=== PATIENT | female | born 1935 | race Caucasian/White ===

== ENCOUNTER 2017-05-18 20:11 | Emergency (ER) | payer OTHER ==
[~2017-05-18] VITALS: Ht 144.8 cm; Wt 51.6 kg
[~2017-05-18 20:11] MED LIST: ATOR10TA88 PO; ESCI10TA17 PO; METO25TA56 PO; PANT40TA PO; TRAZ50TA35 PO
[2017-05-18 20:19] VITALS: Ht 144.8 cm; Wt 51.6 kg
[2017-05-18] MEDS ORDERED: SODIUM CHLORIDE 0.9% 1000ML 1,000 ML IV STA (20:23)
[2017-05-18] MEDS ORDERED: PANT40TA PO (20:45)
[2017-05-18] MEDS ORDERED: TRAM-10 PO (20:45)
[2017-05-18] MEDS ORDERED: LISI10TA PO (20:45)
--- NOTE | 2017-05-18 20:50 | DIAGNOSTIC IMAGING REPORT ---
CHEST ONE VIEW PORTABLE HISTORY: Atypical chest pain, left upper abd pain, vomiting COMPARISON: Chest 03/13/2016. FINDINGS: Stable 1.5 cm nodule within the right upper lobe. This likely represents a calcified granuloma. The lungs are otherwise clear. Cardiac silhouette is normal in size. No pleural effusions. No pneumothorax. Large hiatus hernia is again noted. IMPRESSION: No acute process. Large hiatus hernia, unchanged. Electronically signed by: Orlin Miramontes M.D. 05/18/2017 8:49 PM Dictated Date/Time: 05/18/2017 8:47 PM
[2017-05-18 21:04] LABS: BASO % 0.2 %; BASO ABS # 0.01 K/uL (0-0.2); COMPLETE YES; EOS % 1.7 %; HEMATOCRIT 36.7 % (37-47); IG% 0.2 %; LYMPH % 21.4 %; LYMPH ABS # 1.37 K/uL (1.2-3.4); MEAN CELL VOLUME 81.6 fL (80-100); MEAN CORPUSCULAR HEMOGLOBIN 26.7 pg (25-34); MEAN CORPUSCULAR HGB CONC 32.7 g/dl (32-36); MEAN PLATELET VOLUME 10.7 fL (7.4-10.4); MONO % 5.3 %; NEUT % 71.2 %; PLATELET COUNT 129 K/uL (130-400); WHITE BLOOD COUNT 6.41 K/uL (4.8-10.8)
--- NOTE | 2017-05-18 21:41 | DIAGNOSTIC IMAGING REPORT ---
ABDOMEN AND PELVIS CT WITHOUT CONTRAST CT DOSE: 260.98 mGy.cm HISTORY: chest pain, LUQ abd pain, vomiting. TECHNIQUE: Multiaxial CT images of the abdomen and pelvis were performed without contrast. A dose lowering technique was utilized adhering to the principles of ALARA. COMPARISON STUDY: Abdomen and pelvis CT 03/13/2016. FINDINGS: Mild interstitial thickening at the lung bases which is likely chronic. Large hiatus hernia, unchanged. No pneumoperitoneum. No pneumatosis. Small fat-containing periumbilical hernia, unchanged. There is also a large gallstone, unchanged. No gallbladder wall thickening. The unenhanced liver, spleen, adrenal glands, and pancreas are unremarkable. No renal stones or hydronephrosis. There is a 13 mm hypodense lesion within the interpolar region of the left kidney. This is slightly increased in size. This favors a cyst. There are 2 fat-containing lesions within the left kidney with the largest in the lower pole measuring 1.4 cm. These are consistent with angiomyolipomas. The bladder appears unremarkable. No ureteral stones identified. Hysterectomy. Suboptimal evaluation for bowel pathology due to the lack of intravenous and oral contrast. However, there is no definite bowel wall thickening or obstruction. Extensive colonic diverticulosis. No retroperitoneal lymphadenopathy. Old severe L1 compression fracture is again noted. IMPRESSION: 1. No definite bowel wall thickening or obstruction. 2. Colonic diverticulosis. 3. Large hiatus hernia, unchanged. 4. Cholelithiasis, unchanged. 5. Additional findings as described above. Electronically signed by: Orlin Miramontes M.D. 05/18/2017 9:40 PM Dictated Date/Time: 05/18/2017 9:31 PM
[2017-05-18 21:45] LABS: ALKALINE PHOSPHATASE 48 U/L (45-117); ALT/SGPT 18 U/L (12-78); AST/SGOT 25 U/L (15-37); BLOOD UREA NITROGEN 17 mg/dl (7-18); BUN/CREATININE RATIO 15.5 (10-20); CARBON DIOXIDE 25 mmol/L (21-32); CHLORIDE 111 mmol/L (98-107); CKMB/CK RATIO 1.9 (0-3.0); GLUCOSE 144 mg/dl (70-99); POTASSIUM 3.8 mmol/L (3.5-5.1); SODIUM 142 mmol/L (136-145)
[2017-05-18 22:20] LABS: URINE APPEARANCE CLEAR (CLEAR); URINE BILIRUBIN NEG (NEG); URINE COLOR YELLOW; URINE NITRITE NEG (NEG); URINE SPECIFIC GRAVITY 1.018 (1.000-1.030); UROBILINOGEN NEG (NEG); ZZUR CULT IF INDIC CLEAN CATCH NO
[2017-05-18 22:22] LABS: MANUAL MICROSCOPIC REQUIRED? NO; REVIEW REQ? NO
[2017-05-18 22:57] LABS: MAGNESIUM 1.7 mg/dl (1.8-2.4)
[2017-05-18] MEDS ORDERED: PANTOprazole SOD 40 MG TAB ONE (22:58)
[2017-05-18] MEDS ORDERED: PANTOprazole SOD 40 MG TAB PO ONE (23:00)
[2017-05-18] MEDS ORDERED: MAGNESIUM SULFATE 1GM / D5W 1 GM in PREMIXED IN D5W 100 ML IV ONE (23:30)
[2017-05-18] MEDS ORDERED: MAGNESIUM SULFATE 1GM / D5W 1 GM BAG ONE (23:31)
--- NOTE | 2017-05-19 00:17 | EMERGENCY ROOM VISIT NOTE ---
History Report prepared by Amirahibjacques: Nati Trinh Under the Supervision of: Dr. Andi Tsai M.D. First contact with patient: 20:23 Chief Complaint: ABDOMINAL PAIN Stated Complaint: illness Nursing Triage Summary: "weak, lightheaded, diarrhea for a week, I think I have the flu. I lost 23 pounds in 2 weeks." c/o vomited, felt sweaty and dizzy tonight after having, pain LUQ, full sensation LLQ, feeling of food stuck in espophagus after eating supper (cucumbers, tomotoes, spaghetti, orange crush soda pop). [facility] 177 hr 44, pt doesn't know what her hr usu runs. History of Present Illness The patient is an 82 year old female who presents to the Emergency Room with complaints of left chest pain and LUQ abdominal pain that started this evening. She also complains of feeling weak, lightheaded and experiencing diarrhea, stating "I think I have the flu". She reports after eating dinner this evening, she began to feel dizzy, diaphoretic, nauseous and vomited. She also experienced LLQ abdominal pain and a feeling of something being stuck in her esophagus. She states she thought she was having a heart attack, so she called an ambulance. The patient denies any previous cardiac history. Pt denies LOC, headache, fevers, chills, visual changes, neck pain, breathing difficulties, back pain, melena, hematochezia, urinary symptoms, numbness, weakness, lymphadenopathy, rash, or other complaints. 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 A total of ten systems were reviewed and were otherwise negative. Past Medical & Surgical Medical Problems: (1) Hypertension (2) Kidney stone (3) Urinary problem Surgical Problems: (1) S/P hysterectomy Family History Hypertension Kidney disease Kidney stones Social History Smoking Status: Never Smoker Alcohol Use: none Drug Use: none Marital Status: Housing Status: lives with family Occupation Status: employed Current/Historical Medications Scheduled Atorvastatin (Lipitor), 10 MG PO DAILY Escitalopram (Lexapro), 10 MG PO DAILY Lisinopril (Prinivil), 10 MG PO DAILYBB Metoprolol Tartrate (Lopressor) (Lopressor), 12.5 MG PO BID Pantoprazole (Protonix), 40 MG PO DAILY Scheduled PRN Tramadol (Ultram), 50 MG PO Q8H PRN for Pain Allergies Coded Allergies: No Known Allergies (Verified , 03/13/16) Physical Exam Vital Signs Date Time Temp Pulse Resp B/P (MAP) Pulse Ox O2 Delivery O2 Flow Rate FiO2 05/18/17 22:33 41 16 133/64 94 Room Air 05/18/17 20:31 43 05/18/17 20:19 37.0 44 16 151/62 94 Room Air Physical Exam GENERAL: Awake, alert, well-appearing, in no distress HENT: Normocephalic, atraumatic. Oropharynx unremarkable. EYES: Normal conjunctiva. Sclera non-icteric. NECK: Supple. No nuchal rigidity. FROM. No JVD. RESPIRATORY: Clear to auscultation. CARDIAC: Bradycardic rate, normal rhythm. Extremities warm and well perfused. Pulses equal. ABDOMEN: Soft, non-distended. LUQ tenderness to palpation. No rebound or guarding. No masses. RECTAL: Deferred. MUSCULOSKELETAL: Chest examination reveals no tenderness. The back is symmetrical on inspection without obvious abnormality. There is no CVA tenderness to palpation. No joint edema. LOWER EXTREMITIES: Calves are equal size bilaterally and non-tender. No edema. No discoloration. NEURO: Normal sensorium. No sensory or motor deficits noted. SKIN: No rash or jaundice noted. Medical Decision & Procedures ER Provider Diagnostic Interpretation: Radiology results as stated below per my review and radiologist interpretation: CHEST ONE VIEW PORTABLE HISTORY: Atypical chest pain, left upper abd pain, vomiting COMPARISON: Chest 03/13/2016. FINDINGS: Stable 1.5 cm nodule within the right upper lobe. This likely represents a calcified granuloma. The lungs are otherwise clear. Cardiac silhouette is normal in size. No pleural effusions. No pneumothorax. Large hiatus hernia is again noted. IMPRESSION: No acute process. Large hiatus hernia, unchanged. Electronically signed by: Orlin Miramontes M.D. 05/18/2017 8:49 PM Dictated Date/Time: 05/18/2017 8:47 PM ABDOMEN AND PELVIS CT WITHOUT CONTRAST CT DOSE: 260.98 mGy.cm HISTORY: chest pain, LUQ abd pain, vomiting. TECHNIQUE: Multiaxial CT images of the abdomen and pelvis were performed without contrast. A dose lowering technique was utilized adhering to the principles of ALARA. COMPARISON STUDY: Abdomen and pelvis CT 03/13/2016. FINDINGS: Mild interstitial thickening at the lung bases which is likely chronic. Large hiatus hernia, unchanged. No pneumoperitoneum. No pneumatosis. Small fat-containing periumbilical hernia, unchanged. There is also a large gallstone, unchanged. No gallbladder wall thickening. The unenhanced liver, spleen, adrenal glands, and pancreas are unremarkable. No renal stones or hydronephrosis. There is a 13 mm hypodense lesion within the interpolar region of the left kidney. This is slightly increased in size. This favors a cyst. There are 2 fat-containing lesions within the left kidney with the largest in the lower pole measuring 1.4 cm. These are consistent with angiomyolipomas. The bladder appears unremarkable. No ureteral stones identified. Hysterectomy. Suboptimal evaluation for bowel pathology due to the lack of intravenous and oral contrast. However, there is no definite bowel wall thickening or obstruction. Extensive colonic diverticulosis. No retroperitoneal lymphadenopathy. Old severe L1 compression fracture is again noted. IMPRESSION: 1. No definite bowel wall thickening or obstruction. 2. Colonic diverticulosis. 3. Large hiatus hernia, unchanged. 4. Cholelithiasis, unchanged. 5. Additional findings as described above. Electronically signed by: Orlin Miramontes M.D. 05/18/2017 9:40 PM Dictated Date/Time: 05/18/2017 9:31 PM Laboratory Results 05/18/17 20:30 Red Blood Count 4.50, Mean Corpuscular Volume 81.6, Mean Corpuscular Hemoglobin 26.7, Mean Corpuscular Hemoglobin Concent 32.7, Mean Platelet Volume 10.7, Neutrophils (%) (Auto) 71.2, Lymphocytes (%) (Auto) 21.4, Monocytes (%) (Auto) 5.3, Eosinophils (%) (Auto) 1.7, Basophils (%) (Auto) 0.2, Neutrophils # (Auto) 4.57, Lymphocytes # (Auto) 1.37, Monocytes # (Auto) 0.34, Eosinophils # (Auto) 0.11, Basophils # (Auto) 0.01 05/18/17 20:30 Test 05/18/17 00:00 05/18/17 20:30 05/18/17 23:15 Urine Color YELLOW Urine Appearance CLEAR (CLEAR) Urine pH 5.0 (4.5-7.5) Urine Specific [place] 1.018 (1.000-1.030) Urine Protein NEG (NEG) Urine Glucose (UA) NEG (NEG) Urine Ketones NEG (NEG) Urine Occult Blood 1+ (NEG) Urine Nitrite NEG (NEG) Urine Bilirubin NEG (NEG) Urine Urobilinogen NEG (NEG) Urine Leukocyte Esterase MODERATE (NEG) Urine WBC (Auto) 1-5 /hpf (0-5) Urine RBC (Auto) 0-4 /hpf (0-4) Urine Hyaline Casts (Auto) 1-5 /lpf (0-5) Urine Epithelial Cells (Auto) 10-20 /lpf (0-5) Urine Bacteria (Auto) NEG (NEG) White Blood Count 6.41 K/uL (4.8-10.8) Red Blood Count 4.50 M/uL (4.2-5.4) Hemoglobin 12.0 g/dL (12.0-16.0) Hematocrit 36.7 % (37-47) Mean Corpuscular Volume 81.6 fL (80-100) Mean Corpuscular Hemoglobin 26.7 pg (25-34) Mean Corpuscular Hemoglobin Concent 32.7 g/dl (32-36) Platelet Count 129 K/uL (130-400) Mean Platelet Volume 10.7 fL (7.4-10.4) Neutrophils (%) (Auto) 71.2 % Lymphocytes (%) (Auto) 21.4 % Monocytes (%) (Auto) 5.3 % Eosinophils (%) (Auto) 1.7 % Basophils (%) (Auto) 0.2 % Neutrophils # (Auto) 4.57 K/uL (1.4-6.5) Lymphocytes # (Auto) 1.37 K/uL (1.2-3.4) Monocytes # (Auto) 0.34 K/uL (0.11-0.59) Eosinophils # (Auto) 0.11 K/uL (0-0.5) Basophils # (Auto) 0.01 K/uL (0-0.2) RDW Standard Deviation 44.7 fL (36.4-46.3) RDW Coefficient of Variation 15.1 % (11.5-14.5) Immature Granulocyte % (Auto) 0.2 % Immature Granulocyte # (Auto) 0.01 K/uL (0.00-0.02) Activated Partial Thromboplast Time 25.9 SECONDS (21.0-31.0) Partial Thromboplastin Ratio 1.0 Anion Gap 6.0 mmol/L (3-11) Est Creatinine Clear Calc Drug Dose 27.7 ml/min Estimated GFR () 54.5 Estimated GFR (Non- 47.0 BUN/Creatinine Ratio 15.5 (10-20) Calcium Level 8.0 mg/dl (8.5-10.1) Magnesium Level 1.7 mg/dl (1.8-2.4) Total Bilirubin 0.6 mg/dl (0.2-1) Direct Bilirubin 0.2 mg/dl (0-0.2) Aspartate Amino Transf (AST/SGOT) 25 U/L (15-37) Alanine Aminotransferase (ALT/SGPT) 18 U/L (12-78) Alkaline Phosphatase 48 U/L (45-117) Total Creatine Kinase 86 U/L (26-192) Creatine Kinase MB 1.6 ng/ml (0.5-3.6) Creatine Kinase MB Ratio 1.9 (0-3.0) Total Protein 6.5 gm/dl (6.4-8.2) Albumin 3.4 gm/dl (3.4-5.0) Lipase 297 U/L (73-393) Thyroid Stimulating Hormone (TSH) 1.540 uIu/ml (0.300-4.500) Chemistry Specimen Hemolysis Troponin I < 0.015 ng/ml (0-0.045) Laboratory results reviewed by me Medications Administered Medications (Trade) Dose Ordered Sig/Terri Route Start Time Stop Time Status Last Admin Dose Admin Sodium Chloride 1,000 ml @ 125 mls/hr Q8H STAT IV 05/18/17 20:23 05/18/17 22:50 DC 05/18/17 20:23 125 MLS/HR Pantoprazole Sodium (Protonix Tab) 40 mg STK-MED ONCE .ROUTE 05/18/17 22:58 05/18/17 22:59 DC 05/18/17 23:00 40 MG Magnesium Sulfate (Magnesium Sulfate) 1 gm STK-MED ONCE .ROUTE 05/18/17 23:31 05/18/17 23:32 DC 05/18/17 23:33 1 GM ECG Indication: abdominal pain Rate (beats per minute): 44 Rhythm: sinus bradycardia Findings: Q waves (Septal), no acute ischemic change, no ectopy Comparison ECG Date: 05/18/2017- prehospital Change: Sinus Robert, rate of 49, no ischemia, no ectopy. ED Course 2022: Ordered NSS 1000 ml @ 125 mls/hr IV. 2028: The patient was evaluated in room B10. A complete history and physical exam was performed. 2224: I reevaluated the patient and she was doing well. I discussed the results and future treatment plan with her. She verbalized understanding and agreement. 2232: Discussed the patient's case with Dr. Goncalves. The patient will be evaluated for further treatment and disposition. Medical Decision Triage Nursing notes reviewed. The patient's presentation and history were concerning for abdominal and chest pain. Etiologies such as cardiac ischemia, obstruction, peptic ulcer disease, esophageal food impaction, gastritis, aortic dissection, pulmonary embolism, pneumonia, pneumothorax, musculoskeletal, infections, gastrointestinal, as well as others were entertained. The patient was evaluated. She noted discomfort in the left chest and left upper quadrant. The patient noted symptoms resolved just prior to my evaluation. She declined any analgesia. Blood work, ECG, and imaging were ordered. She was found to be bradycardic. The patient's CBC, chemistry panel, urinalysis and cardiac markers were unremarkable. The patient's chest x-ray did not reveal any acute findings. CT scan of the abdomen pelvis revealed a hiatal hernia without acute intra-abdominal findings. On reassessment the patient is doing relatively well. Given the profound feelings of illness and chest discomfort the patient experienced I discussed further evaluation and management in the hospital. The patient was in agreement. The case was discussed with internal medicine. She was evaluated in the Emergency Room for further management. Medication Reconcilliation Current Medication List: was personally reviewed by me Blood Pressure Screening Patient's blood pressure: Elevated blood pressure Blood pressure disposition: Referred to PCP Consults Time Called: 2221 Consulting Physician: Dr. Cecilia Merida Returned Call: [phone] Discussed the patient's case with Dr. Goncalves. The patient will be evaluated for further treatment and disposition. Impression Primary Impression: Chest pain Additional Impression: Abdominal pain, left upper quadrant Scribe Attestation The scribe's documentation has been prepared under my direction and personally reviewed by me in its entirety. I confirm that the note above accurately reflects all work, treatment, procedures, and medical decision making performed by me. Departure Information Dispostion Being Evaluated By Hospitalist Referrals No Doctor, Assigned (PCP) Patient Instructions My [facility] Problem Qualifiers
[2017-05-19 01:06] VITALS: BP 131/69; PULSE 44; TEMP 37; O2SAT 97
--- NOTE | 2017-05-19 05:42 | INTERNAL MEDICINE CONSULTATION ---
DATE OF CONSULTATION: 05/19/2017 PRIMARY CARE DOCTOR: Dr. oG. The patient seen seen upon on another course at the request of Dr. Tsai for evaluation of chest pain. HISTORY OF PRESENT ILLNESS: History obtained from patient and records. Medical history significant for hypertension, hyperlipidemia, chronic bradycardia, GERD, hiatal hernia, kidney stones, mood disorder. History of impaired glucose tolerance as per records. Recent confinement December 2009 for left ureteral calculus and hydronephrosis, complicated UTI. The patient discharged on antibiotics. Two weeks ago, patient had a self-limiting vomiting and diarrhea illness. Yesterday after a meal, the patient noted burning left upper quadrant pain going to her chest. No shortness of breath. similar to reflux episodes. spontaneous relief in the Emergency Room. Px has not been taking daily Protonix at home. MEDICAL HISTORY: As above. EGD in December 2009 showed normal stomach, hiatal hernia, mild Schatzki's ring.. A 2D echo from June 2013 showed left atrial enlargement, thickened mitral valve calcification, EF 65%, diastolic dysfunction. Cardiac catheterization at [facility] showed clean coronary arteries. SURGERIES: She has had urologic procedures, hysterectomy. HOME MEDICATIONS: Include Lipitor, Lexapro, Prinivil, Lopressor, Protonix, Ultram. ALLERGIES: No known drug allergies. FAMILY HISTORY: Hypertension, kidney stones. PERSONAL AND SOCIAL HISTORY: Nonsmoker, no chronic intake of alcoholic beverages. Lives alone. REVIEW OF SYSTEMS: As per HPI, all other ROS negative. PHYSICAL EXAMINATION: VITAL SIGNS: Blood pressure was noted to be 151/70 later 120/80, pulse rate 41, RR 16, T 37 O2sats 95 on room air. GENERAL: Noted to be comfortable, no respiratory distress, slightly anxious. SKIN: Normal color. HEENT: [place] palpebral conjunctivae. Dry mucosa. NECK: No JVD. Supple. CHEST: Clear to auscultation. HEART: Bradycardic. ABDOMEN: Soft, nontender. EXTREMITIES: No edema. No tenderness NEUROLOGIC: No gross focality. LABS: Hemoglobin was noted to be 12, hematocrit 36.7, white cell count 6.4, platelets 129. Sodium 140, potassium 3.8, chloride 111, CO2 of 25, BUN 70, creatinine 1.1, glucose was noted to be 144. Troponin 2 sets normal. EKG as per my interpretation sinus bradycardia, PACs. Chest x-ray showed large hiatal hernia. No acute process. CT abdomen and pelvis, colonic diverticulosis, cholelithiasis unchanged. ASSESSMENT: 1. Atypical chest pain, likely secondary to GERD Large hiatal hernia on imaging, home PPI noncompliance Doubt acute coronary syndrome given clinical history and two negative serial troponin determinations. 2. Hypertension, stable. 3. Chronic bradycardia. 4. Thrombocytopenia, possibly secondary to recent viral illness, no evidence of bleeding. RECOMMENDATIONS: No indication for hospitalization. Patient comfortable going home. Recommend daily intake of home PPI prescribed by primary care doctor. Outpatient followup with PCP next week. Repeat CBC to follow platelet levels. Patient was instructed to return to the ER for recurrence of pain, chest pain, shortness of breath. Patient expressed understanding and was amenable to the plan of care. Thank you very much for this consultation. ANIKET
== END 2017-05-19 01:06 | disposition home or self-care (01) ==
LOC: EDBD 20:11 → C.EDB 20:13
DX: R07.89 Other chest pain (principal); K57.92 Diverticulitis of intestine, part unspecified, without perforation or abscess without bleeding; K44.9 Diaphragmatic hernia without obstruction or gangrene; K80.20 Calculus of gallbladder without cholecystitis without obstruction; R10.12 Left upper quadrant pain; I10 Essential (primary) hypertension; R00.1 Bradycardia, unspecified; D69.6 Thrombocytopenia, unspecified; R42 Dizziness and giddiness; R19.7 Diarrhea, unspecified; Z79.899 Other long term (current) drug therapy

== ENCOUNTER 2024-10-24 14:36 | Inpatient (IN) ==
[2024-10-24 15:35] LABS: Basophils # (auto) 0.01 K/uL (0.00-0.20); Basophils % (auto) 0.3 %; Eosinophils # (auto) 0.01 K/uL (0.00-0.50); Eosinophils % (auto) 0.3 %; Hematocrit (blood only) 34.2 % (37.0-47.0); Hemoglobin 10.8 g/dl (12.0-16.0); Immature Granulocytes # (auto) 0.01 K/uL (0.01-0.20); Immature Granulocytes % (auto) 0.3 %; Lymphocytes # (auto) 1.05 K/uL (1.20-3.40); Lymphocytes % (auto) 27.4 %; Mean Corpuscular Hemoglobin 28.3 pg (25.0-34.0); Mean Corpuscular Hgb Conc 31.6 g/dL (32.0-36.0); Mean Corpuscular Volume 89.5 fL (80.0-100.0); Mean Platelet Volume 9.8 fL (9.4-12.4); Monocytes # (auto) 0.33 K/uL (0.11-0.59); Monocytes % (auto) 8.6 %; Neutrophils # (auto) 2.42 K/uL (1.40-6.50); Neutrophils % (auto) 63.1 %; Platelet Count 178 K/uL (130-400); RDW Coefficient of Variation 17.3 % (11.5-14.5); RDW Standard Deviation 55.9 fL (36.4-46.3); Red Blood Count 3.82 M/uL (4.20-5.40); White Blood Count 3.83 K/ul (4.8-10.8)
[2024-10-24 15:50] LABS: Albumin Globulin Ratio 1.4 (0.9-2); Albumin Level 4.2 gm/dl (3.4-5.0); BUN Creatinine Ratio 19.5 (10-20); Bilirubin,Total 0.7 mg/dl (0.2-1.0); Calcium 9.2 mg/dl (8.6-10.3); Creatinine Clr Calc Pharmacy 32.1 ml/min; Globulin 2.9 gm/dl (2.5-4.0); Magnesium 1.7 mg/dl (1.7-2.4); Potassium 3.6 mmol/L (3.5-5.1); Total Protein 7.1 gm/dl (6.0-8.3)
[2024-10-24 15:55] LABS: Troponin I High Sensitivity 15.4 pg/ml (0-14)
[2024-10-24 16:00] LABS: Prothrombin Time 10.8 Seconds (9.0-12.0)
[2024-10-24 16:04] LABS: Thyroid Stimulating Hormone 1.112 uIu/ml (0.300-4.500)
--- NOTE | 2024-10-24 16:18 | XRay Report ---
XR chest 1V portable CLINICAL HISTORY: weakness COMPARISON STUDY: 10/02/2024 FINDINGS: Stable cardiomegaly without pulmonary vascular congestion. There is a large hiatal hernia, grossly stable compared with the CT of 10/02/2024. There is stable mild atelectasis in the lung bases . No new consolidation or pleural effusion. No pneumothorax. IMPRESSION: No acute findings. ACT 112: Negative or not required by law. Electronically signed by: Kenneth Patel M.D. 10/24/2024 3:18 PM
--- NOTE | 2024-10-24 16:18 | CT Scan Report ---
CT lumbar spine wo con CLINICAL HISTORY: low back pain, hx fall, AMS COMPARISON STUDY: 10/02/2024 FINDINGS: There is stable severe height loss at the T11 and L1 vertebral bodies. No interval lumbar s pine fracture seen. Stable grade 1 anterolisthesis of L4 4 on 5 and L5 on S1. Stable moderate bilater al neural foraminal narrowing at L5-S1. Stable few scattered bone islands. Stable at least mild centr al canal narrowing at L4-5. IMPRESSION: 1. No acute lumbar spine fracture seen. 2. Stable old fractures and degenerative changes. ACT 112: Negative or not required by law. Electronically signed by: Kenneth Patel M.D. 10/24/2024 3:48 PM
--- NOTE | 2024-10-24 16:18 | CT Scan Report ---
CT head/brain wo con CLINICAL HISTORY: Ams. TECHNIQUE: Multiple axial CT images of the head were obtained without contrast. A dose lowering tech nique was utilized adhering to the principles of ALARA. CT DOSE: 1295.76 mGy.cm COMPARISON: 10/02/2024 FINDINGS: No intracranial hemorrhage seen. No mass effect, midline shift, or hydrocephalus. Stable mi ld chronic small vessel ischemic changes. No skull fracture. There is interval fluid and mucosal thic kening at the left maxillary sinus consistent with sinusitis. IMPRESSION: 1. No acute intracranial abnormality. 2. Left maxillary sinusitis. ACT 112: Negative or not required by law. The above report was generated using voice recognition software. It may contain grammatical, syntax o r spelling errors. Electronically signed by: Kenneth Patel M.D. 10/24/2024 3:42 PM
--- NOTE | 2024-10-24 16:19 | CT Scan Report ---
ABDOMEN AND PELVIS CT WITHOUT CONTRAST HISTORY: Acute right flank pain right flank pain, AMS TECHNIQUE: Multiaxial CT images of the abdomen and pelvis were performed without contrast. A dose lo wering technique was utilized adhering to the principles of ALARA. COMPARISON STUDY: CT lumbar spine of same day, CT abdomen and pelvis 10/02/2024 FINDINGS: Cardiomegaly with coronary arterial calcifications. Large hiatal hernia with majority of th e stomach within the thoracic cavity. Mild bibasilar atelectasis versus scarring. No pneumatosis or p neumoperitoneum. The unenhanced spleen, pancreas and adrenal glands are unremarkable. Unchanged appearance of the larg e gallstone. No CT evidence of acute cholecystitis. Liver is within normal limits. Cortical thinning of the kidneys. 1.4 cm angiomyolipoma in the lateral interpolar left kidney with additional 1.8 cm AM L of the inferior pole. 2.6 cm cyst of the superior pole left kidney. 1.2 cm AML the lateral interpol ar right kidney. No urolith or hydronephrosis. Urinary bladder wall thickening with partial distention. Atherosclerosis of the aorta without aneurys m. No lymphadenopathy. Colonic diverticulosis without acute diverticulitis. There are a few fat fille d small abdominal hernias with diastases measuring up to 1.4 cm. Degenerative changes of the spine. T 11 and L1 compression deformities/burst fractures with retropulsion redemonstrated which are unchange d from the prior study and favored to be chronic. IMPRESSION: 1. No renal or ureteral calculi or hydronephrosis. 2. No bowel obstruction or bowel wall thickening. 3. Large hiatal hernia. 4. Colonic diverticulosis. 5. Bilateral renal angiomyolipomata. 6. Cholelithiasis. 7. Additional findings as above. ACT 112: Negative or not required by law. The above report was generated using voice recognition software. It may contain grammatical, syntax o r spelling errors. Electronically signed by: Mickey Schneider M.D. 10/24/2024 3:59 PM
[2024-10-24 16:22] LABS: Adenovirus PCR Not Detected (NotDetected); Bordetella parapertussis PCR Not Detected (NotDetected); Bordetella pertussis PCR Not Detected (NotDetected); Chlamydia pneumoniae PCR Not Detected (NotDetected); Coronavirus 229E PCR Not Detected (NotDetected); Coronavirus CoV-2 (COVID19)PCR DETECTED (NotDetected); Coronavirus HKU1 PCR Not Detected (NotDetected); Coronavirus NL63 PCR Not Detected (NotDetected); Coronavirus OC43PCR Not Detected (NotDetected); Human Metapneumovirus PCR Not Detected (NotDetected); Influenza A PCR Not Detected (NotDetected); Influenza B PCR Not Detected (NotDetected); Mycoplasma pneumoniae PCR Not Detected (NotDetected); Parainfluenza Virus 1 PCR Not Detected (NotDetected); Parainfluenza Virus 2 PCR Not Detected (NotDetected); Parainfluenza Virus 3 PCR Not Detected (NotDetected); Parainfluenza Virus 4 PCR Not Detected (NotDetected); Respiratory Syncytial VirusPCR Not Detected (NotDetected); Rhinovirus/Enterovirus PCR Not Detected (NotDetected)
--- NOTE | 2024-10-24 17:50 | History & Physical Report ---
Date of Service October 24, 2024 Assessment & Plan (1) Unable to care for self: (2) Fracture of right tibial plateau: (3) COVID-19: (4) Hypertension: (5) Bradycardia: (6) Elevated troponin: Plan This is an 89-year-old female who has a significant past medical history of HTN, HLD, prediabetes, history of SVT, aortic stenosis, GERD, angiomyolipoma of both kidneys, osteoporosis and depression who presents to ED secondary to referral from office of aging due to performance of wellness check and patient found confused. #Unable to care for self at home #S/P recent R tibial plateau fx w/p ORIF by Dr. Sevilla [facility] admit to med tele pt recently hospitalized 10/03-10/14 at [facility] due to fracture above, discharged to [facility] where pt left AMA to live at home Pt is to be TTWB to RLE with knee immobilizer on at all times, according to daughter she has been full weight bearing and going up/down steps Incision appears to be healing well, sutures still intact, I suspect these are going to need removed shortly She has not followed up with orthopedics, will obtain updated R knee XR - may need to contact Ortho salesperson floor coverings at [place] #Sars COV-2 asymptomatic, daughter reports + test at [facility] earlier this week iso precautions, no treatment recommended #Elevated Troponin #ECG changes #Bradycardia (per daughter chronic for pt) cycle trops, repeat ECG in a.m. pt w/o chest pain obtain echocardiogram, consider cardiology consult in a.m. depending on trops/ echo #Acute L sinusitis per CT treat with amoxicillin 500mg TID x 7 days #HTN continue amlodipine pt has not been taking her medications #HLD continue atorvastatin #DVT ppx: SQ Lovenox FULL CODE PCP: Dr. Go Dispo: admit to med/tele while undergoing cardiac work up, PT/OT, CM involvement needed, pt is not capable of caring for self at home and will need further SNF placement, daughter agrees Pt was seen and examined in collaboration with Dr. Douglas, please see addendum I spent a total of 76 minutes reviewing notes, outpatient records, labs, medication, coordinating, documenting and providing care for this patient excluding time spent in the performance of separately billed services. History of Present Illness Chief Complaint: Referred via EMS / [facility] wellness check and confusion/concern for living at home. Primary Care Provider: Richard Arlington This is an 89-year-old female who has a significant past medical history of HTN, HLD, prediabetes, history of SVT, aortic stenosis, GERD, angiomyolipoma of both kidneys, osteoporosis and depression who presents to ED secondary to referral from office of aging due to performance of wellness check and patient found confused. Of significance patient was recently hospitalized 10/03 to 10/14/2024 at [facility] due to a fall in which she sustained a right tibial plateau fracture. She underwent ORIF of the right tibial plateau fracture on 10/03. Her hospital course was complicated with acute blood loss anemia and discharge and hemoglobin was 9.4. Ortho recommended that patient wear a right knee immobilizer at all times and she may not bear weight on the right leg except for toe touch for up to 8 weeks. She will need close follow-up with orthopedics at discharge. Her blood pressure was noted to be elevated throughout admission and she was started on amlodipine 5 mg daily. She was [facility] [place] [facility].ROS and history difficult to obtain from patient secondary to hearing status. Discussion was had with daughter. She states that she was only at her side for a few days and she opted to be discharged home AGAINST MEDICAL ADVICE. Daughter has concerns of patient being on her own. Her granddaughter had been checking on her. She reports that she has been bearing weight and going up and down the steps on that right leg in her house. Daughter was unaware that she was to be nonweightbearing of that leg. Patient has not followed up with orthopedics since discharge. Daughter reports patient was seen in [facility] approximately 5 days ago due to feeling short of breath. She tested positive for COVID at that time. Patient currently denies any fever, chills, sweats, chest pain, shortness of breath, nausea, vomiting, abdominal pain, change in her bowel or urinary habits, sinus congestion or sinus pressure. In ED patient remained hemodynamically stable. She was bradycardic. According to daughter her heart rate always runs in the 50s. Her CBC, CMP and UA was generally unremarkable. She remains positive for SARS-CoV-2. Her troponin was mildly elevated at 15. Allergies Allergy/AdvReac Type Severity Reaction Status Date / Time No Known Allergies Allergy Unknown Verified 03/13/16 07:10 Home Medications Medication Instructions Recorded Confirmed Type alendronate 70 mg tablet 70 mg PO Q7D 10/24/24 10/24/24 History amlodipine 5 mg tablet 5 mg PO DAILY 10/24/24 10/24/24 History atorvastatin 10 mg tablet 10 mg PO DAILY 10/24/24 10/24/24 History cholecalciferol (vitamin D3) 25 25 mcg PO DAILY 10/24/24 10/24/24 History mcg (1,000 unit) capsule docusate sodium 100 mg capsule 100 mg PO BID 10/24/24 10/24/24 History escitalopram oxalate 10 mg tablet 10 mg PO DAILY 10/24/24 10/24/24 History fluticasone propionate 50 1 spray intranasal BID 10/24/24 10/24/24 History mcg/actuation nasal spray,suspension oxycodone 5 mg tablet 5 mg PO Q4H PRN Pain 10/24/24 10/24/24 History pantoprazole 40 mg tablet,delayed 40 mg PO DAILY 10/24/24 10/24/24 History release Past Med/Surg History Problem List (Updated 10/24/24 @ 19:04 by Daisha Salazar PA-C) Elevated troponin Fracture of right tibial plateau Unable to care for self Altered mental status (Acute) COVID-19 (Acute) Bradycardia (Acute) Hypertension (Chronic) Social History Smoking Status: Former smoker Preferred Language: Serbian Feels Safe at Home: Yes Review of Systems Review of Systems: All systems reviewed & are unremarkable except as noted in HPI & below Physical Exam Physical Exam: Constitutional: Elderly F, appears unkempt, very [place], vitals as above, NAD, sitting up in bed, pleasant, Head: Normocephalic, Atraumatic Eyes: PERRL, conjunctivae normal, anicteric sclerae ENMT: external ear and nose normal, oropharynx dry Neck: trachea midline, no thyromegaly normal visual inspection Respiratory: normal respiratory effort, lungs clear to auscultation, no wheeze, rales, rhonchi. Normal insp/exp effort, no accessory muscle use Cardiovascular: bradycardic rate, regular rhythm, no murmur, no edema Vessels: no JVD or carotid bruit Chest: normal inspection of chest Abdomen: normal bowel sounds, soft, nontender, no hepatosplenomegaly Musculoskeletal: no cyanosis or clubbing, RLE immobilizer in place, this was removed and incision is healing well w/o erythema, sutures remain in tact Skin: no rashes, warm and dry normal turgor Neurologic: PERRL, EOMI, accommodation nl, no face palsy, no dysarthria CN's II-XI intact bilaterally and moves all extremities Psychiatric: A+Ox3 to basics, she wasn't oriented to month, , euthymic affect Lymphatic: no cervical or axillary lymphadenopathy : deferred Results & Data Results & Data Vital Signs (Past 12 Hours) Vital Signs Temp Pulse Pulse Resp BP BP Pulse Ox 10/24/24 15:54 55 L 10/24/24 15:53 55 L 20 122/76 98 10/24/24 15:45 10/24/24 15:18 10/24/24 14:45 36.9 C 52 L 24 167/103 H 94 O2 Del Method 10/24/24 15:54 10/24/24 15:53 Room Air 10/24/24 15:45 Room Air 10/24/24 15:18 Room Air 10/24/24 14:45 Room Air Laboratory Results I have independently reviewed and interpreted patient's admitting labs including CBC, CMP, PT/INR, mag, ck, tsh, resp biofire, and troponin. Appears unchanged from 10/15 ECG; however 10/02/24 revealed no lateral t wave inversion Diagnostic Findings Chest X-Ray 10/24/24 14:51 XR chest 1V portable CLINICAL HISTORY: weakness COMPARISON STUDY: 10/02/2024 FINDINGS: Stable cardiomegaly without pulmonary vascular congestion. There is a large hiatal hernia, grossly stable compared with the CT of 10/02/2024. There is stable mild atelectasis in the lung bases. No new consolidation or pleural effusion. No pneumothorax. IMPRESSION: No acute findings. ACT 112: Negative or not required by law. Electronically signed by: Kenneth Patel M.D. 10/24/2024 3:[address] 10/24/24 14:57 CT head/brain wo con CLINICAL HISTORY: Ams. TECHNIQUE: Multiple axial CT images of the head were obtained without contrast. A dose lowering technique was utilized adhering to the principles of ALARA. CT DOSE: 1295.76 mGy.cm COMPARISON: 10/02/2024 FINDINGS: No intracranial hemorrhage seen. No mass effect, midline shift, or hydrocephalus. Stable mild chronic small vessel ischemic changes. No skull fracture. There is interval fluid and mucosal thickening at the left maxillary sinus consistent with sinusitis. IMPRESSION: 1. No acute intracranial abnormality. 2. Left maxillary sinusitis. ACT 112: Negative or not required by law. The above report was generated using voice recognition software. It may contain grammatical, syntax or spelling errors. Electronically signed by: Kenneth Patel M.D. 10/24/2024 3:42 PM Abdomen/Pelvis CT 10/24/24 15:[address] WITHOUT CONTRAST HISTORY: Acute right flank pain right flank pain, AMS TECHNIQUE: Multiaxial CT images of the abdomen and pelvis were performed without contrast. A dose lowering technique was utilized adhering to the principles of ALARA. COMPARISON STUDY: CT lumbar spine of same day, CT abdomen and pelvis 10/02/2024 FINDINGS: Cardiomegaly with coronary arterial calcifications. Large hiatal hernia with majority of the stomach within the thoracic cavity. Mild bibasilar atelectasis versus scarring. No pneumatosis or pneumoperitoneum. The unenhanced spleen, pancreas and adrenal glands are unremarkable. Unchanged appearance of the large gallstone. No CT evidence of acute cholecystitis. Liver is within normal limits. Cortical thinning of the kidneys. 1.4 cm angiomyolipoma in the lateral interpolar left kidney with additional 1.8 cm AML of the inferior pole. 2.6 cm cyst of the superior pole left kidney. 1.2 cm AML the lateral interpolar right kidney. No urolith or hydronephrosis. Urinary bladder wall thickening with partial distention. Atherosclerosis of the aorta without aneurysm. No lymphadenopathy. Colonic diverticulosis without acute diverticulitis. There are a few fat filled small abdominal hernias with diastases measuring up to 1.4 cm. Degenerative changes of the spine. T11 and L1 compression deformities/burst fractures with retropulsion redemonstrated which are unchanged from the prior study and favored to be chronic. IMPRESSION: 1. No renal or ureteral calculi or hydronephrosis. 2. No bowel obstruction or bowel wall thickening. 3. Large hiatal hernia. 4. Colonic diverticulosis. 5. Bilateral renal angiomyolipomata. 6. Cholelithiasis. 7. Additional findings as above. ACT 112: Negative or not required by law. The above report was generated using voice recognition software. It may contain grammatical, syntax or spelling errors. Electronically signed by: Mickey Schneider M.D. 10/24/2024 3:[address] 10/24/24 15:05 CT lumbar spine wo con CLINICAL HISTORY: low back pain, hx fall, AMS COMPARISON STUDY: 10/02/2024 FINDINGS: There is stable severe height loss at the T11 and L1 vertebral bodies. No interval lumbar spine fracture seen. Stable grade 1 anterolisthesis of L4 4 on 5 and L5 on S1. Stable moderate bilateral neural foraminal narrowing at L5- S1. Stable few scattered bone islands. Stable at least mild central canal narrowing at L4-5. IMPRESSION: 1. No acute lumbar spine fracture seen. 2. Stable old fractures and degenerative changes. ACT 112: Negative or not required by law. Electronically signed by: Kenneth Patel M.D. 10/24/2024 3:48 PM ECG Additional Comments: I have independently reviewed and interpreted patient's admitting EKG which revealed: 53 SB with marked sinus arrhythmia. marked t wave inversions leads V3-V6 and II appears unchanged from previous COVID-19 Results Results COVID-19 Adm Lab Results: RBC 3.82 M/uL (4.20-5.40) L 10/24/24 WBC 3.83 K/ul (4.8-10.8) L 10/24/24 Hgb 10.8 g/dl (12.0-16.0) L 10/24/24 Hct 34.2 % (37.0-47.0) L 10/24/24 Plt Count 178 K/uL (130-400) 10/24/24 Neutrophils (%) (Auto) 63.1 % 10/24/24 Lymphocytes (%) (Auto) 27.4 % 10/24/24 Monocytes # (Auto) 0.33 K/uL (0.11-0.59) 10/24/24 Eosinophils # (Auto) 0.01 K/uL (0.00-0.50) 10/24/24 Neutrophils # (Auto) 2.42 K/uL (1.40-6.50) 10/24/24 Lymphocytes # (Auto) 1.05 K/uL (1.20-3.40) L 10/24/24 Monocytes # (Auto) 0.33 K/uL (0.11-0.59) 10/24/24 Eosinophils # (Auto) 0.01 K/uL (0.00-0.50) 10/24/24 Basophils # (Auto) 0.01 K/uL (0.00-0.20) 10/24/24 Immature Granulocyte # (Auto) 0.01 K/uL (0.01-0.20) 5 Na 139 mmol/L (136-145) 10/24/24 K 3.6 mmol/L (3.5-5.1) 10/24/24 Cl 105 mmol/L (98-107) 10/24/24 CO2 23 mmol/L (21-32) 10/24/24 Anion Gap 11 (3-11) 10/24/24 BUN 17 mg/dl (6-23) 10/24/24 Creatinine 0.87 mg/dl (0.6-1.2) 10/24/24 BUN/Creatinine Ratio 19.5 (10-20) 10/24/24 Glucose Level 96 mg/dl (70-99(Fasting)) 10/24/24 Ca 9.2 mg/dl (8.6-10.3) 10/24/24 Total Bilirubin 0.7 mg/dl (0.2-1.0) 10/24/24 AST/SGOT 22 U/L (13-39) 10/24/24 ALT/SGPT 14 U/L (7-52) 10/24/24 Alkaline Phosphatase 82 U/L (34-104) 10/24/24 Total Protein 7.1 gm/dl (6.0-8.3) 10/24/24 Albumin 4.2 gm/dl (3.4-5.0) 10/24/24 Globulin 2.9 gm/dl (2.5-4.0) 10/24/24 Albumin/Globulin Ratio 1.4 (0.9-2) 10/24/24 Total CK 38 U/L (26-192) 10/24/24 INR 1.0 (0.9-1.1) 10/24/24 Adenovirus (PCR) Not Detected (NotDetected) 10/24/24 B. parapertussis DNA (PCR) Not Detected (NotDetected) 10/15 B. pertussis DNA (PCR) Not Detected (NotDetected) 10/24/24 C. pneumoniae DNA (PCR) Not Detected (NotDetected) 5 Coronavirus Type OC43 (PCR) Not Detected (NotDetected) 08/08 Coronavirus Type HKU1 (PCR) Not Detected (NotDetected) 08/08 Coronavirus Type 229E (PCR) Not Detected (NotDetected) 08/08 COVID-19 PCR DETECTED (NotDetected) A 10/24/24 Coronavirus Type NL63 (PCR) Not Detected (NotDetected) 08/08 Human Metapneumovirus (PCR) Not Detected (NotDetected) 08/08 Influenza Virus Type A (PCR) Not Detected (NotDetected) Influenza Virus Type B (PCR) Not Detected (NotDetected) M. pneumoniae (PCR) Not Detected (NotDetected) 10/24/24 Parainfluenza Type 1 (PCR) Not Detected (NotDetected) 10/15 Parainfluenza Type 2 (PCR) Not Detected (NotDetected) 10/15 Parainfluenza Type 3 (PCR) Not Detected (NotDetected) 10/15 Parainfluenza Type 4 (PCR) Not Detected (NotDetected) 10/15 RSV (PCR) Not Detected (NotDetected) 10/24/24 Enterovirus/Rhinovirus (PCR) Not Detected (NotDetected) Chest X-Ray 10/24/24 Code Status & VTE Plan Code Status FULL CODE - discussed with daughter Enedina Supervising Physician Co-Signing Physician Notes Attending Addendum: Case reviewed with the advanced practitioner. I have personally performed a history and physical examination on the patient. I have reviewed the advanced practitioner's documentation on the date of service referenced in note, and I agree with, and take responsibility for the plan of care. please refer to her notes for full details patient seen and examined, records reviewed by myself as well on exam, patient seen resting in bed, comfortable, in good spirits denies cough, shortness of breath, nasal drainage, chest pain no other symptoms VS noted and reviewed oriented x 3, not in distress, speaks in sentences with no effort nor accessory muscle use normal rate, regular rhythm, no murmurs clear breath sounds bilaterally non distended, soft, nontender no bipedal edema, erythema, warmth no neuro deficits all labs, imaging noted and reviewed ASSESSMENT AND PLAN> INABILITY FOR SELF CARE AT HOME recent knee surgery manager utilization management consulted COVID 19 INFECTION first diagnosed last Sunday (5 days ago) asymptomatic CXR no pneumonia supportive care T WAVE DEPRESSIONS INFERIOR, ANTEROLATERAL LEADS new compared to 09/2024 no cardiac symptoms trend troponin echo other diagnoses and plan of care as per advanced practitioner's notes Jack Douglas MD
--- NOTE | 2024-10-24 18:28 | Emergency Department Note ---
Impression & Plan COVID-19, Altered mental status ED Provider Note NAME: LYNN BUCK AGE: 89 SEX: Female INFORMANT: Patient and EMS ED PROVIDER(S): Andi Tsai MD CHIEF COMPLAINT: Altered mental status PLAN: Disposition: Admitted Outpatient prescription management: none Referral: None MEDICAL DECISION MAKING: Patient presented workup was initiated. CT imaging of the head and abdomen pelvis did not reveal any acute findings. The patient had an unremarkable CBC and chemistry panel except for mild anemia. Cardiac troponin was borderline. BioFire was significant for COVID-19. Urinalysis is pending. The patient has stable vital signs at this time. Given the confusion, the fact she lives alone, acute COVID-19 infection and postop state further management in the hospital was deemed appropriate. [facility] Patient was valuated in the ER admitted for further management. 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 Triage Nursing notes: reviewed and agree them. Vital Signs: reviewed and remarkable for no significant abnormalities Additional History obtained from: EMS Chronic Medical/Social Conditions affecting care: Hypertension Prior/ Outside/ External records reviewed: none Differential Diagnosis: Infection, hypoglycemia, electrolyte abnormalities, overdose, toxicologic, cardiac sources, intracerebral event, neurologic, trauma, as well as other pathologies. Diagnostics, independently interpreted by me: ECG: Twelve-lead ECG reveals sinus bradycardia with sinus arrhythmia at 53 bpm. There is inferior and anterolateral ST-T wave changes present. When compared to last ECG of 10/15/2024 there is no significant change. Cardiac Monitoring: Cardiac monitoring ordered by me: The patient was placed on continuous cardiac monitoring and observed. It revealed sinus bradycardic rhythm at 54 bpm. Medical decision rules: none Imaging studies: Head CT: A noncontrast CT scan of the head was performed and was negative for tumor, fracture, intracranial hemorrhage, or other acute pathology. Chest x-ray. Findings: A chest x-ray was performed and revealed no pneumothorax, effusion, infiltrate, pulmonary edema, free air under the diaphragm, or wide mediastinum. Impression: No acute disease. CT scan of the abdomen pelvis reveals no evidence of acute intra-abdominal pathology. CT scan of the lumbar spine reveals old significant compression fractures without acute injury per radiology. I refer you to the EMR for further details. HPI: 89 year old Female arrives for evaluation of altered mental status. Patient was recently treated at [facility] for a right lower leg fracture and was at [facility]. Patient had a wellness check and was reported to be wearing same clothes for the last week. She was not really eating her meals that were delivered. Patient denied any new falls or trauma. She did complain of some mild right flank pain. She also was feeling generally weak. Patient does have difficulty giving any detailed information to questioning therefore history is somewhat limited. Pt denies LOC, headache, visual changes, neck pain, chest pain, breathing difficulties, nausea, vomiting, new extremity pain, numbness, open wounds, active bleeding, or other complaints. PAST MEDICAL HISTORY: See Below, hypertension PAST SURGICAL HISTORY: See Below, hysterectomy, ORIF of right tibia fracture SOCIAL HISTORY: See Below, lives alone HOME MEDICATIONS: See Below ALLERGIES: See Below VITALS: See Below PHYSICAL EXAMINATION: GENERAL: Awake, alert, [id number], in no distress HENT: Normocephalic, atraumatic. Oropharynx unremarkable. EYES: Normal conjunctiva. Sclera non-icteric. NECK: Inspection normal. Non-tender. Supple. No nuchal rigidity. FROM. No masses. RESPIRATORY: Clear to auscultation. No wheezes. No rales. Normal respiratory effort. CARDIAC: Borderline bradycardic rate. Normal rhythm. No murmurs. No rubs. Extremities warm and well perfused. Pulses equal. No JVD. GI: Soft, non-distended. No tenderness to palpation. No rebound or guarding. No masses. RECTAL: Deferred. MUSCULOSKELETAL: Atraumatic. Chest examination reveals no tenderness. The back is symmetrical on inspection without obvious abnormality. There is no CVA tenderness to palpation. No joint edema. LOWER EXTREMITIES: Calves are equal size bilaterally and non-tender. No edema. There is ecchymotic discoloration on the right lower extremity. Suture lines from ORIF procedure are clean, dry and intact without erythema. No signs of cellulitis. NEURO: Normal sensorium. No sensory or motor deficits noted. SKIN: No rash or jaundice noted. PROCEDURES: none CRITICAL CARE: none OBSERVATION NOTE: none Past Med/Surg History Problem List (Updated 10/24/24 @ 18:28 by Andi Tsai MD) Altered mental status (Acute) COVID-19 (Acute) Bradycardia (Acute) Hypertension (Chronic) Social History Smoking Status: Former smoker Preferred Language: Maltese Feels Safe at Home: Yes Allergies Allergies Allergy/AdvReac Type Severity Reaction Status Date / Time No Known Allergies Allergy Unknown Verified 03/13/16 07:10 Home Meds Home Medications Medication Instructions Recorded Confirmed alendronate 70 mg tablet 70 mg PO Q7D 10/24/24 10/24/24 amlodipine 5 mg tablet 5 mg PO DAILY 10/24/24 10/24/24 atorvastatin 10 mg tablet 10 mg PO DAILY 10/24/24 10/24/24 cholecalciferol (vitamin D3) 25 25 mcg PO DAILY 10/24/24 10/24/24 mcg (1,000 unit) capsule docusate sodium 100 mg capsule 100 mg PO BID 10/24/24 10/24/24 escitalopram oxalate 10 mg tablet 10 mg PO DAILY 10/24/24 10/24/24 fluticasone propionate 50 1 spray intranasal BID 10/24/24 10/24/24 mcg/actuation nasal spray,suspension oxycodone 5 mg tablet 5 mg PO Q4H PRN Pain 10/24/24 10/24/24 pantoprazole 40 mg tablet,delayed 40 mg PO DAILY 10/24/24 10/24/24 release Results & Data (ED) Vital Signs Vital Signs - 24 hr 10/24/24 14:45 10/24/24 15:18 10/24/24 15:40 Temperature 36.9 C Temperature Source Oral Pulse Rate 52 L 52 L Pulse Rate [Apical] Pulse Rhythm Regular Pulse Strength Normal Respiratory Rate 24 21 Blood Pressure 167/103 H 122/76 Blood Pressure [Right Arm] Blood Pressure Mean 124 96 Blood Pressure Mean [Right Arm] Blood Pressure Position Sitting Pulse Oximetry 94 96 Oxygen Delivery Method Room Air Room Air Sepsis Recent Fever Within 48 Hours No Sepsis New/Unexplained Change in Mental Status No Sepsis Action Taken by Nursing No Action Required 10/24/24 15:45 10/24/24 15:53 10/24/24 15:54 Temperature Temperature Source Pulse Rate 55 L Pulse Rate [Apical] 55 L Pulse Rhythm Pulse Strength Respiratory Rate 20 Blood Pressure Blood Pressure [Right Arm] 122/76 Blood Pressure Mean Blood Pressure Mean [Right Arm] 91 Blood Pressure Position Pulse Oximetry 98 Oxygen Delivery Method Room Air Room Air Sepsis Recent Fever Within 48 Hours Sepsis New/Unexplained Change in Mental Status Sepsis Action Taken by Nursing 10/24/24 16:00 10/24/24 17:00 10/24/24 18:01 Temperature Temperature Source Pulse Rate 46 L 47 L 54 L Pulse Rate [Apical] Pulse Rhythm Pulse Strength Respiratory Rate 31 H 22 19 Blood Pressure 140/60 147/54 H 173/103 H Blood Pressure [Right Arm] Blood Pressure Mean 95 89 120 Blood Pressure Mean [Right Arm] Blood Pressure Position Pulse Oximetry 98 96 99 Oxygen Delivery Method Sepsis Recent Fever Within 48 Hours Sepsis New/Unexplained Change in Mental Status Sepsis Action Taken by Nursing Laboratory Data 10/24/24 15:12 10/24/24 15:12 Lab Results 10/24/24 Range/Units 15:12 WBC 3.83 L (4.8-10.8) K/ul RBC 3.82 L (4.20-5.40) M/uL Hgb 10.8 L (12.0-16.0) g/dl Hct 34.2 L (37.0-47.0) % MCV 89.5 (80.0-100.0) fL MCH 28.3 (25.0-34.0) pg MCHC 31.6 L (32.0-36.0) g/dL RDW Std Deviation 55.9 H (36.4-46.3) fL RDW Coeff of Fadi 17.3 H (11.5-14.5) % Plt Count 178 (130-400) K/uL MPV 9.8 (9.4-12.4) fL Immature Gran % (Auto) 0.3 % Neut % (Auto) 63.1 % Lymph % (Auto) 27.4 % [facility] % (Auto) 8.6 % Eos % (Auto) 0.3 % Baso % (Auto) 0.3 % Neut # (Auto) 2.42 (1.40-6.50) K/uL Lymph # (Auto) 1.05 L (1.20-3.40) K/uL [facility] # (Auto) 0.33 (0.11-0.59) K/uL Eos # (Auto) 0.01 (0.00-0.50) K/uL Baso # (Auto) 0.01 (0.00-0.20) K/uL Immature Gran # (Auto) 0.01 (0.01-0.20) K/uL PT 10.8 (9.0-12.0) Seconds INR 1.0 (0.9-1.1) Sodium 139 (136-145) mmol/L Potassium 3.6 (3.5-5.1) mmol/L Chloride 105 (98-107) mmol/L Carbon Dioxide 23 (21-32) mmol/L Anion Gap 11 (3-11) BUN 17 (6-23) mg/dl Creatinine 0.87 (0.6-1.2) mg/dl Est Cr Clr Drug Dosing 32.1 ml/min eGFR 64.04 BUN/Creatinine Ratio 19.5 (10-20) Glucose 96 (70-99(Fasting)) mg/dl Calcium 9.2 (8.6-10.3) mg/dl Magnesium 1.7 (1.7-2.4) mg/dl Total Bilirubin 0.7 (0.2-1.0) mg/dl AST 22 (13-39) U/L ALT 14 (7-52) U/L Alkaline Phosphatase 82 (34-104) U/L Total Creatine Kinase 38 (26-192) U/L Troponin I High Sens 15.4 H (0-14) pg/ml Total Protein 7.1 (6.0-8.3) gm/dl Albumin 4.2 (3.4-5.0) gm/dl Globulin 2.9 (2.5-4.0) gm/dl Albumin/Globulin Ratio 1.4 (0.9-2) TSH 1.112 (0.300-4.500) uIu/ml Adenovirus (PCR) Not Detected (NotDetected) B. pertussis DNA (PCR) Not Detected (NotDetected) B.parapertussis DNA PCR Not Detected (NotDetected) C. pneumoniae DNA (PCR) Not Detected (NotDetected) Coronavirus OC43 (PCR) Not Detected (NotDetected) Coronavirus HKU1 (PCR) Not Detected (NotDetected) Coronavirus 229E (PCR) Not Detected (NotDetected) SARS-CoV-2 (PCR) DETECTED A (NotDetected) Coronavirus NL63 (PCR) Not Detected (NotDetected) Human Metapneumovir PCR Not Detected (NotDetected) Influenza Type A (PCR) Not Detected (NotDetected) Influenza Type B (PCR) Not Detected (NotDetected) M. pneumoniae (PCR) Not Detected (NotDetected) Parainfluenza 1 (PCR) Not Detected (NotDetected) Parainfluenza 2 (PCR) Not Detected (NotDetected) Parainfluenza 3 (PCR) Not Detected (NotDetected) Parainfluenza 4 (PCR) Not Detected (NotDetected) RSV (PCR) Not Detected (NotDetected) Entero/Rhino (PCR) Not Detected (NotDetected) Imaging Data Radiologist's Impression: Chest X-Ray 10/24/24 14:51 XR chest 1V portable CLINICAL HISTORY: weakness COMPARISON STUDY: 10/02/2024 FINDINGS: Stable cardiomegaly without pulmonary vascular congestion. There is a large hiatal hernia, grossly stable compared with the CT of 10/02/2024. There is stable mild atelectasis in the lung bases. No new consolidation or pleural effusion. No pneumothorax. IMPRESSION: No acute findings. ACT 112: Negative or not required by law. Electronically signed by: Kenneth Patel M.D. 10/24/2024 3:[address] 10/24/24 14:57 CT head/brain wo con CLINICAL HISTORY: Ams. TECHNIQUE: Multiple axial CT images of the head were obtained without contrast. A dose lowering technique was utilized adhering to the principles of ALARA. CT DOSE: 1295.76 mGy.cm COMPARISON: 10/02/2024 FINDINGS: No intracranial hemorrhage seen. No mass effect, midline shift, or hydrocephalus. Stable mild chronic small vessel ischemic changes. No skull fracture. There is interval fluid and mucosal thickening at the left maxillary sinus consistent with sinusitis. IMPRESSION: 1. No acute intracranial abnormality. 2. Left maxillary sinusitis. ACT 112: Negative or not required by law. The above report was generated using voice recognition software. It may contain grammatical, syntax or spelling errors. Electronically signed by: Kenneth Patel M.D. 10/24/2024 3:42 PM Abdomen/Pelvis CT 10/24/24 15:[address] WITHOUT CONTRAST HISTORY: Acute right flank pain right flank pain, AMS TECHNIQUE: Multiaxial CT images of the abdomen and pelvis were performed without contrast. A dose lowering technique was utilized adhering to the principles of ALARA. COMPARISON STUDY: CT lumbar spine of same day, CT abdomen and pelvis 10/02/2024 FINDINGS: Cardiomegaly with coronary arterial calcifications. Large hiatal hernia with majority of the stomach within the thoracic cavity. Mild bibasilar atelectasis versus scarring. No pneumatosis or pneumoperitoneum. The unenhanced spleen, pancreas and adrenal glands are unremarkable. Unchanged appearance of the large gallstone. No CT evidence of acute cholecystitis. Liver is within normal limits. Cortical thinning of the kidneys. 1.4 cm angiomyolipoma in the lateral interpolar left kidney with additional 1.8 cm AML of the inferior pole. 2.6 cm cyst of the superior pole left kidney. 1.2 cm AML the lateral interpolar right kidney. No urolith or hydronephrosis. Urinary bladder wall thickening with partial distention. Atherosclerosis of the aorta without aneurysm. No lymphadenopathy. Colonic diverticulosis without acute diverticulitis. There are a few fat filled small abdominal hernias with diastases measuring up to 1.4 cm. Degenerative changes of the spine. T11 and L1 compression deformities/burst fractures with retropulsion redemonstrated which are unchanged from the prior study and favored to be chronic. IMPRESSION: 1. No renal or ureteral calculi or hydronephrosis. 2. No bowel obstruction or bowel wall thickening. 3. Large hiatal hernia. 4. Colonic diverticulosis. 5. Bilateral renal angiomyolipomata. 6. Cholelithiasis. 7. Additional findings as above. ACT 112: Negative or not required by law. The above report was generated using voice recognition software. It may contain grammatical, syntax or spelling errors. Electronically signed by: Mickey Schneider M.D. 10/24/2024 3:[address] 10/24/24 15:05 CT lumbar spine wo con CLINICAL HISTORY: low back pain, hx fall, AMS COMPARISON STUDY: 10/02/2024 FINDINGS: There is stable severe height loss at the T11 and L1 vertebral bodies. No interval lumbar spine fracture seen. Stable grade 1 anterolisthesis of L4 4 on 5 and L5 on S1. Stable moderate bilateral neural foraminal narrowing at L5- S1. Stable few scattered bone islands. Stable at least mild central canal narrowing at L4-5. IMPRESSION: 1. No acute lumbar spine fracture seen. 2. Stable old fractures and degenerative changes. ACT 112: Negative or not required by law. Electronically signed by: Kenneth Patel M.D. 10/24/2024 3:48 PM Discharge Plan Visit Data Chief Complaint: Altered Mental Status Stated Complaint: DIZZY, CONFUSION, LOWER BACK PAIN ED Provider: Andi Tsai Discharge Problem: COVID-19, Altered mental status Forms Stand Alone Forms: My [facility] Prescriptions Prescriptions: No Action atorvastatin 10 mg tablet 10 mg PO DAILY alendronate 70 mg Tablet 70 mg PO Q7D amlodipine 5 mg Tablet 5 mg PO DAILY pantoprazole 40 mg Tablet,Delayed Release (Dr/Ec) 40 mg PO DAILY docusate sodium 100 mg Capsule 100 mg PO BID fluticasone propionate 50 mcg/actuation [place],Suspension 1 spray INTRANASAL BID Rx Instructions: administer into each nostril oxycodone 5 mg Tablet 5 mg PO Q4H PRN (Reason: Pain) cholecalciferol (vitamin D3) 25 mcg (1,000 unit) Capsule 25 mcg PO DAILY escitalopram oxalate 10 mg Tablet 10 mg PO DAILY Referrals Referrals: Richard Larios [Primary Care Provider] -
[2024-10-24 18:41] LABS: Appearance Urine Clear (Clear); Bacteria Urine Automated None Seen (None Seen); Bilirubin Urine Negative (Negative); Blood Urine Negative (Negative); Color Urine Yellow; Epithelial Cell Urine Auto 0-2 /hpf (0-2); Glucose Urine UA Negative (Negative); Ketones Urine Trace (Negative); Leukocyte Esterase Urine Negative (Negative); Nitrite Urine Negative (Negative); Protein Urine 1+ (Negative); RBC Urine Automated 0-2 /hpf (0-2); Specific Gravity Urine 1.028 (1.000-1.030); Urobilinogen Urine Negative (Negative); WBC Urine Automated 0-5 /hpf (0-5)
--- NOTE | 2024-10-24 19:58 | XRay Report ---
EXAM: XR knee RT 1 or 2V routine CLINICAL HISTORY: recent RT tibial plateau fx s/p orif -AMS TECHNIQUE: X-ray images of the right knee were obtained in anteroposterior (AP), lateral, and oblique projections. COMPARISON: No prior studies available for comparison. FINDINGS: Bone Structure: ORIF of the proximal tibia using plate and screws. Healing comminuted fractures of the medial and lateral tibial plateau. Decreased bone density. Joint Spaces: Not at medial and lateral tibiofemoral Articular Surfaces: joint compartments. Irregular articular surfaces of the tibial plateau. Patella: Patella is normal in position and alignment. No evidence of patellar dislocation or subluxation. Soft Tissues: Periarticular soft tissues appear normal and unremarkable. No soft tissue swelling, calcifications, or foreign bodies noted. Additional Findings: No evidence of joint effusion. IMPRESSION: Internal metallic hardware fixation in the proximal third aspect of right tibia for tibial plateau fracture without hardware complications Correlate with clinical findings. Disclaimer: A subtle bone abnormality or fracture may not be readily apparent on X-rays, thus clinical correlation and further imaging including follow-up CT, MRI, or follow-up X-rays are advised as needed. Electronically signed by Ap Hamm 10-24-2024 7:58 PM
[2024-10-24] MEDS: amLODIPine BESYLATE 5 MG TAB PO ONE (20:02)
[2024-10-24] MEDS: SODIUM CHLORIDE 0.9% 1,000 ML IV SCH (20:02)
[2024-10-24] MEDS ORDERED: ACETAMINOPHEN 325 MG TAB PO PRN (22:12)
[2024-10-24] MEDS ORDERED: ONDANSETRON INJ 2 MG/ML 2 ML VIAL IV PRN (22:12)
[2024-10-24] MEDS ORDERED: MELATONIN 3 MG TAB PO PRN (22:12)
[2024-10-24] MEDS ORDERED: FAMOTIDINE 20 MG TAB PO PRN (22:12)
[2024-10-24] MEDS ORDERED: POLYETHYLENE (MIRALAX) 17 GM PACK PO PRN (22:12)
--- OUTSIDE RECORDS SUMMARY | 2024-10-24 23:25 | External Medical Summary | Summary of Care ---
Author Name Unknown Organization [facility] Address [address] [place] [address] Phone [phone] Care Team Providers Care Elephant Keeper Name Role Phone Kendra Go MD Primary Care Provide r Encounter Details Date Type Department Care Team (Latest Contact Info) Description 10/02/2024 8:50 PM EST - 10/02/2024 8:54 PM EST Hospital Encounter Radiology Film File [address] [place] [address] Discharge Disposition: Home - Self Care Allergies No known active allergiesdocumented as of this encounter (statuses as of 10/17/2024) Medications Pantoprazole Sodium 40 MG Oral Tablet Delayed Release (Protonix)Indicat ions:Gastroesopha geal reflux disease without esophagitis Take 1 Tablet by mouth in the morning. 90 Tablet 3 3 Active Fluticasone Propionate 50 MCG/ACT Nasal Suspension (Flonase)Indicati ons:Dysfunction of both eustachian tubes Administer 2 Sprays into each nostril in the morning. 54 g 3 3 Active Alendronate Sodium 70 MG Oral Tablet (Fosamax)Indicati ons:Age-related osteoporosis without current pathological fracture Take 1 Tablet by mouth once a week. with 8 oz. water 30 minutes before first meal of the day. Remain upright for 30 min after taking tablet. 15 Tablet 3 3 Active Azelastine HCl 0.15 % Nasal SolutionIndicatio ns:Ear fullness, bilateral Administer 1 spray into each nostril once daily in the morning. 30 mL 1 4 Active Clindamycin Phosphate 1 % External GelIndications:Mu ltiple excoriations,Foll iculitis Apply 2x daily to open wounds on scalp until resolved. Can use more often instead of scratching the lesions. 60 g 2 4 Active Escitalopram Oxalate 10 MG Oral Tablet (Lexapro) Take 1 Tablet by mouth in the morning. 90 Tablet 2 4 Active Vitamin D3 25 MCG (1000 UT) Oral Tablet (Vitamin D3)Indications:Ag e-related osteoporosis without current pathological fracture,Vitamin D insufficiency Take 1 Tablet by mouth in the morning. 90 Tablet 2 4 Active Atorvastatin Calcium 10 MG Oral Tablet (Lipitor)Indicati ons:Dyslipidemia, goal LDL below 130 Take 1 Tablet by mouth in the morning. 90 Tablet 2 4 Active Diclofenac Sodium 1 % External Gel (Voltaren)Indicat ions:DDD (degenerative disc disease), lumbar APPLY FOUR GRAMS TOPICALLY TO BACK FOUR TIMES DAILY NEEDED 200 g 3 4 Active documented as of this encounter (statuses as of 10/17/2024) Active Problems Problem Noted Date Diagnosed Date Fall 10/13/2024 Acute blood loss anemia 10/13/2024 Tibial plateau fracture, right 10/03/2024 Hydronephrosis with renal calculous obstruction 10/03/2024 S/P hysterectomy 10/03/2024 Dizziness 04/01/2024 IPMN (intraductal papillary mucinous neoplasm) 0 05/21/2023 Angiomyolipoma of both kidneys 05/21/2023 Nonrheumatic aortic valve stenosis 01/04/2023 Nonrheumatic mitral valve regurgitation 01/05/20 23 Bilateral hearing loss 11/22/2022 SVT (supraventricular tachycardia) 10/03/2022 History of subdural hematoma (post traumatic) Recurrent major depressive disorder, in full rem ission 05/16/2022 DDD (degenerative disc disease), lumbar 09/05/20 21 Chronic kidney disease, stage 3a 03/29/2021 Overview: Per CKD protocol Hx of nonmelanoma skin cancer 03/15/2021 Overview (03/15/2021): 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) Hypertensive kidney disease with stage 3a chronic kidney disease 02/22/2021 Overview: Per CKD protocol Prediabetes 04/26/2020 Overview: Per Prediabetes protocol Bradycardia 12/06/2017 Age-related osteoporosis wit hout current pathological fracture 12/26/2010 HTN, goal below 150/90 12/23/2010 Dyslipidemia, goal LDL below 100 12/23/2010 GENERAL OSTEOARTHROSIS Gastroesophageal reflux disease without esophagi tis documented as of this encounter (statuses as of 10/17/2024) Resolved Problems Problem Noted Date Diagnosed Date Resolved Date Migraine 05/21/2023 05/21/2023 Subdural hygroma 10/03/2022 05/21/2023 Major depressive disorder with single episode 09/05/20 21 11/22/2022 SDH (subdural hematoma) 11/02/202008/16 Hypertensive kidney disease, stage III 10/01/2018 02/24/2021 Overview: Per CKD protocol Impaired glucose tolerance 03/02/2016 1 11/05/2020 Persistent insomnia 08/30/2015 12/06/19 18 Kidney disease, chronic, sta ge III (GFR 30-59 ml/min) 12/28/2014 11/01/2018 Overview: Per CKD protocol #1 Encounter for examination fo r normal comparison and control in clinical research program 09/26/2012 11/26/2012 Overview (01/31/2021): Diagnosis changed due to Research Module. Go to Snapshot for study details. Vitamin D deficiency 03/04/2012 015 Dyslipidemia, goal to be determined 09/21/2009 12/23/2010 Overview (09/21/2009): Per Lipid Taxonomy. Fracture of humerus, closed 11/18/2008 12/06/2017 elevated HgbA1c 03/19/2006 06/09/2016 ADVANCE DIRECTIVE INFORMATION 01/29/2006 08/18/2024 Overview (01/29/2006): No, Advance Directive brochure given to patient at prior appointment. Hematuria 11/29/2005 08/30/2015 Overview (01/06/2016): ICD-10 update of inactive term Calculus of kidney 11/29/2005 8 Rosacea 12/08/2002 12/06/2017 HYPERTENSION NOS 12/23/2010 Overview (09/01/2009): Modified per HTN protocol #16. Mixed dyslipidemia 9 Overview (09/21/2009): Per Lipid Taxonomy. Need for prophylactic hormon e replacement therapy (postmenopausal) 08/30/2015 CALCIF TENDINITIS SHLDER Other atopic dermatitis 08/15 Overview (08/07/2017): ICD-10 update of inactive term Other cataract 04/30/2018 Other specified anemias 08/15 documented as of this encounter (statuses as of 10/17/2024) Immunizations Name Administration Dates Next Due Pneumococcal Conjugate Vacc, 13 Valent (Prevnar) 03/19/2015 Season Influenza, Quad, PF, Adjuvanted, 65+ Yrs, IM (FLUAD) 10/04/2020 Seasonal Influenza Vac., MDV , IM, 0.5 mL (Fluzone) 07/29/2014,07/22/2013,07/16/2012,2010,07/19/2010,07/13/2009,08/06/2008,1 ,07/31/2006 Seasonal Influenza, PF, 6 M & above, IM , (FluLaval or Fluzone) 07/19/2018,07/16/2017 Seasonal Influenza, Quadriva lent Hd (Fluzone Hd) 07/10/2023,06/20/2022,09/05/2021 Seasonal Influenza, Quadriva lent, No Preserve, IM 07/13/2016,08/30/2015 Seasonal Influenza, Trivalen t, Adjuvanted, 65+ YRS, PF, (Fluad) 06/25/2019 TD, Preservative Free 09/03/2008,09/03/2008 Varicella Zoster Vaccine (Adult) 05/15/2015 Zoster Vaccine Recombinant (Shingrix) 10/04/2020 documented as of this encounter Social History Tobacco Use Types Packs/Day Years Used Date Smoking Tobacco: Never Smokeless Tobacco: Never Alcohol Use Standard Drinks/Week Comments No 0 (1 standard drink = 0.6 oz pur e alcohol) very rare PHQ-2 Answer Date Recorded PHQ-2 Score 0 04/01/2020 Personal Safety Answer Date Recorded Do you feel unsafe or have concerns for your saf ety? No 10/03/2024 Do you have concerns for you r family's safety? (Household - for ages 0-17 years) Not on file 10/03/2024 Utilities Answer Date Recorded Do you have trouble paying y our heating, water, or electric bill? No 10/03/2024 Is your family able to pay t he heat, water, or electric bill? (Household - for ages 0-17 years) Not on file 10/03/2024 Does your family have access to good internet? (Household - for ages 0-17 years) Not on file 10/03/2024 Transportation Needs Answer Date Record ed Do you have trouble getting a ride to medical visits or work? (Adult - for ages 18 years and over) Not on file 10/03/2024 Does your family have a hard time getting a ride to doctors visits? (Household - for ages 0-17 years) Not on file 10/03/2024 Has lack of transportation k ept you from medical appointments, meetings, work, or from getting things needed for daily living? Check all that apply. No 10/03/2024 Do you (or your family) have trouble finding or paying for a ride (transportation)? (Household - for ages 0-17 years) Not on file 10/03/2024 Housing Stability Answer Date Recorded Do you currently live in a s helter or have no steady place to sleep at night? (Adult - for ages 18 years and over) Not on file 10/03/2024 Do you think you are at risk of becoming homeless? (Adult - for ages 18 years and over) Not on file 10/03/2024 Does your family worry about paying for your home or becoming homeless? (Household - for ages 0-17 years) Not on file 1 12/04/2023 Are you homeless or worried that you might be in the future? No 10/03/2024 Are you (or your family) aicha eless or worried that you might be in the future? (Household - for ages 0-17 years) Not on file Food Insecurity Answer Date Recorded Do you need food for this week? No 10/03/2024 Are you able to get enough f ood for your family? (Household - for ages 0-17 years) Not on file 10/03/2024 Does your family need food t his week? (Household - for ages 0-17 years) Not on file 10/03/2024 Do you always have enough fo od for your family? 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 Not on file Not on file documented as of this encounter Plan of Treatment Upcoming Encounters Date Type Department Care Team (Late st Contact Info) Description 10/21/2024 12:00 PM EST Office Visit Orthopaedics, [place] [address] [place] [address] Tuan Andrade, PA-C [address] [place] [address] 10/22/2024 9:30 AM EST Scheduled Telephone [facility], [facility] [address] [facility] [place] [address] Anel Moreira [address] [facility] [place] [address] 10/24/2024 1:40 PM EST Office Visit Family Medicine [address] [place] [phone] Kendra Go MD [address] [place] [address] [place] [address] 11/27/2024 11:00 AM EST Office Visit Rheumatology [address] [place] [address] Nathan Siu PA-C [address] [place] [address] Health Maintenance Due Date Last Done Comments Adult Wellness Visit 01/18/2002 Zoster Vaccines (3 of 3) 11/29/2020 10/04/2020, 08/0 10/2014 Depression Monitoring 04/01/2021 04/01/2020 DXA Scan 06/07/2024 06/07/2022, 05/16, 02/25/2019, Additional history exists COVID-19 Vaccine ( season) 2024 Albumin/Creatinine Ratio 05/22/2025 024, 05/21/2023, 05/16/2022, Additional history exists HbA1c 05/22/2025 05/22/2024, 080 04/2023, 05/16/2022, Additional history exists CKD PHOS USE SMARTSET 29175 10/06/202509/15, 05/21/2023, 05/16/2022, Additional history exists CKD HGB USE SMARTSET 53195 10/14/202510/14, 10/13/2024, 10/12/2024, Additional history exists DTap/Tdap Vaccines (2 - Td or Tdap) 10/03/2034 10/03/2024, 09/03/2008, 09/03/2008 Pneumococcal Vaccine: 50+ Years Completed 03/19/2015, 02/26/2003 VITAMIN D LEVEL ONCE IN A LIFETIME-USE SMARTSET# 27504 Completed 10/06/2024, 06/13/2018, 09/02/2014, Additional history exists Influenza Vaccine (FLU shot) Completed , 07/10/2023, 06/20/2022, Additional history exists HPV (Gardasil) Vaccine Aged Out No lo nger eligible based on patient's age to complete this topic Hepatitis B Vaccine Aged Out No longe r eligible based on patient's age to complete this topic MENINGOCOCCAL (MENACTRA/MENVEO) Aged Out No longer eligible based on patient's age to complete this topic documented as of this encounter Medical Devices Implanted Type Area Leather Sprayer Device Identifier Shelf Expiration Date Model / Serial / Lot Proximail Medial Tibial Plate Implanted:Qty: 1 on 10/03/2024 by Roger Sy MD at [place] [facility] [place]: Leg Lower URIEL : TRAUMA [id number] / / Screw Nlk A3 Ti 3.5x24mm - [id number] Implanted:Qty: 1 on 10/03/2024 by Roger Sy MD at [place] [facility] [place] Right: Leg Lower URIEL : TRAUMA [id number] / / Screw Nlk A3 Ti 3.5x26mm - [id number] Implanted:Qty: 1 on 10/03/2024 by Roger Sy MD at [place] [facility] [place] Right: Leg Lower URIEL : TRAUMA [id number] / / Screw Nlk A3 Ti 3.5x28mm - [id number] Implanted:Qty: 1 on 10/03/2024 by Roger Sy MD at [place] [facility] [place] Right: Leg Lower URIEL : TRAUMA [id number] / / Screw Nlk A3 Ti 3.5x30mm - [id number] Implanted:Qty: 1 on 10/03/2024 by Roger Sy MD at [place] [facility] [place] Right: Leg Lower URIEL : TRAUMA [id number] / / Screw Nlk A3 Ti 3.5x36mm - [id number] Implanted:Qty: 1 on 10/03/2024 by Roger Sy MD at [place] [facility] [place] Right: Leg Lower URIEL : TRAUMA [id number] / / Screw Canc A3 Ti 4x48mm Ft - [id number] Implanted:Qty: 1 on 10/03/2024 by Roger Sy MD at [place] [facility] [place] Right: Leg Lower URIEL : TRAUMA [id number] / / 3.5 Locking Screw Implanted:Qty: 2 on 10/03/2024 by Roger Sy MD at [place] [facility] [place] Right: Leg Lower URIEL : TRAUMA [id number] / / 3.5 Mm Locking Screw Implanted:Qty: 1 on 10/03/2024 by Roger Sy MD at [place] [facility] [place] Right: Leg Lower URIEL : TRAUMA [id number] / / documented as of this encounter Procedures Procedure Name Priority Date/Time Associated Diagnosis Comments RADIOLOGY EXAM - CT (IMAGES ONLY, NO REPORT) Routine 10/02/2024 8:50 PM EST documented in this encounter Results * RADIOLOGY EXAM - CT (IMAGES ONLY, NO REPORT) (10/02/2024 8:50 PM EST) 10/02/2024 8:39 PM EST Narrative Scheduling, Silent - 10/16/2024 10:59 AM EST This is an imaging study not interpreted or resulted by a [employer] or [employer] contracted radiologist. us Uday Renner MD RAD CT Final Result documented in this encounter Advance Directives * Full Code (Latest Code Status on File) Date Activated Date Inactivated Comments 10/03/2024 11:16 AM 10/14/2024 3:07 PM This orde r reflects the patients wishes and were consensually agreed upon. Question Answer Comments Discussion of Advance Direct flynn occurred with: Not Discussed due to patient's condition * Full Code Date Activated Date Inactivated Comments 03/24/2016 7:21 AM 03/24/2016 2:23 PM This order r eflects the patients wishes and were consensually agreed upon. Care Teams Elephant Keeper Relationship Specialty Start Date End Date Kendra Go MD [address] [place] [address] [place] [address] PCP - General Family Medicine 05/19/24 documented as of this encounter
--- OUTSIDE RECORDS SUMMARY | 2024-10-24 23:25 | External Medical Summary | Summary of Care ---
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 [address] [facility] [place] [address] Anel Moreira [address] [facility] [place] [address] 10/24/2024 1:40 PM EST Office Visit Family Medicine [address] [place] [phone] Kendra Go MD [address] [place] [address] [place] [address] 11/27/2024 11:00 AM EST Office Visit Rheumatology [address] [place] [address] Nathan Siu PA-C [address] [place] [address] Health Maintenance Due Date Last Done Comments Adult Wellness Visit 01/18/2002 Zoster Vaccines (3 of 3) 11/29/2020 10/04/2020, 08/0 10/2014 Depression Monitoring 04/01/2021 04/01/2020 DXA Scan 06/07/2024 06/07/2022, 05/16, 02/25/2019, Additional history exists COVID-19 Vaccine ( season) 2024 Albumin/Creatinine Ratio 05/22/2025 024, 05/21/2023, 05/16/2022, Additional history exists HbA1c 05/22/2025 05/22/2024, 080 04/2023, 05/16/2022, Additional history exists CKD PHOS USE SMARTSET 44739 10/06/202509/15, 05/21/2023, 05/16/2022, Additional history exists CKD HGB USE SMARTSET 94854 10/14/202510/14, 10/13/2024, 10/12/2024, Additional history exists DTap/Tdap Vaccines (2 - Td or Tdap) 10/03/2034 10/03/2024, 09/03/2008, 09/03/2008 Pneumococcal Vaccine: 50+ Years Completed 03/19/2015, 02/26/2003 VITAMIN D LEVEL ONCE IN A LIFETIME-USE SMARTSET# 87694 Completed 10/06/2024, 06/13/2018, 09/02/2014, Additional history exists [...] this encounter Medical Devices Implanted Type Area Template Reproduction Technician Device Identifier Shelf Expiration Date Model / Serial / Lot Proximail Medial Tibial Plate Implanted:Qty: 1 on 10/03/2024 by Roger Sy MD at OR [facility] [place] Right: Leg Lower URIEL : TRAUMA [id number] / / Screw Nlk A3 Ti 3.5x24mm - [id number] Implanted:Qty: 1 on 10/03/2024 by Roger Sy MD at OR [facility] [place] Right: Leg Lower URIEL : TRAUMA [id number] / / Screw Nlk A3 Ti 3.5x26mm - [id number] Implanted:Qty: 1 on 10/03/2024 by Roger Sy MD at OR [facility] [place] Right: Leg Lower URIEL : TRAUMA [id number] / / Screw Nlk A3 Ti 3.5x28mm - [id number] Implanted:Qty: 1 on 10/03/2024 by Roger Sy MD at OR [facility] [place] Right: Leg Lower URIEL : TRAUMA [id number] / / Screw Nlk A3 Ti 3.5x30mm - [id number] Implanted:Qty: 1 on 10/03/2024 by Roger Sy MD at OR [facility] [place] Right: Leg Lower URIEL : TRAUMA [id number] / / Screw Nlk A3 Ti 3.5x36mm - [id number] Implanted:Qty: 1 on 10/03/2024 by Roger Sy MD at OR [facility] [place] Right: Leg Lower URIEL : TRAUMA [id number] / / Screw Canc A3 Ti 4x48mm Ft - [id number] Implanted:Qty: 1 on 10/03/2024 by Roger Sy MD at OR [facility] [place] Right: Leg Lower URIEL : TRAUMA [id number] / / 3.5 Locking Screw Implanted:Qty: 2 on 10/03/2024 by Roger Sy MD at OR [facility] [place] Right: Leg Lower URIEL : TRAUMA [id number] / / 3.5 Mm Locking Screw Implanted:Qty: 1 on 10/03/2024 by Roger Sy MD at OR [facility] [place] Right: Leg Lower URIEL : TRAUMA [id number] / / documented as of this encounter Procedures Procedure Name Priority Date/Time Associated Diagnosis Comments RADIOLOGY EXAM - CT (IMAGES ONLY, NO REPORT) Routine 10/02/2024 9:50 PM EST documented in this encounter Results * RADIOLOGY EXAM - CT (IMAGES ONLY, NO REPORT) (10/02/2024 9:50 PM EST) 10/02/2024 9:45 PM EST Narrative Scheduling, Silent - 10/16/2024 11:01 AM EST This is an imaging study not interpreted or resulted by a [email or web address] or [email or web address] contracted radiologist. us Uday Renner MD RAD [...] and were consensually agreed upon. Care Teams Insurance Verification Clerk Relationship Specialty Start Date End Date Kendra Go MD [address] [place] [address] [place] [address] PCP - General Family Medicine 05/19/24 documented as of this encounter
--- OUTSIDE RECORDS SUMMARY | 2024-10-24 23:25 | External Medical Summary | Summary of Care ---
Author Name Unknown Organization [facility] Address [address] [facility] [place] [address] Phone [phone] Care Team Providers Care Supervisor Residential Name Role Phone Kendra Go MD Primary Care Provide r Reason for Visit * Reason Onset Date Comments [facility]: Maintenance 10/22/2024 Encounter Details Date Type Department Care Team (Late st Contact Info) Description 10/22/2024 9:30 AM EST Scheduled Telephone [facility], [facility] [address] [facility] [place] [address] [facility] [address] [facility] [place] [address] Allergies No known active allergiesdocumented as of this encounter (statuses as of 10/22/2024) Medications Pantoprazole Sodium 40 MG Oral Tablet Delayed Release (Protonix)Indicat ions:Gastroesopha geal reflux disease without esophagitis Take 1 Tablet by mouth in the morning. 90 Tablet 3 10/03/20 23 Active Fluticasone Propionate 50 MCG/ACT Nasal Suspension (Flonase)Indicati ons:Dysfunction of both eustachian tubes Administer 2 Sprays into each nostril in the morning. 54 g 3 10/03/20 23 Active Alendronate Sodium 70 MG Oral Tablet (Fosamax)Indicati ons:Age-related osteoporosis without current pathological fracture Take 1 Tablet by mouth once a week. with 8 oz. water 30 minutes before first meal of the day. Remain upright for 30 min after taking tablet. 15 Tablet 3 10/03/20 23 Active Azelastine HCl 0.15 % Nasal SolutionIndicatio ns:Ear fullness, bilateral Administer 1 spray into each nostril once daily in the morning. 30 mL 1 03/24/20 24 Active Clindamycin Phosphate 1 % External GelIndications:Mu ltiple excoriations,Foll iculitis Apply 2x daily to open wounds on scalp until resolved. Can use more often instead of scratching the lesions. 60 g 2 07/07/20 24 Active Escitalopram Oxalate 10 MG Oral Tablet (Lexapro) Take 1 Tablet by mouth in the morning. 90 Tablet 2 09/12/20 24 Active Vitamin D3 25 MCG (1000 UT) Oral Tablet (Vitamin D3)Indications:Ag e-related osteoporosis without current pathological fracture,Vitamin D insufficiency Take 1 Tablet by mouth in the morning. 90 Tablet 2 09/12/20 24 Active Atorvastatin Calcium 10 MG Oral Tablet (Lipitor)Indicati ons:Dyslipidemia, goal LDL below 130 Take 1 Tablet by mouth in the morning. 90 Tablet 2 09/12/20 24 Active Diclofenac Sodium 1 % External Gel (Voltaren)Indicat ions:DDD (degenerative disc disease), lumbar APPLY FOUR GRAMS TOPICALLY TO BACK FOUR TIMES DAILY NEEDED 200 g 3 09/12/20 24 Active oxyCODONE HCl 5 MG Oral Tablet (Oxy IR) Take 1 Tablet by mouth every 4 hours as needed for Pain, Severe (can take 2.5 mg, 1/2 tab, for severe pain, continuation of pain therapy). 10 Tablet 10/13/20 24 Active Enoxaparin Sodium 30 MG/0.3ML Injection Solution Prefilled Syringe (Lovenox) Inject 30 mg under the skin in the morning and 30 mg before bedtime. Do all this for 14 days. 8.4 mL 10/13/20 24 025 Active amLODIPine Besylate 5 MG Oral Tablet (Norvasc) Take 1 Tablet by mouth in the morning. 25 Tablet 10/14/20 24 Active Lidocaine 4 % External Patch (Aspercreme) Place 1 Patch over 12 hours topically on the skin in the morning. 30 Patch 10/14/20 24 Active Docusate Sodium 100 MG Oral Capsule (Colace) Take 1 Capsule by mouth in the morning and 1 Capsule before bedtime. 10 Capsule 10/13/20 24 Active Polyethylene Glycol 3350 17 GM Oral Packet (Miralax) Take 1 Packet by mouth in the morning and 1 Packet before bedtime. 14 Each 10/13/20 24 Active Sennosides 8.6 MG Oral Tablet (Senokot) Take 2 Tablets by mouth in the morning and 2 Tablets before bedtime. 30 Tablet 10/13/20 24 Active Carisoprodol 350 MG Oral Tablet (Soma) Take 0.5 Tablets by mouth every 6 hours as needed for Muscle spasms (continuation of pain therapy). 20 Tablet 10/13/20 24 Active 6.75-0.2 MG Oral Tablet Take 1 Tablet by mouth daily at noon. 60 Tablet 10/13/20 24 Active documented as of this encounter (statuses as of 10/22/2024) Active Problems Problem Noted Date Diagnosed Date [...] as of this encounter (statuses as of 10/22/2024) Resolved Problems Problem Noted Date Diagnosed Date [...] as of this encounter (statuses as of 10/22/2024) Immunizations Name Administration Dates Next Due Pneumococcal Conjugate Vacc, 13 Valent (Prevnar) 03/19/2015 Season Influenza, Quad, PF, Adjuvanted, 65+ Yrs, IM (FLUAD) 10/04/2020 Seasonal Influenza Vac., MDV , IM, 0.5 mL (Fluzone) 07/29/2014,07/22/2013,07/16/2012,2010,07/19/2010,07/13/2009,08/06/2008,1 ,07/31/2006 Seasonal Influenza, High Dos e, Trivalent, PF, IM (Fluzone HD) 10/13/2024 Seasonal Influenza, PF, 6 M & above, IM , (FluLaval or Fluzone) 07/19/2018,07/16/2017 Seasonal Influenza, Quadriva lent Hd (Fluzone Hd) 07/10/2023,06/20/2022,09/05/2021 Seasonal Influenza, Quadriva lent, No Preserve, IM 07/13/2016,08/30/2015 Seasonal Influenza, Trivalen t, Adjuvanted, 65+ YRS, PF, (Fluad) 06/25/2019 TD, Preservative Free 09/03/2008,09/03/2008 TDAP, Age 7 and older, IM (Adacel) 10/03/2024 Varicella Zoster Vaccine (Adult) 05/15/2015 Zoster Vaccine [...] 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 Answer Date of Assessment Author No 10/03/2024 12:48 PM Sa shay Russell RN * Are you blind or do you have serious difficulty seeing, even when wearing glasses? Answer Date of Assessment Author No 10/03/2024 12:48 PM Sa shay Russell RN * Do you have serious difficulty walking or climbing stairs? (5 years old or older) Answer Date of Assessment Author Yes 10/03/2024 12:48 PM Sa shay Russell RN * Do you have difficulty dressing or bathing? (5 years old or older) Answer Date of Assessment Author No 10/03/2024 12:48 PM Sa shay Russell RN * Because of a physical, mental, or emotional condition, do you have difficulty doing errands alone such as visiting a doctors office or shopping? (15 years old or older) Answer Date of Assessment Author No 10/03/2024 12:48 PM Sa shay Russell RN documented as of this encounter Mental Status * Because of a physical, mental, or emotional condition, do you have serious difficulty concentrating, remembering, or making decisions? (5 years old or older) Answer Entry Date Author No 10/03/2024 12:48 PM Sa shay Russell RN documented in this encounter Miscellaneous Notes * Telephone Encounter - Anel Moreira CM - 10/22/2024 9:11 AM EST Call placed to Z[facility] at [facility]. Patient is not at facility. LVM for Cristy in social servicesrequesting a call back Anel Moreira Medical Education Coordinator [facility] [email or web address] documented in this encounter Plan of Treatment Upcoming Encounters Date Type Department Care Team (Late st Contact Info) Description 10/24/2024 1:40 PM EST Office Visit Family Medicine [address] [place] [phone] Kendra Go MD [address] [place] [address] [place] [address] 11/27/2024 11:00 AM EST Office Visit Rheumatology [facility] [address] [place] [address] Nathan Siu PA-C [address] [place] [address] Health Maintenance Due Date Last Done Comments Adult Wellness Visit 01/18/2002 Zoster Vaccines (3 of 3) 11/29/2020 10/04/2020, 0810/2014 Depression Monitoring 04/01/2021 04/01/2020 DXA Scan 06/07/2024 06/07/2022, 05/16, 02/25/2019, Additional history exists COVID-19 Vaccine ( season) 2024 Albumin/Creatinine Ratio 05/22/2025 024, 05/21/2023, 05/16/2022, Additional history exists HbA1c 05/22/2025 05/22/2024, 080 04/2023, 05/16/2022, Additional history exists CKD PHOS USE SMARTSET 29292 10/06/202509/15, 05/21/2023, 05/16/2022, Additional history exists CKD HGB USE SMARTSET 03243 10/14/202510/14, 10/13/2024, 10/12/2024, Additional history exists DTap/Tdap Vaccines (2 - Td or Tdap) 10/03/2034 10/03/2024, 09/03/2008, 09/03/2008 Pneumococcal Vaccine: 50+ Years Completed 03/19/2015, 02/26/2003 VITAMIN D LEVEL ONCE IN A LIFETIME-USE SMARTSET# [id number] Completed 10/06/2024, 06/13/2018, 09/02/2014, Additional history exists [...] this encounter Medical Devices Implanted Type Area Professional Athlete Device Identifier Shelf Expiration Date Model / Serial / Lot Proximail Medial Tibial Plate Implanted:Qty: 1 on 10/03/2024 by Roger Sy MD at OR [facility] Right: Leg Lower URIEL : TRAUMA [id number] / / Screw Nlk A3 Ti 3.5x24mm - [id number] Implanted:Qty: 1 on 10/03/2024 by Roger Sy MD at OR [facility] Right: Leg Lower URIEL : TRAUMA [id number] / / Screw Nlk A3 Ti 3.5x26mm - [id number] Implanted:Qty: 1 on 10/03/2024 by Roger Sy MD at OR [facility] Right: Leg Lower URIEL : TRAUMA [id number] / / Screw Nlk A3 Ti 3.5x28mm - [id number] Implanted:Qty: 1 on 10/03/2024 by Roger Sy MD at OR [facility] Right: Leg Lower URIEL : TRAUMA [id number] / / Screw Nlk A3 Ti 3.5x30mm - [id number] Implanted:Qty: 1 on 10/03/2024 by Roger Sy MD at OR [facility] Right: Leg Lower URIEL : TRAUMA [id number] / / Screw Nlk A3 Ti 3.5x36mm - [id number] Implanted:Qty: 1 on 10/03/2024 by Roger yS MD at OR [facility] Right: Leg Lower URIEL : TRAUMA [id number] / / Screw Canc A3 Ti 4x48mm Ft - [id number] Implanted:Qty: 1 on 10/03/2024 by Roger Sy MD at OR [facility] Right: Leg Lower URIEL : TRAUMA [id number] / / 3.5 Locking Screw Implanted:Qty: 2 on 10/03/2024 by Roger Sy MD at OR [facility] Right: Leg Lower URIEL : TRAUMA [id number] / / 3.5 Mm Locking Screw Implanted:Qty: 1 on 10/03/2024 by Roger Sy MD at OR [facility] Right: Leg Lower URIEL : TRAUMA [id number] / / documented as of this encounter Advance Directives * Full Code [...] and were consensually agreed upon. Care Teams Supervisor Residential Relationship Specialty Start Date End Date Kendra Go MD [address] [place] [address] [place] [phone] PCP - General Family Medicine 05/19/24 documented as of this encounter
--- OUTSIDE RECORDS SUMMARY | 2024-10-24 23:25 | External Medical Summary | Summary of Care ---
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 [address] [facility] [place] [address] Anel Moreira [address] [facility] [place] [address] 10/24/2024 1:40 PM EST Office Visit Family Medicine [address] [place] [phone] Kendra Go MD [address] [place] [address] [place] [address] 11/27/2024 11:00 AM EST Office Visit Rheumatology [address] [place] [address] Nathan Siu PA-C [address] [place] [address] Health Maintenance Due Date Last Done Comments Adult Wellness Visit 01/18/2002 Zoster Vaccines (3 of 3) 11/29/2020 10/04/2020, 08/0 10/2014 Depression Monitoring 04/01/2021 04/01/2020 DXA Scan 06/07/2024 06/07/2022, 05/16, 02/25/2019, Additional history exists COVID-19 Vaccine ( season) 2024 Albumin/Creatinine Ratio 05/22/2025 024, 05/21/2023, 05/16/2022, Additional history exists HbA1c 05/22/2025 05/22/2024, 080 04/2023, 05/16/2022, Additional history exists CKD PHOS USE SMARTSET 33525 10/06/202509/15, 05/21/2023, 05/16/2022, Additional history exists CKD HGB USE SMARTSET 96759 10/14/202510/14, 10/13/2024, 10/12/2024, Additional history exists DTap/Tdap Vaccines (2 - Td or Tdap) 10/03/2034 10/03/2024, 09/03/2008, 09/03/2008 Pneumococcal Vaccine: 50+ Years Completed 03/19/2015, 02/26/2003 VITAMIN D LEVEL ONCE IN A LIFETIME-USE SMARTSET# [id number] Completed 10/06/2024, 06/13/2018, 09/02/2014, Additional history exists [...] this encounter Medical Devices Implanted Type Area Block Captain Device Identifier Shelf Expiration Date Model / Serial / Lot Proximail Medial Tibial Plate Implanted:Qty: 1 on 10/03/2024 by Roger Sy MD at [place] [facility] Right: Leg Lower URIEL : TRAUMA [id number] / / Screw Nlk A3 Ti 3.5x24mm - [id number] Implanted:Qty: 1 on 10/03/2024 by Roger Sy MD at OR [facility] Right: Leg Lower URIEL : TRAUMA [id number] / / Screw Nlk A3 Ti 3.5x26mm - [id number] Implanted:Qty: 1 on 10/03/2024 by Roger Sy MD at OR [facility] Right: Leg Lower URIEL : TRAUMA [id number] / / Screw Nlk A3 Ti 3.5x28mm - [id number] Implanted:Qty: 1 on 10/03/2024 by Roger Sy MD at [place] [facility] Right: Leg Lower URIEL : TRAUMA [id number] / / Screw Nlk A3 Ti 3.5x30mm - [id number] Implanted:Qty: 1 on 10/03/2024 by Roger Sy MD at OR [facility] Right: Leg Lower URIEL : TRAUMA [id number] / / Screw Nlk A3 Ti 3.5x36mm - [id number] Implanted:Qty: 1 on 10/03/2024 by Roger Sy MD at [place] [facility] Right: Leg Lower URIEL : TRAUMA [id number] / / Screw Canc A3 Ti 4x48mm Ft - [id number] Implanted:Qty: 1 on 10/03/2024 by Roger Sy MD at OR [facility] Right: Leg Lower URIEL : TRAUMA [id number] / / 3.5 Locking Screw Implanted:Qty: 2 on 10/03/2024 by Roger Sy MD at OR [facility] Right: Leg Lower URIEL : TRAUMA [id number] / / 3.5 Mm Locking Screw Implanted:Qty: 1 on 10/03/2024 by Roger Sy MD at OR [facility] Right: Leg Lower URIEL : TRAUMA [id number] / / documented as of this encounter Procedures Procedure Name Priority Date/Time Associated Diagnosis Comments RADIOLOGY EXAM - GENERAL RAD (IMAGES ONLY,NO REPORT) Routine 10/02/2024 8:30 PM EST documented in this encounter Results * RADIOLOGY EXAM - GENERAL RAD (IMAGES ONLY,NO REPORT) (10/02/2024 8:30 PM EST) 10/02/2024 8:22 PM EST Narrative Scheduling, Silent - 10/16/2024 10:51 AM EST This is an imaging study not interpreted or resulted by a [employer] or [employer] contracted radiologist. us Uday Renner MD RADIOLOGY (RAD GENERAL ) Final Result documented in this encounter Advance [...] and were consensually agreed upon. Care Teams Milling Machine Operator Relationship Specialty Start Date End Date Kendra Go MD [address] [place] [address] [place] [address] PCP - General Family Medicine 05/19/24 documented as of this encounter
--- OUTSIDE RECORDS SUMMARY | 2024-10-24 23:25 | External Medical Summary | Summary of Care ---
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 Not on file documented as of this encounter Plan of Treatment Upcoming Encounters Date Type Department Care Team (Late st Contact Info) Description 10/21/2024 12:00 PM EST Office Visit Orthopaedics, [place] [address] [place] [address] Tuan Andrade, PA-C [address] [place] [address] 10/22/2024 9:30 AM EST Scheduled Telephone [facility], [facility] [address] [facility] [place] [address] Anel Moreira [address] [facility] [place] [address] 10/24/2024 1:40 PM EST Office Visit Family Medicine [address] [place] [phone] Kendra Go MD [address] [place] [address] [place] [address] 11/27/2024 11:00 AM EST Office Visit Rheumatology [address] [place] [address] Nathan Siu PA-C [address] [place] [address] Health Maintenance Due Date Last Done Comments Adult Wellness Visit 01/18/2002 Zoster Vaccines (3 of 3) 11/29/2020 10/04/2020, 08/0 10/2014 Depression Monitoring 04/01/2021 04/01/2020 DXA Scan 06/07/2024 06/07/2022, 05/16, 02/25/2019, Additional history exists COVID-19 Vaccine ( season) 2024 Albumin/Creatinine Ratio 05/22/2025 024, 05/21/2023, 05/16/2022, Additional history exists HbA1c 05/22/2025 05/22/2024, 080 04/2023, 05/16/2022, Additional history exists CKD PHOS USE SMARTSET 56218 10/06/202509/15, 05/21/2023, 05/16/2022, Additional history exists CKD HGB USE SMARTSET 18500 10/14/202510/14, 10/13/2024, 10/12/2024, Additional history exists DTap/Tdap Vaccines (2 - Td or Tdap) 10/03/2034 10/03/2024, 09/03/2008, 09/03/2008 Pneumococcal Vaccine: 50+ Years Completed 03/19/2015, 02/26/2003 VITAMIN D LEVEL ONCE IN A LIFETIME-USE SMARTSET# [id number] Completed 10/06/2024, 06/13/2018, 09/02/2014, Additional history exists [...] this encounter Medical Devices Implanted Type Area Salvage Diver Device Identifier Shelf Expiration Date Model / Serial / Lot Proximail Medial Tibial Plate Implanted:Qty: 1 on 10/03/2024 by Roger Sy MD at OR [facility] Right: Leg Lower URIEL : TRAUMA [id number] / / Screw Nlk A3 Ti 3.5x24mm - [id number] Implanted:Qty: 1 on 10/03/2024 by Roger Sy MD at OR [facility] Right: Leg Lower URIEL : TRAUMA [id number] / / Screw Nlk A3 Ti 3.5x26mm - [id number] Implanted:Qty: 1 on 10/03/2024 by Roger Sy MD at OR [facility] Right: Leg Lower URIEL : TRAUMA [id number] / / Screw Nlk A3 Ti 3.5x28mm - [id number] Implanted:Qty: 1 on 10/03/2024 by Roger Sy MD at OR [facility] Right: Leg Lower URIEL : TRAUMA [id number] / / Screw Nlk A3 Ti 3.5x30mm - [id number] Implanted:Qty: 1 on 10/03/2024 by Roger Sy MD at OR [facility] Right: Leg Lower URIEL : TRAUMA [id number] / / Screw Nlk A3 Ti 3.5x36mm - [id number] Implanted:Qty: 1 on 10/03/2024 by Roger Sy MD at OR [facility] Right: Leg Lower URIEL : TRAUMA [id number] / / Screw Canc A3 Ti 4x48mm Ft - [id number] Implanted:Qty: 1 on 10/03/2024 by Roger Sy MD at OR [facility] Right: Leg Lower URIEL : TRAUMA [id number] / / 3.5 Locking Screw Implanted:Qty: 2 on 10/03/2024 by Roger Sy MD at OR [facility] Right: Leg Lower URIEL : TRAUMA [id number] / / 3.5 Mm Locking Screw Implanted:Qty: 1 on 10/03/2024 by Roger Sy MD at OR [facility] Right: Leg Lower URIEL : TRAUMA [id number] / / documented as of this encounter Procedures Procedure Name Priority Date/Time Associated Diagnosis Comments RADIOLOGY EXAM - CT (IMAGES ONLY, NO REPORT) Routine 10/02/2024 8:55 PM EST documented in this encounter Results * RADIOLOGY EXAM - CT (IMAGES ONLY, NO REPORT) (10/02/2024 8:55 PM EST) 10/02/2024 8:39 PM EST Narrative Scheduling, Silent - 10/16/2024 11:03 AM EST This is an imaging study not interpreted or resulted by a [employer] or [employer] contracted radiologist. us Uday Renner MD RAD [...] and were consensually agreed upon. Care Teams Tire Buffer Relationship Specialty Start Date End Date Kendra Go MD [address] [place] [address] [place] [address] PCP - General Family Medicine 05/19/24 documented as of this encounter
--- OUTSIDE RECORDS SUMMARY | 2024-10-24 23:25 | External Medical Summary | Summary of Care ---
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 [place] [address] Anel Moreira [address] [facility] [place] [address] 10/24/2024 1:40 PM EST Office Visit Family Medicine [address] [place] [phone] Kendra Go MD [address] [place] [address] [place] [address] 11/27/2024 11:00 AM EST Office Visit Rheumatology [address] [place] [address] Nathan Siu PA-C [address] [place] [address] Health Maintenance Due Date Last Done Comments Adult Wellness Visit 01/18/2002 Zoster Vaccines (3 of 3) 11/29/2020 10/04/2020, 08/0 10/2014 Depression Monitoring 04/01/2021 04/01/2020 DXA Scan 06/07/2024 06/07/2022, 05/16, 02/25/2019, Additional history exists COVID-19 Vaccine ( season) 2024 Albumin/Creatinine Ratio 05/22/2025 024, 05/21/2023, 05/16/2022, Additional history exists HbA1c 05/22/2025 05/22/2024, 080 04/2023, 05/16/2022, Additional history exists CKD PHOS USE SMARTSET 28830 10/06/202509/15, 05/21/2023, 05/16/2022, Additional history exists CKD HGB USE SMARTSET 92016 10/14/202510/14, 10/13/2024, 10/12/2024, Additional history exists DTap/Tdap Vaccines (2 - Td or Tdap) 10/03/2034 10/03/2024, 09/03/2008, 09/03/2008 Pneumococcal Vaccine: 50+ Years Completed 03/19/2015, 02/26/2003 VITAMIN D LEVEL ONCE IN A LIFETIME-USE SMARTSET# 54370 Completed 10/06/2024, 06/13/2018, 09/02/2014, Additional history exists [...] this encounter Medical Devices Implanted Type Area Braille Translator Device Identifier Shelf Expiration Date Model / Serial / Lot Proximail Medial Tibial Plate Implanted:Qty: 1 on 10/03/2024 by Roger Sy MD at [place] [facility] [place] Right: Leg Lower URIEL : TRAUMA [id number] / / Screw Nlk A3 Ti 3.5x24mm - [id number] Implanted:Qty: 1 on 10/03/2024 by Roger Sy MD at OR [facility] Right: Leg Lower URIEL : TRAUMA [id number] / / Screw Nlk A3 Ti 3.5x26mm - [id number] Implanted:Qty: 1 on 10/03/2024 by Roger Sy MD at OR [facility] [place] Right: Leg Lower URIEL : TRAUMA [id number] / / Screw Nlk A3 Ti 3.5x28mm - [id number] Implanted:Qty: 1 on 10/03/2024 by Roger Sy MD at OR [facility] [place] Right: Leg Lower URIEL : TRAUMA [id number] / / Screw Nlk A3 Ti 3.5x30mm - [id number] Implanted:Qty: 1 on 10/03/2024 by Roger Sy MD at OR [facility] [place] Right: Leg Lower URIEL : TRAUMA [id number] / / Screw Nlk A3 Ti 3.5x36mm - [id number] Implanted:Qty: 1 on 10/03/2024 by Roger Sy MD at OR [facility] Right: Leg Lower URIEL : TRAUMA [id number] / / Screw Canc A3 Ti 4x48mm Ft - [id number] Implanted:Qty: 1 on 10/03/2024 by Roger Sy MD at OR [facility] Right: Leg Lower URIEL : TRAUMA [id number] / / 3.5 Locking Screw Implanted:Qty: 2 on 10/03/2024 by Roger Sy MD at OR [facility] Right: Leg Lower URIEL : TRAUMA [id number] / / 3.5 Mm Locking Screw Implanted:Qty: 1 on 10/03/2024 by Roger yS MD at OR [facility] Right: Leg Lower URIEL : TRAUMA [id number] / / documented as of this encounter Procedures Procedure Name Priority Date/Time Associated Diagnosis Comments RADIOLOGY EXAM - GENERAL RAD (IMAGES ONLY,NO REPORT) Routine 10/02/2024 8:25 PM EST documented in this encounter Results * RADIOLOGY EXAM - GENERAL RAD (IMAGES ONLY,NO REPORT) (10/02/2024 8:25 PM EST) 10/02/2024 8:22 PM EST Narrative Scheduling, Silent - 10/16/2024 10:48 AM EST This is an imaging study not interpreted or resulted by a [employer]cher or [employer] contracted radiologist. us Uday Renner MD [...] and were consensually agreed upon. Care Teams Autistic Teacher Relationship Specialty Start Date End Date Kendra Go MD [address] [place] [address] [place] [address] PCP - General Family Medicine 05/19/24 documented as of this encounter
--- OUTSIDE RECORDS SUMMARY | 2024-10-24 23:25 | External Medical Summary | Summary of Care ---
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 [address] [facility] [place] [address] Anel Moreira [address] [facility] [place] [address] 10/24/2024 1:40 PM EST Office Visit Family Medicine [address] [place] [phone] Kendra Go MD [address] [place] [address] [place] [address] 11/27/2024 11:00 AM EST Office Visit Rheumatology [address] [place] [address] Nathan Siu PA-C [address] [place] [address] Health Maintenance Due Date Last Done Comments Adult Wellness Visit 01/18/2002 Zoster Vaccines (3 of 3) 11/29/2020 10/04/2020, 08/0 10/2014 Depression Monitoring 04/01/2021 04/01/2020 DXA Scan 06/07/2024 06/07/2022, 05/16, 02/25/2019, Additional history exists COVID-19 Vaccine ( season) 2024 Albumin/Creatinine Ratio 05/22/2025 024, 05/21/2023, 05/16/2022, Additional history exists HbA1c 05/22/2025 05/22/2024, 080 04/2023, 05/16/2022, Additional history exists CKD PHOS USE SMARTSET 14231 10/06/202509/15, 05/21/2023, 05/16/2022, Additional history exists CKD HGB USE SMARTSET 17018 10/14/202510/14, 10/13/2024, 10/12/2024, Additional history exists DTap/Tdap Vaccines (2 - Td or Tdap) 10/03/2034 10/03/2024, 09/03/2008, 09/03/2008 Pneumococcal Vaccine: 50+ Years Completed 03/19/2015, 02/26/2003 VITAMIN D LEVEL ONCE IN A LIFETIME-USE SMARTSET# 79097 Completed 10/06/2024, 06/13/2018, 09/02/2014, Additional history exists [...] this encounter Medical Devices Implanted Type Area Communication Specialist Device Identifier Shelf Expiration Date Model / Serial / Lot Proximail Medial Tibial Plate Implanted:Qty: 1 on 10/03/2024 by Roger Sy MD at OR [facility] [place] Right: Leg Lower URIEL : TRAUMA [id number] / / Screw Nlk A3 Ti 3.5x24mm - [id number] Implanted:Qty: 1 on 10/03/2024 by Roger Sy MD at OR [facility] Right: Leg Lower URIEL : TRAUMA [id number] / / Screw Nlk A3 Ti 3.5x26mm - [id number] Implanted:Qty: 1 on 10/03/2024 by Roger Sy MD at OR [facility] Right: Leg Lower URIEL : TRAUMA [id number] / / Screw Nlk A3 Ti 3.5x28mm - [id number] Implanted:Qty: 1 on 10/03/2024 by Roger yS MD at OR [facility] [place] Right: Leg Lower URIEL : TRAUMA [id number] / / Screw Nlk A3 Ti 3.5x30mm - [id number] Implanted:Qty: 1 on 10/03/2024 by Roger Sy MD at OR [facility] Right: Leg Lower URIEL : TRAUMA 154704 / / Screw Nlk A3 Ti 3.5x36mm - [id number] Implanted:Qty: 1 on 10/03/2024 by Roger Sy MD at OR [facility] Right: Leg Lower URIEL : TRAUMA [id number] / / Screw Canc A3 Ti 4x48mm Ft - [id number] Implanted:Qty: 1 on 10/03/2024 by Roger Sy MD at OR [facility] Right: Leg Lower URIEL : TRAUMA [id number] / / 3.5 Locking Screw Implanted:Qty: 2 on 10/03/2024 by Roger Sy MD at OR [facility] Right: Leg Lower URIEL : TRAUMA 615781 / / 3.5 Mm Locking Screw Implanted:Qty: 1 on 10/03/2024 by Roger Sy MD at OR [facility] Right: Leg Lower URIEL : TRAUMA [id number] / / documented as of this encounter Procedures Procedure Name Priority Date/Time Associated Diagnosis Comments RADIOLOGY EXAM - CT (IMAGES ONLY, NO REPORT) Routine 10/02/2024 8:45 PM EST documented in this encounter Results * RADIOLOGY EXAM - CT (IMAGES ONLY, NO REPORT) (10/02/2024 8:45 PM EST) 10/02/2024 8:39 PM EST Narrative Scheduling, Silent - 10/16/2024 10:57 AM EST This is an imaging study not interpreted or resulted by a [employer] or [employer] contracted radiologist. us Uday Renner MD RAD [...] and were consensually agreed upon. Care Teams Retail Mortgage Banker Relationship Specialty Start Date End Date Kendra Go MD [address] [place] [address] [place] [address] PCP - General Family Medicine 05/19/24 documented as of this encounter
[2024-10-24] MEDS: FLUTICASONE PROPIONATE NA SPR 16 GM BTL SCH (23:26)
[2024-10-24] MEDS: DOCUSATE SODIUM 100 MG CAP PO SCH (23:26)
[2024-10-24] MEDS: AMOXICILLIN 500 MG CAP PO STA (23:26)
--- OUTSIDE RECORDS SUMMARY | 2024-10-24 23:26 | External Medical Summary | Summary of Care ---
Author Name Unknown Organization [facility] Address [address] [place] [address] Phone [phone] Care Team Providers Care Technical Supervisor Name Role Phone Kendra Go MD Primary Care Provide r Encounter Details Date Type Department Care Team (Late st Contact Info) Description 10/02/2024 Orders Only Unspecified Department Uday Renner MD [address] [place] [address] Allergies No known active allergiesdocumented as of this encounter (statuses as of 10/16/2024) Medications Pantoprazole Sodium 40 MG Oral Tablet [...] as of this encounter (statuses as of 10/16/2024) Active Problems Problem Noted Date Diagnosed Date [...] as of this encounter (statuses as of 10/16/2024) Resolved Problems Problem Noted Date Diagnosed Date [...] as of this encounter (statuses as of 10/16/2024) Immunizations Name Administration Dates Next Due Pneumococcal [...] 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 Not on file documented as of this encounter Plan of Treatment Upcoming Encounters Date Type Department Care Team (Late st Contact Info) Description 10/21/2024 12:00 PM EST Office Visit Orthopaedics, [place] [address] [place] [address] Tuan Andrade, [place] [address] [place] [address] 10/22/2024 9:30 AM EST Scheduled Telephone [facility], [facility] [address] [facility] [place] [address] Anel Moreira [address] [place] [address] 10/24/2024 1:40 PM EST Office Visit Family Medicine [address] [place] [phone] Kendra Go MD [address] [place] [address] [place] [address] 11/27/2024 11:00 AM EST Office Visit Rheumatology [address] [place] [address] Nathan Siu PA-C [address] [place] [address] Health Maintenance Due Date Last Done Comments Adult Wellness Visit 01/18/2002 Zoster Vaccines (3 of 3) 11/29/2020 10/04/2020, 08/0 10/2014 Depression Monitoring 04/01/2021 04/01/2020 DXA Scan 06/07/2024 06/07/2022, 05/16, 02/25/2019, Additional history exists COVID-19 Vaccine ( season) 2024 Albumin/Creatinine Ratio 05/22/2025 024, 05/21/2023, 05/16/2022, Additional history exists HbA1c 05/22/2025 05/22/2024, 04/2023, 05/16/2022, Additional history exists CKD PHOS USE SMARTSET 51587 10/06/202509/15, 05/21/2023, 05/16/2022, Additional history exists CKD HGB USE SMARTSET 01873 10/14/202510/14, 10/13/2024, 10/12/2024, Additional history exists DTap/Tdap Vaccines (2 - Td or Tdap) 10/03/2034 10/03/2024, 09/03/2008, 09/03/2008 Pneumococcal Vaccine: 50+ Years Completed 03/19/2015, 02/26/2003 VITAMIN D LEVEL ONCE IN A LIFETIME-USE SMARTSET# [id number] Completed 10/06/2024, 06/13/2018, 09/02/2014, Additional history exists [...] this encounter Medical Devices Implanted Type Area Radar Scientist Device Identifier Shelf Expiration Date Model / Serial / Lot Proximail Medial Tibial Plate Implanted:Qty: 1 on 10/03/2024 by Roger Sy MD at [place] [facility] Right: Leg Lower URIEL : TRAUMA [id number] / / Screw Nlk A3 Ti 3.5x24mm - [id number] Implanted:Qty: 1 on 10/03/2024 by Roger Sy MD at [place] [facility] Right: Leg Lower URIEL : TRAUMA 643233 / / Screw Nlk A3 Ti 3.5x26mm - [id number] Implanted:Qty: 1 on 10/03/2024 by Roger Sy MD at [place] [facility] Right: Leg Lower URIEL : TRAUMA [id number] / / Screw Nlk A3 Ti 3.5x28mm - [id number] Implanted:Qty: 1 on 10/03/2024 by Roger Sy MD at [place] [facility] Right: Leg Lower URIEL : TRAUMA 101350 / / Screw Nlk A3 Ti 3.5x30mm - [id number] Implanted:Qty: 1 on 10/03/2024 by Roger Sy MD at [place] [facility] Right: Leg Lower URIEL : TRAUMA 038364 / / Screw Nlk A3 Ti 3.5x36mm - [id number] Implanted:Qty: 1 on 10/03/2024 by Roger Sy MD at [place] [facility] Right: Leg Lower URIEL : TRAUMA 159319 / / Screw Canc A3 Ti 4x48mm Ft - [id number] Implanted:Qty: 1 on 10/03/2024 by Roger Sy MD at [place] [facility] Right: Leg Lower URIEL : TRAUMA 367446 / / 3.5 Locking Screw Implanted:Qty: 2 on 10/03/2024 by Roger Sy MD at [place] [facility] Right: Leg Lower URIEL : TRAUMA 614004 / / 3.5 Mm Locking Screw Implanted:Qty: 1 on 10/03/2024 by Roger Sy MD at [place] [facility] Right: Leg Lower URIEL : TRAUMA 708304 / / documented as of this encounter [...] study not interpreted or resulted by a [employer]er or [employer] contracted radiologist. us Uday Renner MD RAD [...] and were consensually agreed upon. Care Teams Technical Supervisor Relationship Specialty Start Date End Date Kendra Go MD [address] [place] [address] [place] [address] PCP - General Family Medicine 05/19/24 documented as of this encounter
--- OUTSIDE RECORDS SUMMARY | 2024-10-24 23:26 | External Medical Summary | Summary of Care ---
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 file documented as of this encounter Plan of Treatment Upcoming Encounters Date Type Department Care Team (Late st Contact Info) Description 10/21/2024 12:00 PM EST Office Visit Orthopaedics, [place] [address] [place] [address] Tuan Andrade, [place] [address] [place] [address] 10/22/2024 9:30 AM EST Scheduled Telephone [facility], [facility] [address] [facility] [place] [address] Anel Moreira [address] [place] [address] 10/24/2024 1:40 PM EST Office Visit Family Medicine [address] [place] [phone] Kendra Go MD [address] [place] [address] [place] [address] 11/27/2024 11:00 AM EST Office Visit Rheumatology [address] [place] [address] Nathan Siu PA-C [address] [place] [address] Health Maintenance Due Date Last Done Comments Adult Wellness Visit 01/18/2002 Zoster Vaccines (3 of 3) 11/29/2020 10/04/2020, 08/0 10/2014 Depression Monitoring 04/01/2021 04/01/2020 DXA Scan 06/07/2024 06/07/2022, 05/16, 02/25/2019, Additional history exists COVID-19 Vaccine ( season) 2024 Albumin/Creatinine Ratio 05/22/2025 024, 05/21/2023, 05/16/2022, Additional history exists HbA1c 05/22/2025 05/22/2024, 04/2023, 05/16/2022, Additional history exists CKD PHOS USE SMARTSET 74510 10/06/202509/15, 05/21/2023, 05/16/2022, Additional history exists CKD HGB USE SMARTSET 02034 10/14/202510/14, 10/13/2024, 10/12/2024, Additional history exists DTap/Tdap Vaccines (2 - Td or Tdap) 10/03/2034 10/03/2024, 09/03/2008, 09/03/2008 Pneumococcal Vaccine: 50+ Years Completed 03/19/2015, 02/26/2003 VITAMIN D LEVEL ONCE IN A LIFETIME-USE SMARTSET# 99301 Completed 10/06/2024, 06/13/2018, 09/02/2014, Additional history exists [...] this encounter Medical Devices Implanted Type Area Sterilisation Technician Device Identifier Shelf Expiration Date Model / Serial / Lot Proximail Medial Tibial Plate Implanted:Qty: 1 on 10/03/2024 by Roger Sy MD [place] [facility] [place]: Leg Lower URIEL : TRAUMA [id number] / / Screw Nlk A3 Ti 3.5x24mm - [id number] Implanted:Qty: 1 on 10/03/2024 by Roger Sy MD [place] [facility] Right: Leg Lower URILE : TRAUMA 757051 / / Screw Nlk A3 Ti 3.5x26mm - [id number] Implanted:Qty: 1 on 10/03/2024 by Roger Sy MD [place] [facility] Right: Leg Lower URIEL : TRAUMA 358869 / / Screw Nlk A3 Ti 3.5x28mm - [id number] Implanted:Qty: 1 on 10/03/2024 by Roger Sy MD at [place] [facility] Right: Leg Lower URIEL : TRAUMA 683947 / / Screw Nlk A3 Ti 3.5x30mm - [id number] Implanted:Qty: 1 on 10/03/2024 by Roger Sy MD at [place] [facility] Right: Leg Lower URIEL : TRAUMA 379395 / / Screw Nlk A3 Ti 3.5x36mm - [id number] Implanted:Qty: 1 on 10/03/2024 by Roger Sy MD at [place] [facility] Right: Leg Lower URIEL : TRAUMA 837158 / / Screw Canc A3 Ti 4x48mm Ft - [id number] Implanted:Qty: 1 on 10/03/2024 by Roger Sy MD at [place] [facility] Right: Leg Lower URIEL : TRAUMA 337772 / / 3.5 Locking Screw Implanted:Qty: 2 on 10/03/2024 by Roger Sy MD at [place] [facility] Right: Leg Lower URIEL : TRAUMA 103686 / / 3.5 Mm Locking Screw Implanted:Qty: 1 on 10/03/2024 by Roger Sy MD at [place] [facility] Right: Leg Lower URIEL : TRAUMA 615362 / / documented as of this encounter [...] study not interpreted or resulted by a backstitcher or [employer] contracted radiologist. us Uday Renner MD RADIOLOGY [...] and were consensually agreed upon. Care Teams Raw Finish Mill Operator Relationship Specialty Start Date End Date Kendra Go MD [address] [place] [address] [place] [address] PCP - General Family Medicine 05/19/24 documented as of this encounter
--- OUTSIDE RECORDS SUMMARY | 2024-10-24 23:26 | External Medical Summary | Summary of Care ---
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 Not on file documented as of this encounter Plan of Treatment Upcoming Encounters Date Type Department Care Team (Late st Contact Info) Description 10/21/2024 12:00 PM EST Office Visit Orthopaedics, [place] [address] [place] [address] Tuan Andrade, [place] [address] [place] [address] 10/22/2024 9:30 AM EST Scheduled Telephone [facility], [facility] [address] [facility] [place] [address] Anel Moreira [address] [place] [address] 10/24/2024 1:40 PM EST Office Visit Family Medicine [address] [place] [phone] Kendra Go MD [address] [place] [address] [place] [address] 11/27/2024 11:00 AM EST Office Visit Rheumatology [address] [place] [address] Nathan Siu PA-C [address] [place] [address] Health Maintenance Due Date Last Done Comments Adult Wellness Visit 01/18/2002 Zoster Vaccines (3 of 3) 11/29/2020 10/04/2020, 08/0 10/2014 Depression Monitoring 04/01/2021 04/01/2020 DXA Scan 06/07/2024 06/07/2022, 05/16, 02/25/2019, Additional history exists COVID-19 Vaccine ( season) 2024 Albumin/Creatinine Ratio 05/22/2025 024, 05/21/2023, 05/16/2022, Additional history exists HbA1c 05/22/2025 05/22/2024, 04/2023, 05/16/2022, Additional history exists CKD PHOS USE SMARTSET 31715 10/06/202509/15, 05/21/2023, 05/16/2022, Additional history exists CKD HGB USE SMARTSET 10593 10/14/202510/14, 10/13/2024, 10/12/2024, Additional history exists DTap/Tdap Vaccines (2 - Td or Tdap) 10/03/2034 10/03/2024, 09/03/2008, 09/03/2008 Pneumococcal Vaccine: 50+ Years Completed 03/19/2015, 02/26/2003 VITAMIN D LEVEL ONCE IN A LIFETIME-USE SMARTSET# 92517 Completed 10/06/2024, 06/13/2018, 09/02/2014, Additional history exists [...] this encounter Medical Devices Implanted Type Area Motor Assembler Device Identifier Shelf Expiration Date Model / Serial / Lot Proximail Medial Tibial Plate Implanted:Qty: 1 on 10/03/2024 by Roger Sy MD [place] [facility] [place]: Leg Lower URIEL : TRAUMA [id number] / / Screw Nlk A3 Ti 3.5x24mm - [id number] Implanted:Qty: 1 on 10/03/2024 by Roger Sy MD [place] [facility] [place]: Leg Lower URIEL : TRAUMA 010715 / / Screw Nlk A3 Ti 3.5x26mm - [id number] Implanted:Qty: 1 on 10/03/2024 by Roger Sy MD [place] [facility] Right: Leg Lower URIEL : TRAUMA 123807 / / Screw Nlk A3 Ti 3.5x28mm - [id number] Implanted:Qty: 1 on 10/03/2024 by Roger Sy MD [place] [facility] Right: Leg Lower URIEL : TRAUMA 241738 / / Screw Nlk A3 Ti 3.5x30mm - [id number] Implanted:Qty: 1 on 10/03/2024 by Roger Sy MD [place] [facility] Right: Leg Lower URIEL : TRAUMA 868891 / / Screw Nlk A3 Ti 3.5x36mm - [id number] Implanted:Qty: 1 on 10/03/2024 by Roger Sy MD [place] [facility] Right: Leg Lower URIEL : TRAUMA 382623 / / Screw Canc A3 Ti 4x48mm Ft - [id number] Implanted:Qty: 1 on 10/03/2024 by Roger Sy MD [place] [facility] Right: Leg Lower URIEL : TRAUMA 684699 / / 3.5 Locking Screw Implanted:Qty: 2 on 10/03/2024 by Roger Sy MD [place] [facility] Right: Leg Lower URIEL : TRAUMA 042570 / / 3.5 Mm Locking Screw Implanted:Qty: 1 on 10/03/2024 by Roger Sy MD at [place] [facility] Right: Leg Lower URIEL : TRAUMA [id number] / / documented as of this encounter Procedures Procedure Name Priority Date/Time Associated Diagnosis Comments RADIOLOGY EXAM - GENERAL RAD (IMAGES ONLY,NO REPORT) Routine 10/02/2024 8:35 PM EST documented in this encounter Results * RADIOLOGY EXAM - GENERAL RAD (IMAGES ONLY,NO REPORT) (10/02/2024 8:35 PM EST) 10/02/2024 8:22 PM EST Narrative Scheduling, Silent - 10/16/2024 10:53 AM EST This is an imaging study not interpreted or resulted by a [employer]er or [employer] contracted radiologist. us Uday Renner MD RADIOLOGY [...] and were consensually agreed upon. Care Teams Forestry Foreman Relationship Specialty Start Date End Date Kendra Go MD [address] [place] [address] [place] [address] PCP - General Family Medicine 05/19/24 documented as of this encounter
--- OUTSIDE RECORDS SUMMARY | 2024-10-24 23:26 | External Medical Summary | Summary of Care ---
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 Not on file documented as of this encounter Plan of Treatment Upcoming Encounters Date Type Department Care Team (Late st Contact Info) Description 10/21/2024 12:00 PM EST Office Visit Orthopaedics, [place] [address] [place] [address] Tuan Andrade, [place] [address] [place] [address] 10/22/2024 9:30 AM EST Scheduled Telephone [facility], [facility] [address] [facility] [place] [address] Anel Moreira [address] [place] [address] 10/24/2024 1:40 PM EST Office Visit Family Medicine [address] [place] [phone] Kendra Go MD [address] [place] [address] [place] [address] 11/27/2024 11:00 AM EST Office Visit Rheumatology [address] [place] [address] Nathan Siu PA-C [address] [place] [address] Health Maintenance Due Date Last Done Comments Adult Wellness Visit 01/18/2002 Zoster Vaccines (3 of 3) 11/29/2020 10/04/2020, 08/0 10/2014 Depression Monitoring 04/01/2021 04/01/2020 DXA Scan 06/07/2024 06/07/2022, 05/16, 02/25/2019, Additional history exists COVID-19 Vaccine ( season) 2024 Albumin/Creatinine Ratio 05/22/2025 024, 05/21/2023, 05/16/2022, Additional history exists HbA1c 05/22/2025 05/22/2024, 04/2023, 05/16/2022, Additional history exists CKD PHOS USE SMARTSET 57808 10/06/202509/15, 05/21/2023, 05/16/2022, Additional history exists CKD HGB USE SMARTSET 45673 10/14/202510/14, 10/13/2024, 10/12/2024, Additional history exists DTap/Tdap Vaccines (2 - Td or Tdap) 10/03/2034 10/03/2024, 09/03/2008, 09/03/2008 Pneumococcal Vaccine: 50+ Years Completed 03/19/2015, 02/26/2003 VITAMIN D LEVEL ONCE IN A LIFETIME-USE SMARTSET# 55795 Completed 10/06/2024, 06/13/2018, 09/02/2014, Additional history exists [...] this encounter Medical Devices Implanted Type Area Leasing Specialist Device Identifier Shelf Expiration Date Model / Serial / Lot Proximail Medial Tibial Plate Implanted:Qty: 1 on 10/03/2024 by Roger Sy MD at [place] [facility] Right: Leg Lower URIEL : TRAUMA [id number] / / Screw Nlk A3 Ti 3.5x24mm - [id number] Implanted:Qty: 1 on 10/03/2024 by Roger Sy MD at OR [facility] Right: Leg Lower URIEL : TRAUMA [id number] / / Screw Nlk A3 Ti 3.5x26mm - [id number] Implanted:Qty: 1 on 10/03/2024 by Roger Sy MD at OR [facility] Right: Leg Lower URIEL : TRAUMA [id number] / / Screw Nlk A3 Ti 3.5x28mm - [id number] Implanted:Qty: 1 on 10/03/2024 by Roger Sy MD at OR [facility] Right: Leg Lower URIEL : TRAUMA [id number] / / Screw Nlk A3 Ti 3.5x30mm - [id number] Implanted:Qty: 1 on 10/03/2024 by Roger Sy MD at OR [facility] Right: Leg Lower URIEL : TRAUMA [id number] / / Screw Nlk A3 Ti 3.5x36mm - [id number] Implanted:Qty: 1 on 10/03/2024 by Roger Sy MD at OR [facility] Right: Leg Lower URIEL : TRAUMA [id number] / / Screw Canc A3 Ti 4x48mm Ft - [id number] Implanted:Qty: 1 on 10/03/2024 by Roger Sy MD at OR [facility] Right: Leg Lower URIEL : TRAUMA [id number] / / 3.5 Locking Screw Implanted:Qty: 2 on 10/03/2024 by Roger Sy MD at OR [facility] Right: Leg Lower URIEL : TRAUMA [id number] / / 3.5 Mm Locking Screw Implanted:Qty: 1 on 10/03/2024 by Roger Sy MD at OR [facility] Right: Leg Lower URIEL : TRAUMA [id number] / / documented as of this encounter [...] study not interpreted or resulted by a Next[employer] or [employer] contracted radiologist. us Uday Renner MD RAD [...] and were consensually agreed upon. Care Teams Sider Mechanic Relationship Specialty Start Date End Date Kendra Go MD [address] [place] [address] [place] [address] PCP - General Family Medicine 05/19/24 documented as of this encounter
--- OUTSIDE RECORDS SUMMARY | 2024-10-24 23:26 | External Medical Summary | Summary of Care ---
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 Not on file documented as of this encounter Plan of Treatment Upcoming Encounters Date Type Department Care Team (Late st Contact Info) Description 10/21/2024 12:00 PM EST Office Visit Orthopaedics, [place] [address] [place] [address] Tuan Andrade, [place] [address] [place] [address] 10/22/2024 9:30 AM EST Scheduled Telephone [facility], [facility] [address] [facility] [place] [address] Anel Moreira [address] [place] [address] 10/24/2024 1:40 PM EST Office Visit Family Medicine [address] [place] [phone] Kendra Go MD [address] [place] [address] [place] [address] 11/27/2024 11:00 AM EST Office Visit Rheumatology [address] [place] [address] Nathan Siu PA-C [address] [place] [address] Health Maintenance Due Date Last Done Comments Adult Wellness Visit 01/18/2002 Zoster Vaccines (3 of 3) 11/29/2020 10/04/2020, 08/0 10/2014 Depression Monitoring 04/01/2021 04/01/2020 DXA Scan 06/07/2024 06/07/2022, 05/16, 02/25/2019, Additional history exists COVID-19 Vaccine ( season) 2024 Albumin/Creatinine Ratio 05/22/2025 024, 05/21/2023, 05/16/2022, Additional history exists HbA1c 05/22/2025 05/22/2024, 04/2023, 05/16/2022, Additional history exists CKD PHOS USE SMARTSET 31729 10/06/202509/15, 05/21/2023, 05/16/2022, Additional history exists CKD HGB USE SMARTSET 86515 10/14/202510/14, 10/13/2024, 10/12/2024, Additional history exists DTap/Tdap Vaccines (2 - Td or Tdap) 10/03/2034 10/03/2024, 09/03/2008, 09/03/2008 Pneumococcal Vaccine: 50+ Years Completed 03/19/2015, 02/26/2003 VITAMIN D LEVEL ONCE IN A LIFETIME-USE SMARTSET# [id number] Completed 10/06/2024, 06/13/2018, 09/02/2014, Additional history exists [...] this encounter Medical Devices Implanted Type Area Soil Conservationist Device Identifier Shelf Expiration Date Model / Serial / Lot Proximail Medial Tibial Plate Implanted:Qty: 1 on 10/03/2024 by Roger Sy MD [place] [facility] [place]: Leg Lower URIEL : TRAUMA [id number] / / Screw Nlk A3 Ti 3.5x24mm - [id number] Implanted:Qty: 1 on 10/03/2024 by Roger Sy MD [place] [facility] Right: Leg Lower URIEL : TRAUMA [id number] / / Screw Nlk A3 Ti 3.5x26mm - [id number] Implanted:Qty: 1 on 10/03/2024 by Roger Sy MD [place] [facility] Right: Leg Lower URIEL : TRAUMA [id number] / / Screw Nlk A3 Ti 3.5x28mm - [id number] Implanted:Qty: 1 on 10/03/2024 by Roger Sy MD [place] [facility] Right: Leg Lower URIEL : TRAUMA [id number] / / Screw Nlk A3 Ti 3.5x30mm - [id number] Implanted:Qty: 1 on 10/03/2024 by Roger Sy MD at [place] [facility] Right: Leg Lower URIEL : TRAUMA [id number] / / Screw Nlk A3 Ti 3.5x36mm - [id number] Implanted:Qty: 1 on 10/03/2024 by Roger Sy MD at [place] [facility] Right: Leg Lower URIEL : TRAUMA [id number] / / Screw Canc A3 Ti 4x48mm Ft - [id number] Implanted:Qty: 1 on 10/03/2024 by Roger Sy MD at [place] [facility] Right: Leg Lower URIEL : TRAUMA [id number] / / 3.5 Locking Screw Implanted:Qty: 2 on 10/03/2024 by Roger Sy MD at [place] [facility] Right: Leg Lower URIEL : TRAUMA [id number] / / 3.5 Mm Locking Screw Implanted:Qty: 1 on 10/03/2024 by Roger yS MD at [place] [facility] Right: Leg Lower URIEL : TRAUMA [id number] / / documented as of this encounter [...] study not interpreted or resulted by a [employer]er or [employer] contracted radiologist. us Uday Renner MD RADIOLOGY [...] and were consensually agreed upon. Care Teams Engineer Conductor Relationship Specialty Start Date End Date Kendra Go MD [address] [place] [address] [place] [address] PCP - General Family Medicine 05/19/24 documented as of this encounter
--- OUTSIDE RECORDS SUMMARY | 2024-10-24 23:26 | External Medical Summary | Summary of Care ---
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 [address] [facility] [place] [address] Anel Moreira [address] [facility] [place] [address] 10/24/2024 1:40 PM EST Office Visit Family Medicine [address] [place] [phone] Kendra Go MD [address] [place] [address] [place] [address] 11/27/2024 11:00 AM EST Office Visit Rheumatology [address] [place] [address] Nathan Siu PA-C [address] [place] [address] Health Maintenance Due Date Last Done Comments Adult Wellness Visit 01/18/2002 Zoster Vaccines (3 of 3) 11/29/2020 10/04/2020, 08/0 10/2014 Depression Monitoring 04/01/2021 04/01/2020 DXA Scan 06/07/2024 06/07/2022, 05/16, 02/25/2019, Additional history exists COVID-19 Vaccine ( season) 2024 Albumin/Creatinine Ratio 05/22/2025 024, 05/21/2023, 05/16/2022, Additional history exists HbA1c 05/22/2025 05/22/2024, 080 04/2023, 05/16/2022, Additional history exists CKD PHOS USE SMARTSET 57689 10/06/202509/15, 05/21/2023, 05/16/2022, Additional history exists CKD HGB USE SMARTSET 67492 10/14/202510/14, 10/13/2024, 10/12/2024, Additional history exists DTap/Tdap Vaccines (2 - Td or Tdap) 10/03/2034 10/03/2024, 09/03/2008, 09/03/2008 Pneumococcal Vaccine: 50+ Years Completed 03/19/2015, 02/26/2003 VITAMIN D LEVEL ONCE IN A LIFETIME-USE SMARTSET# [id number] Completed 10/06/2024, 06/13/2018, 09/02/2014, Additional history exists [...] this encounter Medical Devices Implanted Type Area Senior Master Scheduler Device Identifier Shelf Expiration Date Model / Serial / Lot Proximail Medial Tibial Plate Implanted:Qty: 1 on 10/03/2024 by Roger Sy MD at OR [facility] [facility] Right: Leg Lower URIEL : TRAUMA [id number] / / Screw Nlk A3 Ti 3.5x24mm - [id number] Implanted:Qty: 1 on 10/03/2024 by Roger Sy MD at OR [facility] Right: Leg Lower URIEL : TRAUMA [id number] / / Screw Nlk A3 Ti 3.5x26mm - [id number] Implanted:Qty: 1 on 10/03/2024 by Roger Sy MD at OR [facility] Right: Leg Lower URIEL : TRAUMA [id number] / / Screw Nlk A3 Ti 3.5x28mm - [id number] Implanted:Qty: 1 on 10/03/2024 by Roger Sy MD at OR [facility] Right: Leg Lower URIEL : TRAUMA 625596 / / Screw Nlk A3 Ti 3.5x30mm - [id number] Implanted:Qty: 1 on 10/03/2024 by Roger Sy MD at OR [facility] Right: Leg Lower URIEL : TRAUMA [id number] / / Screw Nlk A3 Ti 3.5x36mm - [id number] Implanted:Qty: 1 on 10/03/2024 by Roger Sy MD at OR [facility] Right: Leg Lower URIEL : TRAUMA 931290 / / Screw Canc A3 Ti 4x48mm Ft - [id number] Implanted:Qty: 1 on 10/03/2024 by Roger Sy MD at OR [facility] Right: Leg Lower URIEL : TRAUMA 578886 / / 3.5 Locking Screw Implanted:Qty: 2 on 10/03/2024 by Roger Sy MD at OR [facility] Right: Leg Lower URIEL : TRAUMA [id number] / / 3.5 Mm Locking Screw Implanted:Qty: 1 on 10/03/2024 by Roger Sy MD at OR [facility] Right: Leg Lower URIEL : TRAUMA [id number] / / documented as of this encounter Procedures Procedure Name Priority Date/Time Associated Diagnosis Comments RADIOLOGY EXAM - CT (IMAGES ONLY, NO REPORT) Routine 10/02/2024 8:40 PM EST documented in this encounter Results * RADIOLOGY EXAM - CT (IMAGES ONLY, NO REPORT) (10/02/2024 8:40 PM EST) 10/02/2024 8:39 PM EST Narrative Scheduling, Silent - 10/16/2024 10:55 AM EST This is an imaging study not interpreted or resulted by a iyzicoer or [employer] contracted radiologist. us Uday Renner MD RAD [...] and were consensually agreed upon. Care Teams Custodian Manager Relationship Specialty Start Date End Date Kendra Go MD [address] [place] [address] [place] [address] PCP - General Family Medicine 05/19/24 documented as of this encounter
--- OUTSIDE RECORDS SUMMARY | 2024-10-24 23:26 | External Medical Summary | Summary of Care ---
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 file documented as of this encounter Plan of Treatment Upcoming Encounters Date Type Department Care Team (Late st Contact Info) Description 10/21/2024 12:00 PM EST Office Visit Orthopaedics, [place] [address] [place] [address] Tuan Andrade, [place] [address] [place] [address] 10/22/2024 9:30 AM EST Scheduled Telephone [facility], [facility] [address] [facility] [place] [address] Anel Moreira [address] [place] [address] 10/24/2024 1:40 PM EST Office Visit Family Medicine [address] [place] [phone] Kendra Go MD [address] [place] [address] [place] [address] 11/27/2024 11:00 AM EST Office Visit Rheumatology [address] [place] [address] Nathan Siu PA-C [address] [place] [address] Health Maintenance Due Date Last Done Comments Adult Wellness Visit 01/18/2002 Zoster Vaccines (3 of 3) 11/29/2020 10/04/2020, 08/0 10/2014 Depression Monitoring 04/01/2021 04/01/2020 DXA Scan 06/07/2024 06/07/2022, 05/16, 02/25/2019, Additional history exists COVID-19 Vaccine ( season) 2024 Albumin/Creatinine Ratio 05/22/2025 024, 05/21/2023, 05/16/2022, Additional history exists HbA1c 05/22/2025 05/22/2024, 04/2023, 05/16/2022, Additional history exists CKD PHOS USE SMARTSET 26404 10/06/202509/15, 05/21/2023, 05/16/2022, Additional history exists CKD HGB USE SMARTSET 33417 10/14/202510/14, 10/13/2024, 10/12/2024, Additional history exists DTap/Tdap Vaccines (2 - Td or Tdap) 10/03/2034 10/03/2024, 09/03/2008, 09/03/2008 Pneumococcal Vaccine: 50+ Years Completed 03/19/2015, 02/26/2003 VITAMIN D LEVEL ONCE IN A LIFETIME-USE SMARTSET# [id number] Completed 10/06/2024, 06/13/2018, 09/02/2014, Additional history exists [...] this encounter Medical Devices Implanted Type Area Architectural Drafter Device Identifier Shelf Expiration Date Model / Serial / Lot Proximail Medial Tibial Plate Implanted:Qty: 1 on 10/03/2024 by Roger Sy MD [place] [facility] [place]: Leg Lower URIEL : TRAUMA [id number] / / Screw Nlk A3 Ti 3.5x24mm - [id number] Implanted:Qty: 1 on 10/03/2024 by Roger Sy MD [place] [facility] [place]: Leg Lower URIEL : TRAUMA 115760 / / Screw Nlk A3 Ti 3.5x26mm - [id number] Implanted:Qty: 1 on 10/03/2024 by Roger Sy MD [place] [facility] [place]: Leg Lower URIEL : TRAUMA [id number] / / Screw Nlk A3 Ti 3.5x28mm - [id number] Implanted:Qty: 1 on 10/03/2024 by Roger Sy MD [place] [facility] [place]: Leg Lower URIEL : TRAUMA 139940 / / Screw Nlk A3 Ti 3.5x30mm - [id number] Implanted:Qty: 1 on 10/03/2024 by Roger Sy MD [place] [facility] [place]: Leg Lower URIEL : TRAUMA 689227 / / Screw Nlk A3 Ti 3.5x36mm - [id number] Implanted:Qty: 1 on 10/03/2024 by Roger Sy MD [place] [facility] Right: Leg Lower URIEL : TRAUMA 857698 / / Screw Canc A3 Ti 4x48mm Ft - [id number] Implanted:Qty: 1 on 10/03/2024 by Roger Sy MD [place] [facility] Right: Leg Lower URIEL : TRAUMA 264824 / / 3.5 Locking Screw Implanted:Qty: 2 on 10/03/2024 by Roger Sy MD [place] [facility] [place]: Leg Lower URIEL : TRAUMA [id number] / / 3.5 Mm Locking Screw Implanted:Qty: 1 on 10/03/2024 by Roger Sy MD [place] [facility] [place]: Leg Lower URIEL : TRAUMA 749925 / / documented as of this encounter [...] study not interpreted or resulted by a [employer] or [employer] contracted radiologist. us Uday Renner MD RAD [...] and were consensually agreed upon. Care Teams Manager Of Learning Relationship Specialty Start Date End Date Kendra Go MD [address] [place] [address] [place] [address] PCP - General Family Medicine 05/19/24 documented as of this encounter
--- OUTSIDE RECORDS SUMMARY | 2024-10-24 23:26 | External Medical Summary | Summary of Care ---
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 file documented as of this encounter Plan of Treatment Upcoming Encounters Date Type Department Care Team (Late st Contact Info) Description 10/21/2024 12:00 PM EST Office Visit Orthopaedics, [place] [address] [place] [address] Tuan Andrade, PA-C [address] [place] [address] 10/22/2024 9:30 AM EST Scheduled Telephone [facility], [facility] [address] [facility] [place] [address] Anel Moreira [address] [facility] [place] [address] 10/24/2024 1:40 PM EST Office Visit Family Medicine [address] [place] [phone] Kendra Go MD [address] [place] [address] [place] [address] 11/27/2024 11:00 AM EST Office Visit Rheumatology [address] [place] [address] Nathan Siu PA-C [address] [place] [address] Health Maintenance Due Date Last Done Comments Adult Wellness Visit 01/18/2002 Zoster Vaccines (3 of 3) 11/29/2020 10/04/2020, 08/0 10/2014 Depression Monitoring 04/01/2021 04/01/2020 DXA Scan 06/07/2024 06/07/2022, 05/16, 02/25/2019, Additional history exists COVID-19 Vaccine ( season) 2024 Albumin/Creatinine Ratio 05/22/2025 024, 05/21/2023, 05/16/2022, Additional history exists HbA1c 05/22/2025 05/22/2024, 080 04/2023, 05/16/2022, Additional history exists CKD PHOS USE SMARTSET 12679 10/06/202509/15, 05/21/2023, 05/16/2022, Additional history exists CKD HGB USE SMARTSET 46828 10/14/202510/14, 10/13/2024, 10/12/2024, Additional history exists DTap/Tdap Vaccines (2 - Td or Tdap) 10/03/2034 10/03/2024, 09/03/2008, 09/03/2008 Pneumococcal Vaccine: 50+ Years Completed 03/19/2015, 02/26/2003 VITAMIN D LEVEL ONCE IN A LIFETIME-USE SMARTSET# [id number] Completed 10/06/2024, 06/13/2018, 09/02/2014, Additional history exists [...] this encounter Medical Devices Implanted Type Area Test Car Driver Device Identifier Shelf Expiration Date Model / Serial / Lot Proximail Medial Tibial Plate Implanted:Qty: 1 on 10/03/2024 by Roger Sy MD at [place] [facility] [place] Right: Leg Lower URIEL : TRAUMA [id number] / / Screw Nlk A3 Ti 3.5x24mm - [id number] Implanted:Qty: 1 on 10/03/2024 by Roger Sy MD at [place] [facility] Right: Leg Lower URIEL : TRAUMA [id number] / / Screw Nlk A3 Ti 3.5x26mm - [id number] Implanted:Qty: 1 on 10/03/2024 by Roger Sy MD at [place] [facility] Right: Leg Lower URIEL : TRAUMA 795238 / / Screw Nlk A3 Ti 3.5x28mm - [id number] Implanted:Qty: 1 on 10/03/2024 by Roger Sy MD at [place] [facility] Right: Leg Lower URIEL : TRAUMA [id number] / / Screw Nlk A3 Ti 3.5x30mm - [id number] Implanted:Qty: 1 on 10/03/2024 by Roger Sy MD at [place] [facility] Right: Leg Lower URIEL : TRAUMA 787623 / / Screw Nlk A3 Ti 3.5x36mm - [id number] Implanted:Qty: 1 on 10/03/2024 by Roger Sy MD at [place] [facility] Right: Leg Lower URIEL : TRAUMA 673262 / / Screw Canc A3 Ti 4x48mm Ft - [id number] Implanted:Qty: 1 on 10/03/2024 by Roger Sy MD at [place] [facility] Right: Leg Lower URIEL : TRAUMA [id number] / / 3.5 Locking Screw Implanted:Qty: 2 on 10/03/2024 by Roger Sy MD at [place] [facility] Right: Leg Lower URIEL : TRAUMA [id number] / / 3.5 Mm Locking Screw Implanted:Qty: 1 on 10/03/2024 by Roger Sy MD at [place] [facility] Right: Leg Lower URIEL : TRAUMA 176943 / / documented as of this encounter [...] study not interpreted or resulted by a [employer] or [employer] contracted radiologist. us Uday Renner MD RADIOLOGY [...] and were consensually agreed upon. Care Teams Qualification Engineer Relationship Specialty Start Date End Date Kendra Go MD [address] [place] [address] [place] [address] PCP - General Family Medicine 05/19/24 documented as of this encounter
--- OUTSIDE RECORDS SUMMARY | 2024-10-24 23:26 | External Medical Summary | Summary of Care ---
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 Not on file documented as of this encounter Plan of Treatment Upcoming Encounters Date Type Department Care Team (Late st Contact Info) Description 10/21/2024 12:00 PM EST Office Visit Orthopaedics, [place] [address] [place] [address] Tuan Andrade, PALuis [address] [place] [address] 10/22/2024 9:30 AM EST Scheduled Telephone [facility] [address] [facility] [place] [address] Anel Moreira [address] [place] [address] 10/24/2024 1:40 PM EST Office Visit Family Medicine [address] [place] [phone] Kendra Go MD [address] [place] [address] [place] [address] 11/27/2024 11:00 AM EST Office Visit Rheumatology [address] [place] [address] Nathan Siu PA-C [address] [employer] [place] [address] Health Maintenance Due Date Last Done Comments Adult Wellness Visit 01/18/2002 Zoster Vaccines (3 of 3) 11/29/2020 10/04/2020, 08/0 10/2014 Depression Monitoring 04/01/2021 04/01/2020 DXA Scan 06/07/2024 06/07/2022, 05/16, 02/25/2019, Additional history exists COVID-19 Vaccine ( season) 2024 Albumin/Creatinine Ratio 05/22/2025 024, 05/21/2023, 05/16/2022, Additional history exists HbA1c 05/22/2025 05/22/2024, 04/2023, 05/16/2022, Additional history exists CKD PHOS USE SMARTSET 89552 10/06/202509/15, 05/21/2023, 05/16/2022, Additional history exists CKD HGB USE SMARTSET 18954 10/14/202510/14, 10/13/2024, 10/12/2024, Additional history exists DTap/Tdap Vaccines (2 - Td or Tdap) 10/03/2034 10/03/2024, 09/03/2008, 09/03/2008 Pneumococcal Vaccine: 50+ Years Completed 03/19/2015, 02/26/2003 VITAMIN D LEVEL ONCE IN A LIFETIME-USE SMARTSET# [id number] Completed 10/06/2024, 06/13/2018, 09/02/2014, Additional history exists [...] this encounter Medical Devices Implanted Type Area Nutritionist Public Health Device Identifier Shelf Expiration Date Model / Serial / Lot Proximail Medial Tibial Plate Implanted:Qty: 1 on 10/03/2024 [place] Sy [place] [facility] [place] Leg Lower URIEL : TRAUMA [id number] / / Screw Nlk A3 Ti 3.5x24mm - [id number] Implanted:Qty: 1 on 10/03/2024 by Roger Sy MD [place] [facility] [place] Leg Lower URIEL : TRAUMA [id number] / / Screw Nlk A3 Ti 3.5x26mm - [id number] Implanted:Qty: 1 on 10/03/2024 by Roger Sy MD [place] [facility] [place] Leg Lower URIEL : TRAUMA [id number] / / Screw Nlk A3 Ti 3.5x28mm - [id number] Implanted:Qty: 1 on 10/03/2024 by Roger Sy MD [place] [facility] [place] Leg Lower URIEL : TRAUMA [id number] / / Screw Nlk A3 Ti 3.5x30mm - [id number] Implanted:Qty: 1 on 10/03/2024 by Roger Sy MD [place] [facility] [place]: Leg Lower URIEL : TRAUMA [id number] / / Screw Nlk A3 Ti 3.5x36mm - [id number] Implanted:Qty: 1 on 10/03/2024 by Roger Sy MD [place] [facility] [place]: Leg Lower URIEL : TRAUMA [id number] / / Screw Canc A3 Ti 4x48mm Ft - [id number] Implanted:Qty: 1 on 10/03/2024 by Roger Sy MD [place] [facility] [place]: Leg Lower URIEL : TRAUMA [id number] / / 3.5 Locking Screw Implanted:Qty: 2 on 10/03/2024 by Roger Sy MD [place] [facility] [place]: Leg Lower URIEL : TRAUMA [id number] / / 3.5 Mm Locking Screw Implanted:Qty: 1 on 10/03/2024 by Roger Sy MD [place] [facility] [place] Leg Lower URIEL : TRAUMA [id number] / / documented as of this encounter [...] study not interpreted or resulted by a [employer] or [employer] contracted radiologist. us Uday Renner MD RAD [...] and were consensually agreed upon. Care Teams Information Consultant Relationship Specialty Start Date End Date Kendra Go MD [address] [place] [address] [place] [address] PCP - General Family Medicine 05/19/24 documented as of this encounter
--- OUTSIDE RECORDS SUMMARY | 2024-10-24 23:26 | External Medical Summary | Summary of Care ---
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 Not on file Not on file Not on file documented as of this encounter Plan of Treatment Upcoming Encounters Date Type Department Care Team (Late st Contact Info) Description 10/21/2024 12:00 PM EST Office Visit Orthopaedics, [place] [address] [place] [address] Tuan Andrade, [place] [address] [place] [address] 10/22/2024 9:30 AM EST Scheduled Telephone [facility], [facility] [address] [facility] [place] [address] Anel Moreira [address] [place] [address] 10/24/2024 1:40 PM EST Office Visit Family Medicine [address] [place] [phone] Kendra Go MD [address] [place] [address] [place] [address] 11/27/2024 11:00 AM EST Office Visit Rheumatology [address] [place] [address] Nathan Siu PA-C [address] [facility] [place] [address] Health Maintenance Due Date Last Done Comments Adult Wellness Visit 01/18/2002 Zoster Vaccines (3 of 3) 11/29/2020 10/04/2020, 08/0 10/2014 Depression Monitoring 04/01/2021 04/01/2020 DXA Scan 06/07/2024 06/07/2022, 05/16, 02/25/2019, Additional history exists COVID-19 Vaccine ( season) 2024 Albumin/Creatinine Ratio 05/22/2025 024, 05/21/2023, 05/16/2022, Additional history exists HbA1c 05/22/2025 05/22/2024, 04/2023, 05/16/2022, Additional history exists CKD PHOS USE SMARTSET 83124 10/06/202509/15, 05/21/2023, 05/16/2022, Additional history exists CKD HGB USE SMARTSET 46972 10/14/202510/14, 10/13/2024, 10/12/2024, Additional history exists DTap/Tdap Vaccines (2 - Td or Tdap) 10/03/2034 10/03/2024, 09/03/2008, 09/03/2008 Pneumococcal Vaccine: 50+ Years Completed 03/19/2015, 02/26/2003 VITAMIN D LEVEL ONCE IN A LIFETIME-USE SMARTSET# [id number] Completed 10/06/2024, 06/13/2018, 09/02/2014, Additional history exists [...] this encounter Medical Devices Implanted Type Area Military Communications Specialist Device Identifier Shelf Expiration Date Model / Serial / Lot Proximail Medial Tibial Plate Implanted:Qty: 1 on 10/03/2024 by Roger Sy MD at [place] [facility] [place] Right: Leg Lower URIEL : TRAUMA [id number] / / Screw Nlk A3 Ti 3.5x24mm - [id number] Implanted:Qty: 1 on 10/03/2024 by Roger Sy MD at [place] [facility] [place] Right: Leg Lower URIEL : TRAUMA [id number] / / Screw Nlk A3 Ti 3.5x26mm - [id number] Implanted:Qty: 1 on 10/03/2024 by Roger Sy MD at [place] [facility] [place] Right: Leg Lower URIEL : TRAUMA [id number] / / Screw Nlk A3 Ti 3.5x28mm - [id number] Implanted:Qty: 1 on 10/03/2024 by Roger Sy MD at [place] [facility] [place] Right: Leg Lower URIEL : TRAUMA [id number] / / Screw Nlk A3 Ti 3.5x30mm - [id number] Implanted:Qty: 1 on 10/03/2024 by Roger Sy MD at [place] [facility] [place] Right: Leg Lower URIEL : TRAUMA [id number] / / Screw Nlk A3 Ti 3.5x36mm - [id number] Implanted:Qty: 1 on 10/03/2024 by Roger Sy MD at [place] [facility] [place] Right: Leg Lower URIEL : TRAUMA [id number] / / Screw Canc A3 Ti 4x48mm Ft - [id number] Implanted:Qty: 1 on 10/03/2024 by Roger Sy MD at [place] [facility] [place] Right: Leg Lower URIEL : TRAUMA [id number] / / 3.5 Locking Screw Implanted:Qty: 2 on 10/03/2024 by Roger Sy MD at [place] [facility] [place] Right: Leg Lower URIEL : TRAUMA [id number] / / 3.5 Mm Locking Screw Implanted:Qty: 1 on 10/03/2024 by Roger Sy MD at [place] [facility] [place] Right: Leg Lower URIEL : TRAUMA [id number] / / documented as of this encounter [...] study not interpreted or resulted by a [employer] or [employer] contracted radiologist. us Uday Renner MD RAD [...] and were consensually agreed upon. Care Teams Tree Girdler Relationship Specialty Start Date End Date Kendra Go MD [address] [place] [address] [place] [address] PCP - General Family Medicine 05/19/24 documented as of this encounter
[2024-10-24] MEDS: ENOXAPARIN INJ 40 MG/0.4 ML SYR SQ STA (23:27)
[2024-10-25 06:50] LABS: Basophils # (auto) 0.01 K/uL (0.00-0.20); Basophils % (auto) 0.3 %; Eosinophils # (auto) 0.04 K/uL (0.00-0.50); Eosinophils % (auto) 1.3 %; Hematocrit (blood only) 30.5 % (37.0-47.0); Hemoglobin 9.7 g/dl (12.0-16.0); Immature Granulocytes # (auto) 0.01 K/uL (0.01-0.20); Immature Granulocytes % (auto) 0.3 %; Lymphocytes # (auto) 0.89 K/uL (1.20-3.40); Mean Corpuscular Hemoglobin 28.6 pg (25.0-34.0); Mean Corpuscular Hgb Conc 31.8 g/dL (32.0-36.0); Mean Platelet Volume 9.8 fL (9.4-12.4); Monocytes # (auto) 0.24 K/uL (0.11-0.59); Monocytes % (auto) 7.8 %; Neutrophils # (auto) 1.88 K/uL (1.40-6.50); Neutrophils % (auto) 61.3 %; Platelet Count 147 K/uL (130-400); RDW Coefficient of Variation 17.3 % (11.5-14.5); Red Blood Count 3.39 M/uL (4.20-5.40); White Blood Count 3.07 K/ul (4.8-10.8)
[2024-10-25 07:19] LABS: BUN Creatinine Ratio 18.2 (10-20); Calcium 8.4 mg/dl (8.6-10.3); Chol HDL Ratio 4.7 (0-5); Creatinine Clr Calc Pharmacy 36.3 ml/min; Magnesium 1.6 mg/dl (1.7-2.4); Potassium 3.7 mmol/L (3.5-5.1)
[2024-10-25] MEDS ORDERED: DEXAMETHASONE SOD INJ 4 MG/ML VIAL IV STA (07:25)
[2024-10-25 07:37] LABS: Estimated Average Glucose 108 mg/dl; Hemoglobin A1C 5.4 % (4.5-5.6)
[2024-10-25] MEDS: DEXAMETHASONE SOD INJ 4 MG/ML VIAL IV STA (08:53)
[2024-10-25] MEDS: MAGNESIUM SULFATE / D5W 1 GM/100 ML BAG IV ONE (08:53)
--- NOTE | 2024-10-25 08:53 | Hospitalist Progress Note ---
Date of Service October 25, 2024 Assessment & Plan (1) Unable to care for self: (2) Fracture of right tibial plateau: (3) COVID-19: (4) Hypertension: (5) Bradycardia: (6) Elevated troponin: Plan This is an 89-year-old female who has a significant past medical history of HTN, HLD, prediabetes, history of SVT, aortic stenosis, GERD, angiomyolipoma of both kidneys, osteoporosis and depression who presents to ED secondary to referral from office of aging due to performance of wellness check and patient found confused. #Unable to care for self at home #S/P recent R tibial plateau fx w/p ORIF by Dr. Sevilla [facility] Jennifer admit to med tele pt recently hospitalized 10/03-10/14 at [facility] due to fracture above, discharged to [facility] where pt left AMA to live at home Pt is to be TTWB to RLE with knee immobilizer on at all times, according to daughter she has been full weight bearing and going up/down steps Incision appears to be healing well, sutures still intact, I suspect these are going to need removed shortly Missed orthopedic follow up at [facility] scheduled for 10/21 - updated R knee XR as expected - will need to ensure Ortho follow-up #Sars COV-2 #Acute hypoxic respiratory failure Asymptomatic, daughter reports + test at [facility] earlier this week Iso precautions Notified that patient dropping to high 80s overnight on room air, improved to 95% on 2L NC Will give daily IV decadron given hypoxia in setting of covid, although also considering undiagnosed sleep apnea Remdesivir contraindicated given patient's bradycardia Consider 2 step prior to dc #Elevated Troponin #ECG changes #Bradycardia (per daughter chronic for pt) Repeat trop this AM WNL, repeat to be uploaded into system, no CP Echo with EF 60-65%, moderate concentric LVH, grade 1 diastolic dysfunction, L atrial severely dilated, mild aortic stenosis, mild ID, mild MR, mild TR #Acute L sinusitis per CT treat with amoxicillin 500mg TID x 7 days #HTN continue amlodipine pt has not been taking her medications #HLD continue atorvastatin #DVT ppx: SQ Lovenox FULL CODE PCP: Dr. Go Dispo: admit to med/tele while undergoing cardiac work up, PT/OT, CM involvement needed, pt is not capable of caring for self at home and will need further SNF placement, daughter agrees I spent a total of 50 minutes reviewing notes, outpatient records, labs, medication, coordinating, documenting and providing care for this patient excluding time spent in the performance of separately billed services. Admission and Anticipated Discharge Date Admission Date: October 24, 2024 Subjective Patient seen and examined in C3. Pleasantly confused but alert and oriented to self. Denies any pain in right lower extremity. Requiring some oxygen overnight with intermittent drops into the high 80s. Currently saturating at 93% on room air. Denies any chest pain, nausea or vomiting. Review of Systems Review of Systems: At least ten systems reviewed and negative except as noted in the HPI. Physical Exam Physical Exam: Gen: WD/WN, NAD, resting comfortably in bed, A&O x person, not place or time HEENT: Normocephalic, atraumatic, conjunctivae moist, sclerae anicteric, mucous membranes moist Lung: Scattered rhonchi, good air movement Heart: Bradycardic rate, regular rhythm Abdomen: Soft, NT, ND +BS x 4 Extremities: RLE in immobilizer brace, distally NVI, no pain or edema Skin: Warm, no rash Results & Data Results & Data Vital Signs (Past 12 Hours) Vital Signs Temp Pulse Pulse Resp BP BP Pulse Ox 10/25/24 08:00 49 L 16 129/58 L 99 10/25/24 07:37 48 L 10/25/24 06:50 42 L 18 132/59 L 98 10/25/24 06:40 50 L 18 95 10/25/24 06:35 50 L 18 88 L 10/25/24 06:15 51 L 19 93 10/25/24 06:01 53 L 18 120/41 L 92 10/25/24 05:03 54 L 18 125/60 95 10/25/24 04:02 66 18 154/63 H 95 10/25/24 03:09 129/108 H 10/25/24 03:09 56 L 21 128/108 H 96 10/25/24 01:06 48 L 17 147/56 H 94 10/25/24 00:22 94 10/25/24 00:01 49 L 22 148/63 H 96 10/24/24 23:00 10/24/24 23:00 36.9 C 46 L 20 134/51 L 96 10/24/24 23:00 46 L 20 134/51 L 96 10/24/24 22:15 46 L 20 132/60 93 O2 Del Method O2 Flow Rate 10/25/24 08:00 Nasal Cannula 2 10/25/24 07:37 10/25/24 06:50 Nasal Cannula 2 10/25/24 06:40 Nasal Cannula 2 10/25/24 06:35 Room Air 10/25/24 06:15 Room Air 10/25/24 06:01 Room Air 10/25/24 05:03 Room Air 10/25/24 04:02 Room Air 10/25/24 03:09 10/25/24 03:09 Room Air 10/25/24 01:06 Room Air 10/25/24 00:22 Room Air 10/25/24 00:01 Room Air 10/24/24 23:00 Room Air 10/24/24 23:00 Room Air 10/24/24 23:00 Room Air 10/24/24 22:15 Room Air Laboratory Results Short CBC 10/24/24 10/25/24 Range/Units 15:12 06:13 WBC 3.83 L 3.07 L (4.8-10.8) K/ul Hgb 10.8 L 9.7 L (12.0-16.0) g/dl Hct 34.2 L 30.5 L (37.0-47.0) % Plt Count 178 147 (130-400) K/uL BMP 10/24/24 10/25/24 15:12 06:13 Sodium 139 139 Potassium 3.6 3.7 Chloride 105 108 H Carbon Dioxide 23 25 BUN 17 14 Creatinine 0.87 0.77 Glucose 96 113 H Calcium 9.2 8.4 L Cardiac Enzymes 10/24/24 Range/Units 15:12 Total Creatine Kinase 38 (26-192) U/L Liver Function 10/24/24 Range/Units 15:12 Total Bilirubin 0.7 (0.2-1.0) mg/dl AST 22 (13-39) U/L ALT 14 (7-52) U/L Alkaline Phosphatase 82 (34-104) U/L Albumin 4.2 (3.4-5.0) gm/dl Urine 10/24/24 Range/Units 17:57 Urine Color Yellow Urine Appearance Clear (Clear) Urine pH 5.0 (4.5-7.5) Ur Specific [place] 1.028 (1.000-1.030) Urine Protein 1+ H (Negative) Urine Glucose (UA) Negative (Negative) Diagnostic Findings Chest X-Ray 10/24/24 14:51 XR chest 1V portable CLINICAL HISTORY: weakness COMPARISON STUDY: 10/02/2024 FINDINGS: Stable cardiomegaly without pulmonary vascular congestion. There is a large hiatal hernia, grossly stable compared with the CT of 10/02/2024. There is stable mild atelectasis in the lung bases. No new consolidation or pleural effusion. No pneumothorax. IMPRESSION: No acute findings. ACT 112: Negative or not required by law. Electronically signed by: Kenneth Patel M.D. 10/24/2024 3:[address] 10/24/24 14:57 CT head/brain wo con CLINICAL HISTORY: Ams. TECHNIQUE: Multiple axial CT images of the head were obtained without contrast. A dose lowering technique was utilized adhering to the principles of ALARA. CT DOSE: 1295.76 mGy.cm COMPARISON: 10/02/2024 FINDINGS: No intracranial hemorrhage seen. No mass effect, midline shift, or hydrocephalus. Stable mild chronic small vessel ischemic changes. No skull fracture. There is interval fluid and mucosal thickening at the left maxillary sinus consistent with sinusitis. IMPRESSION: 1. No acute intracranial abnormality. 2. Left maxillary sinusitis. ACT 112: Negative or not required by law. The above report was generated using voice recognition software. It may contain grammatical, syntax or spelling errors. Electronically signed by: Kenneth Patel M.D. 10/24/2024 3:42 PM Abdomen/Pelvis CT 10/24/24 15:[address] WITHOUT CONTRAST HISTORY: Acute right flank pain right flank pain, AMS TECHNIQUE: Multiaxial CT images of the abdomen and pelvis were performed without contrast. A dose lowering technique was utilized adhering to the principles of ALARA. COMPARISON STUDY: CT lumbar spine of same day, CT abdomen and pelvis 10/02/2024 FINDINGS: Cardiomegaly with coronary arterial calcifications. Large hiatal hernia with majority of the stomach within the thoracic cavity. Mild bibasilar atelectasis versus scarring. No pneumatosis or pneumoperitoneum. The unenhanced spleen, pancreas and adrenal glands are unremarkable. Unchanged a ppearance of the large gallstone. No CT evidence of acute cholecystitis. Liver is within normal limits. Cortical thinning of the kidneys. 1.4 cm angiomyolipoma in the lateral interpolar left kidney with additional 1.8 cm AML of the inferior pole. 2.6 cm cyst of the superior pole left kidney. 1.2 cm AML the lateral interpolar right kidney. No urolith or hydronephrosis. Urinary bladder wall thickening with partial distention. Atherosclerosis of the aorta without aneurysm. No lymphadenopathy. Colonic diverticulosis without acute diverticulitis. There are a few fat filled small abdominal hernias with diastases measuring up to 1.4 cm. Degenerative changes of the spine. T11 and L1 compression deformities/burst fractures with retropulsion redemonstrated which are unchanged from the prior study and favored to be chronic. IMPRESSION: 1. No renal or ureteral calculi or hydronephrosis. 2. No bowel obstruction or bowel wall thickening. 3. Large hiatal hernia. 4. Colonic diverticulosis. 5. Bilateral renal angiomyolipomata. 6. Cholelithiasis. 7. Additional findings as above. ACT 112: Negative or not required by law. The above report was generated using voice recognition software. It may contain grammatical, syntax or spelling errors. Electronically signed by: Mickey Schneider M.D. 10/24/2024 3:[address] 10/24/24 15:05 CT lumbar spine wo con CLINICAL HISTORY: low back pain, hx fall, AMS COMPARISON STUDY: 10/02/2024 FINDINGS: There is stable severe height loss at the T11 and L1 vertebral bodies. No interval lumbar spine fracture seen. Stable grade 1 anterolisthesis of L4 4 on 5 and L5 on S1. Stable moderate bilateral neural foraminal narrowing at L5- S1. Stable few scattered bone islands. Stable at least mild central canal narrowing at L4-5. IMPRESSION: 1. No acute lumbar spine fracture seen. 2. Stable old fractures and degenerative changes. ACT 112: Negative or not required by law. Electronically signed by: Kenneth Patel M.D. 10/24/2024 3:48 PM Knee X-Ray 10/24/24 18:45 EXAM: XR knee RT 1 or 2V routine CLINICAL HISTORY: recent RT tibial plateau fx s/p orif -AMS TECHNIQUE: X-ray images of the right knee were obtained in anteroposterior (AP), lateral, and oblique projections. COMPARISON: No prior studies available for comparison. FINDINGS: Bone Structure: ORIF of the proximal tibia using plate and screws. Healing comminuted fractures of the medial and lateral tibial plateau. Decreased bone density. Joint Spaces: Not at medial and lateral tibiofemoral Articular Surfaces: joint compartments. Irregular articular surfaces of the tibial plateau. Patella: Patella is normal in position and alignment. No evidence of patellar dislocation or subluxation. Soft Tissues: Periarticular soft tissues appear normal and unremarkable. No soft tissue swelling, calcifications, or foreign bodies noted. Additional Findings: No evidence of joint effusion. IMPRESSION: Internal metallic hardware fixation in the proximal third aspect of right tibia for tibial plateau fracture without hardware complications Correlate with clinical findings. Disclaimer: A subtle bone abnormality or fracture may not be readily apparent on X-rays, thus clinical correlation and further imaging including follow-up CT, MRI, or follow-up X-rays are advised as needed. Electronically signed by Ap Hamm 10-24-2024 7:58 PM
[2024-10-25] MEDS ORDERED: ADVANCED PROBIOTIC 625 MG CAPSULE PO SCH (09:00)
[2024-10-25] MEDS: ADVANCED PROBIOTIC 625 MG CAPSULE PO SCH (09:43)
[2024-10-25] MEDS: AMOXICILLIN 500 MG CAP PO SCH (09:43)
[2024-10-25] MEDS: CHOLECALCIFEROL 25 MCG (1000 UNITS) TAB PO SCH (09:46)
[2024-10-25] MEDS: amLODIPine BESYLATE 5 MG TAB PO SCH (09:46)
[2024-10-25] MEDS: ATORVASTATIN 10 MG TAB PO SCH (09:46)
[2024-10-25] MEDS: PANTOprazole 40 MG TAB PO SCH (09:47)
[2024-10-25] MEDS: ESCITALOPRAM OXALATE 10 MG TAB PO SCH (09:47)
[2024-10-25] MEDS: ENOXAPARIN INJ 40 MG/0.4 ML SYR SQ SCH (20:16)
[2024-10-26] MEDS: dexAMETHasone 6 MG in SYRINGE 0 ML IV SCH (08:24)
[2024-10-26 08:31] LABS: Hematocrit (blood only) 31.9 % (37.0-47.0); Hemoglobin 10.1 g/dl (12.0-16.0); Mean Corpuscular Hemoglobin 28.1 pg (25.0-34.0); Mean Corpuscular Hgb Conc 31.7 g/dL (32.0-36.0); Mean Corpuscular Volume 88.9 fL (80.0-100.0); Mean Platelet Volume 9.8 fL (9.4-12.4); Platelet Count 153 K/uL (130-400); RDW Coefficient of Variation 17.2 % (11.5-14.5); RDW Standard Deviation 55.7 fL (36.4-46.3); Red Blood Count 3.59 M/uL (4.20-5.40); White Blood Count 4.12 K/ul (4.8-10.8)
[2024-10-26 08:47] LABS: BUN Creatinine Ratio 20.5 (10-20); Calcium 8.8 mg/dl (8.6-10.3); Creatinine Clr Calc Pharmacy 33.7 ml/min; Potassium 4.1 mmol/L (3.5-5.1)
--- NOTE | 2024-10-26 10:31 | Electrocardiogram Report ---
Test Reason : Blood Pressure : */* mmHG Vent. Rate : 53 BPM Atrial Rate : 53 BPM P-R Int : 208 ms QRS Dur : 82 ms QT Int : 454 ms P-R-T Axes : * 24 242 degrees QTcB Int : 426 ms Sinus bradycardia Premature atrial complexes Abnormal ECG When compared with ECG of 15-Oct-2024 08:53, No significant change Confirmed by Uday Goins ([id number]) on 10/26/2024 10:31:14 AM Referred By: [facility] Confirmed By: Uday Goins
--- NOTE | 2024-10-26 11:16 | Hospitalist Progress Note ---
<Statement entered by Chico Mary DO - 10/26/24 16:31> I have seen and examined the patient and have discussed the case with the provider above. I have reviewed the advanced practitioner's documentation, and I agree with, and take responsibility for that plan of care. Patient seen earlier in the day and was displaying some evidence of confusion/delirium. Suspect this is due to being in the hospital and in a room that did not have any windows to help with orientation. Patient was evaluated again later in the day and did seem somewhat improved. Discussed recommendations from orthopedics with BERNABE, agree with removal of sutures Examined incision after suture removal, incision intact healing well, no evidence of infection. Further plan of care as outlined below Date of Service October 26, 2024 Assessment & Plan (1) Unable to care for self: (2) Fracture of right tibial plateau: (3) COVID-19: (4) Hypertension: (5) Bradycardia: (6) Elevated troponin: Plan This is an 89-year-old female who has a significant past medical history of HTN, HLD, prediabetes, history of SVT, aortic stenosis, GERD, angiomyolipoma of both kidneys, osteoporosis and depression who presents to ED secondary to referral from office of aging due to performance of wellness check and patient found confused. #Unable to care for self at home #S/P recent R tibial plateau fx w/p ORIF on 10/[address] Sevilla [facility] [place] Transitioned to [facility]/surg given stable from cardiac perspective Pt recently hospitalized 10/03-10/14 at [facility] due to fracture above, discharged to [facility] where pt left AMA to live at home Missed orthopedic follow up at [facility] scheduled for 10/21 - updated R knee XR without hardware complications Incision appears to be healing well, sutures removed and steri strips placed per discussion from RUMA Andrade of [facility] ortho trauma Activity instructions - RLE "touch down" weight bearing only, active flexion and extension, passive flexion with gravity, okay to shower but no soaking in tub Will be scheduled for ortho trauma 6 week follow up at [facility] #Sars COV-2 #Acute hypoxic respiratory failure Asymptomatic, daughter reports + test at [facility] earlier this week Iso precautions Notified that patient dropping to high 80s overnight on room air, improved to 95% on 2L NC -> received 2 doses of IV Decadron given hypoxia Hypoxia has resolved and patient saturating 98% on room air Given delirium on exam today as well as improved lung exam, will stop steroids at this time Remdesivir contraindicated given patient's bradycardia #Elevated Troponin #ECG changes #Bradycardia (per daughter chronic for pt) Repeat trop this AM WNL, repeat to be uploaded into system, no CP Echo with EF 60-65%, moderate concentric LVH, grade 1 diastolic dysfunction, L atrial severely dilated, mild aortic stenosis, mild OR, mild MR, mild TR #Acute L sinusitis per CT treat with amoxicillin 500mg TID x 7 days (EOT 10/31) #HTN continue amlodipine #HLD continue atorvastatin #DVT ppx: SQ Lovenox FULL CODE PCP: Dr. Go Dispo: admitted to med/surg, in ED until bed available. Awaiting PT/OT evaluation (WB instructions above), will need SNF placement per initial conversation with daughter as well as CM note. Referrals to [facility] and [facility] Amanda placed. Attempted to reach daughter Enedina for update today and clarification of baseline mentation but unable to reach or leave message. I spent a total of 60 minutes reviewing notes, outpatient records, labs, medication, coordinating, documenting and providing care for this patient excluding time spent in the performance of separately billed services. Care coordinated with Dr. Mary. Admission and Anticipated Discharge Date Admission Date: October 24, 2024 Subjective Patient seen and examined in C3. Pleasantly confused, more so today. Knows her name but not where she is. Concerned about noises out in her "living room". Able to answer simple questions and participate but showing signs of delirium. Denies any pain or new symptoms. No longer requiring oxygen. No shortness of breath. Denies any pain in right lower extremity. Review of Systems Review of Systems: At least ten systems reviewed and negative except as noted in the HPI. Physical Exam Physical Exam: Gen: WD/WN, NAD, sitting up in bed, moves easily to sit up. Pleasantly confused, disoriented HEENT: Normocephalic, atraumatic Lung: Clear to Auscultation bilaterally Heart: Regular rate, regular rhythm Abdomen: Soft, NT, ND +BS x 4 Extremities: no edema, RLE with immobilizer, sutures on medial aspect of leg, no erythema or drainage Skin: Warm, no rash Results & Data Results & Data Vital Signs (Past 12 Hours) Vital Signs Temp Pulse Pulse Resp BP Pulse Ox Pulse Ox 10/26/24 08:00 36.8 C 10/26/24 06:06 49 L 20 155/62 H 95 10/26/24 06:00 95 10/26/24 05:00 52 L 20 94 10/26/24 04:03 73 20 10/26/24 03:14 144/68 H 10/26/24 03:14 52 L 18 144/68 H 93 10/26/24 02:01 54 L 20 101/83 94 10/26/24 01:25 55 L 10/26/24 01:00 60 19 171/82 H 93 10/26/24 00:15 62 22 145/93 H 94 10/26/24 00:00 62 22 136/60 94 O2 Del Method O2 Del Method 10/26/24 08:00 10/26/24 06:06 Room Air 10/26/24 06:00 Room Air 10/26/24 05:00 Room Air 10/26/24 04:03 10/26/24 03:14 10/26/24 03:14 10/26/24 02:01 10/26/24 01:25 10/26/24 01:00 10/26/24 00:15 10/26/24 00:00 Laboratory Results Short CBC 10/26/24 Range/Units 08:06 WBC 4.12 L (4.8-10.8) K/ul Hgb 10.1 L (12.0-16.0) g/dl Hct 31.9 L (37.0-47.0) % Plt Count 153 (130-400) K/uL BMP 10/26/24 08:06 Sodium 138 Potassium 4.1 Chloride 106 Carbon Dioxide 26 BUN 17 Creatinine 0.83 Glucose 96 Calcium 8.8 Diagnostic Findings Chest X-Ray 10/24/24 14:51 XR chest 1V portable CLINICAL HISTORY: weakness COMPARISON STUDY: 10/02/2024 FINDINGS: Stable cardiomegaly without pulmonary vascular congestion. There is a large hiatal hernia, grossly stable compared with the CT of 10/02/2024. There is stable mild atelectasis in the lung bases. No new consolidation or pleural effusion. No pneumothorax. IMPRESSION: No acute findings. ACT 112: Negative or not required by law. Electronically signed by: Kenneth Patel M.D. 10/24/2024 3:[address] 10/24/24 14:57 CT head/brain wo con CLINICAL HISTORY: Ams. TECHNIQUE: Multiple axial CT images of the head were obtained without contrast. A dose lowering technique was utilized adhering to the principles of ALARA. CT DOSE: 1295.76 mGy.cm COMPARISON: 10/02/2024 FINDINGS: No intracranial hemorrhage seen. No mass effect, midline shift, or hydrocephalus. Stable mild chronic small vessel ischemic changes. No skull fracture. There is interval fluid and mucosal thickening at the left maxillary sinus consistent with sinusitis. IMPRESSION: 1. No acute intracranial abnormality. 2. Left maxillary sinusitis. ACT 112: Negative or not required by law. The above report was generated using voice recognition software. It may contain grammatical, syntax or spelling errors. Electronically signed by: Kenneth Patel M.D. 10/24/2024 3:42 PM Abdomen/Pelvis CT 10/24/24 15:[address] WITHOUT CONTRAST HISTORY: Acute right flank pain right flank pain, AMS TECHNIQUE: Multiaxial CT images of the abdomen and pelvis were performed without contrast. A dose lowering technique was utilized adhering to the principles of ALARA. COMPARISON STUDY: CT lumbar spine of same day, CT abdomen and pelvis 10/02/2024 FINDINGS: Cardiomegaly with coronary arterial calcifications. Large hiatal hernia with majority of the stomach within the thoracic cavity. Mild bibasilar atelectasis versus scarring. No pneumatosis or pneumoperitoneum. The unenhanced spleen, pancreas and adrenal glands are unremarkable. Unchanged appearance of the large gallstone. No CT evidence of acute cholecystitis. Liver is within normal limits. Cortical thinning of the kidneys. 1.4 cm angiomyolipoma in the lateral interpolar left kidney with additional 1.8 cm AML of the inferior pole. 2.6 cm cyst of the superior pole left kidney. 1.2 cm AML the lateral interpolar right kidney. No urolith or hydronephrosis. Urinary bladder wall thickening with partial distention. Atherosclerosis of the aorta without aneurysm. No lymphadenopathy. Colonic diverticulosis without acute diverticulitis. There are a few fat filled small abdominal hernias with diastases measuring up to 1.4 cm. Degenerative changes of the spine. T11 and L1 compression deformities/burst fractures with retropulsion redemonstrated which are unchanged from the prior study and favored to be chronic. IMPRESSION: 1. No renal or ureteral calculi or hydronephrosis. 2. No bowel obstruction or bowel wall thickening. 3. Large hiatal hernia. 4. Colonic diverticulosis. 5. Bilateral renal angiomyolipomata. 6. Cholelithiasis. 7. Additional findings as above. ACT 112: Negative or not required by law. The above report was generated using voice recognition software. It may contain grammatical, syntax or spelling errors. Electronically signed by: Mcikey Schneider M.D. 10/24/2024 3:[address] 10/24/24 15:05 CT lumbar spine wo con CLINICAL HISTORY: low back pain, hx fall, AMS COMPARISON STUDY: 10/02/2024 FINDINGS: There is stable severe height loss at the T11 and L1 vertebral bodies. No interval lumbar spine fracture seen. Stable grade 1 anterolisthesis of L4 4 on 5 and L5 on S1. Stable moderate bilateral neural foraminal narrowing at L5- S1. Stable few scattered bone islands. Stable at least mild central canal narr owing at L4-5. IMPRESSION: 1. No acute lumbar spine fracture seen. 2. Stable old fractures and degenerative changes. ACT 112: Negative or not required by law. Electronically signed by: Kenneth Patel M.D. 10/24/2024 3:48 PM Knee X-Ray 10/24/24 18:45 EXAM: XR knee RT 1 or 2V routine CLINICAL HISTORY: recent RT tibial plateau fx s/p orif -AMS TECHNIQUE: X-ray images of the right knee were obtained in anteroposterior (AP), lateral, and oblique projections. COMPARISON: No prior studies available for comparison. FINDINGS: Bone Structure: ORIF of the proximal tibia using plate and screws. Healing comminuted fractures of the medial and lateral tibial plateau. Decreased bone density. Joint Spaces: Not at medial and lateral tibiofemoral Articular Surfaces: joint compartments. Irregular articular surfaces of the tibial plateau. Patella: Patella is normal in position and alignment. No evidence of patellar dislocation or subluxation. Soft Tissues: Periarticular soft tissues appear normal and unremarkable. No soft tissue swelling, calcifications, or foreign bodies noted. Additional Findings: No evidence of joint effusion. IMPRESSION: Internal metallic hardware fixation in the proximal third aspect of right tibia for tibial plateau fracture without hardware complications Correlate with clinical findings. Disclaimer: A subtle bone abnormality or fracture may not be readily apparent on X-rays, thus clinical correlation and further imaging including follow-up CT, MRI, or follow-up X-rays are advised as needed. Electronically signed by Ap Hamm 10-24-2024 7:58 PM
[2024-10-26] MEDS: ACETAMINOPHEN 325 MG TAB PO SCH (17:17)
[2024-10-26] MEDS: HALOPERIDOL LACTATE 5 MG/ML 1 ML VIAL IM PRN (19:56)
[2024-10-26 20:19] LABS: Appearance Urine Clear (Clear); Bacteria Urine Automated None Seen (None Seen); Bilirubin Urine Negative (Negative); Blood Urine Trace (Negative); Cast Urine Automated 0-2 /lpf (0-2); Color Urine Yellow; Epithelial Cell Urine Auto 0-2 /hpf (0-2); Glucose Urine UA Negative (Negative); Ketones Urine Trace (Negative); Leukocyte Esterase Urine Negative (Negative); Nitrite Urine Negative (Negative); Protein Urine Trace (Negative); RBC Urine Automated 0-2 /hpf (0-2); Specific Gravity Urine 1.022 (1.000-1.030); Urobilinogen Urine Negative (Negative); WBC Urine Automated 0-5 /hpf (0-5)
[2024-10-26] MEDS: HALOPERIDOL LACTATE 5 MG/ML 1 ML VIAL IM STA (20:24)
[2024-10-26] MEDS ORDERED: PROMETHAZINE 6.25 MG/50.25 ML BAG IV PRN (20:27)
[2024-10-26] MEDS: hydrALAZINE HCL 20 MG/ML VIAL IV ONE (22:30)
[2024-10-27 07:31] LABS: Hematocrit (blood only) 30.1 % (37.0-47.0); Hemoglobin 9.7 g/dl (12.0-16.0); Mean Corpuscular Hemoglobin 28.4 pg (25.0-34.0); Mean Corpuscular Hgb Conc 32.2 g/dL (32.0-36.0); Mean Platelet Volume 9.6 fL (9.4-12.4); Platelet Count 144 K/uL (130-400); RDW Coefficient of Variation 17.1 % (11.5-14.5); RDW Standard Deviation 54.5 fL (36.4-46.3); Red Blood Count 3.42 M/uL (4.20-5.40); White Blood Count 5.14 K/ul (4.8-10.8)
[2024-10-27 07:50] LABS: BUN Creatinine Ratio 29.5 (10-20); Calcium 8.9 mg/dl (8.6-10.3); Creatinine Clr Calc Pharmacy 31.7 ml/min; Potassium 3.9 mmol/L (3.5-5.1)
--- NOTE | 2024-10-27 12:12 | Hospitalist Progress Note ---
Date of Service October 27, 2024 Assessment & Plan (1) Unable to care for self: (2) Fracture of right tibial plateau: (3) COVID-19: (4) Hypertension: (5) Bradycardia: (6) Elevated troponin: Plan This is an 89-year-old female who has a significant past medical history of HTN, HLD, prediabetes, history of SVT, aortic stenosis, GERD, angiomyolipoma of both kidneys, osteoporosis and depression who presents to ED secondary to referral from office of aging due to performance of wellness check and patient found confused. #Unable to care for self at home #S/P recent R tibial plateau fx w/p ORIF on 10/[address] Sevilla [facility] [place] Transitioned to [facility]/surg given stable from cardiac perspective Pt recently hospitalized 10/03-10/14 at [facility] due to fracture above, discharged to [facility] where pt left AMA to live at home Missed orthopedic follow up at [facility] scheduled for 10/21 - updated R knee XR without hardware complications Incision appears to be healing well, sutures removed and steri strips placed per discussion from RUMA Andrade of [facility] ortho trauma Activity instructions - RLE "touch down" weight bearing only, active flexion and extension, passive flexion with gravity, okay to shower but no soaking in tub Will be scheduled for ortho trauma 6 week follow up at [facility] #Hospital Delirium on suspected underlying cognitive decline vs dementia pt required IM haldol last night suspect a lot of this is situational given housed in ED for 2 overnights, cu rrently pts blinds in room were pulled encourage delirium precautions, keep Blinds elevated at all times, frequent re orientation #Sars COV-2 #Acute hypoxic respiratory failure Asymptomatic, daughter reports + test at [facility] earlier this week Iso precautions, asymptomatic currently, at one point did become hypoxic and received IV steroid but this has since resolved Remdesivir contraindicated given patient's bradycardia #Elevated Troponin #ECG changes #Bradycardia (per daughter chronic for pt) Repeat trop this AM WNL, repeat to be uploaded into system, no CP Echo with EF 60-65%, moderate concentric LVH, grade 1 diastolic dysfunction, L atrial severely dilated, mild aortic stenosis, mild LA, mild MR, mild TR ACS ruled out #Acute L sinusitis per CT treat with amoxicillin 500mg TID x 7 days (EOT 10/31) #HTN continue amlodipine #HLD continue atorvastatin #DVT ppx: SQ Lovenox FULL CODE PCP: Dr. Go Dispo: admitted to med/surg,Awaiting PT/OT evaluation (WB instructions above), will need SNF placement per initial conversation with daughter as well as CM note. Referrals to [facility] and [facility] placed. I spent a total of 44 minutes reviewing notes, outpatient records, labs, medication, coordinating, documenting and providing care for this patient excluding time spent in the performance of separately billed services. Care coordinated with Dr. Mary. Admission and Anticipated Discharge Date Admission Date: October 24, 2024 Subjective Pt was seen and examined in room 380. When entering the room all shades were down and it was pitch dark. I raised the shades for the patient to assist her in orientation. SHe reported she had no pain. She denies f/c/s, chest pain, sob, n/v/d. She denies any resp sx or cough. Review of Systems Review of Systems: All systems reviewed & are unremarkable except as noted in HPI & below Physical Exam Physical Exam: Gen: Petite elderly F, NAD, A&O x to self only HEENT: Normocephalic, atraumatic, conjunctivae moist, sclerae anicteric, mucous membranes dry. Lung: Clear to Auscultation bilaterally, no wheezes/rales/rhonchi Heart: bradycardic rate, regular rhythm, no murmurs, rubs, or gallops Abdomen: Soft, NT, ND +BS x 4 Extremities: No edema, RLE brace in place Skin: Warm, no rash, negative turgor. Results & Data Results & Data Vital Signs (Past 12 Hours) Vital Signs Temp Pulse Resp BP Pulse Ox O2 Del Method 10/27/24 07:23 36.7 C 54 L 16 147/69 H 97 Room Air Laboratory Results Short CBC 10/27/24 Range/Units 06:54 WBC 5.14 (4.8-10.8) K/ul Hgb 9.7 L (12.0-16.0) g/dl Hct 30.1 L (37.0-47.0) % Plt Count 144 (130-400) K/uL BMP 10/27/24 06:54 Sodium 140 Potassium 3.9 Chloride 108 H Carbon Dioxide 25 BUN 26 H Creatinine 0.88 Glucose 95 Calcium 8.9 Urine 10/26/24 Range/Units Unknown Urine Color Yellow Urine Appearance Clear (Clear) Urine pH 5.0 (4.5-7.5) Ur Specific [place] 1.022 (1.000-1.030) Urine Protein Trace H (Negative) Urine Glucose (UA) Negative (Negative) I have independently reviewed and interpreted patient's labs including CBC, BMP Medications Administered Current Inpatient Medications Acetaminophen (Acetaminophen 325 Mg Tab) 650 mg PO Q8H [facility] Stop: 11/25/24 16:29 Last Admin: 10/27/24 07:31 Dose: 650 mg Amlodipine Besylate (Amlodipine Besylate 5 Mg Tab) 5 mg PO DAILY [facility] Stop: 11/24/24 08:59 Last Admin: 10/27/24 07:32 Dose: 5 mg Amoxicillin (Amoxicillin 500 Mg Cap) 500 mg PO TID [facility]; Protocol Stop: 11/04/24 08:59 Last Admin: 10/27/24 07:32 Dose: 500 mg Atorvastatin Calcium (Atorvastatin 10 Mg Tab) 10 mg PO DAILY [facility] Stop: 11/24/24 08:59 Last Admin: 10/27/24 07:32 Dose: 10 mg Docusate Sodium (Docusate Sodium 100 Mg Cap) 100 mg PO BID [facility] Stop: 11/23/24 22:11 Last Admin: 10/27/24 07:31 Dose: 100 mg Enoxaparin Sodium (Enoxaparin Inj 40 Mg/0.4 Ml Syr) 40 mg SQ HS [facility] Stop: 11/24/24 20:59 Last Admin: 10/26/24 21:37 Dose: Not Given Escitalopram Oxalate (Escitalopram Oxalate 10 Mg Tab) 10 mg PO DAILY [facility] Stop: 11/24/24 08:59 Last Admin: 10/27/24 07:32 Dose: 10 mg Famotidine (Famotidine 20 Mg Tab) 20 mg PO DAILY PRN PRN Reason: Heartburn Stop: 11/23/24 22:11 Fluticasone Propionate (Fluticasone Propionate Na Spr 16 Gm Btl) 1 sprays NA BID [facility] Stop: 11/23/24 22:11 Last Admin: 10/27/24 07:33 Dose: 1 sprays Haloperidol Lactate (Haloperidol Lactate 5 Mg/Ml 1 Ml Vial) 2 mg IM Q2H PRN PRN Reason: Agitation Stop: 11/25/24 19:22 Last Admin: 10/26/24 19:56 Dose: 2 mg Promethazine HCl (Phenergan) 6.25 mg in 50.25 mls @ 201 mls/hr IV Q6H PRN PRN Reason: Nausea And Vomiting Stop: 11/25/24 20:26 Lactobacillus Acidophilus (Advanced Probiotic 625 Mg Capsule) 1,250 mg PO DAILY [facility] Stop: 11/24/24 08:59 Last Admin: 10/27/24 07:33 Dose: 1,250 mg Melatonin (Melatonin 3 Mg Tab) 6 mg PO HS PRN PRN Reason: Sleep Stop: 11/23/24 22:11 Ondansetron HCl (Ondansetron Inj 2 Mg/Ml 2 Ml Vial) 4 mg IV Q6H PRN PRN Reason: Nausea Stop: 11/23/24 22:11 Pantoprazole Sodium (Pantoprazole 40 Mg Tab) 40 mg PO DAILY [facility] Stop: 11/24/24 08:59 Last Admin: 10/27/24 07:33 Dose: 40 mg Polyethylene Glycol (Polyethylene (Miralax) 17 Gm Pack) 17 gm PO DAILY PRN PRN Reason: Constipation Stop: 11/23/24 22:11 Vitamin D (Cholecalciferol 25 Mcg (1000 Units) Tab) 25 mcg PO DAILY [facility] Stop: 11/24/24 08:59 Last Admin: 10/27/24 07:32 Dose: 25 mcg
[2024-10-27] MEDS: MELATONIN 3 MG TAB PO SCH (20:11)
--- NOTE | 2024-10-28 12:26 | Hospitalist Progress Note ---
Date of Service October 28, 2024 Assessment & Plan (1) Unable to care for self: (2) Fracture of right tibial plateau: (3) COVID-19: (4) Hypertension: (5) Bradycardia: (6) Elevated troponin: Plan This is an 89-year-old female who has a significant past medical history of HTN, HLD, prediabetes, history of SVT, aortic stenosis, GERD, angiomyolipoma of both kidneys, osteoporosis and depression who presents to ED secondary to referral from office of aging due to performance of wellness check and patient found confused. #Unable to care for self at home #S/P recent R tibial plateau fx w/p ORIF on 10/[address] Sevilla [facility] [place] Transitioned to [facility]/surg given stable from cardiac perspective Pt recently hospitalized 10/03-10/14 at [facility] due to fracture above, discharged to [facility] where pt left AMA to live at home Missed orthopedic follow up at [facility] scheduled for 10/21 - updated R knee XR without hardware complications Incision appears to be healing well, sutures removed and steri strips placed per discussion from RUMA Andrade of [facility] ortho trauma Activity instructions - RLE "touch down" weight bearing only, active flexion and extension, passive flexion with gravity, okay to shower but no soaking in tub Will be scheduled for ortho trauma 6 week follow up at [facility] #Hospital Delirium on suspected underlying cognitive decline vs dementia pt required IM haldol x 1 this admission suspect a lot of this is situational given housed in ED for 2 overnights, currently pts blinds in room were pulled encourage delirium precautions, keep Blinds elevated at all times, frequent re orientation she is doing much better today #Sars COV-2 #Acute hypoxic respiratory failure Asymptomatic, daughter reports + test at [facility] [place] earlier this week Iso precautions, asymptomatic currently, at one point did become hypoxic and received IV steroid but this has since resolved Remdesivir contraindicated given patient's bradycardia will have HIM track down covid test result to help promote accurate isolation #Elevated Troponin #ECG changes #Bradycardia (per daughter chronic for pt) Repeat trop this AM WNL, repeat to be uploaded into system, no CP Echo with EF 60-65%, moderate concentric LVH, grade 1 diastolic dysfunction, L atrial severely dilated, mild aortic stenosis, mild NC, mild MR, mild TR ACS ruled out #Acute L sinusitis per CT treat with amoxicillin 500mg TID x 7 days (EOT 10/31) #HTN BP as been elevated throughout hospital stay, may be situational increase amlodipine to 10mg daily and monitor #HLD #Hypertriglyceridemia continue atorvastatin trig 288, ldl 64, chol 155, hdl 33 will add omega 3 and encourage low fat/HH diet #DVT ppx: SQ Lovenox FULL CODE PCP: Dr. Go Dispo: admitted to med/surg,Awaiting PT/OT evaluation (WB instructions above), will need SNF placement per initial conversation with daughter as well as CM n ote. Referrals to [facility] placed. I spent a total of 45 minutes reviewing notes, outpatient records, labs, medication, coordinating, documenting and providing care for this patient e xcluding time spent in the performance of separately billed services. Care coordinated with Dr. Mary. Admission and Anticipated Discharge Date Admission Date: October 24, 2024 Subjective She reports feeling well today. Aide reports pt has been up to the bathroom today to use toilet and did well. Denies f/c/s, chest pain, sob, n/v/d. She reports good appetite. Review of Systems Review of Systems: All systems reviewed & are unremarkable except as noted in HPI & below Physical Exam Physical Exam: Gen: Petite elderly F, NAD, A&O x 3 basics only HEENT: Normocephalic, atraumatic, conjunctivae moist, sclerae anicteric, mucous membranes dry. Lung: Clear to Auscultation bilaterally, no wheezes/rales/rhonchi Heart: bradycardic rate, regular rhythm, no murmurs, rubs, or gallops Abdomen: Soft, NT, ND +BS x 4 Extremities: No edema, RLE brace in place Skin: Warm, no rash, negative turgor. Results & Data Results & Data Vital Signs (Past 12 Hours) Vital Signs Temp Pulse Resp BP Pulse Ox O2 Del Method 10/28/24 07:29 36.8 C 64 18 167/78 H 97 Room Air Medications Administered Current Inpatient Medications Acetaminophen (Acetaminophen 325 Mg Tab) 650 mg PO Q8H [facility] Stop: 11/25/24 16:29 Last Admin: 10/28/24 08:15 Dose: 650 mg Amlodipine Besylate (Amlodipine Besylate 5 Mg Tab) 5 mg PO DAILY [facility] Stop: 11/24/24 08:59 Last Admin: 10/28/24 08:16 Dose: 5 mg Amoxicillin (Amoxicillin 500 Mg Cap) 500 mg PO TID COUNTS INCLUDE 234 BEDS AT THE [facility]; Protocol Stop: 11/04/24 08:59 Last Admin: 10/28/24 08:15 Dose: 500 mg Atorvastatin Calcium (Atorvastatin 10 Mg Tab) 10 mg PO DAILY COUNTS INCLUDE 234 BEDS AT THE [facility] Stop: 11/24/24 08:59 Last Admin: 10/28/24 08:16 Dose: 10 mg Docusate Sodium (Docusate Sodium 100 Mg Cap) 100 mg PO BID COUNTS INCLUDE 234 BEDS AT THE [facility] Stop: 11/23/24 22:11 Last Admin: 10/28/24 08:15 Dose: 100 mg Enoxaparin Sodium (Enoxaparin Inj 40 Mg/0.4 Ml Syr) 40 mg SQ HS COUNTS INCLUDE 234 BEDS AT THE [facility] Stop: 11/24/24 20:59 Last Admin: 10/27/24 20:10 Dose: 40 mg Escitalopram Oxalate (Escitalopram Oxalate 10 Mg Tab) 10 mg PO DAILY COUNTS INCLUDE 234 BEDS AT THE [facility] Stop: 11/24/24 08:59 Last Admin: 10/28/24 08:16 Dose: 10 mg Famotidine (Famotidine 20 Mg Tab) 20 mg PO DAILY PRN PRN Reason: Heartburn Stop: 11/23/24 22:11 Fluticasone Propionate (Fluticasone Propionate Na Spr 16 Gm Btl) 1 sprays NA BID COUNTS INCLUDE 234 BEDS AT THE [facility] Stop: 11/23/24 22:11 Last Admin: 10/28/24 08:16 Dose: 1 sprays Promethazine HCl (Phenergan) 6.25 mg in 50.25 mls @ 201 mls/hr IV Q6H PRN PRN Reason: Nausea And Vomiting Stop: 11/25/24 20:26 Lactobacillus Acidophilus (Advanced Probiotic 625 Mg Capsule) 1,250 mg PO DAILY COUNTS INCLUDE 234 BEDS AT THE [facility] Stop: 11/24/24 08:59 Last Admin: 10/28/24 08:15 Dose: 1,250 mg Melatonin (Melatonin 3 Mg Tab) 6 mg PO HS COUNTS INCLUDE 234 BEDS AT THE [facility] Stop: 11/26/24 20:59 Last Admin: 10/27/24 20:11 Dose: 6 mg Ondansetron HCl (Ondansetron Inj 2 Mg/Ml 2 Ml Vial) 4 mg IV Q6H PRN PRN Reason: Nausea Stop: 11/23/24 22:11 Pantoprazole Sodium (Pantoprazole 40 Mg Tab) 40 mg PO DAILY [facility] Stop: 11/24/24 08:59 Last Admin: 10/28/24 08:16 Dose: 40 mg Polyethylene Glycol (Polyethylene (Miralax) 17 Gm Pack) 17 gm PO DAILY PRN PRN Reason: Constipation Stop: 11/23/24 22:11 Vitamin D (Cholecalciferol 25 Mcg (1000 Units) Tab) 25 mcg PO DAILY [facility] Stop: 11/24/24 08:59 Last Admin: 10/28/24 08:16 Dose: 25 mcg
[2024-10-28] MEDS: amLODIPine BESYLATE 5 MG TAB PO ONE (14:41)
[2024-10-29] MEDS: OMEGA-3 (PURIFIED FISH OIL) 1 GM CAP PO SCH (07:49)
[2024-10-29] MEDS: amLODIPine BESYLATE 5 MG TAB PO SCH (07:50)
[2024-10-29] MEDS: oxyCODONE HCL IR 5 MG TAB (IMMEDIATE RELEASE) PO PRN (10:15)
--- NOTE | 2024-10-29 11:25 | Hospitalist Progress Note ---
Date of Service October 29, 2024 Assessment & Plan (1) Unable to care for self: (2) Fracture of right tibial plateau: (3) COVID-19: (4) Hypertension: (5) Bradycardia: (6) Elevated troponin: Plan This is an 89-year-old female who has a significant past medical history of HTN, HLD, prediabetes, history of SVT, aortic stenosis, GERD, angiomyolipoma of both kidneys, osteoporosis and depression who presents to ED secondary to referral from office of aging due to performance of wellness check and patient found confused. #Unable to care for self at home #S/P recent R tibial plateau fx w/p ORIF on 10/[address] Sevilla [facility] [place] Transitioned to [facility]/surg given stable from cardiac perspective Pt recently hospitalized 10/03-10/14 at [facility] due to fracture above, discharged to [facility] where pt left AMA to live at home Missed orthopedic follow up at [facility] scheduled for 10/21 - updated R knee XR without hardware complications Incision appears to be healing well, sutures removed and steri strips placed per discussion from RUMA Andrade of [facility] ortho trauma Activity instructions - RLE "touch down" weight bearing only, active flexion and extension, passive flexion with gravity, okay to shower but no soaking in tub Will be scheduled for ortho trauma 6 week follow up at [facility] #Hospital Delirium on suspected underlying cognitive decline vs dementia pt required IM haldol x 1 this admission suspect a lot of this is situational given housed in ED for 2 overnights, blinds in room being pulled encourage delirium precautions, keep Blinds elevated at all times, frequent re orientation she is doing much better today and mental status at baseline #Sars COV-2 #Acute hypoxic respiratory failure Asymptomatic, daughter reports + test at [facility] [place] earlier this week Iso precautions, asymptomatic currently, at one point did become hypoxic and received IV steroid but this has since resolved Remdesivir contraindicated given patient's bradycardia Pt tested + at [facility] [place] on 10/19; therefore her last day of isolation should be today to complete 10 days, she never was truly symptomatic here other than weakness #Elevated Troponin #ECG changes #Bradycardia (per daughter chronic for pt) Repeat trop this AM WNL, repeat to be uploaded into system, no CP Echo with EF 60-65%, moderate concentric LVH, grade 1 diastolic dysfunction, L atrial severely dilated, mild aortic stenosis, mild CT, mild MR, mild TR ACS ruled out #Acute L sinusitis per CT treat with amoxicillin 500mg TID x 7 days (EOT 10/31) #HTN BP as been elevated throughout hospital stay, may be situational amlodipine increased to 10mg daily on 10/28, continue to monitor today if remains elevated may benefit from 2nd agent starting tomorrow, possible ACEi #HLD #Hypertriglyceridemia continue atorvastatin trig 288, ldl 64, chol 155, hdl 33 added omega 3 and encourage low fat/HH diet #DVT ppx: SQ Lovenox FULL CODE PCP: Dr. Go Dispo: Pt medically stable for discharge I spent a total of 40 minutes reviewing notes, outpatient records, labs, medication, coordinating, documenting and providing care for this patient excluding time spent in the performance of separately billed services. Care coordinated with Dr. Husain. Attempted to call daughter, Enedina, but there was no answer. Will try again later. Admission and Anticipated Discharge Date Admission Date: October 24, 2024 Supervising Physician Co-Signing Physician Notes Patient seen and examined I spent a total of 25 minutes coordinating, documenting and providing care for this patient excluding time spent in performance of separately billed services Subjective She offers no acute concerns today. She reports feeling better each day. She had a good BM yesterday. Denies f/c/s, chest pain, sob, n/v/d. Review of Systems Review of Systems: All systems reviewed & are unremarkable except as noted in HPI & below Physical Exam Physical Exam: Gen: Petite elderly F, NAD, A&O x 3 basics only HEENT: Normocephalic, atraumatic, conjunctivae moist, sclerae anicteric, mucous membranes dry. Lung: Clear to Auscultation bilaterally, no wheezes/rales/rhonchi Heart: bradycardic rate, regular rhythm, no murmurs, rubs, or gallops Abdomen: Soft, NT, ND +BS x 4 Extremities: No edema, RLE brace in place, incision with steri strips in place healing well Skin: Warm, no rash, negative turgor. Results & Data Results & Data Vital Signs (Past 12 Hours) Vital Signs Temp Pulse Resp BP Pulse Ox O2 Del Method 10/29/24 07:43 36.6 C 48 L 16 188/85 H 96 Room Air Medications Administered Current Inpatient Medications Acetaminophen (Acetaminophen 325 Mg Tab) 650 mg PO Q8H [facility] Stop: 11/25/24 16:29 Last Admin: 10/29/24 07:48 Dose: 650 mg Amlodipine Besylate (Amlodipine Besylate 5 Mg Tab) 10 mg PO DAILY [facility] Stop: 11/28/24 08:59 Last Admin: 10/29/24 07:50 Dose: 10 mg Amoxicillin (Amoxicillin 500 Mg Cap) 500 mg PO TID [facility]; Protocol Stop: 10/31/24 08:59 Last Admin: 10/29/24 07:48 Dose: 500 mg Atorvastatin Calcium (Atorvastatin 10 Mg Tab) 10 mg PO DAILY [facility] Stop: 11/24/24 08:59 Last Admin: 10/29/24 07:51 Dose: 10 mg Docusate Sodium (Docusate Sodium 100 Mg Cap) 100 mg PO BID [facility] Stop: 11/23/24 22:11 Last Admin: 10/29/24 07:49 Dose: 100 mg Enoxaparin Sodium (Enoxaparin Inj 40 Mg/0.4 Ml Syr) 40 mg SQ HS [facility] Stop: 11/24/24 20:59 Last Admin: 10/28/24 20:31 Dose: 40 mg Escitalopram Oxalate (Escitalopram Oxalate 10 Mg Tab) 10 mg PO DAILY [facility] Stop: 11/24/24 08:59 Last Admin: 10/29/24 07:53 Dose: 10 mg Famotidine (Famotidine 20 Mg Tab) 20 mg PO DAILY PRN PRN Reason: Heartburn Stop: 11/23/24 22:11 Fish Oil ([place]-3 (Purified Fish Oil) 1 Gm Cap) 1 cap PO QAM [facility] Stop: 11/28/24 08:59 Last Admin: 10/29/24 07:49 Dose: 1 cap Fluticasone Propionate (Fluticasone Propionate Na Spr 16 Gm Btl) 1 sprays NA BID [facility] Stop: 11/23/24 22:11 Last Admin: 10/29/24 10:16 Dose: 1 sprays Promethazine HCl (Phenergan) 6.25 mg in 50.25 mls @ 201 mls/hr IV Q6H PRN PRN Reason: Nausea And Vomiting Stop: 11/25/24 20:26 Lactobacillus Acidophilus (Advanced Probiotic 625 Mg Capsule) 1,250 mg PO DAILY [facility] Stop: 11/24/24 08:59 Last Admin: 10/29/24 07:51 Dose: 1,250 mg Melatonin (Melatonin 3 Mg Tab) 6 mg PO HS [facility] Stop: 11/26/24 20:59 Last Admin: 10/28/24 20:32 Dose: 6 mg Ondansetron HCl (Ondansetron Inj 2 Mg/Ml 2 Ml Vial) 4 mg IV Q6H PRN PRN Reason: Nausea Stop: 11/23/24 22:11 Oxycodone HCl (Oxycodone Hcl Ir 5 Mg Tab (Immediate Release)) 5 mg PO Q4H PRN PRN Reason: Pain Stop: 11/12/24 09:41 Last Admin: 10/29/24 10:15 Dose: 5 mg Pantoprazole Sodium (Pantoprazole 40 Mg Tab) 40 mg PO DAILY [facility] Stop: 11/24/24 08:59 Last Admin: 10/29/24 07:51 Dose: 40 mg Polyethylene Glycol (Polyethylene (Miralax) 17 Gm Pack) 17 gm PO DAILY PRN PRN Reason: Constipation Stop: 11/23/24 22:11 Vitamin D (Cholecalciferol 25 Mcg (1000 Units) Tab) 25 mcg PO DAILY [facility] Stop: 11/24/24 08:59 Last Admin: 10/29/24 07:51 Dose: 25 mcg
--- NOTE | 2024-10-30 11:25 | Hospitalist Progress Note ---
Date of Service October 30, 2024 Assessment & Plan (1) Unable to care for self: (2) Fracture of right tibial plateau: (3) COVID-19: (4) Hypertension: (5) Bradycardia: (6) Elevated troponin: Plan This is an 89-year-old female who has a significant past medical history of HTN, HLD, prediabetes, history of SVT, aortic stenosis, GERD, angiomyolipoma of both kidneys, osteoporosis and depression who presents to ED secondary to referral from office of aging due to performance of wellness check and patient found confused. #Unable to care for self at home #S/P recent R tibial plateau fx w/p ORIF on 10/[address] Sevilla [facility] [place] Transitioned to [facility]/surg given stable from cardiac perspective Pt recently hospitalized 10/03-10/14 at [facility] due to fracture above, discharged to [facility] where pt left AMA to live at home Missed orthopedic follow up at [facility] scheduled for 10/21 - updated R knee XR without hardware complications Incision appears to be healing well, sutures removed and steri strips placed per discussion from RUMA Andrade of [facility] ortho trauma Activity instructions - RLE "touch down" weight bearing only, active flexion and extension, passive flexion with gravity, okay to shower but no soaking in tub Will be scheduled for ortho trauma 6 week follow up at [facility] #Hospital Delirium on suspected underlying cognitive decline vs dementia pt required IM haldol x 1 this admission suspect a lot of this is situational given housed in ED for 2 overnights, blinds in room being pulled encourage delirium precautions, keep Blinds elevated at all times, frequent re orientation she is doing much better today and mental status at baseline #Sars COV-2 #Acute hypoxic respiratory failure Asymptomatic, daughter reports + test at [facility] [place] earlier this week Iso precautions, asymptomatic currently, at one point did become hypoxic and received IV steroid but this has since resolved Remdesivir contraindicated given patient's bradycardia Pt tested + at [facility] [place] on 10/19; therefore her last day of isolation should be today to complete 10 days, she never was truly symptomatic here other than weakness #Elevated Troponin #ECG changes #Bradycardia (per daughter chronic for pt) Repeat trop this AM WNL, repeat to be uploaded into system, no CP Echo with EF 60-65%, moderate concentric LVH, grade 1 diastolic dysfunction, L atrial severely dilated, mild aortic stenosis, mild HI, mild MR, mild TR ACS ruled out #Acute L sinusitis per CT, treat with amoxicillin 500mg TID x 7 days (EOT 10/31) #HTN BP as been elevated throughout hospital stay, may be situational amlodipine increased to 10mg daily on 10/28, continue to monitor today if remains elevated may benefit from 2nd agent starting tomorrow, possible ACEi currently normotensive #HLD #Hypertriglyceridemia continue atorvastatin trig 288, ldl 64, chol 155, hdl 33 added omega 3 and encourage low fat/HH diet #DVT ppx: SQ Lovenox FULL CODE PCP: Dr. Go Dispo: Pt medically stable for discharge. Referrals pending at [facility] and [facility] I spent a total of 40 minutes reviewing notes, outpatient records, labs, medication, coordinating, documenting and providing care for this patient excluding time spent in the performance of separately billed services. Care coordinated with Dr. Husain. Attempted to call daughter, Enedina, but there was no answer. Will try again tomorrow. Admission and Anticipated Discharge Date Admission Date: October 24, 2024 Subjective Seen and evaluated in 380-1. Feeling well today. No acute events overnight. No pain in right lower leg. Saturating at 99% on room air, no difficulty breathing. Awaiting placement. Review of Systems Review of Systems: At least ten systems reviewed and negative except as noted in the HPI. Physical Exam Physical Exam: Gen: WD/WN, NAD, sitting up in bed, moves easily to sit up. Pleasantly confused, disoriented HEENT: Normocephalic, atraumatic Lung: Clear to Auscultation bilaterally Heart: Regular rate, regular rhythm Abdomen: Soft, NT, ND +BS x 4 Extremities: no edema, RLE with immobilizer, steri strips on medial aspect of leg, no erythema or drainage Skin: Warm, no rash Results & Data Results & Data Vital Signs (Past 12 Hours) Vital Signs Temp Pulse Resp BP Pulse Ox O2 Del Method 10/30/24 07:23 36.6 C 50 L 16 138/61 99 Room Air
--- NOTE | 2024-10-31 13:40 | Hospitalist Progress Note ---
Date of Service October 31, 2024 Assessment & Plan (1) Unable to care for self: (2) Fracture of right tibial plateau: (3) COVID-19: (4) Hypertension: (5) Bradycardia: (6) Elevated troponin: Plan This is an 89-year-old female who has a significant past medical history of HTN, HLD, prediabetes, history of SVT, aortic stenosis, GERD, angiomyolipoma of both kidneys, osteoporosis and depression who presents to ED secondary to referral from office of aging due to performance of wellness check and patient found confused. #Unable to care for self at home #S/P recent R tibial plateau fx w/p ORIF on 10/[address] Sevilla [facility] [place] Transitioned to [facility]/surg given stable from cardiac perspective Pt recently hospitalized 10/03-10/14 at [facility] due to fracture above, discharged to [facility] where pt left AMA to live at home Missed orthopedic follow up at [facility] scheduled for 10/21 - updated R knee XR without hardware complications Incision appears to be healing well, sutures removed and steri strips placed per discussion from RUMA Andrade of [facility] ortho trauma Activity instructions - RLE "touch down" weight bearing only, active flexion and extension, passive flexion with gravity, okay to shower but no soaking in tub Will be scheduled for ortho trauma 6 week follow up at [facility] (should be scheduled for beginning of Nov) #Hospital Delirium on suspected underlying cognitive decline vs dementia -> improved pt required IM haldol x 1 this admission suspect a lot of this is situational given housed in ED for 2 overnights, blinds in room being pulled encourage delirium precautions, keep Blinds elevated at all times, frequent re orientation she is doing much better today and mental status at baseline #Sars COV-2 #Acute hypoxic respiratory failure Asymptomatic, daughter reports + test at [facility] [place] earlier this week Iso precautions, asymptomatic currently, at one point did become hypoxic and received IV steroid but this has since resolved Remdesivir contraindicated given patient's bradycardia Pt tested + at [facility] [place] on 10/19; therefore her last day of isolation should be today to complete 10 days, she never was truly symptomatic here other than weakness #Elevated Troponin #ECG changes #Bradycardia (per daughter chronic for pt) Repeat trop this AM WNL, repeat to be uploaded into system, no CP Echo with EF 60-65%, moderate concentric LVH, grade 1 diastolic dysfunction, L atrial severely dilated, mild aortic stenosis, mild NV, mild MR, mild TR ACS ruled out #Acute L sinusitis per CT, treat with amoxicillin 500mg TID x 7 days (completing tx today, 10/31) #HTN BP as been elevated throughout hospital stay, may be situational Amlodipine increased to 10mg daily on 10/28, continue to monitor today Adding BMP tomorrow and if renal function allows and BP elevated, consider adding ACIi #HLD #Hypertriglyceridemia continue atorvastatin trig 288, ldl 64, chol 155, hdl 33 added omega 3 and encourage low fat/HH diet #DVT ppx: SQ Lovenox FULL CODE PCP: Dr. Go Dispo: Pt medically stable for discharge. Referrals pending at [facility] I spent a total of 30 minutes reviewing notes, outpatient records, labs, medication, coordinating, documenting and providing care for this patient excluding time spent in the performance of separately billed services. Care coordinated with Dr. Husain. Attempted to call daughter, Enedina, but there was no answer, unable to leave . Admission and Anticipated Discharge Date Admission Date: October 24, 2024 Supervising Physician Co-Signing Physician Notes I spent a total of 15 minutes coordinating, documenting and providing care for this patient excluding time spent in performance of separately billed services Subjective Seen and evaluated in 380-1. Feeling well today. No acute events overnight. Still without pain in right lower leg. Saturating at 99% on room air, no difficulty breathing. Medically optimized and awaiting placement. Review of Systems Review of Systems: At least ten systems reviewed and negative except as noted in the HPI. Physical Exam Physical Exam: Gen: WD/WN, NAD, sitting up in bed, moves easily to sit up. Pleasantly confused, disoriented HEENT: Normocephalic, atraumatic Lung: Clear to Auscultation bilaterally Heart: Regular rate, regular rhythm Abdomen: Soft, NT, ND +BS x 4 Extremities: no edema, RLE with immobilizer, steri strips on medial aspect of leg, no erythema or drainage Skin: Warm, no rash Results & Data Results & Data Vital Signs (Past 12 Hours) Vital Signs Temp Pulse Resp BP Pulse Ox O2 Del Method 10/31/24 08:30 Room Air 10/31/24 08:04 36.4 C L 84 17 153/87 H 94 Room Air
--- NOTE | 2024-11-01 06:40 | Hospitalist Progress Note ---
Date of Service November 01, 2024 Assessment & Plan (1) Unable to care for self: (2) Fracture of right tibial plateau: (3) COVID-19: (4) Acute hypoxic respiratory failure: (5) Elevated troponin: (6) Left maxillary sinusitis: Plan Carolyn Bond is an 89y/o F with PMHx significant for HTN, HLD, prediabetes, history of SVT, aortic stenosis, mitral valve regurgitation, GERD, angiomyolipoma of both kidneys, CKD stage IIIa, osteoporosis, bilateral hearing loss and depression who presented to the ED on 10/24/2024 secondary to referral from [facility] as the patient was found to be acutely confused on routine wellness check. Pertinent background information regarding admission: Patient recently hospitalized 10/03/2024-10/14/2024 at [facility] due to a fall in which she sustained a right tibial plateau fracture. She underwent ORIF of the right tibial plateau fracture on 10/03/2024. Her hospital course was complicated by acute blood loss anemia and discharge Hgb was 9.4; ortho recommended that she wear a right knee immobilizer at all times and that she may not bear weight on the right leg except for toe touch for up to 8 weeks. Her blood pressure was noted to be elevated throughout that admission and she was started on amlodipine 5mg daily. She was discharged to [facility]. Patient was only at [facility] for a few days before she opted to be discharged home AMA. Unable to Care for Self at Home Recent R Tibial Plateau Fx S/P ORIF on 10/03/[address] Sy at [facility]: Notable history as mentioned above; transitioned to Med/Surg given stable from cardiac perspective. Missed orthopedic f/u at [facility] scheduled for 10/21/2024 - updated R knee XR without hardware complications. Incision appears to be healing well. Sutures removed and steri strips placed per previous discussion with Tuan Andrade PA-C of [facility] ortho; No strenuous activity for 8 weeks and wear knee immobilizer at all times, and do NOT bear full weight on right leg - just touch right toes down for balance. Need to be scheduled for 6-week ortho f/u at [facility] (should be scheduled for the beginning of November). Further activity instructions --> active flexion and extension, passive flexion with gravity, okay to shower but no soaking in tub. Hospital Delirium on Suspected Underlying Cognitive Decline vs. Dementia - IMPROVED: Required 1 dose of IM Haldol this admission; suspect a lot of this is situational given she was housed in ED for 2 night, blinds in room being pulled. Continue with delirium prevention measures: raising blinds during the day, closing at night, frequent re-orientation, contact with family/friends, explaining procedures/nursing care measures prior to physical contact, correct any hearing and visual impairments. Mental status appears be at baseline. COVID Infection Acute Hypoxic Respiratory Failure - RESOLVED: Asymptomatic, patient's daughter previously reported (+) test at [facility] earlier in the week prior to admission. Continues to be asymptomatic today, however at one point did become hypoxic and received IV steroids but this has since resolved. Remdesivir contraindicated given patient's bradycardia. Patient tested (+) at [facility] on 10/19/2024; therefore, her last day of isolation was on 10/29/2024 in order to complete a full 10 days. She never was truly symptomatic here other than some generalized weakness. Elevated Troponin, EKG Changes Known Bradycardia (Per Patient's Daughter): Trop initially bumped ~15 on admission, since has flattened out to ~13. EKG on admission revealed sinus bradycardia, PACs; patient was w/o chest pain. TTE w/ EF = 60-65%, moderate concentric LVH, grade I DD, severely dilated LA, mild aortic stenosis, mild WA, mild MR and mild TR. ACS ultimately ruled-out; telemetry was unremarkable. L Maxillary Sinusitis: Incidentally noted on head CT. She completed po amoxicillin 500mg TID x 7 days this admission. HTN: BP as been elevated throughout hospital stay, may be situational. Home amlodipine increased to 10mg daily on 10/28; continue to monitor. BMP stable today; can consider adding on an ACEi. HLD: Continue atorvastatin. Lipid panel this admission --> triglycerides 288, cholesterol 155, LDL 64, VLDL 58, HDL 33. Added fish oil supplement; encourage low fat/HH diet. DVT Prophylaxis: SQ Lovenox Code Status: FULL CODE PCP: Kendra Go MD Disposition: Patient medically optimized and stable for discharge when SNF placement becomes available. Will attempt to call patient's daughter, Enedina, this afternoon. Patient seen in collaboration with Dr. Husain. Please see addendum. I spent a total of 40 minutes coordinating, documenting, and providing care for this patient excluding time spent in the performance of separately billed services. This included personally reviewing all current laboratories and imaging studies, medical reconciliation, outpatient chart review and discussion with specialists. This chart was completed in part utilizing Speech Voice Recognition Software. Grammatical errors, random word insertions, pronoun errors, and incomplete sentences are an occasional consequence of this system due to software limitations, ambient noise, and hardware issues. Any formal questions or concerns about the content, text, or information contained within the body of this dictation should be directly addressed to the provider for clarification. Admission and Anticipated Discharge Date Admission Date: October 24, 2024 Subjective Patient seen and examined this morning in room N380-1. She is pleasantly confused at baseline but easily reoriented with direct questioning. She denies any SOB or chest pain. She is endorsing good pain control in her RLE. She is saturating well on RA. NAEO. She was eating breakfast without issue while I was in the room. She is medically optimized and awaiting placement. Review of Systems Review of Systems: At least ten systems reviewed and negative, except as noted in the subjective section. Physical Exam Physical Exam: General: Thin/elderly F, NAD, sitting up in bed, pleasantly confused at baseline but oriented to direct questioning. HEENT: Normocephalic, atraumatic. Conjunctivae normal. External ear and nose normal, oropharynx normal. Respiratory: Normal respiratory effort, lungs clear to auscultation, no wheeze/rales/rhonchi. No accessory muscle use. Cardiovascular: Regular rate, rhythm, normal peripheral pulses, no BLE edema. V essels: No JVD. Abdomen/GI: Normal bowel sounds, soft, nondistended, nontender to palpation in all quadrants. Extremities/Musculoskeletal: No cyanosis or clubbing, LLE strength intact, RLE in knee immobilizer. Results & Data Results & Data Vital Signs (Past 12 Hours) Vital Signs Temp Pulse Resp BP Pulse Ox O2 Del Method 10/31/24 19:51 36.6 C 55 L 18 163/70 H 94 Room Air Laboratory Results [facility] 11/01/24 07:12 Sodium 139 Potassium 4.1 Chloride 106 Carbon Dioxide 27 BUN 16 Creatinine 0.76 Glucose 106 H Calcium 8.9 (2) Fracture of right tibial plateau Encounter type: subsequent encounter Fracture type: closed Fracture healing: with routine healing Qualified Code(s): S82.141D - Displaced bicondylar fracture of right tibia, subsequent encounter for closed fracture with routine healing
[2024-11-01 08:25] LABS: BUN Creatinine Ratio 21.1 (10-20); Calcium 8.9 mg/dl (8.6-10.3); Creatinine Clr Calc Pharmacy 36.8 ml/min; Potassium 4.1 mmol/L (3.5-5.1)
--- NOTE | 2024-11-02 14:09 | Hospitalist Progress Note ---
Date of Service November 02, 2024 Assessment & Plan (1) Unable to care for self: (2) Fracture of right tibial plateau: (3) COVID-19: (4) Acute hypoxic respiratory failure: (5) Elevated troponin: (6) Left maxillary sinusitis: Plan Carolyn Bond is an 89y/o F with PMHx significant for HTN, HLD, prediabetes, history of SVT, aortic stenosis, mitral valve regurgitation, GERD, angiomyolipoma of both kidneys, CKD stage IIIa, osteoporosis, bilateral hearing loss and depression who presented to the ED on 10/24/2024 secondary to referral from [facility] as the patient was found to be acutely confused on routine wellness check. Pertinent background information regarding admission: Patient recently hospitalized 10/03/2024-10/14/2024 at [facility] due to a fall in which she sustained a right tibial plateau fracture. She underwent ORIF of the right tibial plateau fracture on 10/03/2024. Her hospital course was complicated by acute blood loss anemia and discharge Hgb was 9.4; ortho recommended that she wear a right knee immobilizer at all times and that she may not bear weight on the right leg except for toe touch for up to 8 weeks. Her blood pressure was noted to be elevated throughout that admission and she was started on amlodipine 5mg daily. She was discharged to [facility]. Patient was only at [facility] for a few days before she opted to be discharged home AMA. As per above, patient was referred to [facility] ED on 10/24/2024 after she was found to be acutely confused during routine wellness check conducted by the [facility]. Of note, she was found to be wearing the same clothes x 1 week and was not eating meals which were delivered to her home. Unable to Care for Self at Home Recent R Tibial Plateau Fx S/P ORIF on 10/03/[address] Sy at [facility]: Notable history as mentioned above; transitioned to Med/Surg given stable from cardiac perspective. Missed orthopedic f/u at [facility] scheduled for 10/21/2024 - updated R knee XR without hardware complications. Incision appears to be healing well. Sutures removed and steri strips placed per previous discussion with Tuan Andrade PA-C of [facility] ortho; No strenuous activity for 8 weeks and wear knee immobilizer at all times, and do NOT bear full weight on right leg - just touch right toes down for balance. Need to be scheduled for 6-week ortho f/u at [facility] (should be scheduled for the beginning of November). Further activity instructions --> active flexion and extension, passive flexion with gravity, okay to shower but no soaking in tub. Hospital Delirium on Suspected Underlying Cognitive Decline vs. Dementia - IMPROVED: Required 1 dose of IM Haldol this admission; suspect a lot of this is situational given she was housed in ED for 2 night, blinds in room being pulled. Continue with delirium prevention measures: raising blinds during the day, closing at night, frequent re-orientation, contact with family/friends, explaining procedures/nursing care measures prior to physical contact, correct any hearing and visual impairments. Mental status appears to be at baseline. COVID Infection Acute Hypoxic Respiratory Failure - RESOLVED: Asymptomatic, patient's daughter previously reported (+) test at [facility] earlier in the week prior to admission. Continues to be asymptomatic today; however, at one point, she did become hypoxic and received IV steroids but this has since resolved. Remdesivir contraindicated given patient's bradycardia. Patient tested (+) at [facility] on 10/19/2024; therefore, her last day of isolation was on 10/29/2024 in order to complete a full 10 days. She never was truly symptomatic here other than some generalized weakness. Elevated Troponin, EKG Changes Known Bradycardia (Per Patient's Daughter): Trop initially bumped ~15 on admission, since has flattened out to ~13. EKG on admission revealed sinus bradycardia, PACs; patient w/o any chest pain. TTE w/ EF = 60-65%, moderate concentric LVH, grade I DD, severely dilated LA, mild aortic stenosis, mild LA, mild MR and mild TR. ACS ultimately ruled-out; telemetry unremarkable. L Maxillary Sinusitis: Incidentally noted on head CT. She completed po amoxicillin 500mg TID x 7 days this admission. HTN: BP has been intermittently elevated throughout hospital stay, may be situational. Home amlodipine increased to 10mg daily on 10/28; continue to monitor. BMP stable today; can consider adding on an ACEi, avoid AV karla blockers ISO bradycardia. HLD: Continue atorvastatin. Lipid panel this admission --> triglycerides 288, cholesterol 155, LDL 64, VLDL 58, HDL 33. Added fish oil supplement; encourage low fat/HH diet. DVT Prophylaxis: SQ Lovenox Code Status: FULL CODE PCP: Kendra Go MD Disposition: Patient medically optimized and stable for discharge when SNF placement becomes available. Will attempt to call the patient's daughter, Enedina, again this afternoon. Patient seen in collaboration with Dr. Husain. Please see addendum. I spent a total of 30 minutes coordinating, documenting, and providing care for this patient excluding time spent in the performance of separately billed services. This included personally reviewing all current laboratories and imaging studies, medical reconciliation, outpatient chart review and discussion with specialists. This chart was completed in part utilizing Speech Voice Recognition Software. Grammatical errors, random word insertions, pronoun errors, and incomplete sentences are an occasional consequence of this system due to software limitations, ambient noise, and hardware issues. Any formal questions or concerns about the content, text, or information contained within the body of this dictation should be directly addressed to the provider for clarification. Admission and Anticipated Discharge Date Admission Date: October 24, 2024 Subjective Patient seen and examined this morning in room N380-1. She is pleasantly confused at baseline but easily reoriented with direct questioning. She was completing a crossword puzzle when I entered her room this morning. She has no acute concerns at this time. She continues to endorse good pain control in the RLE. She also continues to saturate well on RA. She is medically optimized and awaiting placement. Review of Systems Review of Systems: At least ten systems reviewed and negative, except as noted in the subjective section. Physical Exam Physical Exam: General: Thin/elderly F, NAD, sitting up in bed, pleasantly confused at baseline but oriented to direct questioning. Respiratory: Normal respiratory effort, lungs clear to auscultation, no wheeze/rales/rhonchi. No accessory muscle use. Cardiovascular: Regular rate, rhythm, normal peripheral pulses, no BLE edema. Vessels: No JVD. Extremities/Musculoskeletal: No cyanosis or clubbing, LLE strength intact, RLE in knee immobilizer. Results & Data Results & Data Vital Signs (Past 12 Hours) Vital Signs Temp Pulse Resp BP Pulse Ox O2 Del Method 11/02/24 07:26 36.9 C 69 16 161/63 H 95 Room Air (2) Fracture of right tibial plateau Encounter type: subsequent encounter Fracture type: closed Fracture healing: with routine healing Qualified Code(s): S82.141D - Displaced bicondylar fracture of right tibia, subsequent encounter for closed fracture with routine healing
[2024-11-02] MEDS ORDERED: NEOSTIGMINE METHYLSULFATE 1 MG/ML 10ML VIAL ONE (17:02)
[2024-11-02] MEDS ORDERED: GLYCOPYRROLATE 0.2 MG/ML VIAL ONE (17:02)
[2024-11-02] MEDS ORDERED: fentaNYL citrate PF 100 MCG/2 ML VIAL ONE (17:06)
[2024-11-02] MEDS ORDERED: HYDROmorphone INJ 1 MG/ML SYRINGE ONE (18:06)
[2024-11-03] MEDS: OLANZapine 10 MG/2.1 ML SDV IM STA (06:28)
[2024-11-03 15:56] LABS: Hematocrit (blood only) 35.7 % (37.0-47.0); Hemoglobin 11.2 g/dl (12.0-16.0); Mean Corpuscular Hgb Conc 31.4 g/dL (32.0-36.0); Mean Corpuscular Volume 89.3 fL (80.0-100.0); Mean Platelet Volume 10.3 fL (9.4-12.4); Platelet Count 138 K/uL (130-400); RDW Coefficient of Variation 16.7 % (11.5-14.5); RDW Standard Deviation 54.1 fL (36.4-46.3); White Blood Count 5.71 K/ul (4.8-10.8)
[2024-11-03 16:32] LABS: Calcium 9.5 mg/dl (8.6-10.3); Potassium 4.2 mmol/L (3.5-5.1)
[2024-11-03 16:38] LABS: BUN Creatinine Ratio 14.7 (10-20); Creatinine Clr Calc Pharmacy 20.5 ml/min
--- NOTE | 2024-11-03 16:56 | Hospitalist Progress Note ---
Date of Service November 03, 2024 Assessment & Plan (1) Unable to care for self: (2) Fracture of right tibial plateau: (3) COVID-19: (4) Acute hypoxic respiratory failure: (5) Elevated troponin: (6) Left maxillary sinusitis: (7) Acute kidney injury superimposed on stage 3a chronic kidney disease: Plan Carolyn Bond is an 89y/o F with PMHx significant for HTN, HLD, prediabetes, history of SVT, aortic stenosis, mitral valve regurgitation, GERD, angiomyolipoma of both kidneys, CKD stage IIIa, osteoporosis, bilateral hearing loss and depression who presented to the ED on 10/24/2024 secondary to referral from [facility] as the patient was found to be acutely confused on routine wellness check. Pertinent background information regarding admission: Patient recently hospitalized 10/03/2024-10/14/2024 at [facility] due to a fall in which she sustained a right tibial plateau fracture. She underwent ORIF of the right tibial plateau fracture on 10/03/2024. Her hospital course was complicated by acute blood loss anemia and discharge Hgb was 9.4; ortho recommended that she wear a right knee immobilizer at all times and that she may not bear weight on the right leg except for toe touch for up to 8 weeks. Her blood pressure was noted to be elevated throughout that admission and she was started on amlodipine 5mg daily. She was discharged to [facility]. Patient was only at [facility] for a few days before she opted to be di scharged home AMA. As per above, patient was referred to [facility] ED on 10/24/2024 after she was found to be acutely confused during routine wellness check conducted by the [facility]. Of note, she was found to be wearing the same clothes x 1 week and was not eating meals which were delivered to her home. Unable to Care for Self at Home Recent R Tibial Plateau Fx S/P ORIF on 10/03/[address] Sy at [facility]: Notable history as mentioned above; transitioned to Med/Surg given stable from cardiac perspective. Missed orthopedic f/u at [facility] scheduled for 10/21/2024 - updated R knee XR without hardware complications. Incision appears to be healing well. Sutures removed and steri strips placed per previous discussion with Tuan Andrade PA-C of [facility] ortho; No strenuous activity for 8 weeks and wear knee immobilizer at all times, and do NOT bear full weight on right leg - just touch right toes down for balance. Needs to be scheduled for 6-week ortho f/u at [facility] (should be scheduled for the beginning of November). Further activity instructions --> active flexion and extension, passive flexion with gravity, okay to shower but no soaking in tub. Hospital Delirium on Suspected Underlying Cognitive Decline vs. Dementia: Required 1 dose of IM Haldol earlier this admission - suspect a lot of this is situational given she was housed in ED for 2 night, blinds in room being pulled. Her mental status was at baseline (pleasantly confused) up until this morning when she became acutely agitated and required a dose of IM Zyprexa. CBC/BMP done this morning was unremarkable. Her mentation did improve however throughout the day and she seemed to back to baseline later this afternoon. Suspect delirium episode this morning was 2/2 to her moving rooms; she was moved from N380 to N385 yesterday afternoon in order to be closer to the nurses' station as she would frequently try to get out of bed with assistance. Continue with delirium prevention measures: raising blinds during the day, closing at night, frequent re-orientation, contact with family/friends, explaining procedures/nursing care measures prior to physical contact, correct any hearing and visual impairments. If any further episodes of delirium, would be inclined to recheck UA. COVID Infection Acute Hypoxic Respiratory Failure - RESOLVED: Asymptomatic, patient's daughter previously reported (+) test at [place] earlier in the week prior to admission. Continues to be asymptomatic today; however, at one point, she did become hypoxic and received IV steroids but this has since resolved. Remdesivir contraindicated given patient's bradycardia. Patient tested (+) at [place] on 10/19/2024; therefore, her last day of isolation was on 10/29/2024 in order to complete a full 10 days. She never was truly symptomatic here other than some generalized weakness. Elevated Troponin, EKG Changes Known Bradycardia (Per Patient's Daughter): Trop initially bumped ~15 on admission, since has flattened out to ~13. EKG on admission revealed sinus bradycardia, PACs; patient w/o any chest pain. TTE w/ EF = 60-65%, moderate concentric LVH, grade I DD, severely dilated LA, mild aortic stenosis, mild [place], mild MR and mild TR. ACS ultimately ruled-out; telemetry unremarkable. L Maxillary Sinusitis: Incidentally noted on head CT. She completed po amoxicillin 500mg TID x 7 days this admission. GAIL on CKD Stage IIIa: Cr bumped at 1.36 on repeat labs this morning ordered ISO acute delirium, baseline Cr ~0.8-1.2; Likely related to poor oral hydration ISO pleasant forgetfulness/suspected dementia at baseline. Gentle IVF ordered. Patient may not tolerate this ISO repeat episodes of delirium. Will repeat BMP tomorrow. Avoid nephrotoxins as able. HTN: BP has been intermittently elevated throughout hospital stay, may be situational. Home amlodipine increased to 10mg daily on 10/28; continue to monitor. BMP stable today; can consider adding on an ACEi, avoid AV karla blockers ISO bradycardia. HLD: Continue atorvastatin. Lipid panel this admission --> triglycerides 288, cholesterol 155, LDL 64, VLDL 58, HDL 33. Added fish oil supplement; encourage low fat/HH diet. DVT Prophylaxis: SQ Lovenox Code Status: FULL CODE PCP: Kendra Go MD Disposition: CM working on obtaining SNF placement. Need to monitor GAIL. Updated daughter, Enedina, over the phone today. May need an additional 1-2 days. Patient seen in collaboration with Dr. Husain. Please see addendum. I spent a total of 40 minutes coordinating, documenting, and providing care for this patient excluding time spent in the performance of separately billed services. This included personally reviewing all current laboratories and imaging studies, medical reconciliation, outpatient chart review and discussion with specialists. This chart was completed in part utilizing Speech Voice Recognition Software. Grammatical errors, random word insertions, pronoun errors, and incomplete sentences are an occasional consequence of this system due to software limitations, ambient noise, and hardware issues. Any formal questions or concerns about the content, text, or information contained within the body of this dictation should be directly addressed to the provider for clarification. Admission and Anticipated Discharge Date Admission Date: October 24, 2024 Supervising Physician Co-Signing Physician Notes Patient seen and examined Agree with plans as detailed by Angella Osborn PA-C I spent a total of 15 minutes coordinating, documenting and providing care for this patient excluding time spent in performance of separately billed services Subjective Patient seen and examined this morning. Nursing staff reports patient required a dose of IM Zyprexa shortly before 7AM today as she became acutely agitated and was attempting to bite staff. She was transferred from room N380 to N385 yesterday in the late afternoon for safety measures in order to be closer to the nurses' station as she was frequently getting out of bed without assistance. This certainly could have triggered her acute episode of delirium this morning. Patient was quite sleepy at the time of my examination but she did respond with a simple "yes" when asked if she was comfortable. Review of Systems Review of Systems: Unable to obtain full ROS 2/2 patient's drowsiness after receiving IM Zyprexa. Physical Exam Physical Exam: General: Thin/elderly F, NAD, laying down in bed, quite drowsy on exam s/p IM Zyprexa injection this morning. Respiratory: Normal respiratory effort, lungs clear to auscultation, no wheeze/rales/rhonchi. No accessory muscle use. Cardiovascular: Regular rate, rhythm, normal peripheral pulses, no BLE edema. Vessels: No JVD. Extremities/Musculoskeletal: No cyanosis or clubbing, RLE in knee immobilizer. Results & Data Results & Data Vital Signs (Past 12 Hours) Vital Signs Temp Pulse Resp BP Pulse Ox O2 Del Method 11/02/24 19:27 36.7 C 60 17 155/61 H 96 Room Air Intake and Output 11/03/24 11/03/24 11/03/24 06:59 14:59 22:59 Intake Total 240 / 460 Balance 240 / 460 Intake: Oral 240 / 460 Other: # Unmeasured Voids 1 1 Laboratory Results Short CBC 11/03/24 Range/Units 15:27 WBC 5.71 (4.8-10.8) K/ul Hgb 11.2 L (12.0-16.0) g/dl Hct 35.7 L (37.0-47.0) % Plt Count 138 (130-400) K/uL BMP 11/03/24 15:27 Sodium 140 Potassium 4.2 Chloride 107 Carbon Dioxide 26 BUN 20 Creatinine 1.36 H Glucose 116 H Calcium 9.5 (2) Fracture of right tibial plateau Encounter type: subsequent encounter Fracture healing: with routine healing Fracture type: closed Qualified Code(s): S82.141D - Displaced bicondylar fracture of right tibia, subsequent encounter for closed fracture with routine healing
[2024-11-03] MEDS: SODIUM CHLORIDE 0.9% 1,000 ML IV SCH (17:39)
[2024-11-04 09:00] LABS: BUN Creatinine Ratio 26.1 (10-20); Calcium 9.5 mg/dl (8.6-10.3); Creatinine Clr Calc Pharmacy 31.7 ml/min; Potassium 4.1 mmol/L (3.5-5.1)
--- NOTE | 2024-11-04 10:46 | Hospitalist Progress Note ---
Date of Service November 04, 2024 Assessment & Plan (1) Unable to care for self: (2) Fracture of right tibial plateau: (3) COVID-19: (4) Acute hypoxic respiratory failure: (5) Elevated troponin: (6) Left maxillary sinusitis: (7) Acute kidney injury superimposed on stage 3a chronic kidney disease: Plan Carolyn Bond is an 89y/o F with PMHx significant for HTN, HLD, prediabetes, history of SVT, aortic stenosis, mitral valve regurgitation, GERD, angiomyolipoma of both kidneys, CKD stage IIIa, osteoporosis, bilateral hearing loss and depression who presented to the ED on 10/24/2024 secondary to referral from [facility] as the patient was found to be acutely confused on routine wellness check. Pertinent background information regarding admission: Patient recently hospitalized 10/03/2024-10/14/2024 at [facility] due to a fall in which she sustained a right tibial plateau fracture. She underwent ORIF of the right tibial plateau fracture on 10/03/2024. Her hospital course was complicated by acute blood loss anemia and discharge Hgb was 9.4; ortho recommended that she wear a right knee immobilizer at all times and that she may not bear weight on the right leg except for toe touch for up to 8 weeks. Her blood pressure was noted to be elevated throughout that admission and she was started on amlodipine 5mg daily. She was discharged to [facility]. Patient was only at [facility] for a few days before she opted to be di scharged home AMA. As per above, patient was referred to [facility] ED on 10/24/2024 after she was found to be acutely confused during routine wellness check conducted by the [facility]. Of note, she was found to be wearing the same clothes x 1 week and was not eating meals which were delivered to her home. Unable to Care for Self at Home Recent R Tibial Plateau Fx S/P ORIF on 10/03/[address] Sy at [facility]: Notable history as mentioned above; transitioned to Med/Surg given stable from cardiac perspective. Missed orthopedic f/u at [facility] scheduled for 10/21/2024 - updated R knee XR without hardware complications. Incision appears to be healing well. Sutures removed and steri strips placed per previous discussion with Tuan Andrade PA-C of [facility] ortho; No strenuous activity for 8 weeks and wear knee immobilizer at all times, and do NOT bear full weight on right leg - just touch right toes down for balance. Needs to be scheduled for 6-week ortho f/u at [facility] (should be scheduled for the beginning of November). Further activity instructions --> active flexion and extension, passive flexion with gravity, okay to shower but no soaking in tub. Hospital Delirium on Suspected Underlying Cognitive Decline vs. Dementia: Required 1 dose of IM Haldol earlier this admission - suspect a lot of this is situational given she was housed in ED for 2 night, blinds in room being pulled. Her mentation remained at baseline (pleasantly confused) up until yesterday morning shortly before 7AM when she became acutely agitated/trying to bite staff. Suspect recurrent delirium episode was 2/2 to her moving rooms; she was moved from N380 to N385 on 11/02 in order to be closer to the nurses' station as she would frequently try to get out of bed w/o assistance. She has been back at her baseline mentation status since yesterday afternoon. Continue with delirium prevention measures: raising blinds during the day, closing at night, frequent re-orientation, contact with family/friends, explaining procedures/nursing care measures prior to physical contact, correct a ny hearing and visual impairments. If any further episodes of delirium, would be inclined to recheck UA. COVID Infection Acute Hypoxic Respiratory Failure - RESOLVED: Asymptomatic, patient's daughter previously reported (+) test at [facility] earlier in the week prior to admission. Continues to be asymptomatic today; however, at one point, she did become hypoxic and received IV steroids but this has since resolved. Remdesivir contraindicated given patient's bradycardia. Patient tested (+) at [facility] on 10/19/2024; therefore, her last day of isolation was on 10/29/2024 in order to complete a full 10 days. She never was truly symptomatic here other than some generalized weakness. Elevated Troponin, EKG Changes Known Bradycardia (Per Patient's Daughter): Trop initially bumped ~15 on admission, since has flattened out to ~13. EKG on admission revealed sinus bradycardia, PACs; patient w/o any chest pain. TTE w/ EF = 60-65%, moderate concentric LVH, grade I DD, severely dilated LA, mild aortic stenosis, mild [place], mild MR and mild TR. ACS ultimately ruled-out; telemetry unremarkable. L Maxillary Sinusitis: Incidentally noted on head CT. She completed po amoxicillin 500mg TID x 7 days this admission. GAIL on CKD Stage IIIa - RESOLVED: Noted to have an GAIL with Cr of 1.36 on 11/03, baseline Cr ~ 0.8-1.2 per chart review. Likely 2/2 poor oral hydration status ISO suspected dementia/forgetfulness at baseline. S/p 1L NSS on 11/03. GAIL resolved today; Cr back at baseline, 0.88 today. Continue to avoid nephrotoxins as able. HTN: BP has been intermittently elevated throughout hospital stay, may be situational. Home amlodipine increased to 10mg daily on 10/28; continue to monitor. BMP stable today; can consider adding on an ACEi, avoid AV karla blockers ISO bradycardia. HLD: Continue atorvastatin. Lipid panel this admission --> triglycerides 288, cholesterol 155, LDL 64, VLDL 58, HDL 33. Added fish oil supplement; encourage low fat/HH diet. DVT Prophylaxis: SQ Lovenox Code Status: FULL CODE PCP: Kendra Go MD Disposition: CM working on SNF placement; referral pending to [facility]. Updated the patient's daughter, Enedina, over the phone yesterday. Patient is medically stable for discharge. Patient seen in collaboration with Dr. Husain. Please see addendum. I spent a total of 35 minutes coordinating, documenting, and providing care for this patient excluding time spent in the performance of separately billed services. This included personally reviewing all current laboratories and imaging studies, medical reconciliation, outpatient chart review and discussion with specialists. This chart was completed in part utilizing Speech Voice Recognition Software. Grammatical errors, random word insertions, pronoun errors, and incomplete sentences are an occasional consequence of this system due to software limitations, ambient noise, and hardware issues. Any formal questions or concerns about the content, text, or information contained within the body of this dictation should be directly addressed to the provider for clarification. Admission and Anticipated Discharge Date Admission Date: October 24, 2024 Supervising Physician Co-Signing Physician Notes Patient seen and examined Agree with plans as detailed by Angella Osborn PA-C I spent a total of 15 minutes coordinating, documenting and providing care for this patient excluding time spent in performance of separately billed services Subjective Patient seen and examined this morning in room N385-2. She has returned back to her baseline functioning status. She was sitting up in the chair at bedside. She is pleasantly confused. No further incidents of agitation per nursing staff. Of note, she required a dose of IM Zyprexa yesterday shortly before 7AM 2/2 increased agitation/biting. Suspect delirium episode yesterday 2 her being transferred from room N380 to N385 the day prior for safety measures in order to be closer to the nurses' station as she was frequently getting out of bed without assistance. She endorses no complaints this morning. Her blinds were wide open and she was enjoying looking out at the snow. She ate her entire breakfast. She was certainly more alert this morning compared to over the weekend. Easily reoriented to direct questioning. Review of Systems Review of Systems: At least ten systems reviewed and negative, except as noted in the subjective section. Physical Exam Physical Exam: General: Thin/elderly F, NAD, sitting up in chair at bedside, pleasantly confused. A&O to direct conversation/questioning. Respiratory: Normal respiratory effort, lungs clear to auscultation, no wheeze/rales/rhonchi. No accessory muscle use. Cardiovascular: Regular rate, rhythm, normal peripheral pulses, trace BLE edema. Vessels: No JVD. Extremities/Musculoskeletal: No cyanosis or clubbing, RLE in knee immobilizer. Results & Data Results & Data Vital Signs (Past 12 Hours) Vital Signs Temp Pulse Resp BP BP Pulse Ox O2 Del Method 11/04/24 09:33 66 18 148/69 H 11/04/24 07:35 36.6 C 70 18 115/72 99 Room Air Laboratory Results Short CBC 11/03/24 Range/Units 15:27 WBC 5.71 (4.8-10.8) K/ul Hgb 11.2 L (12.0-16.0) g/dl Hct 35.7 L (37.0-47.0) % Plt Count 138 (130-400) K/uL BMP 11/03/24 11/04/24 15:27 07:56 Sodium 140 140 Potassium 4.2 4.1 Chloride 107 107 Carbon Dioxide 26 27 BUN 20 23 Creatinine 1.36 H 0.88 D Glucose 116 H 108 H Calcium 9.5 9.5 (2) Fracture of right tibial plateau Encounter type: subsequent encounter Fracture healing: with routine healing Fracture type: closed Qualified Code(s): S82.141D - Displaced bicondylar fracture of right tibia, subsequent encounter for closed fracture with routine healing
[2024-11-04] MEDS: HEPARIN SOD 5,000 UNIT/0.5 ML VIAL SC SCH (20:45)
--- NOTE | 2024-11-05 13:26 | Hospitalist Progress Note ---
Date of Service November 05, 2024 Assessment & Plan (1) Unable to care for self: (2) Fracture of right tibial plateau: (3) COVID-19: (4) Acute hypoxic respiratory failure: (5) Elevated troponin: (6) Left maxillary sinusitis: (7) Acute kidney injury superimposed on stage 3a chronic kidney disease: Plan Carolyn Bond is an 89y/o F with PMHx significant for HTN, HLD, prediabetes, history of SVT, aortic stenosis, mitral valve regurgitation, GERD, angiomyolipoma of both kidneys, CKD stage IIIa, osteoporosis, bilateral hearing loss and depression who presented to the ED on 10/24/2024 secondary to referral from [facility] as the patient was found to be acutely confused on routine wellness check. Pertinent background information regarding admission: Patient recently hospitalized 10/03/2024-10/14/2024 at [facility] due to a fall in which she sustained a right tibial plateau fracture. She underwent ORIF of the right tibial plateau fracture on 10/03/2024. Her hospital course was complicated by acute blood loss anemia and discharge Hgb was 9.4; ortho recommended that she wear a right knee immobilizer at all times and that she may not bear weight on the right leg except for toe touch for up to 8 weeks. Her blood pressure was noted to be elevated throughout that admission and she was started on amlodipine 5mg daily. She was discharged to [facility]. Patient was only at [facility] for a few days before she opted to be di scharged home AMA. As per above, patient was referred to [facility] ED on 10/24/2024 after she was found to be acutely confused during routine wellness check conducted by the [facility]. Of note, she was found to be wearing the same clothes x 1 week and was not eating meals which were delivered to her home. Unable to Care for Self at Home Recent R Tibial Plateau Fx S/P ORIF on 10/03/[address] Sy at [facility]: Missed orthopedic f/u at [facility] scheduled for 10/21/2024 - updated R knee XR without hardware complications. Incision appears to be healing well. Sutures removed and steri strips placed per previous discussion with Tuan Andrade PA-C of [facility] ortho; No strenuous activity for 8 weeks and wear knee immobilizer at all times, and do NOT bear full weight on right leg - just touch right toes down for balance. Needs to be scheduled for 6-week ortho f/u at [facility] (should be scheduled for the beginning of November). Further activity instructions --> active flexion and extension, passive flexion with gravity, okay to shower but no soaking in tub. Hospital Delirium on Suspected Underlying Cognitive Decline vs. Dementia: Required 1 dose of IM Haldol earlier this admission - She has been back at her baseline mentation status since 11/03 Delirium precautions: raising blinds during the day, closing at night, frequent re-orientation, contact with family/friends, explaining procedures/nursing care measures prior to physical contact, correct any hearing and visual impairments. If any further episodes of delirium, would be inclined to recheck UA. COVID Infection Acute Hypoxic Respiratory Failure - RESOLVED: Asymptomatic, patient's daughter previously reported (+) test at [facility] earlier in the week prior to admission. Remdesivir contraindicated given patient's bradycardia. Patient tested (+) at [facility] on 10/19/2024; therefore, her last day of isolation was on 10/29/2024 in order to complete a full 10 days. Elevated Troponin, EKG Changes Known Bradycardia (Per Patient's Daughter): Trop initially bumped ~15 on admission, since has flattened out to ~13. EKG on admission revealed sinus bradycardia, PACs; patient w/o any chest pain. TTE w/ EF = 60-65%, moderate concentric LVH, grade I DD, severely dilated LA, mild aortic stenosis, mild VA, mild MR and mild TR. ACS ultimately ruled-out; telemetry unremarkable. L Maxillary Sinusitis: Incidentally noted on head CT. She completed po amoxicillin. GAIL on CKD Stage IIIa - RESOLVED: Noted to have an GAIL with Cr of 1.36 on 11/03, baseline Cr ~ 0.8-1.2 per chart review. Likely 2/2 poor oral hydration status ISO suspected dementia/forgetfulness at baseline. S/p 1L NSS on 11/03. GAIL resolved today; Cr back at baseline, 0.88 today. Continue to avoid nephrotoxins as able. HTN: BP has been intermittently elevated throughout hospital stay, may be situational. Home amlodipine increased to 10mg daily on 10/28; continue to monitor. BMP stable today; can consider adding on an ACEi, avoid AV karla blockers ISO bradycardia. HLD: Continue atorvastatin. Lipid panel this admission --> triglycerides 288, cholesterol 155, LDL 64, VLDL 58, HDL 33. Added fish oil supplement; encourage low fat/HH diet. DVT Prophylaxis: SQ Lovenox Code Status: FULL CODE PCP: Kendra Go MD Disposition: CM working on SNF placement; referral pending to [facility]. Updated the patient's daughter, Enedina, over the phone yesterday. Patient is medically stable for discharge. I spent a total of 42 minutes coordinating, documenting, and providing care for this patient excluding time spent in the performance of separately billed services. This included personally reviewing all current laboratories and imaging studies, medical reconciliation, outpatient chart review and discussion with specialists. This chart was completed in part utilizing Speech Voice Recognition Software. Grammatical errors, random word insertions, pronoun errors, and incomplete sentences are an occasional consequence of this system due to software limitations, ambient noise, and hardware issues. Any formal questions or concerns about the content, text, or information contained within the body of this dictation should be directly addressed to the provider for clarification. Admission and Anticipated Discharge Date Admission Date: October 24, 2024 Supervising Physician Co-Signing Physician Notes Attending Addendum: Case reviewed with the advanced practitioner. I have personally performed a history and physical examination on the patient. I have reviewed the advanced practitioner's documentation on the date of service referenced in note, and I agree with, and take responsibility for the plan of care. please refer to her notes for full details patient seen and examined, records reviewed by myself as well diagnoses and plan of care as per advanced practitioner's notes Jack Douglas MD Subjective Patient seen and examined this morning in room N385-2. She has returned back to her baseline functioning status and is quite pleasantly confused. She was able to tell me that she is in the hospital 'because of her leg' No further incidents of agitation per nursing staff. She ate her entire breakfast. She was certainly more alert this morning compared to over the weekend. Easily reoriented to direct questioning. She denies VAIL, dizziness, chest pain, SOB. She was able to tell me her daughters name is Enedina. I spoke with CM who said that placement continues to be pending approval. I called pt daughter Enedina at [phone] and provided her with an update. Review of Systems Review of Systems: At least ten systems reviewed and negative, except as noted in the subjective section. Physical Exam Physical Exam: Neuro: AAOx2, PERRLA, no aphagia, memory changes, CNII-XII grossly intact HEENT: head normocephalic, moist mucus membranes CV: S1/S2, (-) M/G/R, (-) edema, cap refill < 3 seconds Resp: Lungs CTA in all tellez. On RA GI: Abdomen S/NT/ND, Ax4 bowel sounds, (-) CVA tenderness Musculoskeletal: 5/5 B/L UE strength, 5/5 B/L LE strength. R leg immoblizer on. Skin: (-) rashes , (-) erythema. Psych: euthymic mood Results & Data Results & Data Vital Signs (Past 12 Hours) Vital Signs Temp Pulse Resp BP Pulse Ox O2 Del Method 11/05/24 08:00 36.5 C 57 L 18 145/72 H 99 Room Air (2) Fracture of right tibial plateau Encounter type: subsequent encounter Fracture healing: with routine healing Fracture type: closed Qualified Code(s): S82.141D - Displaced bicondylar fracture of right tibia, subsequent encounter for closed fracture with routine healing
[2024-11-06 08:56] LABS: Hematocrit (blood only) 33.7 % (37.0-47.0); Hemoglobin 10.8 g/dl (12.0-16.0); Mean Corpuscular Volume 87.3 fL (80.0-100.0); Mean Platelet Volume 10.7 fL (9.4-12.4); Platelet Count 157 K/uL (130-400); RDW Coefficient of Variation 16.6 % (11.5-14.5); RDW Standard Deviation 52.1 fL (36.4-46.3); Red Blood Count 3.86 M/uL (4.20-5.40); White Blood Count 6.34 K/ul (4.8-10.8)
[2024-11-06 09:13] LABS: BUN Creatinine Ratio 29.6 (10-20); Calcium 9.3 mg/dl (8.6-10.3); Creatinine Clr Calc Pharmacy 34.5 ml/min
--- NOTE | 2024-11-06 16:12 | Hospitalist Progress Note ---
Date of Service November 06, 2024 Assessment & Plan (1) Unable to care for self: (2) Fracture of right tibial plateau: (3) COVID-19: (4) Acute hypoxic respiratory failure: (5) Elevated troponin: (6) Left maxillary sinusitis: (7) Acute kidney injury superimposed on stage 3a chronic kidney disease: Plan Carolyn Bond is an 89y/o F with PMHx significant for HTN, HLD, prediabetes, history of SVT, aortic stenosis, mitral valve regurgitation, GERD, angiomyolipoma of both kidneys, CKD stage IIIa, osteoporosis, bilateral hearing loss and depression who presented to the ED on 10/24/2024 secondary to referral from [facility] as the patient was found to be acutely confused on routine wellness check. Pertinent background information regarding admission: Patient recently hospitalized 10/03/2024-10/14/2024 at [facility] due to a fall in which she sustained a right tibial plateau fracture. She underwent ORIF of the right tibial plateau fracture on 10/03/2024. Her hospital course was complicated by acute blood loss anemia and discharge Hgb was 9.4; ortho recommended that she wear a right knee immobilizer at all times and that she may not bear weight on the right leg except for toe touch for up to 8 weeks. Her blood pressure was noted to be elevated throughout that admission and she was started on amlodipine 5mg daily. She was discharged to [facility]. Patient was only at [facility] for a few days before she opted to be di scharged home AMA. As per above, patient was referred to [facility] ED on 10/24/2024 after she was found to be acutely confused during routine wellness check conducted by the [facility]. Of note, she was found to be wearing the same clothes x 1 week and was not eating meals which were delivered to her home. Unable to Care for Self at Home Recent R Tibial Plateau Fx S/P ORIF on 10/03/[address] Sy at [facility]: Missed orthopedic f/u at [facility] scheduled for 10/21/2024 - updated R knee XR without hardware complications. Incision appears to be healing well. Sutures removed and steri strips placed per previous discussion with Tuan Andrade PA-C of [facility] ortho; No strenuous activity for 8 weeks and wear knee immobilizer at all times, and do NOT bear full weight on right leg - just touch right toes down for balance. Needs to be scheduled for 6-week ortho f/u at [facility] (should be scheduled for the beginning of November). Further activity instructions --> active flexion and extension, passive flexion with gravity, okay to shower but no soaking in tub. Hospital Delirium on Suspected Underlying Cognitive Decline vs. Dementia: Required 1 dose of IM Haldol earlier this admission - She has been back at her baseline mentation status since 11/03 Delirium precautions: raising blinds during the day, closing at night, frequent re-orientation, contact with family/friends, explaining procedures/nursing care measures prior to physical contact, correct any hearing and visual impairments. If any further episodes of delirium, would be inclined to recheck UA. COVID Infection Acute Hypoxic Respiratory Failure - RESOLVED: Asymptomatic, patient's daughter previously reported (+) test at [facility] earlier in the week prior to admission. Remdesivir contraindicated given patient's bradycardia. Patient tested (+) at [facility] on 10/19/2024; therefore, her last day of isolation was on 10/29/2024 in order to complete a full 10 days. Elevated Troponin, EKG Changes Known Bradycardia (Per Patient's Daughter): Trop initially bumped ~15 on admission, since has flattened out to ~13. EKG on admission revealed sinus bradycardia, PACs; patient w/o any chest pain. TTE w/ EF = 60-65%, moderate concentric LVH, grade I DD, severely dilated LA, mild aortic stenosis, mild CO, mild MR and mild TR. ACS ultimately ruled-out; telemetry unremarkable. L Maxillary Sinusitis: Incidentally noted on head CT. She completed po amoxicillin. GAIL on CKD Stage IIIa - RESOLVED: Noted to have an GAIL with Cr of 1.36 on 11/03, baseline Cr ~ 0.8-1.2 per chart review. Likely 2/2 poor oral hydration status ISO suspected dementia/forgetfulness at baseline. S/p 1L NSS on 11/03. GAIL resolved today; Cr back at baseline, 0.88 today. Continue to avoid nephrotoxins as able. HTN: BP has been intermittently elevated throughout hospital stay, may be situational. Home amlodipine increased to 10mg daily on 10/28; continue to monitor. BMP stable today; can consider adding on an ACEi, avoid AV karla blockers ISO bradycardia. HLD: Continue atorvastatin. Lipid panel this admission --> triglycerides 288, cholesterol 155, LDL 64, VLDL 58, HDL 33. Added fish oil supplement; encourage low fat/HH diet. DVT Prophylaxis: SQ Lovenox Code Status: FULL CODE PCP: Kendra Go MD Disposition: CM working on SNF placement; referral pending to [facility]. Updated the patient's daughter, Enedina, over the phone yesterday. Patient is medically stable for discharge. Awaiting auth as of 11/06 I spent a total of 38 minutes coordinating, documenting, and providing care for this patient excluding time spent inthe performance of separately billed services or time spent by another provider/QHP. This chart was completed in part utilizing Speech Voice Recognition Software. Grammatical errors, random word insertions, pronoun errors, and incomplete sentences are an occasional consequence of this system due to software limitations, ambient noise, and hardware issues. Any formal questions or concerns about the content, text, or information contained within the body of this dictation should be directly addressed to the provider for clarification. Admission and Anticipated Discharge Date Admission Date: October 24, 2024 Supervising Physician Co-Signing Physician Notes Attending Addendum: Case reviewed with the advanced practitioner. I have personally performed a history and physical examination on the patient. I have reviewed the advanced practitioner's documentation on the date of service referenced in note, and I agree with, and take responsibility for the plan of care. please refer to her notes for full details patient seen and examined, records reviewed by myself as well diagnoses and plan of care as per advanced practitioner's notes Jack Douglas MD Subjective Patient seen and examined this morning in room N385-2. She continues to be pleasant and is at her baseline functioning mental status. No further incidents of agitation per nursing staff. She is AAOx 2 and easily reoriented to direct questioning. She denies VAIL, dizziness, chest pain, SOB. She was able to tell me her daughters name is Enedina. I spoke with CM who said that it is likely possible she may be discharged tomorrow to SNF pending authorization I called pt daughter Enedina at [phone] and provided her with an update. Review of Systems Review of Systems: At least ten systems reviewed and negative, except as noted in the subjective section. Physical Exam Physical Exam: Neuro: AAOx2, PERRLA, no aphagia, memory changes, CNII-XII grossly intact HEENT: head normocephalic, moist mucus membranes CV: S1/S2, (-) M/G/R, (-) edema, cap refill < 3 seconds Resp: Lungs CTA in all tellez. On RA GI: Abdomen S/NT/ND, Ax4 bowel sounds, (-) CVA tenderness Musculoskeletal: 5/5 B/L UE strength, 5/5 B/L LE strength. R leg immoblizer on. Skin: (-) rashes , (-) erythema. Psych: euthymic mood Results & Data Results & Data Vital Signs (Past 12 Hours) Vital Signs Temp Pulse Resp BP Pulse Ox O2 Del Method 11/06/24 15:36 36.6 C 62 18 137/68 93 Room Air 11/06/24 09:15 Room Air 11/06/24 07:01 36.6 C 66 18 136/61 96 Room Air Laboratory Results Short CBC 11/06/24 Range/Units 08:29 WBC 6.34 (4.8-10.8) K/ul Hgb 10.8 L (12.0-16.0) g/dl Hct 33.7 L (37.0-47.0) % Plt Count 157 (130-400) K/uL BMP 11/06/24 08:29 Sodium 137 Potassium 4.0 Chloride 105 Carbon Dioxide 22 BUN 24 H Creatinine 0.81 Glucose 153 H Calcium 9.3 (2) Fracture of right tibial plateau Encounter type: subsequent encounter Fracture healing: with routine healing Fracture type: closed Qualified Code(s): S82.141D - Displaced bicondylar fracture of right tibia, subsequent encounter for closed fracture with routine healing
[2024-11-07 11:03] LABS: Ferritin 598.9 ng/ml (8-388)
[2024-11-07 11:41] LABS: Folate (Folic Acid),Ser orPlas > 22.30 ng/ml (>5.38)
[2024-11-07 11:42] LABS: Vitamin B12 437 pg/ml (180-914)
--- NOTE | 2024-11-07 12:35 | Discharge Summary ---
Date of Service November 07, 2024 Admission HPI Per Admitting Provider This is an 89-year-old female who has a significant past medical history of HTN, HLD, prediabetes, history of SVT, aortic stenosis, GERD, angiomyolipoma of both kidneys, osteoporosis and depression who presents to ED secondary to referral from office of aging due to performance of wellness check and patient found confused. Of significance patient was recently hospitalized 10/03 to 10/14/2024 at [facility] due to a fall in which she sustained a right tibial plateau fracture. She underwent ORIF of the right tibial plateau fracture on 10/03. Her hospital course was complicated with acute blood loss anemia and discharge and hemoglobin was 9.4. Ortho recommended that patient wear a right knee immobilizer at all times and she may not bear weight on the right leg except for toe touch for up to 8 weeks. She will need close follow-up with orthopedics at discharge. Her blood pressure was noted to be elevated throughout admission and she was started on amlodipine 5 mg daily. She was discharged to [facility] long-term facility.ROS and history difficult to obtain from patient secondary to hearing status. Discussion was had with daughter. She states that she was only at her side for a few days and she opted to be discharged home AGAINST MEDICAL ADVICE. Daughter has concerns of patient being on her own. Her granddaughter had been checking on her. She reports that she has been bearing weight and going up and down the steps on that right leg in her house. Daughter was unaware that she was to be nonweightbearing of that leg. Patient has not followed up with orthopedics since discharge. Daughter reports patient was seen in [facility] approximately 5 days ago due to feeling short of breath. She tested positive for COVID at that time. Patient currently denies any fever, chills, sweats, chest pain, shortness of breath, nausea, vomiting, abdominal pain, change in her bowel or urinary habits, sinus congestion or sinus pressure. In ED patient remained hemodynamically stable. She was bradycardic. According to daughter her heart rate always runs in the 50s. Her CBC, CMP and UA was generally unremarkable. She remains positive for SARS-CoV-2. Her troponin was mildly elevated at 15. Principal Diagnosis generalized weakness Discharge Exam Neuro: AAOx4, PERRLA, no aphagia, memory changes, CNII-XII grossly intact HEENT: head normocephalic, moist mucus membranes CV: S1/S2, (-) M/G/R, (-) edema, cap refill < 3 seconds Resp: Lungs CTA in all tellez. On RA GI: Abdomen S/NT/ND, Ax4 bowel sounds, (-) CVA tenderness Musculoskeletal: 5/5 B/L UE strength, 5/5 B/L LE strength R leg immoblizer. Skin: (-) rashes , (-) erythema. Psych: euthymic mood Discharge Data Allergies Allergy/AdvReac Type Severity Reaction Status Date / Time No Known Allergies Allergy Unknown Verified 03/13/16 07:10 Consultations 10/24/24 17:39 ED Decision to Admit Stat 10/28/24 07:23 HIM [Consult Health Information Management] Routine Ordered Studies 1. CXR 10/24/24 : FINDINGS: No intracranial hemorrhage seen. No mass effect, mi dline shift, or hydrocephalus. Stable mild chronic small vessel ischemic changes. No skull fracture. There is interval fluid and mucosal thickening at the left maxillary sinus consistent with sinusitis. IMPRESSION: 1. No acute intracranial abnormality. 2. Left maxillary sinusitis. 2. Head CT: 10/24/24: FINDINGS: No intracranial hemorrhage seen. No mass effect, midline shift, or hydrocephalus. Stable mild chronic small vessel ischemic changes. No skull fracture. There is interval fluid and mucosal thickening at the left maxillary sinus consistent with sinusitis. IMPRESSION: 1. No acute intracranial abnormality. 2. Left maxillary sinusitis. 3. Abdomen/pelvis CT 10/24/24: FINDINGS: Cardiomegaly with coronary arterial calcifications. Large hiatal hernia with majority of the stomach within the thoracic cavity. Mild bibasilar atelectasis versus scarring. No pneumatosis or pneumoperitoneum. The unenhanced spleen, pancreas and adrenal glands are unremarkable. Unchanged appearance of the large gallstone. No CT evidence of acute cholecystitis. Liver is within normal limits. Cortical thinning of the kidneys. 1.4 cm angiomyolipoma in the lateral interpolar left kidney with additional 1.8 cm AML of the inferior pole. 2.6 cm cyst of the superior pole left kidney. 1.2 cm AML the lateral interpolar right kidney. No urolith or hydronephrosis. Urinary bladder wall thickening with partial distention. Atherosclerosis of the aorta without aneurysm. No lymphadenopathy. Colonic diverticulosis without acute diverticulitis. There are a few fat filled small abdominal hernias with diastases measuring up to 1.4 cm. Degenerative changes of the spine. T11 and L1 compression deformities/burst fractures with retropulsion redemonstrated which are unchanged from the prior study and favored to be chronic. MPRESSION: 1. No renal or ureteral calculi or hydronephrosis. 2. No bowel obstruction or bowel wall thickening. 3. Large hiatal hernia. 4. Colonic diverticulosis. 5. Bilateral renal angiomyolipomata. 6. Cholelithiasis. 7. Additional findings as above. 4. Lumbar spine CT: 10/24/24: FINDINGS: There is stable severe height loss at the T11 and L1 vertebral bodies. No interval lumbar spine fracture seen. Stable gra de 1 anterolisthesis of L4 4 on 5 and L5 on S1. Stable moderate bilateral neural foraminal narrowing at L5-S1. Stable few scattered bone islands. Stable at least mild central canal narrowing at L4-5. IMPRESSION: 1. No acute lumbar spine fracture seen. 2. Stable old fractures and degenerative changes. 5. Knee X-ray 10/24/24: No evidence of joint effusion. IMPRESSION: Internal metallic hardware fixation in the proximal third aspect of right tibia for tibial plateau fracture without hardware complications Hospital Course (1) Unable to care for self: (2) Fracture of right tibial plateau: (3) COVID-19: (4) Acute hypoxic respiratory failure: (5) Elevated troponin: (6) Left maxillary sinusitis: (7) Acute kidney injury superimposed on stage 3a chronic kidney disease: Plan Ms. Bond is an 89 year old female that presented to the ED at [facility] on . She was recently hospitalized 10/03/2024-10/14/2024 at [facility] due to a fall in which she sustained a right tibial plateau fracture. She underwent ORIF of the right tibial plateau fracture on 10/03/2024. Her hospital course was complicated by acute blood loss anemia and discharge Hgb was 9.4; ortho recommended that she wear a right knee immobilizer at all times and that she may not bear weight on the right leg except for toe touch for up to 8 weeks. Her blood pressure was noted to be elevated throughout that admission and she was started on amlodipine 5mg daily. She was discharged to [facility]. Patient was only at [facility] for a few days before she opted to be discharged home AMA. As per above, patient was referred to [facility] ED on 10/15 after she was found to be acutely confused during routine wellness check conducted by the Office of Aging. Of note, she was found to be wearing the same clothes x 1 week and was not eating meals which were delivered to her home. From an orthopedic standpoint, she missed an orthopedic f/u at [facility] scheduled for 10/21/2024 - updated R knee XR without hardware complications. Her Incision appears to be healing well. Sutures were removed and steri strips placed per previous discussion with Tuan Andrade PA-C of [facility] ortho; No strenuous activity for 8 weeks and wear knee immobilizer at all times, and do NOT bear full weight on right leg - just touch right toes down for balance. See above for ambulation restrictions. Needs to be scheduled for 6-week ortho f/u at [facility] (this will be done via teleconference) Further activity instructions --> active flexion and extension, passive flexion with gravity, okay to shower but no soaking in tub. During the hospitalization she did have some episodes of delirium which has resolved and she has returned to her baseline functional status. Delirium precautions have been helpful for her. She was diagnosed while here with sinusitis and completed an oral course of antibiotics. She was found to have a covid infection which also resolved. She was positive at [facility] prior to this infection. She did not receive Remdesivir given her bradycardia. Her last day of isolation was 10/29/24, completing a total of 10 days. Give the incidental findings of cardiomegaly with coronary arterial calcifications, discuss with PCP regarding possibly starting baby ASA for cardio protection. MEDICATION CHANGES: Her blood pressure has been elevated towards the beginning of her admission. Her home amlodipine was increased to 10mg daily on 10/28 and she has been tolerating this well. Continue atorvastatin. Ms. Bond was examined prior to her discharge and she was in no apparent distress. Her family is aware of her being accepted and transferred today to [facility]. She has been deemed stable for transfer. Total Time Total Time Spent Total Time Spent (In Minutes): I spent a total of 48 minutes coordinating, documenting, and providing care for this patient excluding time spent in the performance of separately billed servic es or time spent by another provider/QHP. Discharge Plan Discharge Items Patient Disposition: Transfer [facility] Fac Reason For Visit: SARS COV-2, ALTERED MENTAL STATUS Discharge Diagnosis: generalized weakness Condition on Discharge: Good Activity: Per Instructions section Activity Comment: Patient ok for active flexion/extension. Passive flexion with gravity. Bathing Comment: OK for showing, no tub soaking Non-emergency contact: Primary Care Provider Call non-emergency contact if: you have any medication questions, your pain is unusual for you, your temperature is above 101 and your wound pain has increased Follow-up/Referrals: Kendra Go MD [Primary Care Provider] - 11/11/24 2:20 pm Diet: Heart Healthy Addtl Attending Provider Instructions: Ms. Bond is an 89 year old female that presented to the ED at [facility] on . She was recently hospitalized 10/03/2024-10/14/2024 at [facility] due to a fall in which she sustained a right tibial plateau fracture. She underwent ORIF of the right tibial plateau fracture on 10/03/2024. Her hospital course was complicated by acute blood loss anemia and discharge Hgb was 9.4; ortho recommended that she wear a right knee immobilizer at all times and that she may not bear weight on the right leg except for toe touch for up to 8 weeks. Her blood pressure was noted to be elevated throughout that admission and she was started on amlodipine 5mg daily. She was discharged to [facility]. Patient was only at [facility] for a few days before she opted to be discharged home AMA. As per above, patient was referred to [facility] ED on 10/24/2024 after she was found to be acutely confused during routine wellness check conducted by the [facility]. Of note, she was found to be wearing the same clothes x 1 week and was not eating meals which were delivered to her home. From an orthopedic standpoint, she missed an orthopedic f/u at [facility] scheduled for 10/21/2024 - updated R knee XR without hardware complications. Her Incision appears to be healing well. Sutures were removed and steri strips placed per previous discussion with Tuan Andrade PA-C of [facility] ortho; No strenuous activity for 8 weeks and wear knee immobilizer at all times, and do NOT bear full weight on right leg - just touch right toes down for balance. See above for ambulation restrictions. Needs to be scheduled for 6-week ortho f/u at [facility] (this will be done via teleconference) Further activity instructions --> active flexion and extension, passive flexion with gravity, okay to shower but no soaking in tub. During the hospitalization she did have some episodes of delirium which has resolved and she has returned to her baseline functional status. Delirium precautions have been helpful for her. She was diagnosed while here with sinusitis and completed an oral course of antibiotics. She was found to have a covid infection which also resolved. She was positive at [facility] prior to this infection. She did not receive Remdesivir given her bradycardia. Her last day of isolation was 10/29/24, completing a total of 10 days. MEDICATION CHANGES: Her blood pressure has been elevated towards the beginning of her admission. Her home amlodipine was increased to 10mg daily on 10/28 and she has been tolerating this well. Continue atorvastatin. Given the incidental findings of cardiomegaly with coronary arterial calcifications, discuss with PCP regarding possibly starting baby ASA for cardio protection. SUMMARY OF TEST RESULTS: 1. CXR 10/24/24 : FINDINGS: No intracranial hemorrhage seen. No mass effect, midline shift, or hydrocephalus. Stable mild chronic small vessel ischemic changes. No skull fracture. There is interval fluid and mucosal thickening at the left maxillary sinus consistent with sinusitis. IMPRESSION: 1. No acute intracranial abnormality. 2. Left maxillary sinusitis. 2. Head CT: 10/24/24: FINDINGS: No intracranial hemorrhage seen. No mass effect, midline shift, or hydrocephalus. Stable mild chronic small vessel ischemic changes. No skull fracture. There is interval fluid and mucosal thickening at the left maxillary sinus consistent with sinusitis. IMPRESSION: 1. No acute intracranial abnormality. 2. Left maxillary sinusitis. 3. Abdomen/pelvis CT 10/24/24: FINDINGS: Cardiomegaly with coronary arterial calcifications. Large hiatal hernia with majority of the stomach within the thoracic cavity. Mild bibasilar atelectasis versus scarring. No pneumatosis or pneumoperitoneum. The unenhanced spleen, pancreas and adrenal glands are unremarkable. Unchanged appearance of the large gallstone. No CT evidence of acute cholecystitis. Liver is within normal limits. Cortical thinning of the kidneys. 1.4 cm angiomyolipoma in the lateral interpolar left kidney with additional 1.8 cm AML of the inferior pole. 2.6 cm cyst of the superior pole left kidney. 1.2 cm AML the lateral interpolar right kidney. No urolith or hydronephrosis. Urinary bladder wall thickening with partial distention. Atherosclerosis of the aorta without aneurysm. No lymphadenopathy. Colonic diverticulosis without acute diverticulitis. There are a few fat filled small abdominal hernias with diastases measuring up to 1.4 cm. Degenerative changes of the spine. T11 and L1 compression deformities/burst fractures with retropulsion redemonstrated which are unchanged from the prior study and favored to be chronic. MPRESSION: 1. No renal or ureteral calculi or hydronephrosis. 2. No bowel obstruction or bowel wall thickening. 3. Large hiatal hernia. 4. Colonic diverticulosis. 5. Bilateral renal angiomyolipomata. 6. Cholelithiasis. 7. Additional findings as above. 4. Lumbar spine CT: 10/24/24: FINDINGS: There is stable severe height loss at the T11 and L1 vertebral bodies. No interval lumbar spine fracture seen. Stable grade 1 anterolisthesis of L4 4 on 5 and L5 on S1. Stable moderate bilateral neural foraminal narrowing at L5-S1. Stable few scattered bone islands. Stable at least mild central canal narrowing at L4-5. IMPRESSION: 1. No acute lumbar spine fracture seen. 2. Stable old fractures and degenerative changes. 5. Knee X-ray 10/24/24: No evidence of joint effusion. IMPRESSION: Internal metallic hardware fixation in the proximal third aspect of right tibia for tibial plateau fracture without hardware complications RECOMMENDATIONS FOR FOLLOW UP: 1. Ms. Bond will undergo a six-week follow up appointment with orthopedics which will be completed via teleconference. This will take place during the first week of November. They will contact [facility] to arrange a date/time. Ms. Bond was examined prior to her discharge and she was in no apparent distress. Her family is aware of her being accepted and transferred today to [facility]. She has been deemed stable for transfer. OTHER INSTRUCTIONS: Seek medical attention if you have: * temperature above 101 * chest pain or trouble breathing * abdominal pain, nausea, vomiting * diarrhea, dark stools or bloody stools * any unanswered questions or concerns Call 911 if symptoms are severe. Please take good care of yourself. It has been a pleasure taking care of you. Please take care of yourself. If you have any questions regarding your recent hospitalization please contact [facility] and request [employer] @ [phone]. Pending Studies at Discharge: No Stand-Alone Forms: My [facility] Skilled Items Patient informed of condition?: Yes DNR: No Discharge Level of Care: Skilled Communicable Disease: No Discharge Prognosis: Stable Lines: None Urinary Catheter: No Medications and DC Order Prescriptions: New amlodipine [Norvasc] 5 mg Tablet 10 mg PO DAILY Qty: 30 0RF melatonin 3 mg Tablet 6 mg PO HS Qty: 10 0RF Continued atorvastatin 10 mg tablet 10 mg PO DAILY Qty: 30 0RF alendronate 70 mg Tablet 70 mg PO Q7D Qty: 14 0RF pantoprazole 40 mg Tablet,Delayed Release (Dr/Ec) 40 mg PO DAILY Qty: 30 0RF docusate sodium 100 mg Capsule 100 mg PO BID Qty: 20 0RF fluticasone propionate 50 mcg/actuation [place],Suspension 1 spray INTRANASAL BID Qty: 16 0RF Rx Instructions: administer into each nostril cholecalciferol (vitamin D3) 25 mcg (1,000 unit) Capsule 25 mcg PO DAILY Qty: 30 0RF escitalopram oxalate 10 mg Tablet 10 mg PO DAILY Qty: 30 0RF Discontinued amlodipine 5 mg Tablet 5 mg PO DAILY oxycodone 5 mg Tablet 5 mg PO Q4H PRN (Reason: Pain) Discharge Orders: Discharge Order (Routine); Ordered 11/07/24 Ordered By: Dalila Valenzuela Admission Data Admit Date/Time: 10/24/24 17:55 Attending Provider: Jack Douglas Admit Provider: Jack Douglas Primary Care Provider: Kendra Go Other Providers: Jack Douglas; [facility]; [facility]; [facility]; [facility] Other Interventions: Discharge Summary Assessment (RN) Last Done: 11/07/24 13:38
== END 2024-11-07 13:59 | DRG 177 ==
LOC: ED 14:36 → EDINP 17:55 → SUATTDRO 17:55 → 3N 22:13
DX: X58.XXXD Exposure to other specified factors, subsequent encounter; U07.1 COVID-19; N17.9 Acute kidney failure, unspecified; F03.90 Unspecified dementia, unspecified severity, without behavioral disturbance, psychotic disturbance, mood disturbance, and anxiety; J96.01 Acute respiratory failure with hypoxia; J01.00 Acute maxillary sinusitis, unspecified; Z60.2 Problems related to living alone; F05 Delirium due to known physiological condition; E78.5 Hyperlipidemia, unspecified; R00.1 Bradycardia, unspecified; N18.31 Chronic kidney disease, stage 3a; K21.9 Gastro-esophageal reflux disease without esophagitis; Z87.891 Personal history of nicotine dependence; I12.9 Hypertensive chronic kidney disease with stage 1 through stage 4 chronic kidney disease, or unspecified chronic kidney disease; Y92.89 Other specified places as the place of occurrence of the external cause; I35.0 Nonrheumatic aortic (valve) stenosis; D17.5 Benign lipomatous neoplasm of intra-abdominal organs; S82.141D Displaced bicondylar fracture of right tibia, subsequent encounter for closed fracture with routine healing; M81.0 Age-related osteoporosis without current pathological fracture

== ENCOUNTER 2024-12-19 12:49 | Inpatient (IN) ==
--- NOTE | 2024-12-19 14:14 | Emergency Department Note ---
Impression & Plan Unable to care for self, Diverticulitis, New onset a-fib ED Provider Note Provider: Nabor Simon MD CHIEF COMPLAINT: Worsening low back pain, scooting on floor HISTORY OF PRESENT ILLNESS: Patient is a 89-year-old female past medical history of hypertension, CKD, and recent COVID presenting here today via ambulance from her home. Patient states over the last 1 to 2 weeks she has had worsening low back pain at those been present for more than a month. Was admitted here with similar back pain in October. States she is recovered from COVID [place] cough cold fever or URI symptoms otherwise. States that she tried to get through the night and this morning her back pain was so bad she could not walk with her cane or walker and lowered her self to the ground out of her bed. Has been scooting around on the floor. Called her daughter who called the ambulance and brought her here for further evaluation. Daughter lives in town here. Patient lives in [place]. Patient states she has not eaten or drinking anything today. She denies actually falling or striking her head. Does have a slight skin tear to the left upper arm and states she has been scooting around "on my hiney ". Denies pain into the legs or new numbness or tingling here. Again states she lowered herself the ground denies actually falling. States she occasionally have home health aide visit maybe once a week ago by her report. PAST MEDICAL HISTORY: As noted above MEDICATIONS: Reviewed home medications SOCIAL HISTORY: Lives at home by herself and often uses a walker or cane, has a 2 floor house PHYSICAL EXAM: GENERAL: alert and oriented in no acute distress on stretcher initially resting but easily awakened upon my interview Head: normocephalic and atraumatic EYES: No injection, discharge or icterus. PERRL, EOMI. NECK: Trachea midline. Supple without midline cervical tenderness ENT: Mucous membranes pink and slightly tacky LUNGS: Airway patent. No retractions. Breath sounds clear HEART: Regular irregular rate and rhythm. No chest wall tenderness ABDOMEN: Soft and non-tender, without guarding or rebound. BACK: No midline tenderness, no SI joint tenderness, no step-offs. No bilateral flank tenderness. SKIN: Acyanotic, warm, dry, without rashes other than an approximately 6 x 3 cm area of skin tear on the lateral distal left upper arm. Soft compartments of the left upper arm without bony tenderness. EXTREMITIES: Without swelling, tenderness or deformity NEUROLOGICAL: No focal deficits. No aphasia. No facial droop or slurred speech. Normal strength and tone in the extremities. Sensation to gross touch normal in the lower extremities EK bpm atrial fibrillation. No acute ST segment elevation or depression with nonspecific T wave inversions. QTc 452. CONTINUOUS CARDIAC MONITORING: was ordered and showed a heart rate of 80s to 90s bpm in atrial fibrillation GCS 15. Patient's laboratory studies and imaging reviewed. Differential includes Musculoskeletal, disc herniation, fracture, metastatic disease, cord compression, discitis, sciatica, cauda equina, infection, aortic disease, renal colic, gastrointestinal, infection as well as other pathologies. IMPRESSION/MEDICAL DECISION MAKING: Patient in no distress. Vitals here without significant abnormality. Denies URI symptoms recently had COVID and states he is recovered from this. Has been having ongoing back issues. Denies any significant trauma and lower to self the ground today states the pain is worse. Has not had anything for pain today or to eat or drink. Given some IV fluids here initially as well as some Tylenol and a lidocaine patch. Would be careful given her age for sensitivity to anything strong particular narcotics if were able to avoid. Patient not in any severe distress. No new numbness or weakness reported in the lower legs. No significant abdominal pain reported. Not really reproducible pain on palpation of the low back. Will check basic blood work and obtain CT imaging abdomen pelvis to look through the posterior if there is any other new abnormality she states it has worsened some. Not having other fevers by report lower suspicion for occult infection such as epidural abscess. Chest x-ray obtained here without significant findings per radiology report. No significant leukocytosis or anemia on blood work. No severe electrolyte abnormality only mildly low magnesium of 1.5. CK just above normal at 233 but doubt milena rhabdomyolysis this point. Troponin normal. Lipase normal. Doubt her pain is related to biliary or pancreas issues. CT of the abdomen pelvis per report questions mild diverticulitis. No other significant abnormality noted. Unclear if this totally explains her symptoms but given a dose of Unasyn here. Did discuss with patient this finding as well as what appears to be new onset A-fib. Will defer anticoagulation to the inpatient team and she appears rate controlled. Do questions the patient's ability to care for herself at home currently given her worsening back pain. And given the findings of possible diverticulitis new onset A-fib discussed further care in the hospital. She is agreeable with this and the hospitalist team was consulted. DIAGNOSIS: Low back pain, diverticulitis, new onset A-fib DISPOSITION: Hospitalist will evaluate Patient was agreeable with this plan. Past Med/Surg History Problem List (Updated 12/19/24 @ 19:36 by Nabor Simon M.D.) New onset a-fib (Acute) Fall Diverticulitis (Acute) Fracture of right tibial plateau s/p ORIF Unable to care for self (Acute) Medical History (Updated 12/19/24 @ 19:36 by Nabor Simon M.D.) Mild tricuspid regurgitation Mild mitral regurgitation Mild aortic stenosis Diastolic dysfunction PAF (paroxysmal atrial fibrillation) Depression Osteoarthritis CKD (chronic kidney disease), stage III GERD (gastroesophageal reflux disease) Dyslipidemia Hypertension COVID-19 Surgical History (Updated 12/19/24 @ 18:44 by MEI Mendiola) S/P hysterectomy Social History Smoking Status: Never smoker Hx Alcohol Use: No Hx Substance Use: No Preferred Language: Lao Communication Ability: Effective Plastics Plater Required: No Beliefs That Will Affect Care: None Current Living Situation: Alone Current Living Situation Comment: at home by self Feels Safe at Home: Yes Assistive Devices: Walker Allergies Allergies Allergy/AdvReac Type Severity Reaction Status Date / Time No Known Allergies Allergy Unknown Verified 03/13/16 07:10 Home Meds Home Medications Medication Instructions Recorded Confirmed amlodipine 5 mg tablet (Norvasc) 5 mg PO DAILY 12/19/24 12/19/24 ferrous sulfate 325 mg (65 mg 325 mg PO BID 12/19/24 12/19/24 iron) tablet (FeroSul) Previous Rx's Medication Instructions Recorded alendronate 70 mg tablet 70 mg PO Q7D #14 tabs 11/07/24 atorvastatin 10 mg tablet 10 mg PO DAILY #30 tabs 11/07/24 cholecalciferol (vitamin D3) 25 25 mcg PO DAILY #30 caps 11/07/24 mcg (1,000 unit) capsule docusate sodium 100 mg capsule 100 mg PO BID #20 caps 11/07/24 escitalopram oxalate 10 mg tablet 10 mg PO DAILY #30 tabs 11/07/24 fluticasone propionate 50 1 spray intranasal BID #16 grams 11/07/24 mcg/actuation nasal spray,suspension pantoprazole 40 mg tablet,delayed 40 mg PO DAILY #30 tabs 11/07/24 release Results & Data (ED) Vital Signs Vital Signs - 24 hr 12/19/24 12:58 12/19/24 14:49 12/19/24 15:00 Temperature 36.5 C Temperature Source Oral Pulse Rate 89 Pulse Rate [Apical] 78 Pulse Rhythm [Apical] Pulse Strength [Apical] Respiratory Rate 20 20 Respiratory Effort / Characteristics Respiratory Depth Respiratory Pattern Blood Pressure 132/94 Blood Pressure [Right Arm] 123/76 Blood Pressure Mean 106 Blood Pressure Mean [Right Arm] 91 Blood Pressure Position [Right Arm] Pulse Oximetry 96 94 94 Oxygen Delivery Method Room Air Room Air Room Air Sepsis Recent Fever Within 48 Hours No Sepsis New/Unexplained Change in Mental Status No Sepsis Action Taken by Nursing No Action Required 12/19/24 16:06 12/19/24 17:00 12/19/24 18:00 Temperature Temperature Source Pulse Rate 89 Pulse Rate [Apical] 81 78 Pulse Rhythm [Apical] Irregular Irregular Pulse Strength [Apical] Normal Normal Respiratory Rate 20 18 Respiratory Effort / Characteristics Non-Labored Spontaneous Non-Labored Spontaneous Respiratory Depth Normal Normal Respiratory Pattern Regular Regular Blood Pressure Blood Pressure [Right Arm] 122/84 118/58 L Blood Pressure Mean Blood Pressure Mean [Right Arm] 96 78 Blood Pressure Position [Right Arm] Lying Pulse Oximetry 93 93 Oxygen Delivery Method Room Air Room Air Sepsis Recent Fever Within 48 Hours Sepsis New/Unexplained Change in Mental Status Sepsis Action Taken by Nursing 12/19/24 19:22 Temperature Temperature Source Pulse Rate Pulse Rate [Apical] 87 Pulse Rhythm [Apical] Pulse Strength [Apical] Respiratory Rate 18 Respiratory Effort / Characteristics Non-Labored Respiratory Depth Normal Respiratory Pattern Blood Pressure Blood Pressure [Right Arm] 138/70 Blood Pressure Mean Blood Pressure Mean [Right Arm] 92 Blood Pressure Position [Right Arm] Pulse Oximetry 96 Oxygen Delivery Method Room Air Sepsis Recent Fever Within 48 Hours Sepsis New/Unexplained Change in Mental Status Sepsis Action Taken by Nursing Laboratory Data 12/19/24 14:40 12/19/24 14:40 Lab Results 12/19/24 Range/Units 14:40 WBC 10.48 (4.8-10.8) K/ul RBC 4.62 (4.20-5.40) M/uL Hgb 12.9 (12.0-16.0) g/dl Hct 39.8 (37.0-47.0) % MCV 86.1 (80.0-100.0) fL MCH 27.9 (25.0-34.0) pg MCHC 32.4 (32.0-36.0) g/dL RDW Std Deviation 50.9 H (36.4-46.3) fL RDW Coeff of Fadi 16.2 H (11.5-14.5) % Plt Count 214 (130-400) K/uL MPV 9.9 (9.4-12.4) fL Immature Gran % (Auto) 0.4 % Neut % (Auto) 76.4 % Lymph % (Auto) 16.4 % [place] % (Auto) 5.8 % Eos % (Auto) 0.7 % Baso % (Auto) 0.3 % Neut # (Auto) 8.01 H (1.40-6.50) K/uL Lymph # (Auto) 1.72 (1.20-3.40) K/uL [place] # (Auto) 0.61 H (0.11-0.59) K/uL Eos # (Auto) 0.07 (0.00-0.50) K/uL Baso # (Auto) 0.03 (0.00-0.20) K/uL Immature Gran # (Auto) 0.04 (0.01-0.20) K/uL PT 11.9 (9.0-12.0) Seconds INR 1.1 (0.9-1.1) Sodium 142 (136-145) mmol/L Potassium 3.9 (3.5-5.1) mmol/L Chloride 104 (98-107) mmol/L Carbon Dioxide 29 (21-32) mmol/L Anion Gap 9 (3-11) BUN 18 (6-23) mg/dl Creatinine 0.75 (0.6-1.2) mg/dl Est Cr Clr Drug Dosing 37.2 ml/min eGFR 76.53 BUN/Creatinine Ratio 24.0 H (10-20) Glucose 107 H (70-99(Fasting)) mg/dl Calcium 9.3 (8.6-10.3) mg/dl Magnesium 1.5 L (1.7-2.4) mg/dl Total Bilirubin 1.1 H (0.2-1.0) mg/dl AST 32 (13-39) U/L ALT 17 (7-52) U/L Alkaline Phosphatase 49 (34-104) U/L Total Creatine Kinase 233 H (26-192) U/L Troponin I High Sens 11.4 (0-14) pg/ml Total Protein 6.9 (6.0-8.3) gm/dl Albumin 3.9 (3.4-5.0) gm/dl Globulin 3.0 (2.5-4.0) gm/dl Albumin/Globulin Ratio 1.3 (0.9-2) Lipase 20 (11-82) U/L TSH 1.686 (0.300-4.500) uIu/ml Administered Medications Discontinued Medications Acetaminophen (Ofirmev) 1,000 mg in 100 mls @ 400 mls/hr IV NOW STA Stop: 12/19/24 14:24 Last Infusion: 12/19/24 16:30 Dose: Infused Documented By: [facility] Admin: 12/19/24 14:50 Dose: 400 mls/hr Documented By: QGV Sodium Chloride (Nss) 500 mls @ 999 mls/hr IV .Q31M ONE Stop: 12/19/24 14:44 Last Infusion: 12/19/24 16:30 Dose: Infused Documented By: [facility] Admin: 12/19/24 14:51 Dose: 999 mls/hr Documented By: QGV Ampicillin Sodium/Sulbactam Sodium (Unasyn) 3,000 mg in 100 mls @ 200 mls/hr IV NOW STA Stop: 12/19/24 18:07 Last Infusion: 12/19/24 18:49 Dose: Infused Documented By: [facility] Admin: 12/19/24 18:14 Dose: 200 mls/hr Documented By: [facility] Ioversol (Optiray 320 100ml) 90 ml IV ONCE ONE Stop: 12/19/24 16:52 Last Admin: 12/19/24 16:51 Dose: 90 ml Documented By: Mohsen Lidocaine (Lidocaine 5% 1 Patch) 1 patch TD NOW STA Stop: 12/19/24 14:11 Last Admin: 12/19/24 14:51 Dose: 1 patch Documented By: QGV Imaging Data Radiologist's Impression: Abdomen/Pelvis CT 12/19/24 14:10 Clinical History: Lower back pain Technique: Axial computed tomography images were obtained of the abdomen and pelvis after the administration of intravenous contrast. Comparison is made to the prior CT dated 10/24/2024. Findings: The liver is overall of normal size, attenuation, and contour with no sign of cirrhosis or significant fatty infiltration. No liver mass lesion is seen. The portal vein is patent. There is an apparent gallstone. There is no sign of acute cholecystitis. No bile duct dilatation is noted. The spleen is of normal size. No focal splenic lesion is evident. The pancreas appears normal with no sign of acute or chronic pancreatitis and no mass lesion noted. The pancreatic duct is of normal caliber. The adrenal glands appear unremarkable. No definite renal or proximal ureteral calculi are seen on this contrast-enhanced study. There is no hydronephrosis or perinephric stranding. Again seen is a 1.4 cm fatty mass at the lateral mid left kidney, likely an angiomyolipoma. There is also an apparent 1.7 cm angiomyolipoma of the inferior left kidney. There are 2 suspected small angiomyolipomas of the mid right kidney, measuring 12 mm and 6 mm. There are bilateral renal cysts, measuring up to 2.9 cm. The aorta is of normal caliber. No abdominal adenopathy is seen. There is a small left paracentral ventral hernia adjacent to the umbilicus, containing only fat A large hiatal hernia is again seen. There is no sign of small bowel obstruction. There is extensive colonic diverticulosis with suspected mild acute diverticulitis of the sigmoid colon, with suspected mild inflammatory changes seen on image 67 of the coronal reconstructions. No free intraperitoneal fluid or air is identified. No distal ureteral or bladder calculi are seen. No bladder mass lesion is evident. The iliac arteries are of normal caliber. No pelvic adenopathy is noted. The uterus has been removed There is subsegmental atelectasis in both lower lobes There are unchanged compression fractures of the T11 and L1 vertebral bodies. There is lumbar scoliosis and degenerative disc disease. There is grade 1 anterolisthesis at L4-5 and L5-S1. No focal osseous lesion is seen Impression: 1. Mild acute diverticulitis. There is no sign of perforation or abscess formation 2. 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 Large hiatal hernia 4. Cholelithiasis without evidence of acute cholecystitis Electronically signed by Efraín Yoon 12-19-2024 5:30 PM Chest X-Ray 12/19/24 14:10 XR chest 1V portable CLINICAL HISTORY: weakness, back pain COMPARISON STUDY: 10/24/2024 and 10/02/2024 FINDINGS: Stable large hiatal hernia. Stable cardiomegaly without pulmonary vascular congestion. No effusion, consolidation, or pneumothorax. Stable old fracture proximal right humerus. Stable small sclerotic lesion anterior right mid rib. IMPRESSION: No acute findings. ACT 112: Negative or not required by law. Electronically signed by: Kenneth Patel M.D. 12/19/2024 2:31 PM Knee X-Ray 12/19/24 18:37 Clinical History: Tibial plateau fracture 3 views of the right knee are submitted for review. Comparison is made to the prior examination dated 10/24/2024 Findings: There is no definite change in a comminuted fracture of the medial and lateral tibial plateaus, with internal fixation with a fixation plate and screws. There is no definite sign of instrumentation failure No subluxation or dislocation is seen. There is joint space narrowing and small osteophyte formation in the medial compartment. No other osseous abnormality is identified. There are no radiopaque foreign bodies. Impression: 1. Unchanged internal fixation of a fracture of the proximal right tibia 2. Unchanged medial compartment osteoarthritis Electronically signed by Efraín Yoon 12-19-2024 7:[address] 12/19/24 18:45 EXAM: CT Head Without Intravenous Contrast INDICATION: Found down. TECHNIQUE: Axial computed tomography images of the head/brain without intravenous contrast. Sagittal and/or coronal reformats are provided. Sagittal and coronal reformatted images were created and reviewed. This CT exam was performed using one or more of the following dose reduction techniques: automated exposure control, adjustment of the mA and/or kV according to patient size, and/or use of iterative reconstruction technique. COMPARISON: 10/24/2024 FINDINGS: Limitations: None. Brain and extra-axial spaces: There is age appropriate cortical atrophy and chronic ischemic periventricular white matter hypodensity. No acute infarct, hemorrhage or mass noted. Bones/joints: No acute changes. Soft tissues: No significant abnormality noted. Vasculature: Intracranial atherosclerosis noted. Sinuses: No layering fluid in the visualized portions of the paranasal sinuses. Mastoid air cells: No mastoid effusion. Orbits: No significant abnormality noted. IMPRESSION: Cerebral atrophy. No acute changes. ACT 112: N/A Electronically signed by Lolly Templeton 12-19-2024 7:17 PM Discharge Plan Visit Data Chief Complaint: Fall Stated Complaint: Fall ED Provider: Nabor Simon Discharge Problem: Unable to care for self, Diverticulitis, New onset a-fib Patient Disposition: Being Evaluated by Hospitalist Forms Stand Alone Forms: [facility] Prescriptions Prescriptions: No Action atorvastatin 10 mg tablet 10 mg PO DAILY Qty: 30 0RF alendronate 70 mg Tablet 70 mg PO Q7D Qty: 14 0RF pantoprazole 40 mg Tablet,Delayed Release (Dr/Ec) 40 mg PO DAILY Qty: 30 0RF docusate sodium 100 mg Capsule 100 mg PO BID Qty: 20 0RF fluticasone propionate 50 mcg/actuation [place],Suspension 1 spray INTRANASAL BID Qty: 16 0RF Rx Instructions: administer into each nostril cholecalciferol (vitamin D3) 25 mcg (1,000 unit) Capsule 25 mcg PO DAILY Qty: 30 0RF escitalopram oxalate 10 mg Tablet 10 mg PO DAILY Qty: 30 0RF ferrous sulfate [FeroSul] 325 mg (65 mg iron) tablet 325 mg PO BID amlodipine [Norvasc] 5 mg tablet 5 mg PO DAILY Referrals Referrals: Kendra Go MD [Primary Care Provider] -
--- NOTE | 2024-12-19 14:33 | XRay Report ---
XR chest 1V portable CLINICAL HISTORY: weakness, back pain COMPARISON STUDY: 10/24/2024 and 10/02/2024 FINDINGS: Stable large hiatal hernia. Stable cardiomegaly without pulmonary vascular congestion. No e ffusion, consolidation, or pneumothorax. Stable old fracture proximal right humerus. Stable small scl erotic lesion anterior right mid rib. IMPRESSION: No acute findings. ACT 112: Negative or not required by law. Electronically signed by: Kenneth Patel M.D. 12/19/2024 2:31 PM
[2024-12-19] MEDS: ACETAMINOPHEN 1,000 MG/100 ML VIAL IV STA (14:50)
[2024-12-19] MEDS: SODIUM CHLORIDE 0.9% 500 ML IV ONE (14:51)
[2024-12-19] MEDS: LIDOCAINE 5% 1 PATCH TD STA (14:51)
[2024-12-19 14:59] LABS: Basophils # (auto) 0.03 K/uL (0.00-0.20); Basophils % (auto) 0.3 %; Eosinophils # (auto) 0.07 K/uL (0.00-0.50); Eosinophils % (auto) 0.7 %; Hematocrit (blood only) 39.8 % (37.0-47.0); Hemoglobin 12.9 g/dl (12.0-16.0); Immature Granulocytes # (auto) 0.04 K/uL (0.01-0.20); Immature Granulocytes % (auto) 0.4 %; Lymphocytes # (auto) 1.72 K/uL (1.20-3.40); Lymphocytes % (auto) 16.4 %; Mean Corpuscular Hemoglobin 27.9 pg (25.0-34.0); Mean Corpuscular Hgb Conc 32.4 g/dL (32.0-36.0); Mean Corpuscular Volume 86.1 fL (80.0-100.0); Mean Platelet Volume 9.9 fL (9.4-12.4); Monocytes # (auto) 0.61 K/uL (0.11-0.59); Monocytes % (auto) 5.8 %; Neutrophils # (auto) 8.01 K/uL (1.40-6.50); Neutrophils % (auto) 76.4 %; Platelet Count 214 K/uL (130-400); RDW Coefficient of Variation 16.2 % (11.5-14.5); RDW Standard Deviation 50.9 fL (36.4-46.3); Red Blood Count 4.62 M/uL (4.20-5.40); White Blood Count 10.48 K/ul (4.8-10.8)
[2024-12-19 15:15] LABS: Albumin Globulin Ratio 1.3 (0.9-2); Albumin Level 3.9 gm/dl (3.4-5.0); Bilirubin,Total 1.1 mg/dl (0.2-1.0); Calcium 9.3 mg/dl (8.6-10.3); Creatinine Clr Calc Pharmacy 37.2 ml/min; Magnesium 1.5 mg/dl (1.7-2.4); Potassium 3.9 mmol/L (3.5-5.1); Total Protein 6.9 gm/dl (6.0-8.3)
[2024-12-19 15:21] LABS: Troponin I High Sensitivity 11.4 pg/ml (0-14)
[2024-12-19 15:27] LABS: INR 1.1 (0.9-1.1); Prothrombin Time 11.9 Seconds (9.0-12.0)
[2024-12-19 15:30] LABS: Thyroid Stimulating Hormone 1.686 uIu/ml (0.300-4.500)
[2024-12-19] MEDS: OPTIRAY 320 100ml IV ONE (16:51)
--- NOTE | 2024-12-19 17:05 | Electrocardiogram Report ---
Test Reason : Blood Pressure : */* mmHG Vent. Rate : 87 BPM Atrial Rate : * BPM P-R Int : * ms QRS Dur : 78 ms QT Int : 376 ms P-R-T Axes : * 50 -62 degrees QTcB Int : 452 ms Atrial fibrillation Diffuse Nonspecific T wave abnormality Abnormal ECG When compared with ECG of 24-Oct-2024 15:05, Atrial fibrillation has replaced Sinus rhythm Vent. rate has increased by 34 bpm Nonspecific T wave abnormality has replaced inverted T waves in Anterolateral leads Confirmed by Isacc Gomez ([id number]) on 12/19/2024 5:05:21 PM Referred By: REFERRED SELF Confirmed By: Isacc Gomez
--- NOTE | 2024-12-19 17:30 | CT Scan Report ---
Clinical History: Lower back pain Technique: Axial computed tomography images were obtained of the abdomen and pelvis after the administration of intravenous contrast. Comparison is made to the prior CT dated 10/24/2024. Findings: The liver is overall of normal size, attenuation, and contour with no sign of cirrhosis or significant fatty infiltration. No liver mass lesion is seen. The portal vein is patent. There is an apparent gallstone. There is no sign of acute cholecystitis. No bile duct dilatation is noted. The spleen is of normal size. No focal splenic lesion is evident. The pancreas appears normal with no sign of acute or chronic pancreatitis and no mass lesion noted. The pancreatic duct is of normal caliber. The adrenal glands appear unremarkable. No definite renal or proximal ureteral calculi are seen on this contrast-enhanced study. There is no hydronephrosis or perinephric stranding. Again seen is a 1.4 cm fatty mass at the lateral mid left kidney, likely an angiomyolipoma. There is also an apparent 1.7 cm angiomyolipoma of the inferior left kidney. There are 2 suspected small angiomyolipomas of the mid right kidney, measuring 12 mm and 6 mm. There are bilateral renal cysts, measuring up to 2.9 cm. The aorta is of normal caliber. No abdominal adenopathy is seen. There is a small left paracentral ventral hernia adjacent to the umbilicus, containing only fat A large hiatal hernia is again seen. There is no sign of small bowel obstruction. There is extensive colonic diverticulosis with suspected mild acute diverticulitis of the sigmoid colon, with suspected mild inflammatory changes seen on image 67 of the coronal reconstructions. No free intraperitoneal fluid or air is identified. No distal ureteral or bladder calculi are seen. No bladder mass lesion is evident. The iliac arteries are of normal caliber. No pelvic adenopathy is noted. The uterus has been removed There is subsegmental atelectasis in both lower lobes There are unchanged compression fractures of the T11 and L1 vertebral bodies. There is lumbar scoliosis and degenerative disc disease. There is grade 1 anterolisthesis at L4-5 and L5-S1. No focal osseous lesion is seen Impression: 1. Mild acute diverticulitis. There is no sign of perforation or abscess formation 2. 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 Large hiatal hernia 4. Cholelithiasis without evidence of acute cholecystitis Electronically signed by Efraín Yoon 12-19-2024 5:30 PM
[2024-12-19] MEDS: AMPICILLIN/SULBACTAM SOD 3,000 MG/100 ML BAG IV STA (18:14)
--- NOTE | 2024-12-19 18:51 | History & Physical Report ---
Date of Service December 19, 2024 Assessment & Plan (1) Unable to care for self: (2) Fall: Plan: Admit to [facility] with telemetry Patient presenting from home after a home health nurse found her on the floor. See HPI for recent history of events. Patient with history of right tibial plateau fracture s/p ORIF September 2024 and is due for follow up XR ([place] [facility] also with bruising noted over left knee so will obtain XR of both knees CT head given patient is a poor historian UA pending PT/OT, CM to follow, likely will need placement, Office of Aging involved with the patient (3) Diverticulitis: Plan: Incidental finding of mild acute diverticulitis on CT ABD/pelvis Patient appears to be asymptomatic without abdominal pain, diarrhea, currently afebrile and without leukocytosis S/p Unasyn in the ED, will continue with p.o. Augmentin (4) Fracture of right tibial plateau: Plan: As above, checking right knee XR (5) PAF (paroxysmal atrial fibrillation): Plan: Patient evaluated by cardiology in 2022, Zio patch at that time showed episodes of SVT, possible short runs of paroxysmal atrial fibrillation, mild sinus bradycardia consistent with borderline tachybradycardia syndrome Beta-shea not advised unless post pacemaker and risk of anticoagulation appear to be greater than the benefit EKG today demonstrates rate controlled atrial fibrillation, patient remains a poor candidate for anticoagulation given her frequent falls (6) Hypertension: Plan: BP controlled/ borderline low, would not aim for strict BP control given patient's advanced age 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 Douglas. I spent a total of 75 minutes coordinating, documenting, and providing care for this patient excluding time spent in the performance of separately billed services. This included personally reviewing all current laboratories and imaging studies, medication reconciliation, outpatient chart review, and discussion with specialists. History of Present Illness Chief Complaint: generalized weakness Primary Care Provider: Kendra Go MD 89-year-old female with PMH dyslipidemia, HTN, GERD, depression, history of right tibial plateau fracture s/p ORIF, and other problems listed below who presents to the ED for evaluation of generalized weakness. In September 2024, patient suffered a fall and a right tibial plateau fracture. Patient was treated at [facility] and underwent ORIF. Patient was discharged to [facility] however patient ultimately signed out AMA after a few days. Patient was admitted to [facility] 10/24 through 11/07 after office of aging found patient to be confused on a wellness check. Patient was discharged to [facility] [place] [place] and then discharged home on 11/27. Patient was seen by PCP on 12/01. She also has been set up with [facility] and office of aging. According to outpatient chart review, patient was seen in [place] [facility] on 12/17 due to increased confusion and a fall. Patient was discharged home. Today, patient was found on the floor by a home health nurse. Patient is somewhat of a poor historian. She reported to ED staff that she slid herself out of bed onto the floor however did not fall but was unable to get up. She is currently denying any pain to me but had reported back pain to the ED staff and states "my knees are giving me trouble". Patient denies chest pain, palpitation, shortness of breath. No lightheadedness, dizziness, diaphoresis, syncopal events. She denies abdominal pain, nausea, vomiting, diarrhea. No urinary symptoms. In the ED, patient is found to be in new onset rate controlled atrial fibrillation. She is hemodynamically stable. CT ABD/pelvis shows mild diverticulitis. Patient is afebrile and without leukocytosis. She was given IV Tylenol, lidocaine patch, IV Unasyn, IVF. Allergies Allergy/AdvReac Type Severity Reaction Status Date / Time No Known Allergies Allergy Unknown Verified 03/13/16 07:10 Home Medications Medication Instructions Recorded Confirmed Type alendronate 70 mg tablet 70 mg PO Q7D #14 tabs 11/07/24 12/19/24 Rx atorvastatin 10 mg tablet 10 mg PO DAILY #30 tabs 11/07/24 12/19/24 Rx cholecalciferol (vitamin D3) 25 25 mcg PO DAILY #30 caps 11/07/24 12/19/24 Rx mcg (1,000 unit) capsule docusate sodium 100 mg capsule 100 mg PO BID #20 caps 11/07/24 12/19/24 Rx escitalopram oxalate 10 mg tablet 10 mg PO DAILY #30 tabs 11/07/24 12/19/24 Rx fluticasone propionate 50 1 spray intranasal BID #16 grams 11/07/24 12/19/24 Rx mcg/actuation nasal spray,suspension pantoprazole 40 mg tablet,delayed 40 mg PO DAILY #30 tabs 11/07/24 12/19/24 Rx release amlodipine 5 mg tablet (Norvasc) 5 mg PO DAILY 12/19/24 12/19/24 History ferrous sulfate 325 mg (65 mg 325 mg PO BID 12/19/24 12/19/24 History iron) tablet (FeroSul) Past Med/Surg History Problem List (Updated 12/19/24 @ 19:36 by Nabor Simon M.D.) New onset a-fib (Acute) Fall Diverticulitis (Acute) Fracture of right tibial plateau s/p ORIF Unable to care for self (Acute) Medical History (Updated 12/19/24 @ 19:36 by Nabor Simon M.D.) Mild tricuspid regurgitation Mild mitral regurgitation Mild aortic stenosis Diastolic dysfunction PAF (paroxysmal atrial fibrillation) Depression Osteoarthritis CKD (chronic kidney disease), stage III GERD (gastroesophageal reflux disease) Dyslipidemia Hypertension COVID-19 Surgical History (Updated 12/19/24 @ 18:44 by MEI Mendiola) S/P hysterectomy Social History Smoking Status: Never smoker Hx Alcohol Use: No Hx Substance Use: No Preferred Language: Maldivian Communication Ability: Effective Daub Color Mixer Required: No Beliefs That Will Affect Care: None Current Living Situation: Alone Current Living Situation Comment: at home by self Feels Safe at Home: Yes Assistive Devices: Walker Physical Exam Constitutional: + ill appearing ( chronically); no acute distress and + not well groomed Eyes: PERRL, conjunctivae normal, anicteric sclerae ENMT: external ear and nose normal, oropharynx normal Respiratory: normal respiratory effort, lungs clear to auscultation Cardiovascular: Rate/Rhythm: regular rate and + irregularly irregular Vessels: normal peripheral pulses Extremities: no edema Gastrointestinal (Abdomen): normal bowel sounds, soft, nontender, no hepatosplenomegaly Musculoskeletal: bruising noted over left knee Skin: no rashes, warm and dry Neurologic: no focal motor deficits Psychiatric: Orientation: alert, oriented to person, oriented to place and cooperative; + not oriented to time Insight: + limited insight Results & Data Results & Data Vital Signs (Past 12 Hours) Vital Signs Temp Pulse Pulse Resp BP BP Pulse Ox 12/19/24 18:00 78 18 118/58 L 93 12/19/24 17:00 81 20 122/84 93 12/19/24 16:06 89 12/19/24 15:00 78 20 123/76 94 12/19/24 14:49 94 12/19/24 12:58 36.5 C 89 20 132/94 96 O2 Del Method 12/19/24 18:00 Room Air 12/19/24 17:00 Room Air 12/19/24 16:06 12/19/24 15:00 Room Air 12/19/24 14:49 Room Air 12/19/24 12:58 Room Air Laboratory Results Short CBC 12/19/24 Range/Units 14:40 WBC 10.48 (4.8-10.8) K/ul Hgb 12.9 (12.0-16.0) g/dl Hct 39.8 (37.0-47.0) % Plt Count 214 (130-400) K/uL BMP 12/19/24 14:40 Sodium 142 Potassium 3.9 Chloride 104 Carbon Dioxide 29 BUN 18 Creatinine 0.75 Glucose 107 H Calcium 9.3 Cardiac Enzymes 12/19/24 Range/Units 14:40 Total Creatine Kinase 233 H (26-192) U/L Liver Function 12/19/24 Range/Units 14:40 Total Bilirubin 1.1 H (0.2-1.0) mg/dl AST 32 (13-39) U/L ALT 17 (7-52) U/L Alkaline Phosphatase 49 (34-104) U/L Albumin 3.9 (3.4-5.0) gm/dl Diagnostic Findings Abdomen/Pelvis CT 12/19/24 14:10 Clinical History: Lower back pain Technique: Axial computed tomography images were obtained of the abdomen and pelvis after the administration of intravenous contrast. Comparison is made to the prior CT dated 10/24/2024. Findings: The liver is overall of normal size, attenuation, and contour with no sign of cirrhosis or significant fatty infiltration. No liver mass lesion is seen. The portal vein is patent. There is an apparent gallstone. There is no sign of acute cholecystitis. No bile duct dilatation is noted. The spleen is of normal size. No focal splenic lesion is evident. The pancreas appears normal with no sign of acute or chronic pancreatitis and no mass lesion noted. The pancreatic duct is of normal caliber. The adrenal glands appear unremarkable. No definite renal or proximal ureteral calculi are seen on this contrast-enhanced study. There is no hydronephrosis or perinephric stranding. Again seen is a 1.4 cm fatty mass at the lateral mid left kidney, likely an angiomyolipoma. There is also an apparent 1.7 cm angiomyolipoma of the inferior left kidney. There are 2 suspected small angiomyolipomas of the mid right kidney, measuring 12 mm and 6 mm. There are bilateral renal cysts, measuring up to 2.9 cm. The aorta is of normal caliber. No abdominal adenopathy is seen. There is a small left paracentral ventral hernia adjacent to the umbilicus, containing only fat A large hiatal hernia is again seen. There is no sign of small bowel obstruction. There is extensive colonic diverticulosis with suspected mild acute diverticulitis of the sigmoid colon, with suspected mild inflammatory changes seen on image 67 of the coronal reconstructions. No free intraperitoneal fluid or air is identified. No distal ureteral or bladder calculi are seen. No bladder mass lesion is evident. The iliac arteries are of normal caliber. No pelvic adenopathy is noted. The uterus has been removed There is subsegmental atelectasis in both lower lobes There are unchanged compression fractures of the T11 and L1 vertebral bodies. There is lumbar scoliosis and degenerative disc disease. There is grade 1 anterolisthesis at L4-5 and L5-S1. No focal osseous lesion is seen Impression: 1. Mild acute diverticulitis. There is no sign of perforation or abscess formation 2. 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 Large hiatal hernia 4. Cholelithiasis without evidence of acute cholecystitis Electronically signed by Efraín Yoon 12-19-2024 5:30 PM Chest X-Ray 12/19/24 14:10 XR chest 1V portable CLINICAL HISTORY: weakness, back pain COMPARISON STUDY: 10/24/2024 and 10/02/2024 FINDINGS: Stable large hiatal hernia. Stable cardiomegaly without pulmonary vascular congestion. No effusion, consolidation, or pneumothorax. Stable old fracture proximal right humerus. Stable small sclerotic lesion anterior right mid rib. IMPRESSION: No acute findings. ACT 112: Negative or not required by law. Electronically signed by: Kenneth Patel M.D. 12/19/2024 2:31 PM Code Status & VTE Plan VTE Prophylaxis Plan VTE Prophylaxis will be ordered: No Supervising Physician Co-Signing Physician Notes Attending Addendum: Case reviewed with the advanced practitioner. I have personally performed a history and physical examination on the patient. I have reviewed the advanced practitioner's documentation on the date of service referenced in note, and I agree with, and take responsibility for the plan of care. please refer to her notes for full details patient seen and examined, records reviewed by myself as well on exam, patient seen resting in bed, not in distress states she feels fine overall reports occasional dizziness reports pain on BL knees, difficulty ambulating because of knee pain no other pain no other symptoms VS noted and reviewed oriented x2, not in distress, speaks in sentences with no effort nor accessory muscle use normal rate, regular rhythm, no murmurs clear breath sounds bilaterally non distended, soft, nontender BL Knee: no edema, warmth, tenderness, (+) mild hematoma L knee no bipedal edema, erythema, warmth no neuro deficits all labs, imaging noted and reviewed ASSESSMENT AND PLAN RECURRENT FALLS DECONDITIONING L Knee xray: There is a hairline fracture of the left tibial metaphysis lateral to the midline seen only on the frontal view. 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 Jack Dogulas MD (4) Fracture of right tibial plateau Encounter type: subsequent encounter Fracture healing: with routine healing Fracture type: closed Qualified Code(s): S82.141D - Displaced bicondylar fracture of right tibia, subsequent encounter for closed fracture with routine healing
--- NOTE | 2024-12-19 19:11 | XRay Report ---
Clinical History: Tibial plateau fracture 3 views of the right knee are submitted for review. Comparison is made to the prior examination dated 10/24/2024 Findings: There is no definite change in a comminuted fracture of the medial and lateral tibial plateaus, with internal fixation with a fixation plate and screws. There is no definite sign of instrumentation failure No subluxation or dislocation is seen. There is joint space narrowing and small osteophyte formation in the medial compartment. No other osseous abnormality is identified. There are no radiopaque foreign bodies. Impression: 1. Unchanged internal fixation of a fracture of the proximal right tibia 2. Unchanged medial compartment osteoarthritis Electronically signed by Efraín Yoon 12-19-2024 7:10 PM
--- NOTE | 2024-12-19 19:17 | CT Scan Report ---
EXAM: CT Head Without Intravenous Contrast INDICATION: Found down. TECHNIQUE: Axial computed tomography images of the head/brain without intravenous contrast. Sagittal and/or coronal reformats are provided. Sagittal and coronal reformatted images were created and reviewed. This CT exam was performed using one or more of the following dose reduction techniques: automated exposure control, adjustment of the mA and/or kV according to patient size, and/or use of iterative reconstruction technique. COMPARISON: 10/24/2024 FINDINGS: Limitations: None. Brain and extra-axial spaces: There is age appropriate cortical atrophy and chronic ischemic periventricular white matter hypodensity. No acute infarct, hemorrhage or mass noted. Bones/joints: No acute changes. Soft tissues: No significant abnormality noted. Vasculature: Intracranial atherosclerosis noted. Sinuses: No layering fluid in the visualized portions of the paranasal sinuses. Mastoid air cells: No mastoid effusion. Orbits: No significant abnormality noted. IMPRESSION: Cerebral atrophy. No acute changes. ACT 112: N/A Electronically signed by Lolly Templeton 12-19-2024 7:17 PM
--- NOTE | 2024-12-19 20:10 | XRay Report ---
EXAM: Radiographs of the Left Knee 3 Views INDICATION: Trauma TECHNIQUE: Three views of the left knee. COMPARISON: No relevant prior studies available. FINDINGS: Bones/joints: There is a hairline fracture of the tibial metaphysis lateral to the midline seen only on the frontal view. There is a joint effusion. There is mild narrowing and spurring of the medial joint line. No cortical defect or loose body. Soft tissues: No abnormality noted. No radiopaque foreign body noted. Vasculature: Atherosclerosis noted. IMPRESSION: There is a hairline fracture of the left tibial metaphysis lateral to the midline seen only on the frontal view. ACT 112: N/A Electronically signed by Lolly Templeton 12-19-2024 8:09 PM
[2024-12-19 21:41] LABS: Appearance Urine Clear (Clear); Bacteria Urine Automated None Seen (None Seen); Bilirubin Urine Negative (Negative); Blood Urine Negative (Negative); Cast Urine Automated 0-2 /lpf (0-2); Color Urine Yellow; Epithelial Cell Urine Auto 0-2 /hpf (0-2); Glucose Urine UA Negative (Negative); Ketones Urine 1+ (Negative); Leukocyte Esterase Urine Negative (Negative); Nitrite Urine Negative (Negative); Protein Urine 1+ (Negative); RBC Urine Automated 0-2 /hpf (0-2); Specific Gravity Urine > 1.045 (1.000-1.030); Urobilinogen Urine Negative (Negative); WBC Urine Automated 0-5 /hpf (0-5); pH Urine 5.5 (4.5-7.5)
[2024-12-19] MEDS: DOCUSATE SODIUM 100 MG CAP PO SCH (22:19)
[2024-12-19] MEDS: ACETAMINOPHEN 500 MG TAB PO SCH (22:19)
--- OUTSIDE RECORDS SUMMARY | 2024-12-20 03:40 | External Medical Summary | Summary of Care ---
Author Name Unknown Organization [facility] Address [address] [place] [address] Phone [phone] Care Team Providers Care Taxation Inspector Name Role Phone Kendra Go MD Primary Care Provide r Reason for Visit * Reason Onset Date Comments Appointment 12/05/2024 Encounter Details Date Type Department Care Team (Late st Contact Info) Description 12/05/2024 Telephone [facility], [place] [address] [place], [place] [phone] David Hunter, DUNCAN [address], [place] [phone] Appointment (//) Allergies No known active allergiesdocumented as of this encounter (statuses as of 12/05/2024) Medications Pantoprazole Sodium 40 MG Oral Tablet [...] lesions. 60 g 2 07/07/20 24 Active Vitamin D3 25 MCG (1000 [...] pain therapy). 10 Tablet 10/13/20 24 Active amLODIPine Besylate 5 MG Oral Tablet [...] at noon. 60 Tablet 10/13/20 24 Active Atorvastatin Calcium 10 MG Oral Tablet (Lipitor)Indicati ons:Dyslipidemia, goal LDL below 130 Take 1 Tablet by mouth in the morning. 90 Tablet 2 12/04/19 25 Active Escitalopram Oxalate 10 MG Oral Tablet (Lexapro) Take 1 Tablet by mouth in the morning. 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 Nonrheumatic aortic valve stenosis 01/04/2023 Nonrheumatic mitral valve regurgitation 01/05/20 Bilateral hearing loss 11/22/2022 SVT (supraventricular tachycardia) 10/03/2022 History of subdural hematoma (post traumatic) Recurrent major depressive disorder, in full rem ission 05/16/2022 DDD (degenerative disc disease), lumbar 09/05/20 Chronic kidney disease, stage 3a 03/29/2021 Overview: [...] as of this encounter (statuses as of 12/05/2024) Resolved Problems Problem Noted Date Diagnosed Date [...] as of this encounter (statuses as of 12/05/2024) Immunizations Name Administration Dates Next Due Pneumococcal [...] alcohol) very rare PHQ-2 Answer Date Recorded PHQ Adult Total Score 0 12/01/2024 Hunger Vital Sign Answer Date Recorded Within the past 12 months, y ou worried that your food would run out before you got the money to buy more. Never true 12/01/19 25 Within the past 12 months, t he food you bought just didn't last and you didn't have money to get more. Never true 12/01/2024 Childcare Answer Date Recorded Do you feel overwhelmed with taking care of a child, family member or friend? No 12/01/2024 Does your family need help f inding childcare? (Household - for ages 0-17 years) Not on file 12/01/2024 Clothing Answer Date Recorded Have you been unable to get clothing when it was really needed? No 12/01/2024 Is your family able to get c lothes or diapers when needed? (Household - for ages 0-17 years) Not on file 12/01/2024 Personal Safety Answer Date Recorded Do you feel unsafe or have concerns for your saf ety? No 12/01/2024 Do you have concerns for you r family's safety? (Household - for ages 0-17 years) Not on file 12/01/2024 Utilities Answer Date Recorded Do you have trouble paying y our heating, water, or electric bill? No 12/01/2024 Is your family able to pay t he heat, water, or electric bill? (Household - for ages 0-17 years) Not on file 12/01/2024 Does your family have access to good internet? (Household - for ages 0-17 years) Not on file 12/01/2024 Employment Status Answer Date Recorded Are you unemployed or without regular income? No 12/01/2024 Does the household have a re lar source of income? (Household - for ages 0-17 years) Not on file 12/01/2024 Social Connections Answer Date Recorded How often do you feel lonely or isolated from th ose around you? Rarely 12/01/2024 Financial Resource Strain Answer Date R ecorded Do you have any trouble payi ng for your medications, or do you think you might in the future? No 12/01/2024 Does your family have troubl e paying for medicine? (Household - for ages 0-17 years) Not on file 12/01/2024 Transportation Needs Answer Date Record ed Do you have trouble getting a ride to medical visits or work? (Adult - for ages 18 years and over) Not on file 12/01/2024 Does your family have a hard time getting a ride to doctors visits? (Household - for ages 0-17 years) Not on file 12/01/2024 Has lack of transportation k ept you from medical appointments, meetings, work, or from getting things needed for daily living? Check all that apply. No 12/01/2024 Do you (or your family) have trouble finding or paying for a ride (transportation)? (Household - for ages 0-17 years) Not on file 12/01/2024 Housing Stability Answer Date Recorded Do you currently live in a s helter or have no steady place to sleep at night? No 12/01/2024 Do you think you are at risk of becoming homeless? (Adult - for ages 18 years and over) Not on file 12/01/2024 Does your family worry about paying for your home or becoming homeless? (Household - for ages 0-17 years) Not on file 0 12/01/2024 Are you homeless or worried that you might be in the future? No 12/01/2024 Are you (or your family) aicha eless [...] ages 0-17 years) Not on file 10/03/2024 Food Insecurity Answer Date Recorded Within the past 12 months, y ou worried that your food would run out before you got the money to buy more. Never true 12/01/19 25 Within the past 12 months, t he food you bought just didn't last and you didn't have money to get more. Never true 12/01/2024 Do you need food for this week? 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 Not on file Not [...] encounter Miscellaneous Notes * Telephone Encounter - David Hunter OSA - 12/05/2024 10:20 AM EST Date Scheduled: 12/05 Time: 1021am In Person [place] Special Instructions: enrollment appts scheduled documented in this encounter Plan of Treatment Upcoming Encounters Date Type Department Care Team (Late st Contact Info) Description 12/08/2024 12:30 PM EST Home Visit [facility] at Home, [facility] [address] [place] [address] Tsering Roth RN [address] [place] [address] 12/10/2024 11:00 AM EST Office Visit Rheumatology, [facility] [address] [place] [address] Nathan Siu PA-C [address] [facility], [place] [address] 12/25/2024 8:00 AM EDT Imaging Radiology [address], [place] [address] [place] [phone] 01/06/2025 10:30 AM EDT Office Visit Orthopaedics, [place] [address] [place] [address] Roger Sy MD [address] [place] [address] 02/09/2025 1:00 PM EDT Home Visit [facility] at [facility] [address] [address] Bert Cuenca PA-C [address] [place] [address] Health Maintenance Due Date Last Done Comments Adult Wellness Visit 01/18/2002 Zoster Vaccines (3 of 3) 11/29/2020 10/04/2020, 10/2014 DXA Scan 06/07/2024 06/07/2022, 05/16, 02/25/2019, Additional history exists COVID-19 Vaccine ( season) 2024 Albumin/Creatinine Ratio 05/22/2025 024, 05/21/2023, 05/16/2022, Additional history exists HbA1c 05/22/2025 05/22/2024, 04/2023, 05/16/2022, Additional history exists CKD PHOS USE SMARTSET 79747 10/06/202509/15, 05/21/2023, 05/16/2022, Additional history exists CKD HGB USE SMARTSET 96713 10/14/202510/14, 10/13/2024, 10/12/2024, Additional history exists Depression Monitoring 12/01/2025 12/01/2024 DTap/Tdap Vaccines (2 - Td or Tdap) 10/03/2034 10/03/2024, 09/03/2008, 09/03/2008 Pneumococcal Vaccine: 50+ Years Completed 03/19/2015, 02/26/2003 VITAMIN D LEVEL ONCE IN A LIFETIME-USE SMARTSET# 05462 Completed 10/06/2024, 06/13/2018, 09/02/2014, Additional history exists [...] on patient's age to complete this topic Meningitis B Vaccine (Bexsero/Trumemba) Aged Out No longer eligible based on patient's age to complete this topic documented as of this encounter Medical Devices Implanted Type Area Application Developer Device Identifier Shelf Expiration Date Model / Serial / Lot Proximail Medial Tibial Plate Implanted:Qty: 1 on 10/03/2024 by Roger Sy MD at [place] [facility] Right: Leg Lower URIEL : TRAUMA [id number] / / Screw Nlk A3 Ti 3.5x24mm - [id number] Implanted:Qty: 1 on 10/03/2024 by Roger Sy MD at OR [facility] Right: Leg Lower URIEL : TRAUMA [id number] / / Screw Nlk A3 Ti 3.5x26mm - [id number] Implanted:Qty: 1 on 10/03/2024 by Roger yS MD at OR [facility] Right: Leg Lower URIEL : TRAUMA [id number] / / Screw Nlk A3 Ti 3.5x28mm - [id number] Implanted:Qty: 1 on 10/03/2024 by Roger Sy MD at OR [facility] Right: Leg Lower URIEL : TRAUMA [id number] / / Screw Nlk A3 Ti 3.5x30mm - [id number] Implanted:Qty: 1 on 10/03/2024 by Roger Sy MD at OR [facility] Right: Leg Lower URIEL : TRAUMA [id number] / / Screw Nlk A3 Ti 3.5x36mm - [id number] Implanted:Qty: 1 on 10/03/2024 by Roger Sy MD at OR [facility] Right: Leg Lower URIEL : TRAUMA [id number] / / Screw Canc A3 Ti 4x48mm Ft - [id number] Implanted:Qty: 1 on 10/03/2024 by Roger Sy MD at OR [facility] Right: Leg Lower URIEL : TRAUMA [id number] / / 3.5 Locking Screw Implanted:Qty: 2 on 10/03/2024 by Roger Sy MD at OR [facility] Right: Leg Lower URIEL : TRAUMA [id number] / / 3.5 Mm Locking Screw Implanted:Qty: 1 on 10/03/2024 by Roger Sy MD at OR [facility] Right: Leg Lower URIEL : TRAUMA [id number] / / documented as of this encounter [...] and were consensually agreed upon. Care Teams Taxation Inspector Relationship Specialty Start Date End Date Kendra Go MD [address] [place] [address] [place] [address] PCP - General Family Medicine 05/19/24 documented as of this encounter
--- OUTSIDE RECORDS SUMMARY | 2024-12-20 03:40 | External Medical Summary | Summary of Care ---
Author Name Unknown Organization [facility] Address [address] [place] [address] Phone [phone] Care Team Providers Care Quality Lab Technician Name Role Phone Kendra Go MD Primary Care Provide r Reason for Visit * Reason Onset Date Comments Appointment 12/08/2024 Encounter Details Date Type Department Care Team (Late st Contact Info) Description 12/08/2024 Telephone [facility], [place] [address] [place], [place] [phone] David Hunter, DUNCAN [address] [place], [place] [phone] Appointment (/) Allergies No known active allergiesdocumented as of this encounter (statuses as of 12/08/2024) Medications Fluticasone Propionate 50 MCG/ACT Nasal Suspension (Flonase)Indicati [...] the lesions. 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 90 Tablet 2 4 Active Diclofenac Sodium 1 % External Gel (Voltaren)Indicat ions:DDD (degenerative disc disease), lumbar APPLY FOUR GRAMS TOPICALLY TO BACK FOUR TIMES DAILY NEEDED 200 g 3 4 Active Lidocaine 4 % External Patch (Aspercreme) Place 1 Patch over 12 hours topically on the skin in the morning. 30 Patch 4 Active Docusate Sodium 100 MG Oral Capsule (Colace) Take 1 Capsule by mouth in the morning and 1 Capsule before bedtime. 10 Capsule 4 Active Polyethylene Glycol 3350 17 GM Oral Packet (Miralax) Take 1 Packet by mouth in the morning and 1 Packet before bedtime. 14 Each 4 Active Sennosides 8.6 MG Oral Tablet (Senokot) Take 2 Tablets by mouth in the morning and 2 Tablets before bedtime. 30 Tablet 4 Active 6.75-0.2 MG Oral Tablet Take 1 Tablet by mouth daily at noon. 60 Tablet 4 Active Atorvastatin Calcium 10 MG Oral Tablet (Lipitor)Indicati ons:Dyslipidemia, goal LDL below 130 Take 1 Tablet by mouth in the morning. 90 Tablet 2 5 Active Escitalopram Oxalate 10 MG Oral Tablet (Lexapro) Take 1 Tablet by mouth in the morning. 90 Tablet 2 5 Active amLODIPine Besylate 5 MG Oral Tablet (Norvasc) Take 1 Tablet by mouth in the morning. 90 Tablet 5 Active Pantoprazole Sodium 40 MG Oral Tablet Delayed Release (Protonix)Indicat ions:Gastroesopha geal reflux disease without esophagitis Take 1 Tablet by mouth in the morning. 90 Tablet 3 5 Active documented as of this encounter (statuses as of 12/08/2024) Active Problems Problem Noted Date Diagnosed Date [...] as of this encounter (statuses as of 12/08/2024) Resolved Problems Problem Noted Date Diagnosed Date Resolved Date Migraine 05/21/2023 05/21/2023 Subdural hygroma 10/03/2022 05/21/2023 Major depressive disorder with single episode 09/05/20 21 11/22/2022 SDH (subdural hematoma) 11/02/2020/11/2020 Hypertensive kidney disease, stage III 10/01/2018 02/24/2021 [...] as of this encounter (statuses as of 12/08/2024) Immunizations Name Administration Dates Next Due Pneumococcal [...] No 12/01/2024 Does the household have a [facility] source of income? (Household - for ages [...] money to buy more. 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 Answer Date of Assessment Author No 10/03/2024 12:48 PM EST Sa shay Chung, JOHNNY * Are you blind or do you [...] Telephone Encounter - David Hunter OSA - 12/08/2024 1:38 PM EST Left msgs for both pt and daughter to confirm enrollment appts and address, when either call back, pls confirm pt's address Enrollment appts: Rncm-12/15 1130am AP-02/09 1pm documented in this encounter Plan of Treatment Upcoming Encounters Date Type Department Care Team (Late st Contact Info) Description 12/10/2024 11:00 AM EST Office Visit Rheumatology, [address] [place] [address] Nathan Siu PA-C [address] [place], [place] [address] [address] 12/15/2024 11:30 AM EST Home Visit [facility] at [address] [place] [phone] Tsering Roth RN [address] [place] [address] 12/25/2024 8:00 AM EDT Imaging Radiology [address] [place] [address] 01/06/2025 10:30 AM EDT Office Visit Orthopaedics, [place] [address] [place] [address] Roger Sy MD [address] [place] [address] 02/09/2025 1:00 PM EDT [facility] [address] [place] [address] Bert Cuenca PA-C [address] [place] [address] Health Maintenance Due Date Last Done Comments Adult Wellness Visit 01/18/2002 Zoster Vaccines (3 of 3) 11/29/2020 10/04/2020, 0810/2014 DXA Scan 06/07/2024 06/07/2022, 05/16, 02/25/2019, Additional history exists COVID-19 Vaccine ( season) 2024 Albumin/Creatinine Ratio 05/22/2025 024, 05/21/2023, 05/16/2022, Additional history exists HbA1c 05/22/2025 05/22/2024, 080 04/2023, 05/16/2022, Additional history exists CKD PHOS USE SMARTSET 20265 10/06/202509/15, 05/21/2023, 05/16/2022, Additional history exists CKD HGB USE SMARTSET 51694 10/14/202510/14, 10/13/2024, 10/12/2024, Additional history exists Depression Monitoring 12/01/2025 12/01/2024 DTap/Tdap Vaccines (2 - Td or Tdap) 10/03/2034 10/03/2024, 09/03/2008, 09/03/2008 Pneumococcal Vaccine: 50+ Years Completed 03/19/2015, 02/26/2003 VITAMIN D LEVEL ONCE IN A LIFETIME-USE SMARTSET# 62539 Completed 10/06/2024, 06/13/2018, 09/02/2014, Additional history exists [...] this encounter Medical Devices Implanted Type Area Customer Support Executive Device Identifier Shelf Expiration Date Model / Serial / Lot Proximail Medial Tibial Plate Implanted:Qty: 1 on 10/03/2024 by Roger Sy MD at [place] [facility] Right: Leg Lower URIEL : TRAUMA [id number] / / Screw Nlk A3 Ti 3.5x24mm - [id number] Implanted:Qty: 1 on 10/03/2024 by Roger Sy MD at [place] [facility] Right: Leg Lower URIEL : TRAUMA [id number] / / Screw Nlk A3 Ti 3.5x26mm - [id number] Implanted:Qty: 1 on 10/03/2024 by Roger Sy MD at [place] [facility] Right: Leg Lower URIEL : TRAUMA [id number] / / Screw Nlk A3 Ti 3.5x28mm - [id number] Implanted:Qty: 1 on 10/03/2024 by Roger Sy MD at [place] [facility] Right: Leg Lower URIEL : TRAUMA [id number] / / Screw Nlk A3 Ti 3.5x30mm - [id number] Implanted:Qty: 1 on 10/03/2024 by Roger Sy MD at [place] [facility] Right: Leg Lower URIEL : TRAUMA [id number] / / Screw Nlk A3 Ti 3.5x36mm - [id number] Implanted:Qty: 1 on 10/03/2024 by Roger Sy MD at [place] [facility] Right: Leg Lower URIEL : TRAUMA [id number] / / Screw Canc A3 Ti 4x48mm Ft - [id number] Implanted:Qty: 1 on 10/03/2024 by Roger Sy MD at [place] [facility] Right: Leg Lower URIEL : TRAUMA [id number] / / 3.5 Locking Screw Implanted:Qty: 2 on 10/03/2024 by Roger Sy MD at [place] [facility] Right: Leg Lower URIEL : TRAUMA [id number] / / 3.5 Mm Locking Screw Implanted:Qty: 1 on 10/03/2024 by Roger Sy MD at [place] [facility] Right: Leg Lower URIEL : TRAUMA [id number] / / documented as of this encounter [...] and were consensually agreed upon. Care Teams Quality Lab Technician Relationship Specialty Start Date End Date Kendra Go MD [address] [place] [address] [place] [address] PCP - General Family Medicine 05/19/24 documented as of this encounter
--- OUTSIDE RECORDS SUMMARY | 2024-12-20 03:40 | External Medical Summary | Summary of Care ---
Author Name Unknown Organization [facility] Address [address] [place] [address] Phone [phone] Care Team Providers Care Yeast Cake Cutter Name Role Phone Kendra Go MD Primary Care Provide r Reason for Visit * Reason Onset Date Comments [facility]: Maintenance 12/04/2024 [facility]: Screening 12/04/2024 Encounter Details Date Type Department Care Team (Late st Contact Info) Description 12/04/2024 Telephone [facility], [address] [address] Bren Zarate, [facility] [address] [place] [address] [facility]: [facility]; [facility] ... Allergies No known active allergiesdocumented as of this encounter (statuses as of 12/04/2024) Medications Pantoprazole Sodium 40 MG Oral Tablet [...] as of this encounter (statuses as of 12/04/2024) Active Problems Problem Noted Date Diagnosed Date [...] as of this encounter (statuses as of 12/04/2024) Resolved Problems Problem Noted Date Diagnosed Date Resolved Date Migraine 05/21/2023 05/21/2023 Subdural hygroma 10/03/2022 05/21/2023 Major depressive disorder with single episode 09/05/20 21 11/22/2022 SDH (subdural hematoma) 11/02/202008/16 Hypertensive kidney disease, stage III 10/01/2018 02/24/2021 Overview: Per CKD protocol Impaired glucose tolerance 03/02/2016 1 11/05/2020 Persistent insomnia 08/30/2015 12/06/19 Kidney disease, chronic, sta ge III (GFR [...] as of this encounter (statuses as of 12/04/2024) Immunizations Name Administration Dates Next Due Pneumococcal Conjugate Vacc, 13 Valent (Prevnar) 03/19/2015 Pneumococcal Polysaccharide PPV23 (Pneumovax) 02/26/2003 Season Influenza, Quad, PF, Adjuvanted, 65+ Yrs, IM (FLUAD) 10/04/2020 Seasonal Influenza Vac., MDV , IM, 0.5 mL (Fluzone) 07/29/2014,07/22/2013,07/16/2012,07/12,07/19/2010,07/13/2009,08/06/2008 ,07/23/2007,07/31/2006,07/31/2005,10/15,08/13/2003 Seasonal Influenza, High Dos e, Trivalent, PF, [...] 12/01/2024 Does the household have a re gular source of income? 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 A review of this chart was completed and: Carolyn meets criteria for [facility]. Jump to Initiation Referring care team was notified via : [employer] communication [facility] x 3 for [facility] recenlty PCP referring will try again for [facility] documented in this encounter Plan of Treatment Upcoming Encounters Date Type Department Care Team (Late st Contact Info) Description 12/10/2024 11:00 AM EST Office Visit [facility]umatology, [facility] [address] [facility] [address] Nathan Siu PA-C [address] [place] [address] 12/25/2024 8:00 AM EDT Imaging Radiology [address] [place] [address] 01/06/2025 10:30 AM EDT Office Visit Orthopaedics, [place] [address] [place] [address] Roger Sy MD [address] [place] [address] Health Maintenance Due Date Last Done Comments Adult Wellness Visit 01/18/2002 Zoster Vaccines (3 of 3) 11/29/2020 10/04/2020, 10/2014 DXA Scan 06/07/2024 06/07/2022, 05/16, 02/25/2019, Additional history exists COVID-19 Vaccine ( season) 2024 Albumin/Creatinine Ratio 05/22/2025 024, 05/21/2023, 05/16/2022, Additional history exists HbA1c 05/22/2025 05/22/2024, 04/2023, 05/16/2022, Additional history exists CKD PHOS USE SMARTSET 76349 10/06/202509/15, 05/21/2023, 05/16/2022, Additional history exists CKD HGB USE SMARTSET 55971 10/14/202510/14, 10/13/2024, 10/12/2024, Additional history exists Depression Monitoring 12/01/2025 12/01/2024 DTap/Tdap Vaccines (2 - Td or Tdap) 10/03/2034 10/03/2024, 09/03/2008, 09/03/2008 Pneumococcal Vaccine: 50+ Years Completed 03/19/2015, 02/26/2003 VITAMIN D LEVEL ONCE IN A LIFETIME-USE SMARTSET# 41240 Completed 10/06/2024, 06/13/2018, 09/02/2014, Additional history exists [...] this encounter Medical Devices Implanted Type Area Slusher Operator Device Identifier Shelf Expiration Date Model / Serial / Lot Proximail Medial Tibial Plate Implanted:Qty: 1 on 10/03/2024 by Roger Sy MD at [place] [facility] Right: Leg Lower URIEL : TRAUMA [id number] / / Screw Nlk A3 Ti 3.5x24mm - [id number] Implanted:Qty: 1 on 10/03/2024 by Roger Sy MD at [place] [facility] Right: Leg Lower URIEL : TRAUMA [id number] / / Screw Nlk A3 Ti 3.5x26mm - [id number] Implanted:Qty: 1 on 10/03/2024 by Roger Sy MD at [place] [facility] Right: Leg Lower URIEL : TRAUMA [id number] / / Screw Nlk A3 Ti 3.5x28mm - [id number] Implanted:Qty: 1 on 10/03/2024 by Roger Sy MD at [place] [facility] Right: Leg Lower URIEL : TRAUMA [id number] / / Screw Nlk A3 Ti 3.5x30mm - [id number] Implanted:Qty: 1 on 10/03/2024 by Roger Sy MD at [place] [facility] Right: Leg Lower URIEL : TRAUMA [id number] / / Screw Nlk A3 Ti 3.5x36mm - [id number] Implanted:Qty: 1 on 10/03/2024 by Roger Sy MD at [place] [facility] Right: Leg Lower URIEL : TRAUMA [id number] / / Screw Canc A3 Ti 4x48mm Ft - [id number] Implanted:Qty: 1 on 10/03/2024 by Roger Sy MD at [place] [facility] Right: Leg Lower URIEL : TRAUMA [id number] / / 3.5 Locking Screw Implanted:Qty: 2 on 10/03/2024 by Roger Sy MD at [place] [facility] Right: Leg Lower URIEL : TRAUMA [id number] / / 3.5 Mm Locking Screw Implanted:Qty: 1 on 10/03/2024 by Roger Sy MD at [place] [facility] Right: Leg Lower URIEL : TRAUMA [id number] / / documented as of this encounter [...] and were consensually agreed upon. Care Teams Yeast Cake Cutter Relationship Specialty Start Date End Date Kendra Go MD [address] [place] [address] [place] [address] PCP - General Family Medicine 05/19/24 documented as of this encounter
--- OUTSIDE RECORDS SUMMARY | 2024-12-20 03:40 | External Medical Summary | Summary of Care ---
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, [place] [address] [place] [phone] 01/06/2025 10:30 AM EDT Office Visit Orthopaedics, [employer] [address] [place] [address] Roger Sy MD [address] [place] [address] Health Maintenance Due Date Last Done Comments Adult Wellness Visit 01/18/2002 Zoster Vaccines (3 of 3) 11/29/2020 10/04/2020, 10/2014 DXA Scan 06/07/2024 06/07/2022, 05/16, 02/25/2019, Additional history exists COVID-19 Vaccine ( season) 2024 Albumin/Creatinine Ratio 05/22/2025 024, 05/21/2023, 05/16/2022, Additional history exists HbA1c 05/22/2025 05/22/2024, 04/2023, 05/16/2022, Additional history exists CKD PHOS USE SMARTSET 73268 10/06/202509/15, 05/21/2023, 05/16/2022, Additional history exists CKD HGB USE SMARTSET 21083 10/14/202510/14, 10/13/2024, 10/12/2024, Additional history exists Depression Monitoring 12/01/2025 12/01/2024 DTap/Tdap Vaccines (2 - Td or Tdap) 10/03/2034 10/03/2024, 09/03/2008, 09/03/2008 Pneumococcal Vaccine: 50+ Years Completed 03/19/2015, 02/26/2003 VITAMIN D LEVEL ONCE IN A LIFETIME-USE SMARTSET# 52730 Completed 10/06/2024, 06/13/2018, 09/02/2014, Additional history exists [...] this encounter Medical Devices Implanted Type Area Road Inspector Device Identifier Shelf Expiration Date Model / Serial / Lot Proximail Medial Tibial Plate Implanted:Qty: 1 on 10/03/2024 by Roger Sy MD at OR [facility] Right: Leg Lower URIEL : TRAUMA [id number] / / Screw Nlk A3 Ti 3.5x24mm - [id number] Implanted:Qty: 1 on 10/03/2024 by Roger Sy MD at OR [facility] [place] Right: Leg Lower URIEL : TRAUMA [id number] / / Screw Nlk A3 Ti 3.5x26mm - [id number] Implanted:Qty: 1 on 10/03/2024 by Roger Sy MD at OR [facility] [place] Right: Leg Lower URIEL : TRAUMA [id number] / / Screw Nlk A3 Ti 3.5x28mm - [id number] Implanted:Qty: 1 on 10/03/2024 by Roger Sy MD at OR [facility] [place] Right: Leg Lower URIEL : TRAUMA [id number] / / Screw Nlk A3 Ti 3.5x30mm - [id number] Implanted:Qty: 1 on 10/03/2024 by Roger Sy MD at OR [facility] [place] Right: Leg Lower URIEL : TRAUMA [id number] / / Screw Nlk A3 Ti 3.5x36mm - [id number] Implanted:Qty: 1 on 10/03/2024 by Roger Sy MD at OR [facility] [place] Right: Leg Lower URIEL : TRAUMA [id number] / / Screw Canc A3 Ti 4x48mm Ft - [id number] Implanted:Qty: 1 on 10/03/2024 by Roger Sy MD at [facility] Right: Leg Lower URIEL : TRAUMA [id number] / / 3.5 Locking Screw Implanted:Qty: 2 on 10/03/2024 by Roger Sy MD at [facility] Right: Leg Lower URIEL : TRAUMA [id number] / / 3.5 Mm Locking Screw Implanted:Qty: 1 on 10/03/2024 by Roger Sy MD at [facility] Right: Leg Lower URIEL : TRAUMA [id number] / / documented as of this encounter [...] and were consensually agreed upon. Care Teams Reproductive Healthcare Assistant Relationship Specialty Start Date End Date Kendra Go MD [address] [place] [address] [place] [address] PCP - General Family Medicine 05/19/24 documented as of this encounter
--- OUTSIDE RECORDS SUMMARY | 2024-12-20 03:40 | External Medical Summary | Summary of Care ---
Author Name Unknown Organization [facility] Address [address] [place] [address] Phone [phone] Care Team Providers Care Cutting Machine Fixer Name Role Phone Kendra Go MD Primary Care Provide r Reason for Visit * Reason Onset Date Comments FYI 12/17/2024 Encounter Details Date Type Department Care Team (Late st Contact Info) Description 12/17/2024 Telephone Family Medicine [address] [phone] Kendra Go MD [address] [place] [address] [place], [place] [id number] FYI Allergies No known active allergiesdocumented as of this encounter (statuses as of 12/18/2024) Medications Fluticasone Propionate 50 MCG/ACT Nasal Suspension (Flonase)Indicati ons:Dysfunction of both eustachian tubes Administer 2 Sprays into each nostril in the morning. 54 g 3 3 Active Additional Information Patient not taking.Informant: Pharmacy, Reported on 12/15/2024 Alendronate Sodium 70 MG Oral Tablet (Fosamax)Indicati [...] Packet before bedtime. 14 Each 4 Active Additional Information Patient not taking.Reported on 12/15/2024 Sennosides 8.6 MG Oral Tablet (Senokot) Take 2 Tablets by mouth in the morning and 2 Tablets before bedtime. 30 Tablet 4 Active Additional Information Patient not taking.Reported on 12/15/2024 6.75-0.2 MG Oral Tablet Take 1 Tablet by mouth daily at noon. 60 Tablet 4 Active Additional Information Patient not taking.Reported on 12/15/2024 Atorvastatin Calcium 10 MG Oral Tablet (Lipitor)Indicati [...] the morning. 90 Tablet 3 5 Active Ferrous Sulfate 325 (65 Fe) MG Oral Tablet (Feosol) Take 1 Tablet by mouth in the morning and 1 Tablet before bedtime. 5 Active documented as of this encounter (statuses as of 12/18/2024) Active Problems Problem Noted Date Diagnosed Date [...] as of this encounter (statuses as of 12/18/2024) Resolved Problems Problem Noted Date Diagnosed Date [...] as of this encounter (statuses as of 12/18/2024) Immunizations Name Administration Dates Next Due Pneumococcal [...] the money to buy more. Never true 12/16/19 25 Within the past 12 months, t he food you bought just didn't last and you didn't have money to get more. Never true 12/15/2024 Childcare Answer Date Recorded Do you feel overwhelmed with taking care of a child, family member or friend? No 12/15/2024 Does your family need help f inding childcare? (Household - for ages 0-17 years) Not on file 12/15/2024 Clothing Answer Date Recorded Have you been unable to get clothing when it was really needed? No 12/15/2024 Is your family able to get c lothes or diapers when needed? (Household - for ages 0-17 years) Not on file 12/15/2024 Personal Safety Answer Date Recorded Do you feel unsafe or have concerns for your saf ety? No 12/15/2024 Do you have concerns for you r family's safety? (Household - for ages 0-17 years) Not on file 12/15/2024 Utilities Answer Date Recorded Do you have trouble paying y our heating, water, or electric bill? No 12/15/2024 Is your family able to pay t he heat, water, or electric bill? (Household - for ages 0-17 years) Not on file 12/15/2024 Does your family have access to good internet? (Household - for ages 0-17 years) Not on file 12/15/2024 Employment Status Answer Date Recorded Are you unemployed or without regular income? No 12/15/2024 Does the household have a re gular source of income? (Household - for ages 0-17 years) Not on file 12/15/2024 Social Connections Answer Date Recorded How often do you feel lonely or isolated from th ose around you? Never 12/15/2024 Financial Resource Strain Answer Date R ecorded Do you have any trouble payi ng for your medications, or do you think you might in the future? No 12/15/2024 Does your family have troubl e paying for medicine? (Household - for ages 0-17 years) Not on file 12/15/2024 Transportation Needs Answer Date Record ed Do you have trouble getting a ride to medical visits or work? (Adult - for ages 18 years and over) Not on file 12/15/2024 Does your family have a hard time getting a ride to doctors visits? (Household - for ages 0-17 years) Not on file 12/15/2024 Has lack of transportation k ept you from medical appointments, meetings, work, or from getting things needed for daily living? Check all that apply. No 12/15/2024 Do you (or your family) have trouble finding or paying for a ride (transportation)? (Household - for ages 0-17 years) Not on file 12/15/2024 Housing Stability Answer Date Recorded Do you currently live in a s helter or have no steady place to sleep at night? No 12/15/2024 Do you think you are at risk of becoming homeless? (Adult - for ages 18 years and over) Not on file 12/15/2024 Does your family worry about paying for your home or becoming homeless? (Household - for ages 0-17 years) Not on file 0 12/15/2024 Are you homeless or worried that you might be in the future? No 12/15/2024 Are you (or your family) aicha eless [...] the money to buy more. Never true 12/16/19 25 Within the past 12 months, t he food you bought just didn't last and you didn't have money to get more. Never true 12/15/2024 Do you need food for this week? 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 Thank you. Agree with ED * Telephone Encounter - Jemma Rothman E - No Ob/Or, DUNCAN - 12/17/2024 2:20 PM EST Maritza Davis calling from [facility] to update Dr Go that the pt is nottaking medication as prescribed . Increase confusion and she is at the [facility] , pt took a fall. Any questions wm call Maritza @ [phone] Thank you ! documented in this encounter Plan of Treatment Upcoming Encounters Date Type Department Care Team (Late st Contact Info) Description 12/25/2024 8:00 AM EDT Imaging Radiology [address] [place] [phone] 01/05/2025 3:00 PM EDT [facility] Visit [facility] [place] [address] [place] [address] Tsering Roth RN [address] [place] [address] 01/06/2025 10:30 AM EDT Office Visit Orthopaedics, [place] [address] [place] [address] Roger Sy MD [address] [place] [address] 02/09/2025 1:00 PM EDT [facility] Visit [facility] [address] [place] [address] Bert Cuenca PA-C [address] [place] [address] 02/20/2025 1:00 PM EDT Office Visit Family Medicine [address] [place] [phone] Kendra Go MD [address] [place] [address] [place] [address] Health Maintenance Due Date Last Done Comments Adult Wellness Visit 01/18/2002 Zoster Vaccines (3 of 3) 11/29/2020 10/04/2020, 08/0 10/2014 DXA Scan 06/07/2024 06/07/2022, 05/16, 02/25/2019, Additional history exists COVID-19 Vaccine ( season) 2024 09/14/2021 Albumin/Creatinine Ratio 05/22/2025 024, 05/21/2023, 05/16/2022, Additional history exists HbA1c 05/22/2025 05/22/2024, 08/0 04/2023, 05/16/2022, Additional history exists CKD PHOS USE SMARTSET 60533 10/06/202509/15, 05/21/2023, 05/16/2022, Additional history exists CKD HGB USE SMARTSET 80035 10/14/202510/14, 10/13/2024, 10/12/2024, Additional history exists Depression Monitoring 12/01/2025 12/01/2024 DTap/Tdap Vaccines (2 - Td or Tdap) 10/03/2034 10/03/2024, 10/03/2024, 09/03/2008, Additional history exists Pneumococcal Vaccine: 50+ Years Completed 10/04/2020, 03/19/2015, 02/26/2003 VITAMIN D LEVEL ONCE IN A LIFETIME-USE SMARTSET# 15717 Completed 10/06/2024, 06/13/2018, 09/02/2014, Additional history exists [...] this encounter Medical Devices Implanted Type Area Chain Hooker Device Identifier Shelf Expiration Date Model / Serial / Lot Proximail Medial Tibial Plate Implanted:Qty: 1 on 10/03/2024 by Roger Sy MD at OR [facility] [place] Right: Leg Lower URIEL : TRAUMA [id number] / / Screw Nlk A3 Ti 3.5x24mm - [id number] Implanted:Qty: 1 on 10/03/2024 by Roger Sy MD at OR [facility] [place] Right: Leg Lower URIEL : TRAUMA [id number] / / Screw Nlk A3 Ti 3.5x26mm - [id number] Implanted:Qty: 1 on 10/03/2024 by Roger Sy MD at OR [facility] [place] Right: Leg Lower URIEL : TRAUMA [id number] / / Screw Nlk A3 Ti 3.5x28mm - [id number] Implanted:Qty: 1 on 10/03/2024 by Roger Sy MD at OR [facility] [place] Right: Leg Lower URIEL : TRAUMA [id number] / / Screw Nlk A3 Ti 3.5x30mm - [id number] Implanted:Qty: 1 on 10/03/2024 by Roger Sy MD at [place] [facility] [place] Right: Leg Lower URIEL : TRAUMA [id number] / / Screw Nlk A3 Ti 3.5x36mm - [id number] Implanted:Qty: 1 on 10/03/2024 by Roger Sy MD at OR [facility] [place] Right: Leg Lower URIEL : TRAUMA [id number] / / Screw Canc A3 Ti 4x48mm Ft - [id number] Implanted:Qty: 1 on 10/03/2024 by Roger Sy MD at [place] [facility] [place] Right: Leg Lower URIEL : TRAUMA [id number] / / 3.5 Locking Screw Implanted:Qty: 2 on 10/03/2024 by Roger Sy MD at [place] [facility] [place] Right: Leg Lower URIEL : TRAUMA [id number] / / 3.5 Mm Locking Screw Implanted:Qty: 1 on 10/03/2024 by Roger Sy MD at [place] [facility] [place] Right: Leg Lower URIEL : TRAUMA [id number] / / documented as of this encounter [...] and were consensually agreed upon. Care Teams Cutting Machine Fixer Relationship Specialty Start Date End Date Kendra Go MD [address] [place] [address] [place] [phone] PCP - General Family Medicine 05/19/24 documented as of this encounter
--- OUTSIDE RECORDS SUMMARY | 2024-12-20 03:40 | External Medical Summary | Summary of Care ---
Author Name Unknown Organization [facility] Address [address] [place] [address] Phone [phone] Care Team Providers Care Plugger Man Name Role Phone Kendra Go MD Primary Care Provide r Reason for Referral * Social Care (Within 10 days (routine)) - Authorized Specialty Diagnoses / Procedures Referred By Paul bradshaw Referred To Contact HOME CARE / [facility] Diagnoses Dyslipidemia, goal LDL below 130 History of subdural hematoma (post traumatic) SVT (supraventricular tachycardia) (HCC) Degeneration of intervertebral disc of lumbar region with discogenic back pain Dizziness Hypertensive kidney disease with stage 3a chronic kidney disease (HCC) Closed fracture of right tibial plateau with routine healing, subsequent encounter Debility Kendra Go MD [address] [place] [address] [place] [address] Phone: tel: fax: Referral ID Status Reason Start Date Expiration Date Visits Requested Visits Authorized [id number] Authorized Specialty Services Required 12/04/2024 [id number] Question Answer Referral Priority Within 10 days (routine) Where should this appointment be scheduled? [facility] Does patient have multiple co-morbid conditions? Yes Does patient have [facility] insurance? Yes Comments Is referral coming from Care Coordination and Integration? No Reason for Visit * Reason Onset Date Comments Advice 12/04/2024 [facility] Home Health Encounter Details Date Type Department Care Team (Late st Contact Info) Description 12/04/2024 Telephone Family Medicine [address] [place] [phone] Kendra Go MD [address] [place] [address] [place] [id number] Advice ([facility] ) Allergies No known active allergiesdocumented as of this encounter (statuses as of 12/11/2024) Medications Fluticasone Propionate 50 MCG/ACT Nasal Suspension (Flonase)Indicat ions:Dysfunction of both eustachian tubes Administer 2 Sprays into each nostril in the morning. 54 g 3 023 Active Alendronate Sodium 70 MG Oral Tablet (Fosamax)Indicat ions:Age-related osteoporosis without current pathological fracture Take 1 Tablet by mouth once a week. with 8 oz. water 30 minutes before first meal of the day. Remain upright for 30 min after taking tablet. 15 Tablet 3 023 Active Azelastine HCl 0.15 % Nasal SolutionIndicati ons:Ear fullness, bilateral Administer 1 spray into each nostril once daily in the morning. 30 mL 1 024 Active Clindamycin Phosphate 1 % External GelIndications:M ultiple excoriations,Fol liculitis Apply 2x daily to open wounds on scalp until resolved. Can use more often instead of scratching the lesions. 60 g 2 024 Active Vitamin D3 25 MCG (1000 UT) Oral Tablet (Vitamin D3)Indications:A ge-related osteoporosis without current pathological fracture,Vitamin D insufficiency Take 1 Tablet by mouth in the morning. 90 Tablet 2 024 Active Diclofenac Sodium 1 % External Gel (Voltaren)Indica tions:DDD (degenerative disc disease), lumbar APPLY FOUR GRAMS TOPICALLY TO BACK FOUR TIMES DAILY NEEDED 200 g 3 024 Active Lidocaine 4 % External Patch (Aspercreme) Place 1 Patch over 12 hours topically on the skin in the morning. 30 Patch 024 Active Docusate Sodium 100 MG Oral Capsule (Colace) Take 1 Capsule by mouth in the morning and 1 Capsule before bedtime. 10 Capsule 024 Active Polyethylene Glycol 3350 17 GM Oral Packet (Miralax) Take 1 Packet by mouth in the morning and 1 Packet before bedtime. 14 Each 12/30/2 024 Active Sennosides 8.6 MG Oral Tablet (Senokot) Take 2 Tablets by mouth in the morning and 2 Tablets before bedtime. 30 Tablet Active 6.75-0.2 MG Oral Tablet Take 1 Tablet by mouth daily at noon. 60 Tablet Active Atorvastatin Calcium 10 MG Oral Tablet (Lipitor)Indicat ions:Dyslipidemi a, goal LDL below 130 Take 1 Tablet by mouth in the morning. 90 Tablet 2 Active Escitalopram Oxalate 10 MG Oral Tablet (Lexapro) Take 1 Tablet by mouth in the morning. 90 Tablet 2 Active amLODIPine Besylate 5 MG Oral Tablet (Norvasc) Take 1 Tablet by mouth in the morning. 90 Tablet Active Pantoprazole Sodium 40 MG Oral Tablet Delayed Release (Protonix)Indica tions:Gastroesop hageal reflux disease without esophagitis Take 1 Tablet by mouth in the morning. 90 Tablet 3 Active Ferrous Sulfate 325 (65 Fe) MG Oral Tablet (Feosol) Take 1 Tablet by mouth in the morning and 1 Tablet before bedtime. Active Pantoprazole Sodium 40 MG Oral Tablet Delayed Release (Protonix)Indica tions:Gastroesop hageal reflux disease without esophagitis Take 1 Tablet by mouth in the morning. 90 Tablet 3 023 2024 Discontinued(R efill) Escitalopram Oxalate 10 MG Oral Tablet (Lexapro) Take 1 Tablet by mouth in the morning. 90 Tablet 2 2024 Discontinued(R efill) Atorvastatin Calcium 10 MG Oral Tablet (Lipitor)Indicat ions:Dyslipidemi a, goal LDL below 130 Take 1 Tablet by mouth in the morning. 90 Tablet 2 024 2024 Discontinued(R efill) oxyCODONE HCl 5 MG Oral Tablet (Oxy IR) Take 1 Tablet by mouth every 4 hours as needed for Pain, Severe (can take 2.5 mg, 1/2 tab, for severe pain, continuation of pain therapy). 10 Tablet 2024 Discontinued Enoxaparin Sodium 30 MG/0.3ML Injection Solution Prefilled Syringe (Lovenox) Inject 30 mg under the skin in the morning and 30 mg before bedtime. Do all this for 14 days. 8.4 mL 2024 Discontinued(E nd of Procedure) amLODIPine Besylate 5 MG Oral Tablet (Norvasc) Take 1 Tablet by mouth in the morning. 25 Tablet 2024 Discontinued(R efill) Carisoprodol 350 MG Oral Tablet (Soma) Take 0.5 Tablets by mouth every 6 hours as needed for Muscle spasms (continuation of pain therapy). 20 Tablet 2024 Discontinued documented as of this encounter (statuses as of 12/11/2024) Active Problems Problem Noted Date Diagnosed Date [...] as of this encounter (statuses as of 12/11/2024) Resolved Problems Problem Noted Date Diagnosed Date [...] as of this encounter (statuses as of 12/11/2024) Immunizations Name Administration Dates Next Due Pneumococcal [...] the money to buy more. 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 * Telephone Encounter - Lashanda Swift RN - 12/10/2024 10:47 AM EST Please call pt with an appt for Dr Go( Next Available) she does not have one for the future andDr Go has not seen her since 10/06 * Telephone Encounter - Lashanda Swift RN - 12/10/2024 10:42 AM EST Med list faxed to [facility] * Telephone Encounter - Kendra Go MD - 12/08/2024 10:51 AM EST She is supposed to be on amlodipine 5 mg daily. Sent refill of that and the protonix. Discontinue Soma and oxycodone. The rest are OTC and she can get them if needed. Also, I have not seen her for over a year. She should get schedule with me for a follow-up. * Telephone Encounter - Suzette Moore LPN - 12/08/2024 9:44 AM EST JOHNNY Wallace calling from [facility]: She is following up from the phone call on 12/04. Advised that PCP sent in a script for Atorvastatin and Lexapro. She stated that the list of medications that was faxed to her, patient does not have most of them in the home. Missing at Home: Amlodipine 10 mg Soma 350 Lidocaine 4% patches Oxycodone 5 mg Miralax Senokot Votaren gel Pantoprazole 40 mg Iron--she does have but it is not on the medication list Asking for PCP to Review and send in scripts for the needed medications or discontinue ones she does not need. She stated that patient is hard to get a hold by phone as she cannot hear the phone ring so it willmost likely be difficult to schedule [facility] at visit.. Madison asking that updated list of medications be faxed to her at: [phone] * Telephone Encounter - Ria Rodriguez OSA - 12/08/2024 9:42 AM EST Reason for patient's call: [facility] Caller was transferred to [facility] at the nurse line. * Telephone Encounter - Kendra Go MD - 12/04/2024 1:49 PM EST Sent refills. Placed referral for [facility] * Telephone Encounter - Emma Funes LPN - 12/04/2024 1:06 PM EST HH Admission/Start of Care Admission/Start of Care: Madison RN, Calling from: Jak Patient was Admitted to: [facility] , for: therapy 11/27 Referral received for: Senior Living, PT, and OT Start of care completed on: 12/04/24 Report/Concerns of: lives alone, no caregivers Symptoms: see narrative Vitals: T 98.3 P 89 RR 16 BP 112/62 SP O2 100% Lung sounds clear Narrative: Madison inquiring if [facility] could be order? To get a second set of eyes on pt. [facility] be in the home the next could of months but there is as pt lives alone with no caregivers. Daughter only come to the home 2 times at month. Madison notes issues with her memory. Also pt does not have atorvastatin and lexapro in the home, orders pending Pt had f/u appt with Jaimee on 12/01. * Telephone Encounter - Andi Floyd OSA - 12/04/2024 1:04 PM EST Reason for patient's call: Madison of [facility] calling with update. [phone] Caller was transferred to [facility] at the nurse line. documented in this encounter Plan of Treatment Upcoming Encounters Date Type Department Care Team (Late st Contact Info) Description 12/15/2024 11:30 AM EST Home Visit [facility] [place], [facility] [address] [place] [address] Tsering Roth, JOHNNY [address] [facility] [place] [address] 12/25/2024 8:00 AM EDT Imaging Radiology [address] [place] [address] 01/06/2025 10:30 AM EDT Office Visit Orthopaedics, [place] [address] [place] [address] Roger Sy MD [address] [place] [address] 02/09/2025 1:00 PM EDT Home Visit [facility] [place], [facility] [address] [facility] [place] [address] Bert Cuenca PA-C [address] [facility] [place] [address] 02/20/2025 1:00 PM EDT Office Visit Family Medicine [address] [place] [phone] Kendra Go MD [address] [place] [address] [place] [address] Scheduled Referrals Name Type Priority Associated Diagnoses Orde r Schedule [facility] REFERRAL OP Referral Within 10 days (routine) Dyslipidemia, goal LDL below 130 History of subdural hematoma (post traumatic) SVT (supraventricular tachycardia) (HCC) Degeneration of intervertebral disc of lumbar region with discogenic back pain Dizziness Hypertensive kidney disease with stage 3a chronic kidney disease (HCC) Closed fracture of right tibial plateau with routine healing, subsequent encounter Debility Ordered: 12/04/2024 Health Maintenance Due Date Last Done Comments Adult Wellness Visit 01/18/2002 Zoster Vaccines (3 of 3) 11/29/2020 10/04/2020, 08/0 10/2014 DXA Scan 06/07/2024 06/07/2022, 05/16, 02/25/2019, Additional history exists COVID-19 Vaccine ( season) 2024 Albumin/Creatinine Ratio 05/22/2025 024, 05/21/2023, 05/16/2022, Additional history exists HbA1c 05/22/2025 05/22/2024, 04/2023, 05/16/2022, Additional history exists CKD PHOS USE SMARTSET 25784 10/06/202509/15, 05/21/2023, 05/16/2022, Additional history exists CKD HGB USE SMARTSET 78784 10/14/202510/14, 10/13/2024, 10/12/2024, Additional history exists Depression Monitoring 12/01/2025 12/01/2024 DTap/Tdap Vaccines (2 - Td or Tdap) 10/03/2034 10/03/2024, 09/03/2008, 09/03/2008 Pneumococcal Vaccine: 50+ Years Completed 03/19/2015, 02/26/2003 VITAMIN D LEVEL ONCE IN A LIFETIME-USE SMARTSET# [id number] Completed 10/06/2024, 06/13/2018, 09/02/2014, Additional history exists [...] this encounter Medical Devices Implanted Type Area Event Marketing Intern Device Identifier Shelf Expiration Date Model / Serial / Lot Proximail Medial Tibial Plate Implanted:Qty: 1 on 10/03/2024 by Roger Sy MD [place] [facility] Right: Leg Lower URIEL : TRAUMA [id number] / / Screw Nlk A3 Ti 3.5x24mm - [id number] Implanted:Qty: 1 on 10/03/2024 by Roger Sy MD at [place] [facility] Right: Leg Lower URIEL : TRAUMA [id number] / / Screw Nlk A3 Ti 3.5x26mm - [id number] Implanted:Qty: 1 on 10/03/2024 by Roger Sy MD at [place] [facility] Right: Leg Lower URIEL : TRAUMA [id number] / / Screw Nlk A3 Ti 3.5x28mm - [id number] Implanted:Qty: 1 on 10/03/2024 by Roger Sy MD at [place] [facility] Right: Leg Lower URIEL : TRAUMA [id number] / / Screw Nlk A3 Ti 3.5x30mm - [id number] Implanted:Qty: 1 on 10/03/2024 by Roger Sy MD at [place] [facility] Right: Leg Lower URIEL : TRAUMA [id number] / / Screw Nlk A3 Ti 3.5x36mm - [id number] Implanted:Qty: 1 on 10/03/2024 by Roger Sy MD at [place] [facility] Right: Leg Lower URIEL : TRAUMA [id number] / / Screw Canc A3 Ti 4x48mm Ft - [id number] Implanted:Qty: 1 on 10/03/2024 by Roger Sy MD at [place] [facility] Right: Leg Lower URIEL : TRAUMA [id number] / / 3.5 Locking Screw Implanted:Qty: 2 on 10/03/2024 by Roger Sy MD at [place] [facility] Right: Leg Lower URIEL : TRAUMA [id number] / / 3.5 Mm Locking Screw Implanted:Qty: 1 on 10/03/2024 by Roger Sy MD at [place] [facility] Right: Leg Lower URIEL : TRAUMA [id number] / / documented as of this encounter Visit Diagnoses Diagnosis History of subdural hematoma (post traumatic)- Primary Personal history of other diseases of circulatory system Dyslipidemia, goal LDL below 130 Other and unspecified hyperlipidemia SVT (supraventricular tachycardia) (HCC) Other specified cardiac dysrhythmias Degeneration of intervertebral disc of lumbar region with discogenic back pain Dizziness Dizziness and giddiness Hypertensive kidney disease with stage 3a chronic kidney disease (HCC) Closed fracture of right tibial plateau with routine healing, subsequent encounter Debility Debility, unspecified Gastroesophageal reflux disease without esophagitis Esophageal reflux documented in this encounter Advance Directives * [...] and were consensually agreed upon. Care Teams Plugger Man Relationship Specialty Start Date End Date Kendra Go MD [address] [place] [address] [place] [address] PCP - General Family Medicine 05/19/24 documented as of this encounter
--- OUTSIDE RECORDS SUMMARY | 2024-12-20 03:41 | External Medical Summary | Summary of Care ---
Author Name Unknown Organization [facility] Address [address] [place] [address] Phone [phone] Care Team Providers Care Regulatory Affairs Portfolio Leader Name Role Phone Kendra Go MD Primary Care Provide r Encounter Details Date Type Department Care Team (Late st Contact Info) Description 11/19/2024 Patient Reported Data Patient Survey Ortho [facility] Allergies No known active allergiesdocumented as of this encounter (statuses as of 11/19/2024) Medications Pantoprazole Sodium 40 MG Oral Tablet [...] as of this encounter (statuses as of 11/19/2024) Active Problems Problem Noted Date Diagnosed Date [...] as of this encounter (statuses as of 11/19/2024) Resolved Problems Problem Noted Date Diagnosed Date Resolved Date Migraine 05/21/2023 05/21/2023 Subdural hygroma 10/03/2022 05/21/2023 Major depressive disorder with single episode 09/05/20 21 11/22/2022 SDH (subdural hematoma) 11/02/2020 11/2 11/2020 Hypertensive kidney disease, stage III 10/01/2018 02/24/2021 [...] as of this encounter (statuses as of 11/19/2024) Immunizations Name Administration Dates Next Due Pneumococcal [...] file 10/03/2024 Food Insecurity Answer Date Recorded Worried About Running Out of Food in the Last Ye ar Not on file 10/03/2024 Ran Out of Food in the Last Year Not on file 10/03/2024 Do you need food for this week? 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 (5 years old or older) Answer Entry Date Author No 10/03/2024 12:48 PM Sa shay Russell RN documented in this encounter Plan of Treatment Upcoming Encounters Date Type Department Care Team (Late st Contact Info) Description 11/27/2024 11:00 AM EST Office Visit Rheumatology [facility] [address] [place] [phone] Nathan Siu PA-C [address] [facility] [place] [address] 01/06/2025 10:30 AM EDT Office Visit Orthopaedics, [place] [address] [place] [address] Roger Sy MD [address] [place], [place] [id number] Health Maintenance Due Date Last Done Comments Adult Wellness Visit 01/18/2002 Zoster Vaccines (3 of 3) 11/29/2020 10/04/2020, 0810/2014 Depression Monitoring 04/01/2021 04/01/2020 DXA Scan 06/07/2024 06/07/2022, 05/16, 02/25/2019, Additional history exists COVID-19 Vaccine ( season) 2024 Albumin/Creatinine Ratio 05/22/2025 024, 05/21/2023, 05/16/2022, Additional history exists HbA1c 05/22/2025 05/22/2024, 04/2023, 05/16/2022, Additional history exists CKD PHOS USE SMARTSET 60029 10/06/202509/15, 05/21/2023, 05/16/2022, Additional history exists CKD HGB USE SMARTSET 55188 10/14/202510/14, 10/13/2024, 10/12/2024, Additional history exists DTap/Tdap Vaccines (2 - Td or Tdap) 10/03/2034 10/03/2024, 09/03/2008, 09/03/2008 Pneumococcal Vaccine: 50+ Years Completed 03/19/2015, 02/26/2003 VITAMIN D LEVEL ONCE IN A LIFETIME-USE SMARTSET# [id number] Completed 10/06/2024, 06/13/2018, 09/02/2014, Additional history exists [...] this encounter Medical Devices Implanted Type Area Para Operator Device Identifier Shelf Expiration Date Model / Serial / Lot Proximail Medial Tibial Plate Implanted:Qty: 1 on 10/03/2024 by Roger Sy MD at [place] [facility] Right: Leg Lower URIEL : TRAUMA [id number] / / Screw Nlk A3 Ti 3.5x24mm - [id number] Implanted:Qty: 1 on 10/03/2024 by Roger Sy MD at OR [facility] Right: Leg Lower URIEL : TRAUMA [id number] / / Screw Nlk A3 Ti 3.5x26mm - [id number] Implanted:Qty: 1 on 10/03/2024 by Roger Sy MD at OR [facility] Right: Leg Lower URIEL : TRAUMA [id number] / / Screw Nlk A3 Ti 3.5x28mm - [id number] Implanted:Qty: 1 on 10/03/2024 by Roger Sy MD at OR [facility] Right: Leg Lower URIEL : TRAUMA [id number] / / Screw Nlk A3 Ti 3.5x30mm - [id number] Implanted:Qty: 1 on 10/03/2024 by Roger Sy MD at OR [facility] Right: Leg Lower URIEL : TRAUMA [id number] / / Screw Nlk A3 Ti 3.5x36mm - [id number] Implanted:Qty: 1 on 10/03/2024 by Roger Sy MD at OR [facility] Right: Leg Lower URIEL : TRAUMA [id number] / / Screw Canc A3 Ti 4x48mm Ft - [id number] Implanted:Qty: 1 on 10/03/2024 by Roger Sy MD at OR [facility] Right: Leg Lower URIEL : TRAUMA [id number] / / 3.5 Locking Screw Implanted:Qty: 2 on 10/03/2024 by Roger Sy MD at OR [facility] Right: Leg Lower URIEL : TRAUMA [id number] / / 3.5 Mm Locking Screw Implanted:Qty: 1 on 10/03/2024 by Roger Sy MD at [facility] Right: Leg Lower URIEL : TRAUMA [id number] / / documented as of this encounter [...] and were consensually agreed upon. Care Teams Regulatory Affairs Portfolio Leader Relationship Specialty Start Date End Date Kendra Go MD [address] [place] [address] [place] [address] PCP - General Family Medicine 05/19/24 documented as of this encounter
--- OUTSIDE RECORDS SUMMARY | 2024-12-20 03:41 | External Medical Summary | Summary of Care ---
Author Name Unknown Organization [facility] Address [address] [place] [address] Phone [phone] Care Team Providers Care Clerical Administrative Assistant Name Role Phone Kendra Go MD Primary Care Provide r Reason for Visit * Reason Comments Follow Up ORIF (R) Tibial Plat eau Fracture 10/03/24 Encounter Details Date Type Department Care Team (Late st Contact Info) Description 11/19/2024 10:00 AM EST Office Visit Orthopaedics, [place] [address] [place] [address] Tuan Andrade PA-C [address] [place], [place] [id number] Closed fracture of right tibial plateau with routine healing, subsequent encounter* Allergies No known active allergiesdocumented as of this encounter (statuses as of 11/20/2024) Medications Pantoprazole Sodium 40 MG Oral Tablet [...] in the morning. 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 She had operative fixation of her right tibial plateau fracture on 10/03/2024. She currently resides in a facility in [facility] and did not make her postop visit and it was very difficult for her to make her six week visit and this is why we are seeing her today. She was scheduled to follow up on Sunday but could not make the appointment. She has remain touchdown weight-bearing only on the right lower extremity in his maintained her kneeimmobilizer. The incision on her medial tibial plateau is healing well. X-rays were obtained today and viewed in indicate maintained alignment of her medial tibial plateau fracture with hardware intact. Physical therapy was written for her to begin partial weight- bearing at 30 to 40 pounds increasing 10 to 15 pounds a week. She will discontinue the use of her knee immobilizer at this time. She will begin gentle active and passive range of motion of the knee. We will obtain x-rays in the next 6 to 8 weeks at the [facility] and facility will inform me when the x-rays are done. We will review the x-rays and determine the nex course of action. An order was placed for the x-rays. The facility was given my card to call when the patient has the x-rays done in 6 to 8 weeks. We did schedule follow up in 6 to [address] Sy just in case she can get the x-rays. Tuan Andrade PA-C Orthopaedic Trauma documented in this encounter Plan of Treatment Upcoming Encounters Date Type Department Care Team (Late st Contact Info) Description 11/27/2024 11:00 AM EST Office Visit Rheumatology [facility] [place] [address] [place] [phone] Nathan Siu PA-C [facility] [place] [address] 01/06/2025 10:30 AM EDT [facility] [address] [place] [address] oRger Sy MD [address] [place] [address] Scheduled Orders Name Type Priority Associated Diagnoses Orde r Schedule XR KNEE 1-2 VIEWS Medical Imaging Routine Closed fracture of right tibial plateau with routine healing, subsequent encounter Expected: 01/07/2025, Expires: 12/17/2025 Health Maintenance Due Date Last Done Comments Adult Wellness Visit 01/18/2002 Zoster Vaccines (3 of 3) 11/29/2020 10/04/2020, 08/0 10/2014 Depression Monitoring 04/01/2021 04/01/2020 DXA Scan 06/07/2024 06/07/2022, 05/16, 02/25/2019, Additional history exists COVID-19 Vaccine ( season) 2024 Albumin/Creatinine Ratio 05/22/2025 024, 05/21/2023, 05/16/2022, Additional history exists HbA1c 05/22/2025 05/22/2024, 08/0 04/2023, 05/16/2022, Additional history exists CKD PHOS USE SMARTSET 94219 10/06/202509/15, 05/21/2023, 05/16/2022, Additional history exists CKD HGB USE SMARTSET 85897 10/14/202510/14, 10/13/2024, 10/12/2024, Additional history exists DTap/Tdap Vaccines (2 - Td or Tdap) 10/03/2034 10/03/2024, 09/03/2008, 09/03/2008 Pneumococcal Vaccine: 50+ Years Completed 03/19/2015, 02/26/2003 VITAMIN D LEVEL ONCE IN A LIFETIME-USE SMARTSET# [id number] Completed 10/06/2024, 06/13/2018, 09/02/2014, Additional history exists [...] this encounter Medical Devices Implanted Type Area Laundry Equipment Operator Device Identifier Shelf Expiration Date Model / Serial / Lot Proximail Medial Tibial Plate Implanted:Qty: 1 on 10/03/2024 by Roger Sy MD at [place] [facility] [place] Right: Leg Lower URIEL : TRAUMA [id number] / / Screw Nlk A3 Ti 3.5x24mm - [id number] Implanted:Qty: 1 on 10/03/2024 by Roger Sy MD at [place] [facility] [place] Right: Leg Lower URIEL : TRAUMA [id number] / / Screw Nlk A3 Ti 3.5x26mm - [id number] Implanted:Qty: 1 on 10/03/2024 by Roger Sy MD at [place] [facility] [place] Right: Leg Lower URIEL : TRAUMA [id number] / / Screw Nlk A3 Ti 3.5x28mm - [id number] Implanted:Qty: 1 on 10/03/2024 by Roger Sy MD at [place] [facility] [place] Right: Leg Lower URIEL : TRAUMA [id number] / / Screw Nlk A3 Ti 3.5x30mm - [id number] Implanted:Qty: 1 on 10/03/2024 by Roger Sy MD at [place] [facility] [place] Right: Leg Lower URIEL : TRAUMA [id number] / / Screw Nlk A3 Ti 3.5x36mm - [id number] Implanted:Qty: 1 on 10/03/2024 by Roger Sy MD at [place] [facility] [place] Right: Leg Lower URIEL : TRAUMA [id number] / / Screw Canc A3 Ti 4x48mm Ft - [id number] Implanted:Qty: 1 on 10/03/2024 by Roger Sy MD at [place] [facility] [place] Right: Leg Lower URIEL : TRAUMA [id number] / / 3.5 Locking Screw Implanted:Qty: 2 on 10/03/2024 by Roger Sy MD at [place] [facility] [place] Right: Leg Lower URIEL : TRAUMA [id number] / / 3.5 Mm Locking Screw Implanted:Qty: 1 on 10/03/2024 by Roger Sy MD at [place] [facility] [place] Right: Leg Lower URIEL : TRAUMA [id number] / / documented as of this encounter Procedures Procedure Name Priority Date/Time Associated Diagnosis Comments XR KNEE 1-2 VIEWS Routine 11/19/2024 10: 46 AM EST Closed fracture of right tibial plateau with routine healing, subsequent encounter documented in this encounter Results * XR KNEE 1-2 VIEWS (11/19/2024 10:46 AM EST) Anatomical Region Laterality Modality Knee, Lower Extremity Computed R adiography 11/19/2024 12:5 6 PM EST Impressions 11/19/2024 12:54 PM EST IMPRESSION Stable ORIF of right tibial plateau fracture, in unchanged alignment as above. Small joint effusion. At least mild arthrosis. Narrative 11/19/2024 12:54 PM EST EXAM XR KNEE 1-2 VIEWS-11/19/2024 10:46 am HISTORY right tibial plateau fracture COMPARISON 10/03/2024 TECHNIQUE Three views of right knee FINDINGS Redemonstrated right tibial plateau fracture with medial plate/screw fixation, in unchanged alignment and with residual moderate depression/step-off at the more medial aspect of the lateral plateau near the intercondylar eminence, and also towards the lateral aspect of the medial plateau, all stable from prior. At least mild tricompartmental right knee arthrosis. Small suprapatellar joint effusion. Vascular calcifications. Probable osteopenia. Procedure Note Kvng Sanchez MD - 11/19/2024 EXAM XR KNEE 1-2 VIEWS-11/19/2024 10:46 am HISTORY right tibial plateau fracture COMPARISON 10/03/2024 TECHNIQUE Three views of right knee FINDINGS Redemonstrated right tibial plateau fracture with medial plate/screwfixation, in unchanged alignment and with residual moderatedepression/step-off at the more medial aspect of the lateral plateau nearthe intercondylar eminence, and also towards the lateral aspect of themedial plateau, all stable from prior. At least mild tricompartmental right knee arthrosis. Small suprapatellar joint effusion. Vascular calcifications. Probable osteopenia. IMPRESSION IMPRESSION Stable ORIF of right tibial plateau fracture, in unchanged alignment asabove. Small joint effusion. At least mild arthrosis. Tuan Andrade PA-C RADIOLOGY ([facility]) Final Result documented in this encounter Visit Diagnoses Diagnosis Closed fracture of right tibial plateau with routine healing, subsequent encounter- Primary documented in this encounter Advance Directives * [...] and were consensually agreed upon. Care Teams Clerical Administrative Assistant Relationship Specialty Start Date End Date Kendra Go MD [address] [place] [address] [place] [address] PCP - General Family Medicine 05/19/24 documented as of this encounter
--- OUTSIDE RECORDS SUMMARY | 2024-12-20 03:41 | External Medical Summary | Summary of Care ---
Author Name Unknown Organization [facility] Address [address] [place] [address] Phone [phone] Care Team Providers Care Machine Assembler Supervisor Name Role Phone Kendra Go MD Primary Care Provide r Reason for Visit * Reason Onset Date Comments [facility]: Maintenance 12/04/2024 [facility]: Screening 12/04/2024 Encounter Details Date Type Department Care Team (Late st Contact Info) Description 12/04/2024 Telephone [facility], [address] [address] Bren Zarate, [facility] [address] [place] [address] [facility]: Maintenance; [facility] ... 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 [...] Author No 10/03/2024 12:48 PM Sa shay Russlel RN documented as of this encounter Mental [...] Referring care team was notified via : [employer] communication [facility] x 3 for GAH recenlty PCP referring will try again for GAH documented in this encounter Plan of Treatment Upcoming Encounters Date Type Department Care Team (Late st Contact Info) Description 12/10/2024 11:00 AM EST [facility] [address] [facility] [address] Nathan Siu PA-C [address] [place] [address] 12/25/2024 8:00 AM EDT Imaging Radiology [address] [place] [address] 01/06/2025 10:30 AM EDT Office Visit Orthopaedics, [place] [address] [place] [address] Roger Sy MD [address] [place] [address] Health Maintenance Due Date Last Done Comments Adult Wellness Visit 01/18/2002 Zoster Vaccines (3 of 3) 11/29/2020 10/04/2020, 10/2014 DXA Scan 06/07/2024 06/07/2022, 05/16, 02/25/2019, Additional history exists COVID-19 Vaccine ( season) 2024 Albumin/Creatinine Ratio 05/22/2025 024, 05/21/2023, 05/16/2022, Additional history exists HbA1c 05/22/2025 05/22/2024, 04/2023, 05/16/2022, Additional history exists CKD PHOS USE SMARTSET 67221 10/06/202509/15, 05/21/2023, 05/16/2022, Additional history exists CKD HGB USE SMARTSET 84762 10/14/202510/14, 10/13/2024, 10/12/2024, Additional history exists Depression Monitoring 12/01/2025 12/01/2024 DTap/Tdap Vaccines (2 - Td or Tdap) 10/03/2034 10/03/2024, 09/03/2008, 09/03/2008 Pneumococcal Vaccine: 50+ Years Completed 03/19/2015, 02/26/2003 VITAMIN D LEVEL ONCE IN A LIFETIME-USE SMARTSET# [id number] Completed 10/06/2024, 06/13/2018, 09/02/2014, Additional history exists [...] this encounter Medical Devices Implanted Type Area Videotape Sales Representative Device Identifier Shelf Expiration Date Model / Serial / Lot Proximail Medial Tibial Plate Implanted:Qty: 1 on 10/03/2024 by Roger Sy MD at [place] [facility] [place] Right: Leg Lower URIEL : TRAUMA [id number] / / Screw Nlk A3 Ti 3.5x24mm - [id number] Implanted:Qty: 1 on 10/03/2024 by Roger Sy MD at [place] [facility] [place] Right: Leg Lower URIEL : TRAUMA [id number] / / Screw Nlk A3 Ti 3.5x26mm - [id number] Implanted:Qty: 1 on 10/03/2024 by Roger Sy MD at [place] [facility] [place] Right: Leg Lower URIEL : TRAUMA [id number] / / Screw Nlk A3 Ti 3.5x28mm - [id number] Implanted:Qty: 1 on 10/03/2024 by Roger Sy MD at [place] [facility] [place] Right: Leg Lower URIEL : TRAUMA [id number] / / Screw Nlk A3 Ti 3.5x30mm - [id number] Implanted:Qty: 1 on 10/03/2024 by Roger Sy MD at [place] [facility] [place] Right: Leg Lower URIEL : TRAUMA [id number] / / Screw Nlk A3 Ti 3.5x36mm - [id number] Implanted:Qty: 1 on 10/03/2024 by Roger Sy MD at [place] [facility] [place] Right: Leg Lower URIEL : TRAUMA [id number] / / Screw Canc A3 Ti 4x48mm Ft - [id number] Implanted:Qty: 1 on 10/03/2024 by Roger Sy MD at [place] [facility] [place] Right: Leg Lower URIEL : TRAUMA [id number] / / 3.5 Locking Screw Implanted:Qty: 2 on 10/03/2024 by Roger Sy MD at [place] [facility] [place] Right: Leg Lower URIEL : TRAUMA [id number] / / 3.5 Mm Locking Screw Implanted:Qty: 1 on 10/03/2024 by Roger Sy MD at [place] [facility] [place] Right: Leg Lower URIEL : TRAUMA [id number] / / documented as of this encounter [...] and were consensually agreed upon. Care Teams Machine Assembler Supervisor Relationship Specialty Start Date End Date Kendra Go MD [address] [place] [address] [place] [address] PCP - General Family Medicine 05/19/24 documented as of this encounter
--- OUTSIDE RECORDS SUMMARY | 2024-12-20 03:41 | External Medical Summary | Summary of Care ---
Author Name Unknown Organization [facility] Address [address] [facility] [place] [address] Phone [phone] Care Team Providers Care Web Press Operator Name Role Phone Kendra Go MD Primary Care Provide r Reason for Visit * Reason Comments Hospital Follow-Up Encounter Details Date Type Department Care Team (Late st Contact Info) Description 12/01/2024 3:00 PM EST Office Visit Family Medicine [address] [place] [phone] Jaimee Pittman PA-C [address] [place] [address] [place] [phone] Recurrent major depressive disorder, in full remission (HCC)* Allergies No known active allergiesdocumented as of this encounter (statuses as of 12/02/2024) Medications Pantoprazole Sodium 40 MG Oral Tablet [...] and 2 Tablets before bedtime. 30 Tablet 12/30/20 24 Active Carisoprodol 350 MG Oral Tablet (Soma) Take 0.5 Tablets by mouth every 6 hours as needed for Muscle spasms (continuation of pain therapy). 20 Tablet 10/13/20 24 Active 6.75-0.2 MG Oral Tablet Take 1 Tablet by mouth daily at noon. 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 Not on file Not on file documented as of this encounter Last Filed Vital Signs Vital Sign Reading Time Taken Comments Blood Pressure 116/74 12/01/2024 2:55 PM EST Pulse 84 12/01/2024 2:55 PM EST Temperature - - Respiratory Rate - - Oxygen Saturation - - Inhaled Oxygen Concentration - - Weight 47.2 kg (104 lb) 12/01/2024 2:55 PM EST Height - - Body Mass Index 21.74 10/03/2024 12:48 PM EST documented in this encounter Functional Status * Are you [...] documented in this encounter Progress Notes * Jaimee Pittman PA-C - 12/01/2024 3:00 PM EST Nursing Notes: Daisha Ledesma LPN 12/01/24 1500 Sign at exiting of workspace Gets dizzy & nauseated Otherwise feels fine Hard time hearing out of bilateral ears. Feel blocked. Pt here today for hospital FU. Pt went to ER about a month ago, with weakness. Pt was then dc'd to half-way. She was there for a month, for PT/OT. She was dc'd 4 days ago. She is doing well. Homehealth is in the process of getting set up, along with PT/OT. Pt lives by herself but daughter, granddaughter, neighbor all come in and check on her, daily. 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 Ongoing dizzin ess. She has had PT for this and it helped. Will speak with PT about this. Review of patient's allergies indicates: No Known Allergies Current Outpatient Medications Medication Sig Dispense Refill Pantoprazole Sodium 40 MG Oral Tablet Delayed Release (Protonix) Take 1 Tablet by mouth in the morning. 90 Tablet 3 Fluticasone Propionate 50 MCG/ACT Nasal Suspension (Flonase) Administer 2 Sprays into each nostril in the morning. 54 g 3 Alendronate Sodium 70 MG Oral Tablet (Fosamax) Take 1 Tablet by mouth once a week. with 8 oz. water30 minutes before first meal of the day. Remain upright for 30 min after taking tablet. 15 Tablet 3 Azelastine HCl 0.15 % Nasal Solution Administer 1 spray into each nostril once daily in the morning. 30 mL 1 Clindamycin Phosphate 1 % External Gel Apply 2x daily to open wounds on scalp until resolved. Can use more often instead of scratching the lesions. 60 g 2 Escitalopram Oxalate 10 MG Oral Tablet (Lexapro) Take 1 Tablet by mouth in the morning. 90 Tablet 2 Vitamin D3 25 MCG (1000 UT) Oral Tablet (Vitamin D3) Take 1 Tablet by mouth in the morning. 90 Tablet 2 Atorvastatin Calcium 10 MG Oral Tablet (Lipitor) Take 1 Tablet by mouth in the morning. 90 Tablet 2 Diclofenac Sodium 1 % External Gel (Voltaren) APPLY FOUR GRAMS TOPICALLY TO BACK FOUR TIMES DAILY NEEDED 200 g 3 oxyCODONE HCl 5 MG Oral Tablet (Oxy IR) Take 1 Tablet by mouth every 4 hours as needed for Pain, Severe (can take 2.5 mg, 1/2 tab, for severe pain, continuation of pain therapy). 10 Tablet 0 amLODIPine Besylate 5 MG Oral Tablet (Norvasc) Take 1 Tablet by mouth in the morning. 25 Tablet 0 Lidocaine 4 % External Patch (Aspercreme) Place 1 Patch over 12 hours topically on the skin in the morning. 30 Patch 0 Docusate Sodium 100 MG Oral Capsule (Colace) Take 1 Capsule by mouth in the morning and 1 Capsule before bedtime. 10 Capsule 0 Polyethylene Glycol 3350 17 GM Oral Packet (Miralax) Take 1 Packet by mouth in the morning and 1 Packet before bedtime. 14 Each 0 Sennosides 8.6 MG Oral Tablet (Senokot) Take 2 Tablets by mouth in the morning and 2 Tablets beforebedtime. 30 Tablet 0 Carisoprodol 350 MG Oral Tablet (Soma) Take 0.5 Tablets by mouth every 6 hours as needed for Musclespasms (continuation of pain therapy). 20 Tablet 0 6.75-0.2 MG Oral Tablet Take 1 Tablet by mouth daily at noon. 60 Tablet 0 No current facility-administered medications for this visit. 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 Tobacco Use Smoking status: Never Smokeless tobacco: Never Vaping Use Vaping status: Never Used Substance and Sexual Activity Alcohol use: No Comment: very rare Drug use: No Sexual activity: Yes Partners: Male Other Topics Concern Service Not Asked Blood Transfusions Yes Comment: 2009 Caffeine Concern Not Asked Occupational Exposure Not Asked Hobby Hazards Not Asked Sleep Concern Not Asked Stress Concern Not Asked Weight Concern Not Asked Special Diet No Back Care Not Asked Exercise Not Asked Bike Helmet Not Asked Seat Belt Yes Self-Exams Not Asked Social History Narrative Not on file Social Needs Financial Resource Strain: Not on file Food Insecurity: Unknown (10/03/2024) Food Insecurity Worried About Running Out of Food in the Last Year: Not on file Ran Out of Food in the Last Year: Not on file Do you need food for this week? (Adult - for ages 18 years and over): No Transportation Needs: No Transportation Needs (10/03/2024) Transportation Needs Do you have trouble getting a ride to medical visits or work? (Adult - for ages 18 years and over):Not on file Does your family have a hard time getting a ride to doctors visits? (Household - for ages 0-17 years): Not on file Has lack of transportation kept you from medical appointments, meetings, work, or from getting things needed for daily living? Check all that apply. (Adult - for ages 18 years and over): No Do you (or your family) have trouble finding or paying for a ride (transportation)? (Household - for ages 0-17 years): Not on file Social Connections: Not on file Housing Stability: Low Risk (10/03/2024) Housing Stability Do you currently live in a assisted or have no steady place to sleep at night? (Adult - for ages 18 years and over): Not on file Do you think you are at risk of becoming homeless? (Adult - for ages 18 years and over): Not on file Does your family worry about paying for your home or becoming homeless? (Household - for ages 0-17 years): Not on file Are you homeless or worried that you might be in the future? (Adult - for ages 18 years and over): No Are you (or your family) homeless or worried that you might be in the future? (Household - for ages0-17 years): Not on file O:Blood pressure 116/74, pulse 84, weight 104 lb (47.2 kg). GENERAL: alert, healthy, and no distress HEART: regular rate & rhythm, no murmur, and no gallops LUNGS: chest symmetric with normal AP diameter, no chest deformities noted, no chest wall tenderness, lungs clear to auscultation EARS: External ears normal, Canals clear, TM's Normal NECK: supple, no adenopathy, no bruits, thyroid normal size, non-tender, without nodularity A:Recurrent major depressive disorder, in full remission (HCC) (Primary) Pt doing well. Any questions/problems, please call. If anything changes, worsens, develops new sx, please call [facility]. Follow Up: Return if symptoms worsen or fail to improve. Jaimee Pittman PA-C documented in this encounter Nursing Notes * Daisha Ledesma LPN - 12/01/2024 2:59 PM EST Gets dizzy & nauseated Otherwise feels fine Hard time hearing out of bilateral ears. Feel blocked. documented in this encounter Plan of Treatment Upcoming Encounters Date Type Department Care Team (Late st Contact Info) Description 12/10/2024 11:00 AM EST Office Visit Rheumatology, [address] [address] Nathan Siu PA-C [facility] [place] [address] 12/25/2024 8:00 AM EDT Imaging Radiology [facility] 1st [facility], [place] [address] [place] [address] 01/06/2025 10:30 AM EDT Office Visit Orthopaedics, [place] [address] [place], [place] [id number] Roger Sy MD [address] [place], [place] [id number] Health Maintenance Due Date Last Done Comments Adult Wellness Visit 01/18/2002 Zoster Vaccines (3 of 3) 11/29/2020 10/04/2020, 10/2014 DXA Scan 06/07/2024 06/07/2022, 05/16, 02/25/2019, Additional history exists COVID-19 Vaccine ( season) 2024 Albumin/Creatinine Ratio 05/22/2025 024, 05/21/2023, 05/16/2022, Additional history exists HbA1c 05/22/2025 05/22/2024, 04/2023, 05/16/2022, Additional history exists CKD PHOS USE SMARTSET 25593 10/06/202509/15, 05/21/2023, 05/16/2022, Additional history exists CKD HGB USE SMARTSET 34660 10/14/202510/14, 10/13/2024, 10/12/2024, Additional history exists Depression Monitoring 12/01/2025 12/01/2024 DTap/Tdap Vaccines (2 - Td or Tdap) 10/03/2034 10/03/2024, 09/03/2008, 09/03/2008 Pneumococcal Vaccine: 50+ Years Completed 03/19/2015, 02/26/2003 VITAMIN D LEVEL ONCE IN A LIFETIME-USE SMARTSET# 60162 Completed 10/06/2024, 06/13/2018, 09/02/2014, Additional history exists [...] this encounter Medical Devices Implanted Type Area Mattress And Foundation Sewer Device Identifier Shelf Expiration Date Model / Serial / Lot Proximail Medial Tibial Plate Implanted:Qty: 1 on 10/03/2024 by Roger Sy MD at [place] [facility] [place] Right: Leg Lower URIEL : TRAUMA [id number] / / Screw Nlk A3 Ti 3.5x24mm - [id number] Implanted:Qty: 1 on 10/03/2024 by Roger Sy MD at OR [facility] [place] Right: Leg Lower URIEL : TRAUMA [id number] / / Screw Nlk A3 Ti 3.5x26mm - [id number] Implanted:Qty: 1 on 10/03/2024 by Roger Sy MD at OR [facility] [place] Right: Leg Lower URIEL : TRAUMA [id number] / / Screw Nlk A3 Ti 3.5x28mm - [id number] Implanted:Qty: 1 on 10/03/2024 by Roger Sy MD at OR [facility] [place] Right: Leg Lower URIEL : TRAUMA [id number] / / Screw Nlk A3 Ti 3.5x30mm - [id number] Implanted:Qty: 1 on 10/03/2024 by Roger Sy MD at OR [facility] [place] Right: Leg Lower URIEL : TRAUMA [id number] / / Screw Nlk A3 Ti 3.5x36mm - [id number] Implanted:Qty: 1 on 10/03/2024 by Roger Sy MD at OR [facility] Right: Leg Lower URIEL : TRAUMA [id number] / / Screw Canc A3 Ti 4x48mm Ft - [id number] Implanted:Qty: 1 on 10/03/2024 by Roger Sy MD at OR [facility] Right: Leg Lower URIEL : TRAUMA [id number] / / 3.5 Locking Screw Implanted:Qty: 2 on 10/03/2024 by Roger Sy MD at OR [facility] Right: Leg Lower URIEL : TRAUMA [id number] / / 3.5 Mm Locking Screw Implanted:Qty: 1 on 10/03/2024 by Roger Sy MD at OR [facility] Right: Leg Lower URIEL : TRAUMA [id number] / / documented as of this encounter Visit Diagnoses Diagnosis Recurrent major depressive disorder, in full remission (HCC)- Primary documented in this encounter Advance Directives [...] and were consensually agreed upon. Care Teams Web Press Operator Relationship Specialty Start Date End Date Kendra Go MD [address] [place] [address] [place] [phone] PCP - General Family Medicine 05/19/24 documented as of this encounter
--- OUTSIDE RECORDS SUMMARY | 2024-12-20 03:41 | External Medical Summary | Summary of Care ---
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 [...] Assessment Author Yes 10/03/2024 12:48 PM Sa sahy Russell RN * Do you have difficulty [...] 11/27/2024 11:00 AM EST Office Visit Rheumatology [facility] [address] [place] [address] Nathan Siu PA-C [address] [place] [address] 12/25/2024 8:00 AM EDT Imaging Radiology [facility] 1st [facility], [place] [address] [place] [phone] 01/06/2025 10:30 AM EDT Office Visit Orthopaedics, [place] [address] [place] [address] Roger Sy MD [address] [place] [address] Health Maintenance Due Date Last Done Comments Adult Wellness Visit 01/18/2002 Zoster Vaccines (3 of 3) 11/29/2020 10/04/2020, 0810/2014 Depression Monitoring 04/01/2021 04/01/2020 DXA Scan 06/07/2024 06/07/2022, 05/16, 02/25/2019, Additional history exists COVID-19 Vaccine ( season) 2024 Albumin/Creatinine Ratio 05/22/2025 024, 05/21/2023, 05/16/2022, Additional history exists HbA1c 05/22/2025 05/22/2024, 0804/2023, 05/16/2022, Additional history exists CKD PHOS USE SMARTSET 08979 10/06/202509/15, 05/21/2023, 05/16/2022, Additional history exists CKD HGB USE SMARTSET 56658 10/14/202510/14, 10/13/2024, 10/12/2024, Additional history exists DTap/Tdap Vaccines (2 - Td or Tdap) 10/03/2034 10/03/2024, 09/03/2008, 09/03/2008 Pneumococcal Vaccine: 50+ Years Completed 03/19/2015, 02/26/2003 VITAMIN D LEVEL ONCE IN A LIFETIME-USE SMARTSET# 58459 Completed 10/06/2024, 06/13/2018, 09/02/2014, Additional history exists [...] this encounter Medical Devices Implanted Type Area Lmft Device Identifier Shelf Expiration Date Model / Serial / Lot Proximail Medial Tibial Plate Implanted:Qty: 1 on 10/03/2024 by [place] [facility] [place]: Leg Lower URIEL : TRAUMA [id number] / / Screw Nlk A3 Ti 3.5x24mm - [id number] Implanted:Qty: 1 on 10/03/2024 by Roger Sy MD [place] [facility]: Leg Lower URIEL : TRAUMA [id number] / / Screw Nlk A3 Ti 3.5x26mm - [id number] Implanted:Qty: 1 on 10/03/2024 by Roger Sy MD [place] [facility] [place]: Leg Lower URIEL : TRAUMA [id number] / / Screw Nlk A3 Ti 3.5x28mm - [id number] Implanted:Qty: 1 on 10/03/2024 by Roger Sy MD [place] [facility] Right: Leg Lower URIEL : TRAUMA [id number] / / Screw Nlk A3 Ti 3.5x30mm - [id number] Implanted:Qty: 1 on 10/03/2024 by Roger Sy MD [place] [facility] Right: Leg Lower URIEL : TRAUMA [id number] / / Screw Nlk A3 Ti 3.5x36mm - [id number] Implanted:Qty: 1 on 10/03/2024 by Roger Sy MD [place] [facility]: Leg Lower URIEL : TRAUMA [id number] / / Screw Canc A3 Ti 4x48mm Ft - [id number] Implanted:Qty: 1 on 10/03/2024 by Roger Sy MD [place] [facility] [place]: Leg Lower URIEL : TRAUMA [id number] / / 3.5 Locking Screw Implanted:Qty: 2 on 10/03/2024 by Roger Sy MD [place] [facility]: Leg Lower URIEL : TRAUMA [id number] / / 3.5 Mm Locking Screw Implanted:Qty: 1 on 10/03/2024 by Roger Sy MD [place] [facility]: Leg Lower URIEL : TRAUMA [id number] / / documented as of this encounter [...] least mild arthrosis. Tuan Andrade PA-C RADIOLOGY ([facility]) Final Result documented in this encounter Advance [...] and were consensually agreed upon. Care Teams Animal Husbandry Technician Relationship Specialty Start Date End Date Kendra Go MD [address] [place] [address] [place] [address] PCP - General Family Medicine 05/19/24 documented as of this encounter
--- OUTSIDE RECORDS SUMMARY | 2024-12-20 03:41 | External Medical Summary | Summary of Care ---
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 [place] [address] 01/06/2025 10:30 AM EDT [facility] [address] [place] [address] Roger Sy MD [address] [place] [address] Scheduled Orders Name Type Priority Associated Diagnoses [...] Additional history exists CKD PHOS USE SMARTSET 56372 10/06/202509/15, 05/21/2023, 05/16/2022, Additional history exists CKD HGB USE SMARTSET 63416 10/14/202510/14, 10/13/2024, 10/12/2024, Additional history exists DTap/Tdap Vaccines (2 - Td or Tdap) 10/03/2034 10/03/2024, 09/03/2008, 09/03/2008 Pneumococcal Vaccine: 50+ Years Completed 03/19/2015, 02/26/2003 VITAMIN D LEVEL ONCE IN A LIFETIME-USE SMARTSET# 29431 Completed 10/06/2024, 06/13/2018, 09/02/2014, Additional history exists [...] this encounter Medical Devices Implanted Type Area Thread Puller Device Identifier Shelf Expiration Date Model / Serial / Lot Proximail Medial Tibial Plate Implanted:Qty: 1 on 10/03/2024 by Roger Sy MD at [place] [facility] [place] Right: Leg Lower URIEL : TRAUMA [id number] / / Screw Nlk A3 Ti 3.5x24mm - [id number] Implanted:Qty: 1 on 10/03/2024 by Roger Sy MD at [place] [facility] [place] Right: Leg Lower URIEL : TRAUMA [id number] / / Screw Nlk A3 Ti 3.5x26mm - [id number] Implanted:Qty: 1 on 10/03/2024 by Roger Sy MD at [place] [facility] [place] Right: Leg Lower URIEL : TRAUMA [id number] / / Screw Nlk A3 Ti 3.5x28mm - [id number] Implanted:Qty: 1 on 10/03/2024 by Roger Sy MD at [place] [facility] [place] Right: Leg Lower URIEL : TRAUMA [id number] / / Screw Nlk A3 Ti 3.5x30mm - [id number] Implanted:Qty: 1 on 10/03/2024 by Roger Sy MD at [place] [facility] [place] Right: Leg Lower URIEL : TRAUMA [id number] / / Screw Nlk A3 Ti 3.5x36mm - [id number] Implanted:Qty: 1 on 10/03/2024 by Roger Sy MD at [place] [facility] [place] Right: Leg Lower URIEL : TRAUMA [id number] / / Screw Canc A3 Ti 4x48mm Ft - [id number] Implanted:Qty: 1 on 10/03/2024 by Roger Sy MD at [place] [facility] [place] Right: Leg Lower URIEL : TRAUMA [id number] / / 3.5 Locking Screw Implanted:Qty: 2 on 10/03/2024 by Roger Sy MD at [place] [facility] [place] Right: Leg Lower URIEL : TRAUMA [id number] / / 3.5 Mm Locking Screw Implanted:Qty: 1 on 10/03/2024 by Roger Sy MD at [place] [facility] [place] Right: Leg Lower URIEL : TRAUMA [id number] / / documented as of this encounter [...] least mild arthrosis. Tuan Andrade PA-C RADIOLOGY ([facility]) Final Result documented in this encounter [...] and were consensually agreed upon. Care Teams Maxillofacial Surgeon Relationship Specialty Start Date End Date Kendra Go MD [address] [place] [address] [place] [address] PCP - General Family Medicine 05/19/24 documented as of this encounter
--- OUTSIDE RECORDS SUMMARY | 2024-12-20 03:41 | External Medical Summary | Summary of Care ---
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 Not on [...] 11/27/2024 11:00 AM EST Office Visit Rheumatology [facility] [address] [place] [phone] Nathan Siu PA-C [address] [facility] [place] [address] 01/06/2025 10:30 AM EDT Office Visit Orthopaedics, Jennifer [address] [place] [address] Roger Sy MD [address] [place], [place] [phone] Health Maintenance Due Date Last Done Comments Adult Wellness Visit 01/18/2002 Zoster Vaccines (3 of 3) 11/29/2020 10/04/2020, 0810/2014 Depression Monitoring 04/01/2021 04/01/2020 DXA Scan 06/07/2024 06/07/2022, 05/16, 02/25/2019, Additional history exists COVID-19 Vaccine ( season) 2024 Albumin/Creatinine Ratio 05/22/2025 024, 05/21/2023, 05/16/2022, Additional history exists HbA1c 05/22/2025 05/22/2024, 04/2023, 05/16/2022, Additional history exists CKD PHOS USE SMARTSET 88324 10/06/202509/15, 05/21/2023, 05/16/2022, Additional history exists CKD HGB USE SMARTSET 65771 10/14/202510/14, 10/13/2024, 10/12/2024, Additional history exists DTap/Tdap Vaccines (2 - Td or Tdap) 10/03/2034 10/03/2024, 09/03/2008, 09/03/2008 Pneumococcal Vaccine: 50+ Years Completed 03/19/2015, 02/26/2003 VITAMIN D LEVEL ONCE IN A LIFETIME-USE SMARTSET# [id number] Completed 10/06/2024, 06/13/2018, 09/02/2014, Additional history exists [...] this encounter Medical Devices Implanted Type Area Billing Services Manager Device Identifier Shelf Expiration Date Model / Serial / Lot Proximail Medial Tibial Plate Implanted:Qty: 1 on 10/03/2024 by Roger Sy MD at [place] [facility] Right: Leg Lower URIEL : TRAUMA [id number] / / Screw Nlk A3 Ti 3.5x24mm - [id number] Implanted:Qty: 1 on 10/03/2024 by Roger Sy MD at [place] [facility] Right: Leg Lower URIEL : TRAUMA [id number] / / Screw Nlk A3 Ti 3.5x26mm - [id number] Implanted:Qty: 1 on 10/03/2024 by Roger Sy MD at [place] [facility] Right: Leg Lower URIEL : TRAUMA [id number] / / Screw Nlk A3 Ti 3.5x28mm - [id number] Implanted:Qty: 1 on 10/03/2024 by Roger Sy MD at [place] [facility] Right: Leg Lower URIEL : TRAUMA [id number] / / Screw Nlk A3 Ti 3.5x30mm - [id number] Implanted:Qty: 1 on 10/03/2024 by Roger Sy MD at [place] [facility] Right: Leg Lower URIEL : TRAUMA [id number] / / Screw Nlk A3 Ti 3.5x36mm - [id number] Implanted:Qty: 1 on 10/03/2024 by Roger Sy MD at [place] [facility] Right: Leg Lower URIEL : TRAUMA [id number] / / Screw Canc A3 Ti 4x48mm Ft - [id number] Implanted:Qty: 1 on 10/03/2024 by Roger Sy MD at [place] [facility] Right: Leg Lower URIEL : TRAUMA [id number] / / 3.5 Locking Screw Implanted:Qty: 2 on 10/03/2024 by Roger Sy MD at [place] [facility] Right: Leg Lower URIEL : TRAUMA [id number] / / 3.5 Mm Locking Screw Implanted:Qty: 1 on 10/03/2024 by Roger Sy MD at [facility] Right: Leg Lower URIEL : TRAUMA [id number] / / documented as of this encounter [...] and were consensually agreed upon. Care Teams Commutator Undercutter Relationship Specialty Start Date End Date Kendra Go MD [address] [place] [address] [place] [address] PCP - General Family Medicine 05/19/24 documented as of this encounter
--- OUTSIDE RECORDS SUMMARY | 2024-12-20 03:41 | External Medical Summary | Summary of Care ---
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 [...] 11/27/2024 11:00 AM EST Office Visit Rheumatology [facility] [address] [place] [phone] Nathan Siu PA-C [address] [facility] [place] [address] 01/06/2025 10:30 AM EDT Office Visit Orthopaedics, Jennifer [address] [place] [address] Roger Sy MD [address] [place], [place] [phone] Health Maintenance Due Date Last Done Comments Adult Wellness Visit 01/18/2002 Zoster Vaccines (3 of 3) 11/29/2020 10/04/2020, 0810/2014 Depression Monitoring 04/01/2021 04/01/2020 DXA Scan 06/07/2024 06/07/2022, 05/16, 02/25/2019, Additional history exists COVID-19 Vaccine ( season) 2024 Albumin/Creatinine Ratio 05/22/2025 024, 05/21/2023, 05/16/2022, Additional history exists HbA1c 05/22/2025 05/22/2024, 04/2023, 05/16/2022, Additional history exists CKD PHOS USE SMARTSET 04129 10/06/202509/15, 05/21/2023, 05/16/2022, Additional history exists CKD HGB USE SMARTSET 42481 10/14/202510/14, 10/13/2024, 10/12/2024, Additional history exists DTap/Tdap Vaccines (2 - Td or Tdap) 10/03/2034 10/03/2024, 09/03/2008, 09/03/2008 Pneumococcal Vaccine: 50+ Years Completed 03/19/2015, 02/26/2003 VITAMIN D LEVEL ONCE IN A LIFETIME-USE SMARTSET# [id number] Completed 10/06/2024, 06/13/2018, 09/02/2014, Additional history exists [...] this encounter Medical Devices Implanted Type Area Investigative Reporter Device Identifier Shelf Expiration Date Model / Serial / Lot Proximail Medial Tibial Plate Implanted:Qty: 1 on 10/03/2024 by Roger Sy MD at [place] [facility] [place] Right: Leg Lower URIEL : TRAUMA [id number] / / Screw Nlk A3 Ti 3.5x24mm - [id number] Implanted:Qty: 1 on 10/03/2024 by Roger Sy MD at [place] [facility] Right: Leg Lower URIEL : TRAUMA [id number] / / Screw Nlk A3 Ti 3.5x26mm - [id number] Implanted:Qty: 1 on 10/03/2024 by Roger Sy MD at [place] [facility] Right: Leg Lower URIEL : TRAUMA [id number] / / Screw Nlk A3 Ti 3.5x28mm - [id number] Implanted:Qty: 1 on 10/03/2024 by Roger Sy MD at [place] [facility] Right: Leg Lower URIEL : TRAUMA [id number] / / Screw Nlk A3 Ti 3.5x30mm - [id number] Implanted:Qty: 1 on 10/03/2024 by Roger Sy MD at [place] [facility] Right: Leg Lower URIEL : TRAUMA [id number] / / Screw Nlk A3 Ti 3.5x36mm - [id number] Implanted:Qty: 1 on 10/03/2024 by Roger Sy MD at [place] [facility] Right: Leg Lower URIEL : TRAUMA [id number] / / Screw Canc A3 Ti 4x48mm Ft - [id number] Implanted:Qty: 1 on 10/03/2024 by Roger Sy MD at [place] [facility] Right: Leg Lower URIEL : TRAUMA [id number] / / 3.5 Locking Screw Implanted:Qty: 2 on 10/03/2024 by Roger Sy MD at [place] [facility] Right: Leg Lower URIEL : TRAUMA [id number] / / 3.5 Mm Locking Screw Implanted:Qty: 1 on 10/03/2024 by Roger Sy MD at [facility] Right: Leg Lower URIEL : TRAUMA [id number] / / documented as of this encounter [...] and were consensually agreed upon. Care Teams Business Continuity Planning Director Relationship Specialty Start Date End Date Kendra Go MD [address] [place] [address] [place] [address] PCP - General Family Medicine 05/19/24 documented as of this encounter
--- OUTSIDE RECORDS SUMMARY | 2024-12-20 03:41 | External Medical Summary | Summary of Care ---
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 [...] 11/27/2024 11:00 AM EST Office Visit Rheumatology [facility] [address] [place] [phone] Nathan Siu PA-C [address] [place] [address] 01/06/2025 10:30 AM EDT Office Visit Orthopaedics, Jennifer [address] [place] [address] Roger Sy MD [address] [place], [place] [phone] Health Maintenance Due Date Last Done Comments Adult Wellness Visit 01/18/2002 Zoster Vaccines (3 of 3) 11/29/2020 10/04/2020, 0810/2014 Depression Monitoring 04/01/2021 04/01/2020 DXA Scan 06/07/2024 06/07/2022, 05/16, 02/25/2019, Additional history exists COVID-19 Vaccine ( season) 2024 Albumin/Creatinine Ratio 05/22/2025 024, 05/21/2023, 05/16/2022, Additional history exists HbA1c 05/22/2025 05/22/2024, 04/2023, 05/16/2022, Additional history exists CKD PHOS USE SMARTSET 11355 10/06/202509/15, 05/21/2023, 05/16/2022, Additional history exists CKD HGB USE SMARTSET 99356 10/14/202510/14, 10/13/2024, 10/12/2024, Additional history exists DTap/Tdap Vaccines (2 - Td or Tdap) 10/03/2034 10/03/2024, 09/03/2008, 09/03/2008 Pneumococcal Vaccine: 50+ Years Completed 03/19/2015, 02/26/2003 VITAMIN D LEVEL ONCE IN A LIFETIME-USE SMARTSET# 33728 Completed 10/06/2024, 06/13/2018, 09/02/2014, Additional history exists [...] this encounter Medical Devices Implanted Type Area Lepidopterist Device Identifier Shelf Expiration Date Model / Serial / Lot Proximail Medial Tibial Plate Implanted:Qty: 1 on 10/03/2024 by Roger Sy MD at [place] [facility] Right: Leg Lower URIEL : TRAUMA [id number] / / Screw Nlk A3 Ti 3.5x24mm - [id number] Implanted:Qty: 1 on 10/03/2024 by Roger Sy MD at [place] [facility] Right: Leg Lower URIEL : TRAUMA [id number] / / Screw Nlk A3 Ti 3.5x26mm - [id number] Implanted:Qty: 1 on 10/03/2024 by Roger Sy MD at [place] [facility] Right: Leg Lower URIEL : TRAUMA [id number] / / Screw Nlk A3 Ti 3.5x28mm - [id number] Implanted:Qty: 1 on 10/03/2024 by Roger Sy MD at [place] [facility] Right: Leg Lower URIEL : TRAUMA [id number] / / Screw Nlk A3 Ti 3.5x30mm - [id number] Implanted:Qty: 1 on 10/03/2024 by Roger Sy MD at [place] [facility] Right: Leg Lower URIEL : TRAUMA [id number] / / Screw Nlk A3 Ti 3.5x36mm - [id number] Implanted:Qty: 1 on 10/03/2024 by Roger Sy MD at [place] [facility] Right: Leg Lower URIEL : TRAUMA [id number] / / Screw Canc A3 Ti 4x48mm Ft - [id number] Implanted:Qty: 1 on 10/03/2024 by Roger Sy MD at [place] [facility] Right: Leg Lower URIEL : TRAUMA [id number] / / 3.5 Locking Screw Implanted:Qty: 2 on 10/03/2024 by Roger Sy MD at [place] [facility] Right: Leg Lower URIEL : TRAUMA [id number] / / 3.5 Mm Locking Screw Implanted:Qty: 1 on 10/03/2024 by Roger Sy MD at [facility] Right: Leg Lower URIEL : TRAUMA [id number] / / documented as of this encounter [...] and were consensually agreed upon. Care Teams Wealth Management Consultant Relationship Specialty Start Date End Date Kendra Go MD [address] [place] [address] [place] [address] PCP - General Family Medicine 05/19/24 documented as of this encounter
--- OUTSIDE RECORDS SUMMARY | 2024-12-20 03:41 | External Medical Summary | Summary of Care ---
Author Name Unknown Organization [facility] Address [address] [place] [address] Phone [phone] Care Team Providers Care Fiberglass Machine Operator Name Role Phone Kendra Go MD Primary Care Provide r Reason for Visit * Reason Onset Date Comments Home Health 11/26/2024 Encounter Details Date Type Department Care Team (Late st Contact Info) Description 11/26/2024 Telephone Family Medicine [address] [place] [phone] Kendra Go MD [address] [place] [address] [place] [address] Home Health Allergies No known active allergiesdocumented as of this encounter (statuses as of 11/27/2024) Medications Pantoprazole Sodium 40 MG Oral Tablet [...] as of this encounter (statuses as of 11/27/2024) Active Problems Problem Noted Date Diagnosed Date [...] as of this encounter (statuses as of 11/27/2024) Resolved Problems Problem Noted Date Diagnosed Date [...] as of this encounter (statuses as of 11/27/2024) Immunizations Name Administration Dates Next Due Pneumococcal [...] 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 Last Office Visit: 05/22/2024 Has patient been scheduled or seen in the office for a follow up visit: Yes- on12/01/2024 Advised that orders will be signed by Kendra Go MD and to fax to the office for signature. [employer] [facility] * Telephone Encounter - Mary Green OSA - 11/26/2024 3:00 PM EST Reason for patient's call: [employer] Caller was transferred to Suzette at the nurse line. documented in this encounter Plan of Treatment Upcoming Encounters Date Type Department Care Team (Late st Contact Info) Description 12/01/2024 3:00 PM EST Office Visit Family Medicine [address] [phone] Jaimee Pittman PA-C [address] [place] [address] [place] [address] 12/10/2024 11:00 AM EST Office [address] [phone] Nathan Siu PA-C [address] [place] [address] [place] [address] 12/25/2024 8:00 AM EDT Imaging Radiology [address], [place] [address] [place] [address] 01/06/2025 10:30 AM EDT Office Visit Orthopaedics, Jennifer [address] [place] [address] Roger Sy MD [address] [place] [address] Health Maintenance Due Date Last Done Comments Adult Wellness Visit 01/18/2002 Zoster Vaccines (3 of 3) 11/29/2020 10/04/2020, 08/10/2014 Depression Monitoring 04/01/2021 04/01/2020 DXA Scan 06/07/2024 06/07/2022, 05/16, 02/25/2019, Additional history exists COVID-19 Vaccine ( season) 2024 Albumin/Creatinine Ratio 05/22/2025 024, 05/21/2023, 05/16/2022, Additional history exists HbA1c 05/22/2025 05/22/2024, 080 04/2023, 05/16/2022, Additional history exists CKD PHOS USE SMARTSET 82432 10/06/202509/15, 05/21/2023, 05/16/2022, Additional history exists CKD HGB USE SMARTSET 48578 10/14/202510/14, 10/13/2024, 10/12/2024, Additional history exists DTap/Tdap Vaccines (2 - Td or Tdap) 10/03/2034 10/03/2024, 09/03/2008, 09/03/2008 Pneumococcal Vaccine: 50+ Years Completed 03/19/2015, 02/26/2003 VITAMIN D LEVEL ONCE IN A LIFETIME-USE SMARTSET# 41811 Completed 10/06/2024, 06/13/2018, 09/02/2014, Additional history exists [...] this encounter Medical Devices Implanted Type Area Certification Engineer Device Identifier Shelf Expiration Date Model / Serial / Lot Proximail Medial Tibial Plate Implanted:Qty: 1 on 10/03/2024 by Roger Sy MD at [place] [facility] Right: Leg Lower URIEL : TRAUMA [id number] / / Screw Nlk A3 Ti 3.5x24mm - [id number] Implanted:Qty: 1 on 10/03/2024 by Roger Sy MD at OR [facility] Right: Leg Lower URIEL : TRAUMA [id number] / / Screw Nlk A3 Ti 3.5x26mm - [id number] Implanted:Qty: 1 on 10/03/2024 by Roger Sy MD at OR [facility] Right: Leg Lower URIEL : TRAUMA [id number] / / Screw Nlk A3 Ti 3.5x28mm - [id number] Implanted:Qty: 1 on 10/03/2024 by Roger Sy MD at OR [facility] Right: Leg Lower URIEL : TRAUMA 277599 / / Screw Nlk A3 Ti 3.5x30mm - [id number] Implanted:Qty: 1 on 10/03/2024 by Roger Sy MD at OR [facility] Right: Leg Lower URIEL : TRAUMA [id number] / / Screw Nlk A3 Ti 3.5x36mm - [id number] Implanted:Qty: 1 on 10/03/2024 by Roger Sy MD at OR [facility] Right: Leg Lower URIEL : TRAUMA [id number] / / Screw Canc A3 Ti 4x48mm Ft - [id number] Implanted:Qty: 1 on 10/03/2024 by Roger Sy MD at OR [facility] Right: Leg Lower URIEL : TRAUMA [id number] / / 3.5 Locking Screw Implanted:Qty: 2 on 10/03/2024 by Roger Sy MD at OR [facility] Right: Leg Lower URIEL : TRAUMA [id number] / / 3.5 Mm Locking Screw Implanted:Qty: 1 on 10/03/2024 by Roger Sy MD at [facility] Right: Leg Lower URIEL : TRAUMA [id number] / / documented as of this encounter [...] and were consensually agreed upon. Care Teams Fiberglass Machine Operator Relationship Specialty Start Date End Date Kendra Go MD [address] [place] [address] [place] [address] PCP - General Family Medicine 05/19/24 documented as of this encounter
--- OUTSIDE RECORDS SUMMARY | 2024-12-20 03:42 | External Medical Summary | Summary of Care ---
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 [...] 11:00 AM EST Office Visit Rheumatology [facility] [address] [place] [phone] Nathan Siu PA-C [address] [facility] [place] [address] 01/06/2025 10:30 AM EDT Office Visit Orthopaedics, Jennifer [address] [place] [address] Roger Sy MD [address] [place], [place] [phone] Health Maintenance Due Date Last Done Comments Adult Wellness Visit 01/18/2002 Zoster Vaccines (3 of 3) 11/29/2020 10/04/2020, 0810/2014 Depression Monitoring 04/01/2021 04/01/2020 DXA Scan 06/07/2024 06/07/2022, 05/16, 02/25/2019, Additional history exists COVID-19 Vaccine ( season) 2024 Albumin/Creatinine Ratio 05/22/2025 024, 05/21/2023, 05/16/2022, Additional history exists HbA1c 05/22/2025 05/22/2024, 04/2023, 05/16/2022, Additional history exists CKD PHOS USE SMARTSET 44234 10/06/202509/15, 05/21/2023, 05/16/2022, Additional history exists CKD HGB USE SMARTSET 07615 10/14/202510/14, 10/13/2024, 10/12/2024, Additional history exists DTap/Tdap Vaccines (2 - Td or Tdap) 10/03/2034 10/03/2024, 09/03/2008, 09/03/2008 Pneumococcal Vaccine: 50+ Years Completed 03/19/2015, 02/26/2003 VITAMIN D LEVEL ONCE IN A LIFETIME-USE SMARTSET# [id number] Completed 10/06/2024, 06/13/2018, 09/02/2014, Additional history exists [...] this encounter Medical Devices Implanted Type Area Regulatory Manager Device Identifier Shelf Expiration Date Model / Serial / Lot Proximail Medial Tibial Plate Implanted:Qty: 1 on 10/03/2024 by Roger Sy MD at [place] [facility] [place] Right: Leg Lower URIEL : TRAUMA [id number] / / Screw Nlk A3 Ti 3.5x24mm - [id number] Implanted:Qty: 1 on 10/03/2024 by Roger Sy MD at [place] [facility] Right: Leg Lower URIEL : TRAUMA [id number] / / Screw Nlk A3 Ti 3.5x26mm - [id number] Implanted:Qty: 1 on 10/03/2024 by Roger Sy MD at [place] [facility] Right: Leg Lower URIEL : TRAUMA 512353 / / Screw Nlk A3 Ti 3.5x28mm - [id number] Implanted:Qty: 1 on 10/03/2024 by Roger Sy MD at [place] [facility] Right: Leg Lower UIREL : TRAUMA [id number] / / Screw Nlk A3 Ti 3.5x30mm - [id number] Implanted:Qty: 1 on 10/03/2024 by Roger Sy MD at [place] [facility] Right: Leg Lower URIEL : TRAUMA 294657 / / Screw Nlk A3 Ti 3.5x36mm - [id number] Implanted:Qty: 1 on 10/03/2024 by Roger Sy MD at [place] [facility] Right: Leg Lower URIEL : TRAUMA 258374 / / Screw Canc A3 Ti 4x48mm Ft - [id number] Implanted:Qty: 1 on 10/03/2024 by Roger Sy MD at [place] [facility] Right: Leg Lower URIEL : TRAUMA [id number] / / 3.5 Locking Screw Implanted:Qty: 2 on 10/03/2024 by Roger Sy MD at [place] [facility] Right: Leg Lower URIEL : TRAUMA [id number] / / 3.5 Mm Locking Screw Implanted:Qty: 1 on 10/03/2024 by Roger Sy MD at [facility] Right: Leg Lower URIEL : TRAUMA 257579 / / documented as of this encounter [...] and were consensually agreed upon. Care Teams Dba Developer Relationship Specialty Start Date End Date Kendra Go MD [address] [place] [address] [place] [address] PCP - General Family Medicine 05/19/24 documented as of this encounter
--- OUTSIDE RECORDS SUMMARY | 2024-12-20 03:42 | External Medical Summary | Summary of Care ---
Author Name Unknown Organization [facility] Address [address] [place] [address] Phone [phone] Care Team Providers Care Orthopedic Nurse Practitioner Name Role Phone Kendra Go MD Primary Care Provide r Reason for Visit * Reason Onset Date Comments Hospital Follow-Up 10/31/2024 Encounter Details Date Type Department Care Team (Late st Contact Info) Description 10/31/2024 Telephone Orthopaedics, [place] [address] [place] [address] Tuan Andrade PA-C [address] [place] [address] Hospital Follow-Up Allergies No known active allergiesdocumented as of this encounter (statuses as of 11/13/2024) Medications Pantoprazole Sodium 40 MG Oral Tablet [...] as of this encounter (statuses as of 11/13/2024) Active Problems Problem Noted Date Diagnosed Date [...] as of this encounter (statuses as of 11/13/2024) Resolved Problems Problem Noted Date Diagnosed Date [...] as of this encounter (statuses as of 11/13/2024) Immunizations Name Administration Dates Next Due Pneumococcal [...] 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 Their number is [phone] * Telephone Encounter - Lucina Welsh OSA - 11/04/2024 2:41 PM EST Unable to reach pt or leave a message * Telephone Encounter - Lorri Olivares RN - 10/31/2024 2:33 PM EST Patient has been admitted to [facility] since 10/24/24 and missed her follow up appointment with ortho. Our team spoke with Leanna Andrade and she needs to have an appointment set up for the beginning of November. documented in this encounter Plan of Treatment Upcoming Encounters Date Type Department Care Team (Late st Contact Info) Description 11/19/2024 10:00 AM EST Office Visit Orthopaedics, [place] [address] [place] [address] Tuan Andrade PA-C [address] [place] [address] 11/27/2024 11:00 AM EST Office Visit Rheumatology [facility] [address] [place] [address] Nathan Siu PA-C [address] [place] [address] Health Maintenance Due Date Last Done Comments Adult Wellness Visit 01/18/2002 Zoster Vaccines (3 of 3) 11/29/2020 10/04/2020, 08/10/2014 Depression Monitoring 04/01/2021 04/01/2020 DXA Scan 06/07/2024 06/07/2022, 05/16, 02/25/2019, Additional history exists COVID-19 Vaccine ( season) 2024 Albumin/Creatinine Ratio 05/22/2025 024, 05/21/2023, 05/16/2022, Additional history exists HbA1c 05/22/2025 05/22/2024, 08/04/2023, 05/16/2022, Additional history exists CKD PHOS USE SMARTSET 23501 10/06/202509/15, 05/21/2023, 05/16/2022, Additional history exists CKD HGB USE SMARTSET 23714 10/14/202510/14, 10/13/2024, 10/12/2024, Additional history exists DTap/Tdap Vaccines (2 - Td or Tdap) 10/03/2034 10/03/2024, 09/03/2008, 09/03/2008 Pneumococcal Vaccine: 50+ Years Completed 03/19/2015, 02/26/2003 VITAMIN D LEVEL ONCE IN A LIFETIME-USE SMARTSET# 28232 Completed 10/06/2024, 06/13/2018, 09/02/2014, Additional history exists [...] this encounter Medical Devices Implanted Type Area Hand Patcher Device Identifier Shelf Expiration Date Model / Serial / Lot Proximail Medial Tibial Plate Implanted:Qty: 1 on 10/03/2024 by Roger Sy MD at [place] [facility] [place] Right: Leg Lower URIEL : TRAUMA [id number] / / Screw Nlk A3 Ti 3.5x24mm - [id number] Implanted:Qty: 1 on 10/03/2024 by Roger Sy MD at OR [facility] [place] Right: Leg Lower URIEL : TRAUMA [id number] / / Screw Nlk A3 Ti 3.5x26mm - [id number] Implanted:Qty: 1 on 10/03/2024 by Roger Sy MD at OR [facility] [place] Right: Leg Lower URIEL : TRAUMA [id number] / / Screw Nlk A3 Ti 3.5x28mm - [id number] Implanted:Qty: 1 on 10/03/2024 by Roger Sy MD at OR [facility] [place] Right: Leg Lower URIEL : TRAUMA [id number] / / Screw Nlk A3 Ti 3.5x30mm - [id number] Implanted:Qty: 1 on 10/03/2024 by Roger Sy MD at OR [facility] [place] Right: Leg Lower URIEL : TRAUMA [id number] / / Screw Nlk A3 Ti 3.5x36mm - [id number] Implanted:Qty: 1 on 10/03/2024 by Roger Sy MD at OR [facility] [place] Right: Leg Lower URIEL : TRAUMA [id number] / / Screw Canc A3 Ti 4x48mm Ft - [id number] Implanted:Qty: 1 on 10/03/2024 by Roger Sy MD at OR [facility] [place] Right: Leg Lower URIEL : TRAUMA [id number] / / 3.5 Locking Screw Implanted:Qty: 2 on 10/03/2024 by Roger Sy MD at OR [facility] [place] Right: Leg Lower URIEL : TRAUMA [id number] / / 3.5 Mm Locking Screw Implanted:Qty: 1 on 10/03/2024 by Roger Sy MD at OR [facility] [place] Right: Leg Lower URIEL : TRAUMA [id number] / / documented as of this encounter [...] and were consensually agreed upon. Care Teams Orthopedic Nurse Practitioner Relationship Specialty Start Date End Date Kendra Go MD [address] [place] [address] [place] [address] PCP - General Family Medicine 05/19/24 documented as of this encounter
--- OUTSIDE RECORDS SUMMARY | 2024-12-20 03:42 | External Medical Summary | Summary of Care ---
Author Name Unknown Organization [facility] Address [address] [place] [address] Phone [phone] Care Team Providers Care Mannequin Molder Name Role Phone Kendra Go MD Primary Care Provide r Reason for Visit * Reason Onset Date Comments Appointment 10/31/2024 Encounter Details Date Type Department Care Team (Late st Contact Info) Description 10/31/2024 Telephone [facility] [place] [address] [place] [address] David Hunter, DUNCAN [address] [place] [address], [place] [phone] Appointment (//) Allergies No known active allergiesdocumented as of this encounter (statuses as of 10/31/2024) Medications Pantoprazole Sodium 40 MG Oral Tablet [...] as of this encounter (statuses as of 10/31/2024) Active Problems Problem Noted Date Diagnosed Date [...] as of this encounter (statuses as of 10/31/2024) Resolved Problems Problem Noted Date Diagnosed Date [...] as of this encounter (statuses as of 10/31/2024) Immunizations Name Administration Dates Next Due Pneumococcal [...] 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 [...] Telephone Encounter - David Hunter OSA - 10/31/2024 9:11 AM EST [facility] episode closed documented in this encounter Plan of Treatment Upcoming Encounters Date Type Department Care Team (Late st Contact Info) Description 11/27/2024 11:00 AM EST Office Visit Rheumatology [facility] [address] [place] [address] Nathan Siu PA-C [address] [facility] [employer] [place] [address] Health Maintenance Due Date Last Done Comments Adult Wellness Visit 01/18/2002 Zoster Vaccines (3 of 3) 11/29/2020 10/04/2020, 08/0 10/2014 Depression Monitoring 04/01/2021 04/01/2020 DXA Scan 06/07/2024 06/07/2022, 05/16, 02/25/2019, Additional history exists COVID-19 Vaccine ( season) 2024 Albumin/Creatinine Ratio 05/22/2025 024, 05/21/2023, 05/16/2022, Additional history exists HbA1c 05/22/2025 05/22/2024, 080 04/2023, 05/16/2022, Additional history exists CKD PHOS USE SMARTSET 04358 10/06/202509/15, 05/21/2023, 05/16/2022, Additional history exists CKD HGB USE SMARTSET 23423 10/14/202510/14, 10/13/2024, 10/12/2024, Additional history exists DTap/Tdap Vaccines (2 - Td or Tdap) 10/03/2034 10/03/2024, 09/03/2008, 09/03/2008 Pneumococcal Vaccine: 50+ Years Completed 03/19/2015, 02/26/2003 VITAMIN D LEVEL ONCE IN A LIFETIME-USE SMARTSET# 87648 Completed 10/06/2024, 06/13/2018, 09/02/2014, Additional history exists [...] this encounter Medical Devices Implanted Type Area County Engineer Device Identifier Shelf Expiration Date Model / Serial / Lot Proximail Medial Tibial Plate Implanted:Qty: 1 on 10/03/2024 by Roger Sy MD at OR [facility] [place] Right: Leg Lower URIEL : TRAUMA [id number] / / Screw Nlk A3 Ti 3.5x24mm - [id number] Implanted:Qty: 1 on 10/03/2024 by Roger Sy MD at [place] [facility] [place] Right: Leg Lower URIEL : TRAUMA 106960 / / Screw Nlk A3 Ti 3.5x26mm - [id number] Implanted:Qty: 1 on 10/03/2024 by Roger Sy MD at [place] [facility] [place] Right: Leg Lower URIEL : TRAUMA [id number] / / Screw Nlk A3 Ti 3.5x28mm - [id number] Implanted:Qty: 1 on 10/03/2024 by Roger Sy MD at [place] [facility] [place] Right: Leg Lower URIEL : TRAUMA [id number] / / Screw Nlk A3 Ti 3.5x30mm - [id number] Implanted:Qty: 1 on 10/03/2024 by Roger Sy MD at [place] [facility] [place] Right: Leg Lower URILE : TRAUMA [id number] / / Screw Nlk A3 Ti 3.5x36mm - [id number] Implanted:Qty: 1 on 10/03/2024 by Roger Sy MD at [place] [facility] [place] Right: Leg Lower URIEL : TRAUMA 144825 / / Screw Canc A3 Ti 4x48mm Ft - [id number] Implanted:Qty: 1 on 10/03/2024 by Roger Sy MD at [place] [facility] [place] Right: Leg Lower URIEL : TRAUMA [id number] / / 3.5 Locking Screw Implanted:Qty: 2 on 10/03/2024 by Roger Sy MD at OR [facility] [place] Right: Leg Lower URIEL : TRAUMA [id number] / / 3.5 Mm Locking Screw Implanted:Qty: 1 on 10/03/2024 by Roger Sy MD at [facility] Right: Leg Lower URIEL : TRAUMA 680546 / / documented as of this encounter [...] 7:21 AM 03/24/2016 2:23 PM This order reflects the patients wishes and were consensually agreed upon. Care Teams Mannequin Molder Relationship Specialty Start Date End Date Kendra Go MD [address] [place] [address] [place] [address] PCP - General Family Medicine 05/19/24 documented as of this encounter
--- OUTSIDE RECORDS SUMMARY | 2024-12-20 03:42 | External Medical Summary | Summary of Care ---
Author Name Unknown Organization [facility] Address [address] [place] [address] Phone [phone] Care Team Providers Care Kids Club Attendant Name Role Phone Kendra Go MD Primary Care Provide r Encounter Details Date Type Department Care Team (Late st Contact Info) Description 11/10/2024 Population Health External Data Unspecified Department Allergies No known active allergiesdocumented as of this encounter (statuses as of 11/10/2024) Medications Pantoprazole Sodium 40 MG Oral Tablet [...] as of this encounter (statuses as of 11/10/2024) Active Problems Problem Noted Date Diagnosed Date [...] as of this encounter (statuses as of 11/10/2024) Resolved Problems Problem Noted Date Diagnosed Date [...] as of this encounter (statuses as of 11/10/2024) Immunizations Name Administration Dates Next Due Pneumococcal [...] 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 [...] Care Team (Late st Contact Info) Description 11/11/2024 2:20 PM EST Office Visit Family Medicine [address] [place] [phone] Kendra Go MD [address] [place] [address] [place] [address] 11/27/2024 11:00 AM EST Office Visit Rheumatology [facility] [address] [place] [phone] Nathan Siu PA-C [address] [place] [address] Health Maintenance Due Date Last Done Comments Adult Wellness Visit 01/18/2002 Zoster Vaccines (3 of 3) 11/29/2020 10/04/2020, 08/0 10/2014 Depression Monitoring 04/01/2021 04/01/2020 DXA Scan 06/07/2024 06/07/2022, 05/16, 02/25/2019, Additional history exists COVID-19 Vaccine ( season) 2024 Albumin/Creatinine Ratio 05/22/2025 024, 05/21/2023, 05/16/2022, Additional history exists HbA1c 05/22/2025 05/22/2024, 080 04/2023, 05/16/2022, Additional history exists CKD PHOS USE SMARTSET 99225 10/06/202509/15, 05/21/2023, 05/16/2022, Additional history exists CKD HGB USE SMARTSET 37006 10/14/202510/14, 10/13/2024, 10/12/2024, Additional history exists DTap/Tdap Vaccines (2 - Td or Tdap) 10/03/2034 10/03/2024, 09/03/2008, 09/03/2008 Pneumococcal Vaccine: 50+ Years Completed 03/19/2015, 02/26/2003 VITAMIN D LEVEL ONCE IN A LIFETIME-USE SMARTSET# [id number] Completed 10/06/2024, 06/13/2018, 09/02/2014, Additional history exists [...] this encounter Medical Devices Implanted Type Area Sales Estimator Device Identifier Shelf Expiration Date Model / Serial / Lot Proximail Medial Tibial Plate Implanted:Qty: 1 on 10/03/2024 by Roger Sy MD at [place] [facility] [place] Right: Leg Lower URIEL : TRAUMA [id number] / / Screw Nlk A3 Ti 3.5x24mm - [id number] Implanted:Qty: 1 on 10/03/2024 by Roger Sy MD at [place] [facility] [place] Right: Leg Lower URIEL : TRAUMA [id number] / / Screw Nlk A3 Ti 3.5x26mm - [id number] Implanted:Qty: 1 on 10/03/2024 by Roger Sy MD at [place] [facility] [place] Right: Leg Lower URIEL : TRAUMA [id number] / / Screw Nlk A3 Ti 3.5x28mm - [id number] Implanted:Qty: 1 on 10/03/2024 by Roger Sy MD at [place] [facility] [place] Right: Leg Lower URIEL : TRAUMA 050985 / / Screw Nlk A3 Ti 3.5x30mm - [id number] Implanted:Qty: 1 on 10/03/2024 by Roger Sy MD at [place] [facility] [place] Right: Leg Lower URIEL : TRAUMA [id number] / / Screw Nlk A3 Ti 3.5x36mm - [id number] Implanted:Qty: 1 on 10/03/2024 by Roger Sy MD at [place] [facility] [place] Right: Leg Lower URIEL : TRAUMA [id number] / / Screw Canc A3 Ti 4x48mm Ft - [id number] Implanted:Qty: 1 on 10/03/2024 by Roger Sy MD at [place] [facility] [place] Right: Leg Lower URIEL : TRAUMA [id number] / / 3.5 Locking Screw Implanted:Qty: 2 on 10/03/2024 by Roger Sy MD at [place] [facility] [place] Right: Leg Lower URIEL : TRAUMA [id number] / / 3.5 Mm Locking Screw Implanted:Qty: 1 on 10/03/2024 by Roger Sy MD at [place] [facility] [place] Right: Leg Lower URIEL : TRAUMA [id number] / / documented as of this encounter [...] and were consensually agreed upon. Care Teams Kids Club Attendant Relationship Specialty Start Date End Date Kendra Go MD [address] [place] [address] [place] [address] PCP - General Family Medicine 05/19/24 documented as of this encounter
--- OUTSIDE RECORDS SUMMARY | 2024-12-20 03:42 | External Medical Summary | Summary of Care ---
Author Name Unknown Organization [facility] Address [address] [place] [address] Phone [phone] Care Team Providers Care House Nurse Name Role Phone Kendra Go MD Primary Care Provide r Reason for Visit * Reason Onset Date Comments Appointment 11/13/2024 Encounter Details Date Type Department Care Team (Late st Contact Info) Description 11/13/2024 Telephone Orthopaedics, [place] [address] [place], [place] [phone] Tuan Andrade PA-C [address] [place] [address] Appointment Allergies No known active allergiesdocumented as of this encounter (statuses as of 11/14/2024) Medications Pantoprazole Sodium 40 MG Oral Tablet [...] as of this encounter (statuses as of 11/14/2024) Active Problems Problem Noted Date Diagnosed Date [...] as of this encounter (statuses as of 11/14/2024) Resolved Problems Problem Noted Date Diagnosed Date [...] as of this encounter (statuses as of 11/14/2024) Immunizations Name Administration Dates Next Due Pneumococcal [...] 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 called back and she is fine with the appt on 5 at 10. * Telephone Encounter - Tuan Andrade PA-C - 11/13/2024 11:59 AM EST Called and left message for Eloisa at the facility. Informed her we will put the patient on the schedule for 11/19/2024 at 10:00 a.m. Please put patient on my schedule. Tuan Andrade PA-C Orthopaedic Trauma * Telephone Encounter - Angelique Dunn OSA - 11/13/2024 10:51 AM EST Eloisa calling in from facility to confirm post op appt they don't have availably to transport her unless appt on 11/19 or 12/05 then they go out until december 16 they are wondering if it can be a telephone or video for appt on 11/25/24 Please call Eloisa back at [phone] Thank you documented in this encounter Plan of Treatment Upcoming Encounters Date Type Department Care Team (Late st Contact Info) Description 11/19/2024 10:00 AM EST Office Visit Orthopaedics, [place] [address] [place] [address] Tuan Andrade PA-C [address] [place] [address] 11/27/2024 11:00 AM EST Office Visit Rheumatology [facility] [address] [place] [phone] Nathan Siu PA-C [address] [place] [address] Health Maintenance Due Date Last Done Comments Adult Wellness Visit 01/18/2002 Zoster Vaccines (3 of 3) 11/29/2020 10/04/2020, 08/0 10/2014 Depression Monitoring 04/01/2021 04/01/2020 DXA Scan 06/07/2024 06/07/2022, 05/16, 02/25/2019, Additional history exists COVID-19 Vaccine ( season) 2024 Albumin/Creatinine Ratio 05/22/2025 024, 05/21/2023, 05/16/2022, Additional history exists HbA1c 05/22/2025 05/22/2024, 08/0 04/2023, 05/16/2022, Additional history exists CKD PHOS USE SMARTSET 71771 10/06/202509/15, 05/21/2023, 05/16/2022, Additional history exists CKD HGB USE SMARTSET 24653 10/14/202510/14, 10/13/2024, 10/12/2024, Additional history exists DTap/Tdap Vaccines (2 - Td or Tdap) 10/03/2034 10/03/2024, 09/03/2008, 09/03/2008 Pneumococcal Vaccine: 50+ Years Completed 03/19/2015, 02/26/2003 VITAMIN D LEVEL ONCE IN A LIFETIME-USE SMARTSET# [id number] Completed 10/06/2024, 06/13/2018, 09/02/2014, Additional history exists [...] this encounter Medical Devices Implanted Type Area Bolter Helper Device Identifier Shelf Expiration Date Model / Serial / Lot Proximail Medial Tibial Plate Implanted:Qty: 1 on 10/03/2024 by Roger Sy MD [place] [facility] [place]: Leg Lower URIEL : TRAUMA [id number] / / Screw Nlk A3 Ti 3.5x24mm - [id number] Implanted:Qty: 1 on 10/03/2024 by Roger Sy MD at [place] [facility] [place] Right: Leg Lower URIEL : TRAUMA 316295 / / Screw Nlk A3 Ti 3.5x26mm - [id number] Implanted:Qty: 1 on 10/03/2024 by Roger Sy MD at [place] [facility] [place] Right: Leg Lower URIEL : TRAUMA [id number] / / Screw Nlk A3 Ti 3.5x28mm - [id number] Implanted:Qty: 1 on 10/03/2024 by Roger Sy MD at [place] [facility] [place] Right: Leg Lower URIEL : TRAUMA [id number] / / Screw Nlk A3 Ti 3.5x30mm - [id number] Implanted:Qty: 1 on 10/03/2024 by Roger Sy MD at [place] [facility] [place] Right: Leg Lower URIEL : TRAUMA 025924 / / Screw Nlk A3 Ti 3.5x36mm - [id number] Implanted:Qty: 1 on 10/03/2024 by Roger Sy MD at [place] [facility] [place] Right: Leg Lower URIEL : TRAUMA 188499 / / Screw Canc A3 Ti 4x48mm Ft - [id number] Implanted:Qty: 1 on 10/03/2024 by Roger Sy MD at [place] [facility] [place] Right: Leg Lower URIEL : TRAUMA 320908 / / 3.5 Locking Screw Implanted:Qty: 2 on 10/03/2024 by Roger Sy MD at [place] [facility] [place] Right: Leg Lower URIEL : TRAUMA [id number] / / 3.5 Mm Locking Screw Implanted:Qty: 1 on 10/03/2024 by Roger Sy MD at [place] [facility] [place] Right: Leg Lower URILE : TRAUMA [id number] / / documented as of this encounter [...] and were consensually agreed upon. Care Teams House Nurse Relationship Specialty Start Date End Date Kendra Go MD [address] [place] [address] [place] [address] PCP - General Family Medicine 05/19/24 documented as of this encounter
--- OUTSIDE RECORDS SUMMARY | 2024-12-20 03:42 | External Medical Summary | Summary of Care ---
Author Name Unknown Organization [facility] Address [address] [place] [address] Phone [phone] Care Team Providers Care Intermodal Truck Driver Name Role Phone Kendra Go MD Primary Care Provide r Encounter Details Date Type Department Care Team (Late st Contact Info) Description 11/03/2024 Population Health External Data Unspecified Department Allergies No known active allergiesdocumented as of this encounter (statuses as of 11/03/2024) Medications Pantoprazole Sodium 40 MG Oral Tablet [...] as of this encounter (statuses as of 11/03/2024) Active Problems Problem Noted Date Diagnosed Date [...] as of this encounter (statuses as of 11/03/2024) Resolved Problems Problem Noted Date Diagnosed Date [...] as of this encounter (statuses as of 11/03/2024) Immunizations Name Administration Dates Next Due Pneumococcal [...] 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 Not [...] 11/27/2024 11:00 AM EST Office Visit Rheumatology [facility] [address] [place] [phone] Nathan Siu [facility]-C [address] [facility] [address] Health Maintenance Due Date Last Done Comments Adult Wellness Visit 01/18/2002 Zoster Vaccines (3 of 3) 11/29/2020 10/04/2020, 08/0 10/2014 Depression Monitoring 04/01/2021 04/01/2020 DXA Scan 06/07/2024 06/07/2022, 05/16, 02/25/2019, Additional history exists COVID-19 Vaccine ( season) 2024 Albumin/Creatinine Ratio 05/22/2025 024, 05/21/2023, 05/16/2022, Additional history exists HbA1c 05/22/2025 05/22/2024, 08/0 04/2023, 05/16/2022, Additional history exists CKD PHOS USE SMARTSET 39237 10/06/202509/15, 05/21/2023, 05/16/2022, Additional history exists CKD HGB USE SMARTSET 50271 10/14/202510/14, 10/13/2024, 10/12/2024, Additional history exists DTap/Tdap Vaccines (2 - Td or Tdap) 10/03/2034 10/03/2024, 09/03/2008, 09/03/2008 Pneumococcal Vaccine: 50+ Years Completed 03/19/2015, 02/26/2003 VITAMIN D LEVEL ONCE IN A LIFETIME-USE SMARTSET# 56790 Completed 10/06/2024, 06/13/2018, 09/02/2014, Additional history exists [...] this encounter Medical Devices Implanted Type Area Mainspring Winder And Oiler Device Identifier Shelf Expiration Date Model / Serial / Lot Proximail Medial Tibial Plate Implanted:Qty: 1 on 10/03/2024 by Roger Sy MD at OR [facility] [place] Right: Leg Lower URIEL : TRAUMA [id number] / / Screw Nlk A3 Ti 3.5x24mm - [id number] Implanted:Qty: 1 on 10/03/2024 by Roger Sy MD at OR [facility] [place] Right: Leg Lower URIEL : TRAUMA 878761 / / Screw Nlk A3 Ti 3.5x26mm - [id number] Implanted:Qty: 1 on 10/03/2024 by Roger Sy MD at OR [facility] [place] Right: Leg Lower URIEL : TRAUMA 560652 / / Screw Nlk A3 Ti 3.5x28mm - [id number] Implanted:Qty: 1 on 10/03/2024 by Roger Sy MD at OR [facility] [place] Right: Leg Lower URIEL : TRAUMA [id number] / / Screw Nlk A3 Ti 3.5x30mm - [id number] Implanted:Qty: 1 on 10/03/2024 by Roger Sy MD at OR [facility] [place] Right: Leg Lower URIEL : TRAUMA 250612 / / Screw Nlk A3 Ti 3.5x36mm - [id number] Implanted:Qty: 1 on 10/03/2024 by Roger Sy MD at OR [facility] [place] Right: Leg Lower URIEL : TRAUMA 826312 / / Screw Canc A3 Ti 4x48mm Ft - [id number] Implanted:Qty: 1 on 10/03/2024 by Roger Sy MD at OR [facility] [place] Right: Leg Lower URIEL : TRAUMA [id number] / / 3.5 Locking Screw Implanted:Qty: 2 on 10/03/2024 by Roger Sy MD at OR [facility] [place] Right: Leg Lower URIEL : TRAUMA 178268 / / 3.5 Mm Locking Screw Implanted:Qty: 1 on 10/03/2024 by Roger Sy MD at OR [facility] [place] Right: Leg Lower URIEL : TRAUMA [id number] / / documented as of this encounter [...] and were consensually agreed upon. Care Teams Intermodal Truck Driver Relationship Specialty Start Date End Date Kendra Go MD [address] [place] [address] [place] [phone] PCP - General Family Medicine 05/19/24 documented as of this encounter
--- OUTSIDE RECORDS SUMMARY | 2024-12-20 03:43 | External Medical Summary | Summary of Care ---
Author Name Unknown Organization [facility] Address [address] [place] [address] Phone [phone] Care Team Providers Care Printing Sign Machine Operator Name Role Phone Kendra Go MD Primary Care Provide r Reason for Visit * Reason Onset Date Comments [facility]: Maintenance 10/28/2024 Encounter Details Date Type Department Care Team (Late st Contact Info) Description 10/28/2024 12:15 PM EST Scheduled Telephone [facility], [facility] [address] [place] [facility] [place] [address] [facility] [address] [place] [address] Allergies No known active allergiesdocumented as of this encounter (statuses as of 10/28/2024) Medications Pantoprazole Sodium 40 MG Oral Tablet [...] as of this encounter (statuses as of 10/28/2024) Active Problems Problem Noted Date Diagnosed Date [...] as of this encounter (statuses as of 10/28/2024) Resolved Problems Problem Noted Date Diagnosed Date [...] as of this encounter (statuses as of 10/28/2024) Immunizations Name Administration Dates Next Due Pneumococcal [...] 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 Pt d/c from facility AMA. Apologized for not returning phone call. CW will change management administrator for enrollment team Anel Moreira Knife Edger [facility] [email or web address] documented in this encounter Plan of Treatment Upcoming Encounters Date Type Department Care Team (Late st Contact Info) Description 11/27/2024 11:00 AM EST Office Visit Rheumatology [facility] [address] [place] [phone] Nathan Siu PA-Melissa [address] [place] [address] Health Maintenance Due Date Last Done Comments Adult Wellness Visit 01/18/2002 Zoster Vaccines (3 of 3) 11/29/2020 10/04/2020, 0810/2014 Depression Monitoring 04/01/2021 04/01/2020 DXA Scan 06/07/2024 06/07/2022, 05/16, 02/25/2019, Additional history exists COVID-19 Vaccine ( season) 2024 Albumin/Creatinine Ratio 05/22/2025 024, 05/21/2023, 05/16/2022, Additional history exists HbA1c 05/22/2025 05/22/2024, 0804/2023, 05/16/2022, Additional history exists CKD PHOS USE SMARTSET 90458 10/06/202509/15, 05/21/2023, 05/16/2022, Additional history exists CKD HGB USE SMARTSET 51925 10/14/202510/14, 10/13/2024, 10/12/2024, Additional history exists DTap/Tdap Vaccines (2 - Td or Tdap) 10/03/2034 10/03/2024, 09/03/2008, 09/03/2008 Pneumococcal Vaccine: 50+ Years Completed 03/19/2015, 02/26/2003 VITAMIN D LEVEL ONCE IN A LIFETIME-USE SMARTSET# 53781 Completed 10/06/2024, 06/13/2018, 09/02/2014, Additional history exists [...] this encounter Medical Devices Implanted Type Area Statement Clerks Supervisor Device Identifier Shelf Expiration Date Model / Serial / Lot Proximail Medial Tibial Plate Implanted:Qty: 1 on 10/03/2024 by Roger Sy MD at OR [facility] Right: Leg Lower URIEL : TRAUMA [id number] / / Screw Nlk A3 Ti 3.5x24mm - [id number] Implanted:Qty: 1 on 10/03/2024 by Roger Sy MD at OR [facility] [place] Right: Leg Lower URIEL : TRAUMA [id number] / / Screw Nlk A3 Ti 3.5x26mm - [id number] Implanted:Qty: 1 on 10/03/2024 by Roger Sy MD at OR [facility] [place] [facility] Right: Leg Lower URIEL : TRAUMA 326778 / / Screw Nlk A3 Ti 3.5x28mm - [id number] Implanted:Qty: 1 on 10/03/2024 by Roger Sy MD at OR [facility] [place] [facility] Right: Leg Lower URIEL : TRAUMA [id number] / / Screw Nlk A3 Ti 3.5x30mm - [id number] Implanted:Qty: 1 on 10/03/2024 by Roger Sy MD at OR [facility] [place] [facility] Right: Leg Lower URIEL : TRAUMA [id number] / / Screw Nlk A3 Ti 3.5x36mm - [id number] Implanted:Qty: 1 on 10/03/2024 by Roger Sy MD at OR [facility] [place] [facility] Right: Leg Lower URIEL : TRAUMA [id number] / / Screw Canc A3 Ti 4x48mm Ft - [id number] Implanted:Qty: 1 on 10/03/2024 by Roger Sy MD at OR [facility] [place] [facility] Right: Leg Lower URIEL : TRAUMA [id number] / / 3.5 Locking Screw Implanted:Qty: 2 on 10/03/2024 by Roger Sy MD at [facility] Right: Leg Lower URIEL : TRAUMA [id number] / / 3.5 Mm Locking Screw Implanted:Qty: 1 on 10/03/2024 by Roger Sy MD at OR [facility] Right: Leg Lower URIEL : TRAUMA [id number] / / documented as of this encounter [...] and were consensually agreed upon. Care Teams Printing Sign Machine Operator Relationship Specialty Start Date End Date Kendra Go MD [address] [place] [address] [place] [address] PCP - General Family Medicine 05/19/24 documented as of this encounter
--- OUTSIDE RECORDS SUMMARY | 2024-12-20 03:43 | External Medical Summary | Summary of Care ---
Author Name Unknown Organization [facility] Address [address] [place] [address] Phone [phone] Care Team Providers Care Director Of Development Name Role Phone Kendra Go MD Primary Care Provide r Reason for Visit * Reason Onset Date Comments Appointment 10/29/2024 Encounter Details Date Type Department Care Team (Late st Contact Info) Description 10/29/2024 Telephone [facility], [place] [facility] [address] [place] [address] David Hunter, [place] [address] [place], [place] [phone] Appointment (//) Allergies No known active allergiesdocumented as of this encounter (statuses as of 10/29/2024) Medications Pantoprazole Sodium 40 MG Oral Tablet [...] as of this encounter (statuses as of 10/29/2024) Active Problems Problem Noted Date Diagnosed Date [...] as of this encounter (statuses as of 10/29/2024) Resolved Problems Problem Noted Date Diagnosed Date [...] as of this encounter (statuses as of 10/29/2024) Immunizations Name Administration Dates Next Due Pneumococcal [...] 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 Not [...] Telephone Encounter - David Hunter OSA - 10/29/2024 8:46 AM EST 10/29-[facility] Looking at [facility] 11/04 documented in this encounter Plan of Treatment Upcoming Encounters Date Type Department Care Team (Late st Contact Info) Description 11/27/2024 11:00 AM EST Office Visit Rheumatology [facility] [address] [place] [phone] Nathan Siu PA-C [address] [place] [address] Health Maintenance Due Date Last Done Comments Adult Wellness Visit 01/18/2002 Zoster Vaccines (3 of 3) 11/29/2020 10/04/2020, 08/0 10/2014 Depression Monitoring 04/01/2021 04/01/2020 DXA Scan 06/07/2024 06/07/2022, 05/16, 02/25/2019, Additional history exists COVID-19 Vaccine ( season) 2024 Albumin/Creatinine Ratio 05/22/2025 024, 05/21/2023, 05/16/2022, Additional history exists HbA1c 05/22/2025 05/22/2024, 08/0 04/2023, 05/16/2022, Additional history exists CKD PHOS USE SMARTSET 75785 10/06/202509/15, 05/21/2023, 05/16/2022, Additional history exists CKD HGB USE SMARTSET 08155 10/14/202510/14, 10/13/2024, 10/12/2024, Additional history exists DTap/Tdap Vaccines (2 - Td or Tdap) 10/03/2034 10/03/2024, 09/03/2008, 09/03/2008 Pneumococcal Vaccine: 50+ Years Completed 03/19/2015, 02/26/2003 VITAMIN D LEVEL ONCE IN A LIFETIME-USE SMARTSET# 19717 Completed 10/06/2024, 06/13/2018, 09/02/2014, Additional history exists [...] this encounter Medical Devices Implanted Type Area Lvn Lpn Device Identifier Shelf Expiration Date Model / Serial / Lot Proximail Medial Tibial Plate Implanted:Qty: 1 on 10/03/2024 by Roger Sy MD at OR [facility] [place] Right: Leg Lower URIEL : TRAUMA [id number] / / Screw Nlk A3 Ti 3.5x24mm - [id number] Implanted:Qty: 1 on 10/03/2024 by Roger Sy MD at OR [facility] Right: Leg Lower URIEL : TRAUMA [id number] / / Screw Nlk A3 Ti 3.5x26mm - [id number] Implanted:Qty: 1 on 10/03/2024 by Roger Sy MD at OR [facility] Right: Leg Lower URIEL : TRAUMA 058894 / / Screw Nlk A3 Ti 3.5x28mm - [id number] Implanted:Qty: 1 on 10/03/2024 by Roger Sy MD at OR [facility] Right: Leg Lower URIEL : TRAUMA [id number] / / Screw Nlk A3 Ti 3.5x30mm - [id number] Implanted:Qty: 1 on 10/03/2024 by Roger Sy MD at OR [facility] Right: Leg Lower URIEL : TRAUMA [id number] / / Screw Nlk A3 Ti 3.5x36mm - [id number] Implanted:Qty: 1 on 10/03/2024 by Roger Sy MD at OR [facility] Right: Leg Lower URIEL : TRAUMA [id number] / / Screw Canc A3 Ti 4x48mm Ft - [id number] Implanted:Qty: 1 on 10/03/2024 by Roger Sy MD at OR [facility] Right: Leg Lower URIEL : TRAUMA [id number] / / 3.5 Locking Screw Implanted:Qty: 2 on 10/03/2024 by Roger Sy MD at OR [facility] [place] Right: Leg Lower URIEL : TRAUMA [id number] / / 3.5 Mm Locking Screw Implanted:Qty: 1 on 10/03/2024 by Roger Sy MD at [facility] Right: Leg Lower URIEL : TRAUMA [id number] / / documented as of this encounter [...] and were consensually agreed upon. Care Teams Director Of Development Relationship Specialty Start Date End Date Kendra Go MD [address] [place] [address] [place] [address] PCP - General Family Medicine 05/19/24 documented as of this encounter
--- OUTSIDE RECORDS SUMMARY | 2024-12-20 03:43 | External Medical Summary | Summary of Care ---
Author Name Unknown Organization [facility] Address [address] [place] [address] Phone [phone] Care Team Providers Care Nurse Practitioner Physicians Assistant Name Role Phone Kendra Go MD Primary Care Provide r Reason for Visit * Reason Onset Date Comments Appointment 10/30/2024 Encounter Details Date Type Department Care Team (Late st Contact Info) Description 10/30/2024 Telephone [facility], [place] [facility] [address] [place], [place] [phone] David Hunter, D[place] [address] [place], [place] [phone] Appointment (//) Allergies No known active allergiesdocumented as of this encounter (statuses as of 10/30/2024) Medications Pantoprazole Sodium 40 MG Oral Tablet [...] as of this encounter (statuses as of 10/30/2024) Active Problems Problem Noted Date Diagnosed Date [...] as of this encounter (statuses as of 10/30/2024) Resolved Problems Problem Noted Date Diagnosed Date [...] as of this encounter (statuses as of 10/30/2024) Immunizations Name Administration Dates Next Due Pneumococcal [...] 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 [...] Telephone Encounter - David Hunter OSA - 10/30/2024 9:18 AM EST 10/30-[facility] Looking at [facility] 11/04 documented in this encounter Plan of Treatment Upcoming Encounters Date Type Department Care Team (Late st Contact Info) Description 11/27/2024 11:00 AM EST Office Visit Rheumatology [facility] [address] [place] [phone] Nathan Siu PA-C [address] [place] [address] Health Maintenance Due Date Last Done Comments Adult Wellness Visit 01/18/2002 Zoster Vaccines (3 of 3) 11/29/2020 10/04/2020, 08/0 10/2014 Depression Monitoring 04/01/2021 04/01/2020 DXA Scan 06/07/2024 06/07/2022, 05/16, 02/25/2019, Additional history exists COVID-19 Vaccine ( season) 2024 Albumin/Creatinine Ratio 05/22/2025 024, 05/21/2023, 05/16/2022, Additional history exists HbA1c 05/22/2025 05/22/2024, 08/0 04/2023, 05/16/2022, Additional history exists CKD PHOS USE SMARTSET 75990 10/06/202509/15, 05/21/2023, 05/16/2022, Additional history exists CKD HGB USE SMARTSET 71334 10/14/202510/14, 10/13/2024, 10/12/2024, Additional history exists DTap/Tdap Vaccines (2 - Td or Tdap) 10/03/2034 10/03/2024, 09/03/2008, 09/03/2008 Pneumococcal Vaccine: 50+ Years Completed 03/19/2015, 02/26/2003 VITAMIN D LEVEL ONCE IN A LIFETIME-USE SMARTSET# 58812 Completed 10/06/2024, 06/13/2018, 09/02/2014, Additional history exists [...] this encounter Medical Devices Implanted Type Area Director Of Public Works Device Identifier Shelf Expiration Date Model / Serial / Lot Proximail Medial Tibial Plate Implanted:Qty: 1 on 10/03/2024 by Roger Sy MD at OR [facility] Right: Leg Lower URIEL : TRAUMA [id number] / / Screw Nlk A3 Ti 3.5x24mm - [id number] Implanted:Qty: 1 on 10/03/2024 by Roger Sy MD at OR [facility] Right: Leg Lower URIEL : TRAUMA [id number] / / Screw Nlk A3 Ti 3.5x26mm - [id number] Implanted:Qty: 1 on 10/03/2024 by Roger Sy MD at OR [facility] Right: Leg Lower URIEL : TRAUMA 213440 / / Screw Nlk A3 Ti 3.5x28mm - [id number] Implanted:Qty: 1 on 10/03/2024 by Roger Sy MD at OR [facility] Right: Leg Lower URIEL : TRAUMA [id number] / / Screw Nlk A3 Ti 3.5x30mm - [id number] Implanted:Qty: 1 on 10/03/2024 by Roger Sy MD at OR [facility] Right: Leg Lower URIEL : TRAUMA 364385 / / Screw Nlk A3 Ti 3.5x36mm - [id number] Implanted:Qty: 1 on 10/03/2024 by Roger Sy MD at OR [facility] Right: Leg Lower URIEL : TRAUMA [id number] / / Screw Canc A3 Ti 4x48mm Ft - [id number] Implanted:Qty: 1 on 10/03/2024 by Roger Sy MD at OR [facility] Right: Leg Lower URIEL : TRAUMA [id number] / / 3.5 Locking Screw Implanted:Qty: 2 on 10/03/2024 by Roger Sy MD at OR [facility] Right: Leg Lower URIEL : TRAUMA [id number] / / 3.5 Mm Locking Screw Implanted:Qty: 1 on 10/03/2024 by Roger Sy MD at [facility] Right: Leg Lower URIEL : TRAUMA [id number] / / documented as of this encounter [...] and were consensually agreed upon. Care Teams Nurse Practitioner Physicians Assistant Relationship Specialty Start Date End Date Kendra Go MD [address] [place] [address] [place] [address] PCP - General Family Medicine 05/19/24 documented as of this encounter
--- OUTSIDE RECORDS SUMMARY | 2024-12-20 03:43 | External Medical Summary | Summary of Care ---
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 Not on [...] Hunter OSA - 10/29/2024 8:46 AM EST 10/29-[facility]1 Looking at [facility] 11/04 documented in this encounter Plan of Treatment Upcoming Encounters Date Type Department Care Team (Late st Contact Info) Description 11/27/2024 11:00 AM EST Office Visit Rheumatology [facility] [address] [place] [phone] Nathan Siu PA-C [address] [place] [address] Health Maintenance Due Date Last Done Comments Adult Wellness Visit 01/18/2002 Zoster Vaccines (3 of 3) 11/29/2020 10/04/2020, 08/0 10/2014 Depression Monitoring 04/01/2021 04/01/2020 DXA Scan 06/07/2024 06/07/2022, 05/16, 02/25/2019, Additional history exists COVID-19 Vaccine ( season) 2024 Albumin/Creatinine Ratio 05/22/2025 024, 05/21/2023, 05/16/2022, Additional history exists HbA1c 05/22/2025 05/22/2024, 08/0 04/2023, 05/16/2022, Additional history exists CKD PHOS USE SMARTSET 98982 10/06/202509/15, 05/21/2023, 05/16/2022, Additional history exists CKD HGB USE SMARTSET 94091 10/14/202510/14, 10/13/2024, 10/12/2024, Additional history exists DTap/Tdap Vaccines (2 - Td or Tdap) 10/03/2034 10/03/2024, 09/03/2008, 09/03/2008 Pneumococcal Vaccine: 50+ Years Completed 03/19/2015, 02/26/2003 VITAMIN D LEVEL ONCE IN A LIFETIME-USE SMARTSET# 45735 Completed 10/06/2024, 06/13/2018, 09/02/2014, Additional history exists [...] this encounter Medical Devices Implanted Type Area Drafting Layout Man Device Identifier Shelf Expiration Date Model / Serial / Lot Proximail Medial Tibial Plate Implanted:Qty: 1 on 10/03/2024 by Roger Sy MD at OR [facility] Right: Leg Lower URIEL : TRAUMA [id number] / / Screw Nlk A3 Ti 3.5x24mm - [id number] Implanted:Qty: 1 on 10/03/2024 by Roger Sy MD at OR [facility] Right: Leg Lower URIEL : TRAUMA 995539 / / Screw Nlk A3 Ti 3.5x26mm - [id number] Implanted:Qty: 1 on 10/03/2024 by Roger Sy MD at OR [facility] Right: Leg Lower URIEL : TRAUMA 310785 / / Screw Nlk A3 Ti 3.5x28mm - [id number] Implanted:Qty: 1 on 10/03/2024 by Roger Sy MD at OR [facility] Right: Leg Lower URIEL : TRAUMA [id number] / / Screw Nlk A3 Ti 3.5x30mm - [id number] Implanted:Qty: 1 on 10/03/2024 by Roger Sy MD at OR [facility] Right: Leg Lower URIEL : TRAUMA 428258 / / Screw Nlk A3 Ti 3.5x36mm - [id number] Implanted:Qty: 1 on 10/03/2024 by Roger Sy MD at OR [facility] Right: Leg Lower URIEL : TRAUMA [id number] / / Screw Canc A3 Ti 4x48mm Ft - [id number] Implanted:Qty: 1 on 10/03/2024 by Roger Sy MD at OR [facility] Right: Leg Lower URIEL : TRAUMA 359826 / / 3.5 Locking Screw Implanted:Qty: 2 on 10/03/2024 by Roger Sy MD at OR [facility] Right: Leg Lower URIEL : TRAUMA 341941 / / 3.5 Mm Locking Screw Implanted:Qty: 1 on 10/03/2024 by Roger Sy MD at [facility] Right: Leg Lower URIEL : TRAUMA 074485 / / documented as of this encounter [...] and were consensually agreed upon. Care Teams Resident Care Technician Relationship Specialty Start Date End Date Kendra Go MD [address] [place] [address] [place] [address] PCP - General Family Medicine 05/19/24 documented as of this encounter
--- OUTSIDE RECORDS SUMMARY | 2024-12-20 03:43 | External Medical Summary | Summary of Care ---
Author Name Unknown Organization [facility] Address [address] [place] [address] Phone [phone] Care Team Providers Care Stitcher Standard Machine Name Role Phone Kendra Go MD Primary Care Provide r Encounter Details Date Type Department Care Team (Late st Contact Info) Description 10/27/2024 Population Health External Data Unspecified Department Allergies No known active allergiesdocumented as of this encounter (statuses as of 10/27/2024) Medications Pantoprazole Sodium 40 MG Oral Tablet [...] continuation of pain therapy). 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 [...] PM EST Scheduled Telephone [facility], [facility] [address] [place] [address] Anel Moreira, [address] [place] [address] 11/27/2024 11:00 AM EST Office Visit Rheumatology [facility] [address] [place] [address] Nathan Siu PA-C [address] [place] [address] Health Maintenance Due Date Last Done Comments Adult Wellness Visit 01/18/2002 Zoster Vaccines (3 of 3) 11/29/2020 10/04/2020, 10/2014 Depression Monitoring 04/01/2021 04/01/2020 DXA Scan 06/07/2024 06/07/2022, 05/16, 02/25/2019, Additional history exists COVID-19 Vaccine ( season) 2024 Albumin/Creatinine Ratio 05/22/2025 024, 05/21/2023, 05/16/2022, Additional history exists HbA1c 05/22/2025 05/22/2024, 04/2023, 05/16/2022, Additional history exists CKD PHOS USE SMARTSET 49347 10/06/202509/15, 05/21/2023, 05/16/2022, Additional history exists CKD HGB USE SMARTSET 03406 10/14/202510/14, 10/13/2024, 10/12/2024, Additional history exists DTap/Tdap Vaccines (2 - Td or Tdap) 10/03/2034 10/03/2024, 09/03/2008, 09/03/2008 Pneumococcal Vaccine: 50+ Years Completed 03/19/2015, 02/26/2003 VITAMIN D LEVEL ONCE IN A LIFETIME-USE SMARTSET# [id number] Completed 10/06/2024, 06/13/2018, 09/02/2014, Additional history exists [...] this encounter Medical Devices Implanted Type Area Nursery School Attendant Device Identifier Shelf Expiration Date Model / Serial / Lot Proximail Medial Tibial Plate Implanted:Qty: 1 on 10/03/2024 by Roger Sy MD at OR [facility] Right: Leg Lower URIEL : TRAUMA [id number] / / Screw Nlk A3 Ti 3.5x24mm - [id number] Implanted:Qty: 1 on 10/03/2024 by Roger Sy MD at OR [facility] Right: Leg Lower URIEL : TRAUMA 935288 / / Screw Nlk A3 Ti 3.5x26mm - [id number] Implanted:Qty: 1 on 10/03/2024 by Roger Sy MD at OR [facility] Right: Leg Lower URIEL : TRAUMA 940908 / / Screw Nlk A3 Ti 3.5x28mm - [id number] Implanted:Qty: 1 on 10/03/2024 by Roger Sy MD at OR [facility] Right: Leg Lower URIEL : TRAUMA 709520 / / Screw Nlk A3 Ti 3.5x30mm - [id number] Implanted:Qty: 1 on 10/03/2024 by Roger Sy MD at OR [facility] Right: Leg Lower URIEL : TRAUMA 663201 / / Screw Nlk A3 Ti 3.5x36mm - [id number] Implanted:Qty: 1 on 10/03/2024 by Roger Sy MD at OR [facility] Right: Leg Lower URIEL : TRAUMA 085357 / / Screw Canc A3 Ti 4x48mm Ft - [id number] Implanted:Qty: 1 on 10/03/2024 by Roger Sy MD at OR [facility] Right: Leg Lower URIEL : TRAUMA [id number] / / 3.5 Locking Screw Implanted:Qty: 2 on 10/03/2024 by Roger Sy MD at OR [facility] Right: Leg Lower URIEL : TRAUMA 929963 / / 3.5 Mm Locking Screw Implanted:Qty: 1 on 10/03/2024 by Roger Sy MD at [facility] Right: Leg Lower URIEL : TRAUMA 163825 / / documented as of this encounter [...] and were consensually agreed upon. Care Teams Stitcher Standard Machine Relationship Specialty Start Date End Date Kendra Go MD [address] [place] [address] [place] [address] PCP - General Family Medicine 05/19/24 documented as of this encounter
[2024-12-20 06:30] LABS: Hematocrit (blood only) 38.8 % (37.0-47.0); Hemoglobin 12.6 g/dl (12.0-16.0); Mean Corpuscular Hemoglobin 28.1 pg (25.0-34.0); Mean Corpuscular Hgb Conc 32.5 g/dL (32.0-36.0); Mean Corpuscular Volume 86.4 fL (80.0-100.0); Platelet Count 189 K/uL (130-400); RDW Standard Deviation 50.6 fL (36.4-46.3); Red Blood Count 4.49 M/uL (4.20-5.40); White Blood Count 7.13 K/ul (4.8-10.8)
[2024-12-20 06:48] LABS: BUN Creatinine Ratio 23.4 (10-20); Calcium 8.8 mg/dl (8.6-10.3); Creatinine Clr Calc Pharmacy 36.3 ml/min; Potassium 3.6 mmol/L (3.5-5.1)
--- NOTE | 2024-12-20 07:35 | Hospitalist Progress Note ---
Date of Service December 20, 2024 Assessment & Plan (1) Fall: (2) Fracture of proximal end of left tibia: Plan: Carolyn Bond is an 89y/o F with PMHx significant for HTN, HLD, prediabetes, history of SVT, bradycardia, nonrheumatic aortic stenosis, nonrheumatic mitral valve regurgitation, GERD without esophagitis, large hiatal hernia, IPMN, angiomyolipoma of both kidneys, CKD stage IIIa, age-related osteoporosis, lumbar DDD, bilateral hearing loss and depression who presented to the ED via EMS on 12/19/24 after being found scooting around on the floor at home by her family as she was unable to get up on her own. Found to have a proximal L tibial fracture s/p fall ISO age-related osteoporosis. Additional imaging include head CT and CXR performed in the ED were unremarkable. Appreciate orthopedic surgery consult and PT/OT evaluations. Conservative management for now with bracing and NWB on LLE. Appointment needed with Dr. Ramirez in about 2 weeks for repeat imaging; could potentially require operative management if the fracture were to become displaced. (3) Unable to care for self: Plan: Patient currently living at home alone per discussion with her daughter, Enedina, today. Suspected underlying cognitive decline versus dementia. No signs of delirium at this time. Family is currently working with the office of aging to arrange long-term placement as the patient is experiencing difficulties caring for self while out at home. Would certainly benefit from assisted living. Continue with delirium prevention measures: raising blinds during the day, closing at night, frequent re-orientation, contact with family/friends, explaining procedures/nursing care measures prior to physical contact, correct any hearing and visual impairments (patient notably [facility] at baseline). (4) Fracture of right tibial plateau: Plan: Recent R tibial plateau fracture s/p ORIF on 10/03/[address] Sy at [facility]. Updated R knee XR with unchanged internal fixation of a fracture of the proximal R tibia and unchanged medial compartment osteoarthritis. Saw Tuan Andrade PA-C at [facility] on 11/19/24; discontinued the use of her knee immobilizer. Was also instructed at that visit to begin partial weight bearing at 30 to 40 pounds increasing 10 to 15 pounds a week. Has an appointment with Dr. Sy on 01/06/25. (5) Diverticulitis: Plan: Incidental finding of mild acute diverticulitis on CTAP. Patient completely asymptomatic. Low fiber diet/dietitian consulted. Denies any abdominal pain, diarrhea or N/V. S/p Unasyn in the ED. Set to complete 5-day course of po Augmentin. Remains afebrile. No leukocytosis. (6) PAF (paroxysmal atrial fibrillation): Plan: Evaluated by [facility] cardiology back in June 2023. 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 Beta-shea therapy not advised unless post pacemaker implantation. Risk of anticoagulation thought to outweigh the benefit given her frequent falls. EKG x 2 and telemetry monitoring reveal rate-controlled A-fib. Continue telemetry monitoring for now. (7) Elevated creatine kinase level: Plan: Noted on admission. Now resolved s/p IVF. (8) Hypertension: Plan: BP controlled, would not aim for strict BP control given patient's advanced age. Continue to hold home amlodipine for now. (9) Heart valve disease: (10) Diastolic dysfunction: Plan: Currently not on any diuretics. Appears euvolemic on exam today. Resting echocardiogram from October 2024 with LVEF = 60-65%, moderate concentric LVH, grade I DD, severely dilated LA, mild , mild CT, mild MR and mild TR. (11) GERD (gastroesophageal reflux disease): Plan: Chronic, stable. Continue PPI. Other chronic medical conditions: * Chronic anemia - Hgb remains stable. Continue iron supplementation. * Depression - Continue Lexapro. HLD - Continue statin. Seasonal allergies - Continue Flonase. DVT Prophylaxis: SQ Heparin Code Status: DNR/DNI PCP: Kendra Go MD Disposition: Will need placement. Appreciate PT/OT evaluations. CM to assist with this. Updated daughter, Enedina, over the phone. Patient seen in collaboration with Dr. Peck. Please see addendum. I spent a total of 45 minutes coordinating, documenting, and providing care for this patient excluding time spent in the performance of separately billed services or time spent by another provider/QHP. This included personally reviewing all current laboratories and imaging studies, medical reconciliation, outpatient chart review and discussion with specialists. This chart was completed in part utilizing Speech Voice Recognition Software. Grammatical errors, random word insertions, pronoun errors, and incomplete sentences are an occasional consequence of this system due to software limitations, ambient noise, and hardware issues. Any formal questions or concerns about the content, text, or information contained within the body of this dictation should be directly addressed to the provider for clarification. Admission and Anticipated Discharge Date Admission Date: December 19, 2024 Supervising Physician Co-Signing Physician Notes Patient is seen and examined at bedside. Poor historian secondary to significant hearing impairment. States having left leg pain below the knee. Denies any chest pain, dyspnea, nausea, vomiting, abdominal pain. On exam patient is thin, frail, elderly, no apparent distress, normocephalic atraumatic, EOMI, normal breath sounds, S1-S2, no murmur, no edema, abdomen soft, nontender, alert, awake, grossly no focal deficits, left leg bruising, tenderness below the knee. Patient currently being managed for left proximal tibial fracture secondary to fall. Patient has chronic ambulatory dysfunction, only intermittently uses cane or walker. Counseled to use walker regularly. Appreciate orthopedics input. Pain control as needed. Also being managed for acute diverticulitis, currently asymptomatic. Will continue Augmentin to finish the course. Hypomagnesemia noted. Replete electrolytes as needed. Paroxysmal A-fib currently not on anticoagulation, rate controlled. Incidentally noted to have renal cysts, will need further evaluation as outpatient if patient prefers to pursue. I personally interviewed and examined the patient at bedside. I have reviewed the advanced practitioner's documentation on the date of service referred in note and agree with plan. Patient's care is coordinated with Angella Osborn PA-C. Please refer to the documentation above for details of patient's presentation and for discussion of other issues. I spent a total [id number] coordinating, documenting, and providing care for this patient excluding time spent in the performance of separately billed services or time spent by another provider/QHP. Subjective NAEO. Intermittently pleasantly confused but easily reoriented. Noted bruising overlying L proximal tibial region. Endorses pain with palpation of this area as well as with LLE extension. Otherwise has no other complaints. denies any SOB, chest pain or abdominal pain. Incidental finding of mild diverticulitis on CTAP noted yet completely asymptomatic. Does not recall falling but remembers scooting around on the floor and being taken to the ED in an ambulance. Review of Systems Review of Systems: At least ten systems reviewed and negative, except as noted in the subjective section. Physical Exam Physical Exam: General: Thin/elderly F, NAD, laying down in bed, pleasantly confused at times. A&Ox2 to direct conversation/questioning. Respiratory: Normal respiratory effort, lungs clear to auscultation, no wheeze/rales/rhonchi. No accessory muscle use. Cardiovascular: Regular rate, rhythm, normal peripheral pulses, no BLE edema. Extremities/Musculoskeletal: + bruising overlying proximal L tibial region. + pain with LLE extension and + TTP over L proximal tibia. Results & Data Results & Data Vital Signs (Past 12 Hours) Vital Signs Temp Pulse Pulse Resp BP Pulse Ox O2 Del Method 12/20/24 07:30 81 12/20/24 03:29 36.3 C L 80 20 142/68 H 94 Room Air 12/19/24 22:45 Room Air 12/19/24 22:25 36.5 C 84 18 149/79 H 94 Room Air 12/19/24 21:42 80 Laboratory Results Short CBC 12/19/24 12/20/24 Range/Units 14:40 05:49 WBC 10.48 7.13 (4.8-10.8) K/ul Hgb 12.9 12.6 (12.0-16.0) g/dl Hct 39.8 38.8 (37.0-47.0) % Plt Count 214 189 (130-400) K/uL BMP 12/19/24 12/20/24 14:40 05:49 Sodium 142 144 Potassium 3.9 3.6 Chloride 104 109 H Carbon Dioxide 29 29 BUN 18 18 Creatinine 0.75 0.77 Glucose 107 H 93 Calcium 9.3 8.8 Cardiac Enzymes 12/19/24 Range/Units 14:40 Total Creatine Kinase 233 H (26-192) U/L Liver Function 12/19/24 Range/Units 14:40 Total Bilirubin 1.1 H (0.2-1.0) mg/dl AST 32 (13-39) U/L ALT 17 (7-52) U/L Alkaline Phosphatase 49 (34-104) U/L Albumin 3.9 (3.4-5.0) gm/dl Urine 12/19/24 Range/Units 21:17 Urine Color Yellow Urine Appearance Clear (Clear) Urine pH 5.5 (4.5-7.5) Ur Specific [place] > 1.045 H (1.000-1.030) Urine Protein 1+ H (Negative) Urine Glucose (UA) Negative (Negative) Diagnostic Findings Abdomen/Pelvis CT 12/19/24 14:10 Clinical History: Lower back pain Technique: Axial computed tomography images were obtained of the abdomen and pelvis after the administration of intravenous contrast. Comparison is made to the prior CT dated 10/24/2024. Findings: The liver is overall of normal size, attenuation, and contour with no sign of cirrhosis or significant fatty infiltration. No liver mass lesion is seen. The portal vein is patent. There is an apparent gallstone. There is no sign of acute cholecystitis. No bile duct dilatation is noted. The spleen is of normal size. No focal splenic lesion is evident. The pancreas appears normal with no sign of acute or chronic pancreatitis and no mass lesion noted. The pancreatic duct is of normal caliber. The adrenal glands appear unremarkable. No definite renal or proximal ureteral calculi are seen on this contrast-enhanced study. There is no hydronephrosis or perinephric stranding. Again seen is a 1.4 cm fatty mass at the lateral mid left kidney, likely an angiomyolipoma. There is also an apparent 1.7 cm angiomyolipoma of the inferior left kidney. There are 2 suspected small angiomyolipomas of the mid right kidney, measuring 12 mm and 6 mm. There are bilateral renal cysts, measuring up to 2.9 cm. The aorta is of normal caliber. No abdominal adenopathy is seen. There is a small left paracentral ventral hernia adjacent to the umbilicus, containing only fat A large hiatal hernia is again seen. There is no sign of small bowel obstruction. There is extensive colonic diverticulosis with suspected mild acute diverticulitis of the sigmoid colon, with suspected mild inflammatory changes seen on image 67 of the coronal reconstructions. No free intraperitoneal fluid or air is identified. No distal ureteral or bladder calculi are seen. No bladder mass lesion is evident. The iliac arteries are of normal caliber. No pelvic adenopathy is noted. The uterus has been removed There is subsegmental atelectasis in both lower lobes There are unchanged compression fractures of the T11 and L1 vertebral bodies. There is lumbar scoliosis and degenerative disc disease. There is grade 1 anterolisthesis at L4-5 and L5-S1. No focal osseous lesion is seen Impression: 1. Mild acute diverticulitis. There is no sign of perforation or abscess formation 2. 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 Large hiatal hernia 4. Cholelithiasis without evidence of acute cholecystitis Electronically signed by Efraín Yoon 12-19-2024 5:30 PM Chest X-Ray 12/19/24 14:10 XR chest 1V portable CLINICAL HISTORY: weakness, back pain COMPARISON STUDY: 10/24/2024 and 10/02/2024 FINDINGS: Stable large hiatal hernia. Stable cardiomegaly without pulmonary vascular congestion. No effusion, consolidation, or pneumothorax. Stable old fracture proximal right humerus. Stable small sclerotic lesion anterior right mid rib. IMPRESSION: No acute findings. ACT 112: Negative or not required by law. Electronically signed by: Kenneth Patel M.D. 12/19/2024 2:31 PM Knee X-Ray 12/19/24 18:37 Clinical History: Tibial plateau fracture 3 views of the right knee are submitted for review. Comparison is made to the prior examination dated 10/24/2024 Findings: There is no definite change in a comminuted fracture of the medial and lateral tibial plateaus, with internal fixation with a fixation plate and screws. There is no definite sign of instrumentation failure No subluxation or dislocation is seen. There is joint space narrowing and small osteophyte formation in the medial compartment. No other osseous abnormality is identified. There are no radiopaque foreign bodies. Impression: 1. Unchanged internal fixation of a fracture of the proximal right tibia 2. Unchanged medial compartment osteoarthritis Electronically signed by Efraín Yoon 12-19-2024 7:[address] 12/19/24 18:45 EXAM: CT Head Without Intravenous Contrast INDICATION: Found down. TECHNIQUE: Axial computed tomography images of the head/brain without intravenous contrast. Sagittal and/or coronal reformats are provided. Sagittal and coronal reformatted images were created and reviewed. This CT exam was performed using one or more of the following dose reduction techniques: automated exposure control, adjustment of the mA and/or kV according to patient size, and/or use of iterative reconstruction technique. COMPARISON: 10/24/2024 FINDINGS: Limitations: None. Brain and extra-axial spaces: There is age appropriate cortical atrophy and chronic ischemic periventricular white matter hypodensity. No acute infarct, hemorrhage or mass noted. Bones/joints: No acute changes. Soft tissues: No significant abnormality noted. Vasculature: Intracranial atherosclerosis noted. Sinuses: No layering fluid in the visualized portions of the paranasal sinuses. Mastoid air cells: No mastoid effusion. Orbits: No significant abnormality noted. IMPRESSION: Cerebral atrophy. No acute changes. ACT 112: N/A Electronically signed by Lolly Templeton 12-19-2024 7:17 PM Knee X-Ray 12/19/24 18:52 EXAM: Radiographs of the Left Knee 3 Views INDICATION: Trauma TECHNIQUE: Three views of the left knee. COMPARISON: No relevant prior studies available. FINDINGS: Bones/joints: There is a hairline fracture of the tibial metaphysis lateral to the midline seen only on the frontal view. There is a joint effusion. There is mild narrowing and spurring of the medial joint line. No cortical defect or loose body. Soft tissues: No abnormality noted. No radiopaque foreign body noted. Vasculature: Atherosclerosis noted. IMPRESSION: There is a hairline fracture of the left tibial metaphysis lateral to the midline seen only on the frontal view. ACT 112: N/A Electronically signed by Lolly Templteon 12-19-2024 8:09 PM (1) Fall Encounter type: initial encounter Qualified Code(s): W19.XXXA - Unspecified fall, initial encounter (2) Fracture of proximal end of left tibia Encounter type: initial encounter Fracture morphology: unspecified fracture morphology Fracture type: closed Qualified Code(s): S82.102A - Unspecified fracture of upper end of left tibia, initial encounter for closed fracture (4) Fracture of right tibial plateau Encounter type: subsequent encounter Fracture healing: with routine healing Fracture type: closed Qualified Code(s): S82.141D - Displaced bicondylar fracture of right tibia, subsequent encounter for closed fracture with routine healing (8) Hypertension Hypertension type: unspecified Qualified Code(s): I10 - Essential (primary) hypertension (11) GERD (gastroesophageal reflux disease) Esophagitis presence: esophagitis presence not specified Qualified Code(s): K21.9 - Gastro-esophageal reflux disease without esophagitis
[2024-12-20] MEDS: MAGNESIUM SULFATE / D5W 1 GM/100 ML BAG IV SCH (07:52)
[2024-12-20] MEDS: ATORVASTATIN 10 MG TAB PO SCH (07:53)
[2024-12-20] MEDS: AMOXICILLIN/CLAVULANATE 875 MG TAB PO SCH (07:53)
[2024-12-20] MEDS: PANTOprazole 40 MG TAB PO SCH (07:53)
[2024-12-20] MEDS: FERROUS SULFATE 325 MG TAB PO SCH (07:53)
[2024-12-20] MEDS: ESCITALOPRAM OXALATE 10 MG TAB PO SCH (07:53)
--- NOTE | 2024-12-20 09:46 | CT Scan Report ---
CT knee LT wo con CLINICAL HISTORY: r/o fracture COMPARISON STUDY: X-ray of 12/19/2024. FINDINGS: There is an acute nondisplaced intra-articular comminuted fracture at the proximal tibia in volving the medial and lateral tibial plateaus and the tibial spines. No significant intra-articular gap or step off. The fracture extends from the articular surface to the proximal tibia shaft metaphys eal junction. No fracture seen at the distal femur, patella, or proximal fibula. There is moderate os teoarthritis. There is a mild joint effusion. No significant soft tissue hematoma seen. IMPRESSION: Acute fracture at the proximal tibia. ACT 112: Negative or not required by law. Electronically signed by: Kenneth Patel M.D. 12/20/2024 9:43 AM
--- NOTE | 2024-12-20 10:44 | Orthopedic Consultation ---
Date of Consultation December 20, 2024 Assessment & Plan (1) Fracture of left tibial plateau: (2) Fracture of right tibial plateau: (3) Fall: (4) New onset a-fib: (5) Generalized weakness: (6) Diverticulitis: (7) Unable to care for self: Plan Carolyn is an 81-year-old female presents to the hospital primarily for inability to care for herself. The patient's history is noted in the HPI above, however most recently she was found on the floor by home care nurse was brought to the hospital for evaluation. The patient has been admitted to the medical team, and during the workup, a new left tibial plateau fracture was found and as such orthopedics was consulted. On my evaluation of the patient, she is tender palpation about her left proximal tibia and I do believe that her history, physical exam, imaging findings are consistent with an acute fracture of the left tibial plateau. In contrast to the patient's contralateral side, which required ORIF a few months ago, this fracture is nondisplaced. I did call and discussed this with the patient's daughter in great detail. We discussed the pathoanatomy, pathophysiology, treatment options. I did explain to the patient's daughter that this can be managed both operatively and nonoperatively. Due to the nondisplaced nature of the fracture, my recommendation be for nonoperative management as the patient does have high surgical risk due to her advanced age. Patient's daughter was elated to hear this as she notes that she was very hopeful to avoid surgery for her mother. I did explain to the patient and her daughter that with nonoperative management, we would obtain a hinged knee brace for the patient to help stabilize her knee. This would be allowed to be unlocked from 0 to 90 degrees. We will follow her fracture closely radiographically to ensure no fracture displacement, and if fracture displacement is seen, we may recommend operative management. The patient and her daughter expressed understanding to this plan. I did express to them the risks with nonoperative management include but are not limited to fracture displacement requiring surgery, posttraumatic osteoarthrosis of the knee, continued pain, need for surgery in the future, irritation from brace. They understand and wish to proceed with the plan as detailed above. Patient should be nonweightbearing on her left lower extremity. We will obtain a hinged knee brace for her and I have contacted the social research assistant about this. If this cannot be obtained until Sunday, we should place the patient into a knee immobilizer instead. I will plan to see the patient in the office in about 2 weeks for repeat radiographs. Most importantly, I did discuss the patient's overall care with her daughter. I think that the patient would benefit greatly from placement into an assisted living type facility as she clearly is having difficulties caring for herself alone at home. The patient's daughter agrees and they are working with the office on aging to arrange this. More acutely, I do think the patient will need to be placed into a nursing facility after discharge from [facility]. History of Present Illness Attending Physician: Franklin Peck MD History of Present Illness 89-year-old female with PMH dyslipidemia, HTN, GERD, depression, history of right tibial plateau fracture s/p ORIF in [place] in September 2024. After that surgery. the patient was discharged to [facility] however patient ultimately signed out AMA after a few days. Most recently, the patient was admitted to [facility] 10/24 through 11/07 after office of aging found patient to be confused on a wellness check. Patient was discharged to [facility] in [place] and then discharged home on 11/27. Patient was seen by PCP on 12/01. She also has been set up with [facility] and office of aging. According to outpatient chart review, patient was seen in [place] ER on 12/17 due to increased confusion and a fall. Patient was discharged home. Yesterday, the patient was found on the floor by a home health nurse. The patient is a poor historian, so I did call her daughter who corroborated the story above. the patient's daughter notes that she is about 3-4 times in the past week and believes that the patient's knee trouble started after a fall that occurred about 3 days ago. Patient was walking since that fall about 3 days ago, but was having troubles with her bilateral knees. After she was found on the floor yesterday morning she was brought to the hospital for evaluation. In the hospital emergency department she was found to have new left tibial plateau fracture on my evaluation this morning, the patient notes pain in her bilateral knees. She denies pain in her hips. She denies pain in her upper extremities. She denies any numbness or tingling. She has not walked since she has been admitted to the hospital. Denies chest pain, shortness of breath Allergies Allergy/AdvReac Type Severity Reaction Status Date / Time No Known Allergies Allergy Unknown Verified 03/13/16 07:10 Home Medications Medication Instructions Recorded Confirmed Type alendronate 70 mg tablet 70 mg PO Q7D #14 tabs 11/07/24 12/19/24 Rx atorvastatin 10 mg tablet 10 mg PO DAILY #30 tabs 11/07/24 12/19/24 Rx cholecalciferol (vitamin D3) 25 25 mcg PO DAILY #30 caps 11/07/24 12/19/24 Rx mcg (1,000 unit) capsule docusate sodium 100 mg capsule 100 mg PO BID #20 caps 11/07/24 12/19/24 Rx escitalopram oxalate 10 mg tablet 10 mg PO DAILY #30 tabs 11/07/24 12/19/24 Rx fluticasone propionate 50 1 spray intranasal BID #16 grams 11/07/24 12/19/24 Rx mcg/actuation nasal spray,suspension pantoprazole 40 mg tablet,delayed 40 mg PO DAILY #30 tabs 11/07/24 12/19/24 Rx release amlodipine 5 mg tablet (Norvasc) 5 mg PO DAILY 12/19/24 12/19/24 History ferrous sulfate 325 mg (65 mg 325 mg PO BID 12/19/24 12/19/24 History iron) tablet (FeroSul) Patient History Medical History (Updated 12/20/24 @ 10:54 by Micheal Ramirez DO) Mild tricuspid regurgitation Mild mitral regurgitation Mild aortic stenosis Diastolic dysfunction PAF (paroxysmal atrial fibrillation) Depression Osteoarthritis CKD (chronic kidney disease), stage III GERD (gastroesophageal reflux disease) Dyslipidemia Hypertension COVID-19 Surgical History (Updated 12/19/24 @ 18:44 by MEI Mendiola) S/P hysterectomy Social History Smoking Status: Never smoker Hx Alcohol Use: No Hx Substance Use: No Preferred Language: [place] Communication Ability: Effective [place] Worker Required: No Beliefs That Will Affect Care: None Current Living Situation: Alone Current Living Situation Comment: Home alone with home health Other Information That Helps Us Care for You: No Feels Safe at Home: Yes Safety Concerns: Feels Safe At This Time Assistive Devices: Glasses and Walker Review of Systems Review of Systems: difficult to obtain secondary to patient being a poor historian, however pertinent positives are noted in the HPI Physical Exam Physical Exam: physical examination the patient's bilateral knees, she is tender palpation diffusely about her knees. On the right side there is a well-healed medial surgical incision. On the left side, no open wounds are appreciated. She is able to demonstrate knee range of motion in bilateral knees. She demonstrates intact EHL/FHL/GSC/TA bilaterally. Negative logroll. Negative heel strike. Regards to the patient's left knee. There is no varus or valgus laxity appreciated. No additional areas of tenderness except for the left proximal tibia. Results & Data Vital Signs (Past 12 Hours) Vital Signs Temp Pulse Pulse Resp BP Pulse Ox O2 Del Method 12/20/24 10:05 Room Air 12/20/24 08:00 36.5 C 82 18 154/88 H 99 Room Air 12/20/24 07:30 81 12/20/24 03:29 36.3 C L 80 20 142/68 H 94 Room Air 12/19/24 22:45 Room Air Diagnostic Findings X-rays of bilateral knees, CT scan of the left knee, and CT of the pelvis were personally interpreted and reviewed. These demonstrate history of right medial tibial plateau fracture ORIF without evidence of hardware complication or failure. There is also a new nondisplaced left tibial plateau fracture. No significant articular step-off is appreciated. (2) Fracture of right tibial plateau Encounter type: subsequent encounter Fracture type: closed Fracture healing: with routine healing Qualified Code(s): S82.141D - Displaced bicondylar fracture of right tibia, subsequent encounter for closed fracture with routine healing (3) Fall Encounter type: initial encounter Qualified Code(s): W19.XXXA - Unspecified fall, initial encounter
[2024-12-20] MEDS: ACETAMINOPHEN 325 MG TAB PO PRN (13:26)
[2024-12-20] MEDS: HEPARIN SOD 5,000 UNIT/0.5 ML VIAL SQ SCH (21:44)
--- NOTE | 2024-12-20 22:48 | Electrocardiogram Report ---
Test Reason : Blood Pressure : */* mmHG Vent. Rate : 77 BPM Atrial Rate : 64 BPM P-R Int : * ms QRS Dur : 88 ms QT Int : 384 ms P-R-T Axes : * 57 -82 degrees QTcB Int : 434 ms Atrial fibrillation Septal infarct , age undetermined Nonspecific T wave abnormality Abnormal ECG When compared with ECG of 19-Dec-2024 14:49, Septal infarct is now Present Confirmed by Logan Harrison ([id number]) on 12/20/2024 10:48:26 PM Referred By: REFERRED SELF Confirmed By: Logan Harrison
[2024-12-21 06:23] LABS: Hematocrit (blood only) 36.2 % (37.0-47.0); Hemoglobin 11.7 g/dl (12.0-16.0); Mean Corpuscular Hemoglobin 28.1 pg (25.0-34.0); Mean Corpuscular Hgb Conc 32.3 g/dL (32.0-36.0); Mean Corpuscular Volume 86.8 fL (80.0-100.0); Platelet Count 192 K/uL (130-400); RDW Standard Deviation 50.7 fL (36.4-46.3); Red Blood Count 4.17 M/uL (4.20-5.40)
[2024-12-21 06:58] LABS: BUN Creatinine Ratio 19.4 (10-20); Calcium 8.7 mg/dl (8.6-10.3); Creatinine Clr Calc Pharmacy 28.5 ml/min; Potassium 3.4 mmol/L (3.5-5.1)
[2024-12-21] MEDS: POTASSIUM CHLORIDE CRTAB 20 MEQ TABCR PO STA (07:55)
--- NOTE | 2024-12-21 11:33 | Hospitalist Progress Note ---
Date of Service December 21, 2024 Assessment & Plan (1) Fall: (2) Fracture of proximal end of left tibia: Plan: Carolyn Bond is an 89y/o F with PMHx significant for HTN, HLD, prediabetes, history of SVT, bradycardia, nonrheumatic aortic stenosis, nonrheumatic mitral valve regurgitation, GERD without esophagitis, large hiatal hernia, IPMN, angiomyolipoma of both kidneys, CKD stage IIIa, age-related osteoporosis, lumbar DDD, bilateral hearing loss and depression who presented to the ED via EMS on 12/19/24 after being found scooting around on the floor at home by her family as she was unable to get up on her own. Found to have a proximal L tibial fracture s/p fall ISO age-related osteoporosis. Additional imaging include head CT and CXR performed in the ED were unremarkable. Appreciate orthopedic surgery consult and PT/OT evaluations. Conservative management for now with bracing and NWB on LLE. PRN pain control. Appointment needed with Dr. Ramirez in about 2 weeks for repeat imaging; could potentially require operative management if the fracture were to become displaced. Wound care consulted for wounds on sacral region and LUE. Appreciate their assistance. (3) Unable to care for self: Plan: Patient currently living at home alone per discussion with her daughter, Enedina. Suspected underlying cognitive decline versus dementia. No signs of delirium at this time but she is pleasantly confused with intermittent periods of orientation. Family is currently working with the office of aging to arrange long-term placement as the patient is experiencing difficulties caring for self while out at home. Would certainly benefit from assisted living. Continue with delirium prevention measures: raising blinds during the day, closing at night, frequent re-orientation, contact with family/friends, explaining procedures/nursing care measures prior to physical contact, correct any hearing and visual impairments (patient notably [place] at baseline). (4) Fracture of right tibial plateau: Plan: Recent R tibial plateau fracture s/p ORIF on 10/03/[address] Sy at [facility]. Updated R knee XR with unchanged internal fixation of a fracture of the proximal R tibia and unchanged medial compartment osteoarthritis. Saw Tuan Andrade PA-C at [facility] on 11/19/24; discontinued the use of her knee immobilizer. Was also instructed at that visit to begin partial weight bearing at 30 to 40 pounds increasing 10 to 15 pounds a week. Has an appointment with Dr. Sy on 01/06/25. (5) Diverticulitis: Plan: Incidental finding of mild acute diverticulitis on CTAP. Patient completely asymptomatic. Low fiber diet/dietitian consulted. Denies any abdominal pain, diarrhea or N/V. S/p Unasyn in the ED. Set to complete 5-day course of po Augmentin with EOT on 12/25/24. Remains afebrile. No leukocytosis. (6) PAF (paroxysmal atrial fibrillation): Plan: Evaluated by [facility] cardiology back in June 2023. 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 Beta-shea therapy not advised unless post pacemaker implantation. Risk of anticoagulation thought to outweigh the benefit given her frequent falls. EKG x 2 and telemetry monitoring reveal rate-controlled A-fib. Stable from cardi ac perspective for downgrade to med/surg. (7) Elevated creatine kinase level: Plan: Noted on admission. Now resolved s/p IVF. (8) Heart valve disease: (9) Diastolic dysfunction: Plan: Currently not on any diuretics. Remains euvolemic on exam. Resting echocardiogram from October 2024 with LVEF = 60-65%, moderate concentric LVH, grade I DD, severely dilated LA, mild , mild WV, mild MR and mild TR. (10) Hypokalemia: Plan: K+ 3.4 today. 40mEq po KCl ordered. Continue to monitor and replete PRN. (11) GERD (gastroesophageal reflux disease): Plan: Chronic, stable. Continue PPI. Other chronic medical conditions: * Chronic anemia - Hgb remains stable. Continue iron supplementation. * Depression - Continue Lexapro. HLD - Continue statin. Seasonal allergies - Continue Flonase. DVT Prophylaxis: SQ Heparin Code Status: DNR/DNI PCP: Kendra Go MD Disposition: Will need placement. Appreciate PT/OT evaluations. CM to assist with this. Stable for downgrade to med/surg. Patient seen in collaboration with Dr. Peck. Please see addendum. I spent a total of 30 minutes coordinating, documenting, and providing care for this patient excluding time spent in the performance of separately billed services or time spent by another provider/QHP. This included personally reviewing all current laboratories and imaging studies, medical reconciliation, outpatient chart review and discussion with specialists. This chart was completed in part utilizing Speech Voice Recognition Software. Gr ammatical errors, random word insertions, pronoun errors, and incomplete sentences are an occasional consequence of this system due to software limitations, ambient noise, and hardware issues. Any formal questions or concerns about the content, text, or information contained within the body of this dictation should be directly addressed to the provider for clarification. Admission and Anticipated Discharge Date Admission Date: December 19, 2024 Supervising Physician Co-Signing Physician Notes Patient is seen and examined at bedside. Poor historian secondary to significant hearing impairment. Sitting in chair during my encounter. Denies any significant left knee pain today. She states having some knee pain only with movement. On exam patient is thin, frail, elderly, no apparent distress, normocephalic atraumatic, EOMI, normal breath sounds, S1-S2, no murmur, no edema, abdomen soft, nontender, alert, awake, grossly no focal deficits, left leg bruising, tenderness below the knee. Patient currently being managed for left proximal tibial fracture secondary to fall. Patient has chronic ambulatory dysfunction, only intermittently uses cane or walker. Nonweightbearing left lower extremity per Ortho. Appreciate orthopedics input. Pain control as needed. Needs follow-up with orthopedics on discharge. PT recommends SNF versus personal care facility. Also being managed for acute diverticulitis, currently asymptomatic. Will continue Augmentin to finish the course. Hypomagnesemia noted. Replete electrolytes as needed. Paroxysmal A-fib currently not on anticoagulation, rate controlled. Incidentally noted to have renal cysts, will need further evaluation as outpatient if patient prefers to pursue. I personally interviewed and examined the patient at bedside. I have reviewed the advanced practitioner's documentation on the date of service referred in note and agree with plan. Patient's care is coordinated with Angella Osborn PA-C. Please refer to the documentation above for details of patient's presentation and for discussion of other issues. I spent a total [id number] coordinating, documenting, and providing care for this patient excluding time spent in the performance of separately billed services or time spent by another provider/QHP. Subjective NAEO. Pleasantly confused however able to reorient at times. Offers no complaints other than some soreness in her left tibial region. Mention she ate breakfast this morning without any issues. Inquiring about her reading glasses and would like to do some crossword puzzles. Denies any SOB, chest pain or abdominal pain. Forgets she is in the hospital at times. Review of Systems Review of Systems: At least ten systems reviewed and negative, except as noted in the subjective section. Physical Exam Physical Exam: General: Thin/elderly F, NAD, laying down in bed, pleasantly confused but can reorient at times. Respiratory: Normal respiratory effort, lungs clear to auscultation bilaterally. No accessory muscle use. Cardiovascular: Regular rate, rhythm, normal peripheral pulses, no BLE edema. Extremities/Musculoskeletal: LLE in knee immobilizer. L upper arm wound bandaged. Dressing over sacral skin breakdown. Results & Data Results & Data Vital Signs (Past 12 Hours) Vital Signs Temp Pulse Pulse Resp BP Pulse Ox O2 Del Method 12/21/24 08:05 36.7 C 68 16 108/68 95 Room Air 12/21/24 07:17 74 12/21/24 05:25 36.8 C 75 18 96/52 L 93 Room Air 12/20/24 23:52 36.7 C 95 H 20 92/54 L 91 Room Air Laboratory Results Short CBC 12/21/24 Range/Units 06:01 WBC 6.40 (4.8-10.8) K/ul Hgb 11.7 L (12.0-16.0) g/dl Hct 36.2 L (37.0-47.0) % Plt Count 192 (130-400) K/uL BMP 12/21/24 06:01 Sodium 139 Potassium 3.4 L Chloride 104 Carbon Dioxide 28 BUN 19 Creatinine 0.98 Glucose 123 H Calcium 8.7 (1) Fall Encounter type: initial encounter Qualified Code(s): W19.XXXA - Unspecified fall, initial encounter (2) Fracture of proximal end of left tibia Encounter type: initial encounter Fracture morphology: unspecified fracture morphology Fracture type: closed Qualified Code(s): S82.102A - Unspecified fracture of upper end of left tibia, initial encounter for closed fracture (4) Fracture of right tibial plateau Encounter type: subsequent encounter Fracture healing: with routine healing Fracture type: closed Qualified Code(s): S82.141D - Displaced bicondylar fracture of right tibia, subsequent encounter for closed fracture with routine healing (11) GERD (gastroesophageal reflux disease) Esophagitis presence: esophagitis presence not specified Qualified Code(s): K21.9 - Gastro-esophageal reflux disease without esophagitis
--- NOTE | 2024-12-22 06:06 | Electrocardiogram Report ---
Test Reason : Blood Pressure : */* mmHG Vent. Rate : 82 BPM Atrial Rate : 87 BPM P-R Int : * ms QRS Dur : 86 ms QT Int : 352 ms P-R-T Axes : * 51 -48 degrees QTcB Int : 411 ms Atrial fibrillation Septal infarct (cited on or before 20-Dec-2024) Nonspecific T wave abnormality Abnormal ECG When compared with ECG of 20-Dec-2024 06:07, No significant change was found Confirmed by Logan Harrison ([id number]) on 12/22/2024 6:06:10 AM Referred By: REFERRED SELF Confirmed By: Logan Harrison
[2024-12-22 07:19] LABS: Hematocrit (blood only) 37.2 % (37.0-47.0); Hemoglobin 11.8 g/dl (12.0-16.0); Mean Corpuscular Hemoglobin 27.3 pg (25.0-34.0); Mean Corpuscular Hgb Conc 31.7 g/dL (32.0-36.0); Mean Corpuscular Volume 86.1 fL (80.0-100.0); Mean Platelet Volume 9.4 fL (9.4-12.4); Platelet Count 188 K/uL (130-400); RDW Coefficient of Variation 15.8 % (11.5-14.5); RDW Standard Deviation 49.7 fL (36.4-46.3); Red Blood Count 4.32 M/uL (4.20-5.40); White Blood Count 6.05 K/ul (4.8-10.8)
[2024-12-22 07:50] LABS: BUN Creatinine Ratio 20.5 (10-20); Calcium 8.8 mg/dl (8.6-10.3); Creatinine Clr Calc Pharmacy 38.3 ml/min; Magnesium 1.5 mg/dl (1.7-2.4)
--- NOTE | 2024-12-22 13:04 | Hospitalist Progress Note ---
Date of Service December 22, 2024 Assessment & Plan (1) Fall: (2) Fracture of proximal end of left tibia: (3) Unable to care for self: (4) Fracture of right tibial plateau: (5) Diverticulitis: (6) PAF (paroxysmal atrial fibrillation): (7) Elevated creatine kinase level: (8) Heart valve disease: (9) Diastolic dysfunction: (10) Hypokalemia: (11) GERD (gastroesophageal reflux disease): Plan Carolyn Bond is an 89y/o F with PMHx significant for HTN, HLD, prediabetes, histo ry of SVT, bradycardia, nonrheumatic aortic stenosis, nonrheumatic mitral valve regurgitation, GERD without esophagitis, large hiatal hernia, IPMN, angiomyolipoma of both kidneys, CKD stage IIIa, age-related osteoporosis, lumbar DDD, bilateral hearing loss and depression who presented to the ED via EMS on 12/19/24 after being found scooting around on the floor at home by her family as she was unable to get up on her own. #Age related L tibial plateau fx nondisplaced Found to have a proximal L tibial fracture s/p fall ISO age-related osteoporosis. Additional imaging include head CT and CXR performed in the ED were unremarkable. Appreciate orthopedic surgery consult and PT/OT evaluations. Conservative management for now with bracing and NWB on LLE. PRN pain control. Appointment needed with Dr. Ramirez in about 2 weeks for repeat imaging; could potentially require operative management if the fracture were to become displaced. #Right tibial plateau fx Recent R tibial plateau fracture s/p ORIF on 10/03/[address] Sy at [facility]. Updated R knee XR with unchanged internal fixation of a fracture of the proximal R tibia and unchanged medial compartment osteoarthritis. Saw Tuan Andrade PA-C at [facility] on 11/19/24; discontinued the use of her knee immobilizer. Was also instructed at that visit to begin partial weight bearing at 30 to 40 pounds increasing 10 to 15 pounds a week. Has an appointment with Dr. Sy on 01/06/25. #Unable to care for self at home needs placement #Underlying cognitive dysfunction, suspect dementia pt with increased confusion today during last hospitalization she developed delirium, encourage delirium precautions will check UA #Uncomplicated diverticulitis Complete course of augmentin, no acute complaints #PAF #Chronic HFpEF Evaluated by [facility] cardiology back in June 2023. 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 Beta-shea therapy not advised unless post pacemaker implantation. Risk of anticoagulation thought to outweigh the benefit given her frequent falls. Resting echocardiogram from October 2024 with LVEF = 60-65%, moderate concentric LVH, grade I DD, severely dilated LA, mild , mild NE, mild MR and mild TR. #Hypokalemia: resolved #Hypomagnesemia: mag 1.5 today, will give 1g IV mag sulfate x 2 #DVT Prophylaxis: SQ Heparin Code Status: DNR/DNI PCP: Kendra Go MD Disposition: Will need placement. Appreciate PT/OT evaluations. CM to assist with this. Medically stable for discharge Patient seen in collaboration with Dr. Peck. Please see addendum. I spent a total of 41 minutes coordinating, documenting, and providing care for this patient excluding time spent in the performance of separately billed services or time spent by another provider/QHP. This included personally reviewing all current laboratories and imaging studies, medical reconciliation, outpatient chart review and discussion with specialists. Admission and Anticipated Discharge Date Admission Date: December 19, 2024 Supervising Physician Co-Signing Physician Notes Chart reviewed. Personally did not examine the patient today. Coordinated care with advanced practice provider. Patient currently being managed for left proximal tibial fracture secondary to fall. Patient has chronic ambulatory dysfunction, only intermittently uses cane or walker. Nonweightbearing left lower extremity per Ortho. Appreciate orthopedics input. Pain control as needed. Needs follow-up with orthopedics on discharge. Urinalysis today showed no signs of UTI. Reorient frequently to minimize delirium. Continue Augmentin to complete the course. Minimize narcotic use as able. PT recommends acute rehab placement. Case management to help with discharge planning. I have reviewed the advanced practitioner's documentation on the date of service referr ed in note and agree with plan. Patient's care is coordinated with Daisha Salazar PA-C. Please refer to the documentation above for details of patient's presentation and for discussion of other issues. I spent a total [id number] coordinating, documenting, and providing care for this patient excluding time spent in the performance of separately billed services or time spent by another provider/QHP. Subjective Pt was seen and examined in room 385-2. She is very pleasant but confused. She thinks she is having surgery on her wrist. She denies any pain. Denies f/c/s, chest pain, sob, n/v/d. Review of Systems Review of Systems: All systems reviewed & are unremarkable except as noted in HPI & below Physical Exam Physical Exam: Gen: WD/WN, NAD, A&O x1 self only HEENT: Normocephalic, atraumatic, conjunctivae moist, sclerae anicteric, mucous membranes moist. Lung: Clear to Auscultation bilaterally, no wheezes/rales/rhonchi Heart: IRR rhythm, regular rate , no murmurs, rubs, or gallops Abdomen: Soft, NT, ND +BS x 4 Extremities: No edema, LLE immobilizer in place Skin: Warm, no rash, negative turgor. Results & Data Results & Data Vital Signs (Past 12 Hours) Vital Signs Temp Pulse Pulse Resp BP Pulse Ox Pulse Ox 12/22/24 11:25 37.1 C 82 16 132/84 93 12/22/24 07:45 12/22/24 07:43 37.0 C 106 H 15 140/78 93 12/22/24 03:51 82 95 12/22/24 01:13 92 12/22/24 01:13 12/22/24 01:13 36.8 C 103 H 16 126/82 92 O2 Del Method O2 Del Method 12/22/24 11:25 Room Air 12/22/24 07:45 Room Air 12/22/24 07:43 Room Air 12/22/24 03:51 Room Air 12/22/24 01:13 Room Air 12/22/24 01:13 Room Air 12/22/24 01:13 Room Air Laboratory Results Short CBC 12/22/24 Range/Units 06:30 WBC 6.05 (4.8-10.8) K/ul Hgb 11.8 L (12.0-16.0) g/dl Hct 37.2 (37.0-47.0) % Plt Count 188 (130-400) K/uL BMP 12/22/24 06:30 Sodium 139 Potassium 4.0 Chloride 106 Carbon Dioxide 26 BUN 15 Creatinine 0.73 Glucose 125 H Calcium 8.8 I have independently reviewed and interpreted patient's cbc , bmp, mag Medications Administered Current Inpatient Medications Acetaminophen (Acetaminophen 325 Mg Tab) 650 mg PO Q4H PRN PRN Reason: Pain or Fever Stop: 01/18/25 21:31 Last Admin: 12/21/24 07:55 Dose: 650 mg Acetaminophen (Acetaminophen 500 Mg Tab) 1,000 mg PO BID [facility] Stop: 01/18/25 21:31 Last Admin: 12/22/24 08:55 Dose: 1,000 mg Amoxicillin/Clavulanate Potassium (Amoxicillin/Clavulanate 875 Mg Tab) [facility] [place] Protocol Stop: 12/25/24 07:59 Last Admin: 12/22/24 08:53 Dose: 1 tab Atorvastatin Calcium (Atorvastatin 10 Mg Tab) 10 mg PO DAILY [facility] Stop: 01/19/25 08:59 Last Admin: 12/22/24 08:53 Dose: 10 mg Docusate Sodium (Docusate Sodium 100 Mg Cap) 100 mg PO BID [facility] Stop: 01/18/25 21:31 Last Admin: 12/22/24 08:55 Dose: 100 mg Escitalopram Oxalate (Escitalopram Oxalate 10 Mg Tab) 10 mg PO DAILY [facility] Stop: 01/19/25 08:59 Last Admin: 12/22/24 08:53 Dose: 10 mg Ferrous Sulfate (Ferrous Sulfate 325 Mg Tab) 325 mg PO BID [facility] Stop: 01/19/25 08:59 Last Admin: 12/22/24 08:53 Dose: 325 mg Heparin Sodium (Porcine) (Heparin Sod 5,000 Unit/0.5 Ml Vial) 5,000 units SQ Q12 [facility] Stop: 01/19/25 20:59 Last Admin: 12/22/24 08:56 Dose: 5,000 units Magnesium Sulfate/Dextrose (Magnesium Sulfate / D5w) 1 gm in 100 mls @ 50 mls/hr IV Q2H [facility] Stop: 12/22/24 16:44 Melatonin (Melatonin 3 Mg Tab) 6 mg PO HS [facility] Stop: 01/21/25 20:59 Pantoprazole Sodium (Pantoprazole 40 Mg Tab) 40 mg PO DAILY [facility] Stop: 01/19/25 08:59 Last Admin: 12/22/24 08:53 Dose: 40 mg (1) Fall Encounter type: initial encounter Qualified Code(s): W19.XXXA - Unspecified fall, initial encounter (2) Fracture of proximal end of left tibia Encounter type: initial encounter Fracture morphology: unspecified fracture morphology Fracture type: closed Qualified Code(s): S82.102A - Unspecified fracture of upper end of left tibia, initial encounter for closed fracture (4) Fracture of right tibial plateau Encounter type: subsequent encounter Fracture healing: with routine healing Fracture type: closed Qualified Code(s): S82.141D - Displaced bicondylar fracture of right tibia, subsequent encounter for closed fracture with routine healing (11) GERD (gastroesophageal reflux disease) Esophagitis presence: esophagitis presence not specified Qualified Code(s): K21.9 - Gastro-esophageal reflux disease without esophagitis
[2024-12-22 14:28] LABS: Appearance Urine Clear (Clear); Bacteria Urine Automated None Seen (None Seen); Bilirubin Urine Negative (Negative); Blood Urine Negative (Negative); Cast Urine Automated 0-2 /lpf (0-2); Color Urine Yellow; Epithelial Cell Urine Auto 0-2 /hpf (0-2); Glucose Urine UA Negative (Negative); Ketones Urine Trace (Negative); Leukocyte Esterase Urine Negative (Negative); Nitrite Urine Negative (Negative); Protein Urine Trace (Negative); RBC Urine Automated 0-2 /hpf (0-2); Specific Gravity Urine 1.023 (1.000-1.030); Urobilinogen Urine Negative (Negative); WBC Urine Automated 0-5 /hpf (0-5); pH Urine 5.5 (4.5-7.5)
[2024-12-22] MEDS: MAGNESIUM SULFATE / D5W 1 GM/100 ML BAG IV SCH (15:12)
[2024-12-22] MEDS: MELATONIN 3 MG TAB PO SCH (20:20)
--- NOTE | 2024-12-22 22:09 | Communication Note ---
Date of Service: December 22, 2024 arts and sciences dean requesting for current 1-1 suicide precautions orders to be reviewed. No acute concerns as per [facility] liaison as per communication. Psychiatrist to do full assessment in a.m. as per report. Hold one-to-one nursing for now. Continue q15m checks.
[2024-12-23 06:34] LABS: BUN Creatinine Ratio 18.2 (10-20); Calcium 9.1 mg/dl (8.6-10.3); Creatinine Clr Calc Pharmacy 36.3 ml/min; Magnesium 1.9 mg/dl (1.7-2.4); Potassium 4.3 mmol/L (3.5-5.1)
--- NOTE | 2024-12-23 10:48 | Hospitalist Progress Note ---
Date of Service December 23, 2024 Assessment & Plan (1) Fall: (2) Fracture of proximal end of left tibia: (3) Unable to care for self: (4) Fracture of right tibial plateau: (5) Diverticulitis: (6) PAF (paroxysmal atrial fibrillation): (7) Elevated creatine kinase level: (8) Heart valve disease: (9) Diastolic dysfunction: (10) Hypokalemia: (11) GERD (gastroesophageal reflux disease): Plan Carolyn Bond is an 89y/o F with PMHx significant for HTN, HLD, prediabetes, histo ry of SVT, bradycardia, nonrheumatic aortic stenosis, nonrheumatic mitral valve regurgitation, GERD without esophagitis, large hiatal hernia, IPMN, angiomyolipoma of both kidneys, CKD stage IIIa, age-related osteoporosis, lumbar DDD, bilateral hearing loss and depression who presented to the ED via EMS on 12/19/24 after being found scooting around on the floor at home by her family as she was unable to get up on her own. 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 Additional imaging include head CT and CXR performed in the ED were unremarkable. Appreciate orthopedic surgery consult and PT/OT evaluations. Conservative management for now with bracing and NWB on LLE. PRN pain control. Orthotics p laced brace on pt Appointment needed with Dr. Ramirez in about 2 weeks for repeat imaging; could potentially require operative management if the fracture were to become displace d. #Right tibial plateau fx Recent R tibial plateau fracture s/p ORIF on 10/03/[address] Sy at [facility]. Updated R knee XR with unchanged internal fixation of a fracture of the proximal R tibia and unchanged medial compartment osteoarthritis. Saw Tuan Andrade PA-C at [facility] on 11/19/24; discontinued the use of her knee immobilizer. Was also instructed at that visit to begin partial weight bearing at 30 to 40 pounds increasing 10 to 15 pounds a week. Has an appointment with Dr. Sy on 01/06/25. #Unable to care for self at home needs placement #Underlying cognitive dysfunction, suspect dementia UA normal discussed with pts daughter holly who states this is her normal and that she has been getting progressively more confused at home #Uncomplicated diverticulitis Complete course of augmentin, no acute complaints #PAF #Chronic HFpEF Evaluated by [facility] cardiology back in June 2023. 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 Beta-shea therapy not advised unless post pacemaker implantation. Risk of anticoagulation thought to outweigh the benefit given her frequent falls. Resting echocardiogram from October 2024 with LVEF = 60-65%, moderate concentric LVH, grade I DD, severely dilated LA, mild , mild SD, mild MR and mild TR. #Hypokalemia: resolved #Hypomagnesemia: resolved #DVT Prophylaxis: SQ Heparin Code Status: DNR/DNI PCP: Kendra Go MD Disposition: Will need placement. Pt medically stable for discharge when arrangements are made Contacted Pt Primary Contact Holly Link [phone] and provided update. She said that she has been getting worsening confusion at home that has been progressing and that what we are seeing isn't new. Patient seen in collaboration with Dr. Peck. Please see addendum. I spent a total of 44 minutes coordinating, documenting, and providing care for this patient excluding time spent in the performance of separately billed services or time spent by another provider/QHP. This included personally reviewing all current laboratories and imaging studies, medical reconciliation, outpatient chart review and discussion with specialists. Admission and Anticipated Discharge Date Admission Date: December 19, 2024 Supervising Physician Co-Signing Physician Notes Patient is seen and examined at bedside. Pleasantly confused. Denies any leg pain today. Patient currently being managed for left proximal tibial fracture secondary to fall. Patient has chronic ambulatory dysfunction, only intermittently uses cane or walker. Nonweightbearing left lower extremity per Ortho. Appreciate orthopedics input. Pain control as needed. Needs follow-up with orthopedics on discharge. Urinalysis today showed no signs of UTI. Reorient frequently to minimize delirium. Continue Augmentin to complete the course for suspected diverticulitis. Minimize narcotic use as able. PT recommends acute rehab placement. Waiting for rehab placement. Case management to help with discharge planning. I have reviewed the advanced practitioner's documentation on the date of service referred in note and agree with plan. Patient's care is coordinated with Daisha Salazar PA-C. Please refer to the documentation above for details of patient's presentation and for discussion of other issues. I spent a total [id number] coordinating, documenting, and providing care for this patient excluding time spent in the performance of separately billed services or time spent by another provider/QHP. Subjective Pt was seen and examined in room 385-2. Hx obtained from pt and daughter holly over the phone. She is very upset about her dog and she thinks that it ran away. This is making her very tearful. She denies f/c/s, chest pain, sob, n/v. She denies wanting to harm self or others. She does endorse some LLE pain. Review of Systems Review of Systems: All systems reviewed & are unremarkable except as noted in HPI & below Physical Exam Physical Exam: Gen: WD/WN, NAD, A&O x1 self only, tearful HEENT: Normocephalic, atraumatic, conjunctivae moist, sclerae anicteric, mucous membranes moist. Lung: Clear to Auscultation bilaterally, no wheezes/rales/rhonchi Heart: IRR rhythm, regular rate , no murmurs, rubs, or gallops Abdomen: Soft, NT, ND +BS x 4 Extremities: No edema, LLE immobilizer in place Skin: Warm, no rash, negative turgor. Results & Data Results & Data Vital Signs (Past 12 Hours) Vital Signs Temp Pulse Resp BP Pulse Ox O2 Del Method 12/23/24 07:30 37.1 C 94 H 18 142/85 H 94 Room Air Laboratory Results I have independently reviewed and interpreted patient's BMP, mag, UA Medications Administered Current Inpatient Medications Acetaminophen (Acetaminophen 325 Mg Tab) 650 mg PO Q4H PRN PRN Reason: Pain or Fever Stop: 01/18/25 21:31 Last Admin: 12/21/24 07:55 Dose: 650 mg Acetaminophen (Acetaminophen 500 Mg Tab) 1,000 mg PO BID [facility] Stop: 01/18/25 21:31 Last Admin: 12/23/24 08:13 Dose: 1,000 mg Amoxicillin/Clavulanate Potassium (Amoxicillin/Clavulanate 875 Mg Tab) [facility]; Protocol Stop: 12/25/24 07:59 Last Admin: 12/23/24 08:13 Dose: 1 tab Atorvastatin Calcium (Atorvastatin 10 Mg Tab) 10 mg PO DAILY [facility] Stop: 01/19/25 08:59 Last Admin: 12/23/24 08:13 Dose: 10 mg Docusate Sodium (Docusate Sodium 100 Mg Cap) 100 mg PO BID [facility] Stop: 01/18/25 21:31 Last Admin: 12/23/24 08:13 Dose: 100 mg Escitalopram Oxalate (Escitalopram Oxalate 10 Mg Tab) 10 mg PO DAILY [facility] Stop: 01/19/25 08:59 Last Admin: 12/23/24 08:13 Dose: 10 mg Ferrous Sulfate (Ferrous Sulfate 325 Mg Tab) 325 mg PO BID [facility] Stop: 01/19/25 08:59 Last Admin: 12/23/24 08:13 Dose: 325 mg Heparin Sodium (Porcine) (Heparin Sod 5,000 Unit/0.5 Ml Vial) 5,000 units SQ Q12 [facility] Stop: 01/19/25 20:59 Last Admin: 12/23/24 08:13 Dose: 5,000 units Melatonin (Melatonin 3 Mg Tab) 6 mg PO HS [facility] Stop: 01/21/25 20:59 Last Admin: 12/22/24 20:20 Dose: 6 mg Pantoprazole Sodium (Pantoprazole 40 Mg Tab) 40 mg PO DAILY [facility] Stop: 01/19/25 08:59 Last Admin: 12/23/24 08:13 Dose: 40 mg (1) Fall Encounter type: initial encounter Qualified Code(s): W19.XXXA - Unspecified fall, initial encounter (2) Fracture of proximal end of left tibia Encounter type: initial encounter Fracture morphology: unspecified fracture morphology Fracture type: closed Qualified Code(s): S82.102A - Unspecified fracture of upper end of left tibia, initial encounter for closed fracture (4) Fracture of right tibial plateau Encounter type: subsequent encounter Fracture healing: with routine healing Fracture type: closed Qualified Code(s): S82.141D - Displaced bicondylar fracture of right tibia, subsequent encounter for closed fracture with routine healing (11) GERD (gastroesophageal reflux disease) Esophagitis presence: esophagitis presence not specified Qualified Code(s): K21.9 - Gastro-esophageal reflux disease without esophagitis
[2024-12-24 08:41] LABS: BUN Creatinine Ratio 20.2 (10-20); Calcium 9.4 mg/dl (8.6-10.3); Creatinine Clr Calc Pharmacy 31.4 ml/min; Hematocrit (blood only) 42.4 % (37.0-47.0); Hemoglobin 13.4 g/dl (12.0-16.0); Magnesium 1.8 mg/dl (1.7-2.4); Mean Corpuscular Hemoglobin 27.8 pg (25.0-34.0); Mean Corpuscular Hgb Conc 31.6 g/dL (32.0-36.0); Mean Platelet Volume 10.1 fL (9.4-12.4); Platelet Count 238 K/uL (130-400); Potassium 4.4 mmol/L (3.5-5.1); RDW Coefficient of Variation 15.8 % (11.5-14.5); RDW Standard Deviation 50.9 fL (36.4-46.3); Red Blood Count 4.82 M/uL (4.20-5.40); White Blood Count 5.81 K/ul (4.8-10.8)
--- NOTE | 2024-12-24 11:41 | Hospitalist Progress Note ---
Date of Service December 24, 2024 Assessment & Plan (1) Fall: (2) Fracture of proximal end of left tibia: (3) Unable to care for self: (4) Fracture of right tibial plateau: (5) Diverticulitis: (6) PAF (paroxysmal atrial fibrillation): (7) Elevated creatine kinase level: (8) Heart valve disease: (9) Diastolic dysfunction: (10) Hypokalemia: (11) GERD (gastroesophageal reflux disease): Plan Carolyn Bond is an 89y/o F with PMHx significant for HTN, HLD, prediabetes, histo ry of SVT, bradycardia, nonrheumatic aortic stenosis, nonrheumatic mitral valve regurgitation, GERD without esophagitis, large hiatal hernia, IPMN, angiomyolipoma of both kidneys, CKD stage IIIa, age-related osteoporosis, lumbar DDD, bilateral hearing loss and depression who presented to the ED via EMS on 12/19/24 after being found scooting around on the floor at home by her family as she was unable to get up on her own. 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 Additional imaging include head CT and CXR performed in the ED were unremarkable. Appreciate orthopedic surgery consult and PT/OT evaluations. Conservative management for now with bracing and NWB on LLE. PRN pain control. Orthotics p laced brace on pt Appointment needed with Dr. Ramirez in about 2 weeks for repeat imaging; could potentially require operative management if the fracture were to become displace d. #Right tibial plateau fx Recent R tibial plateau fracture s/p ORIF on 10/03/[address] Sy at [facility]. Updated R knee XR with unchanged internal fixation of a fracture of the proximal R tibia and unchanged medial compartment osteoarthritis. Saw Tuan Andrade PA-C at [facility] on 11/19/24; discontinued the use of her knee immobilizer. Was also instructed at that visit to begin partial weight bearing at 30 to 40 pounds increasing 10 to 15 pounds a week. Has an appointment with Dr. Sy on 01/06/25. #Unable to care for self at home needs placement #Underlying cognitive dysfunction, suspect dementia UA normal discussed with pts daughter holly who states this is her normal and that she has been getting progressively more confused at home #Uncomplicated diverticulitis Complete course of augmentin on 12/25, no acute complaints #PAF #Chronic HFpEF Evaluated [facility] cardi[facility] back in June 2023. 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 Beta-shea therapy not advised unless post pacemaker implantation. Risk of anticoagulation thought to outweigh the benefit given her frequent falls. Resting echocardiogram from October 2024 with LVEF = 60-65%, moderate concentric LVH, grade I DD, severely dilated LA, mild , mild NC, mild MR and mild TR. #Hypokalemia: resolved #Hypomagnesemia: resolved #DVT Prophylaxis: SQ Heparin Code Status: DNR/DNI PCP: Kendra Go MD Disposition: Plan to discharge tomorrow to [place] Patient seen in collaboration with Dr. Gómez. Please see addendum. I spent a total of 39 minutes coordinating, documenting, and providing care for this patient excluding time spent in the performance of separately billed services or time spent by another provider/QHP. This included personally reviewing all current laboratories and imaging studies, medical reconciliation, outpatient chart review and discussion with specialists. Admission and Anticipated Discharge Date Admission Date: December 19, 2024 Supervising Physician Co-Signing Physician Notes I have seen and discussed the case with the collaborating advanced practitioner. I agree with the above progress note. I have reviewed and confirmed the patients medical history, the findings on physical examination, and the patients diagnosis and treatment plan with Martin HENDRIX and agree with the information documented. Ms. Bond is an 89 year old woman admitted for conservative management of left tibial plateau fracture. Patient with no acute events overnight. Plan for discharge tomorrow to [facility] I spent a total of 15 minutes coordinating, documenting, and providing care for this patient excluding time spent in the performance of separately billed services. All of the aforementioned completed outside of collaborating with the assigned advanced practitioner for a full treatment plan. I have reviewed the advanced practitioner's documentation, and I agree with, and take responsibility for the plan of care Subjective Pt was seen and examined in room 385-2. Pt offers no acute concerns today. She denies f/c/s, chest pain, sob, n/v. Review of Systems Review of Systems: All systems reviewed & are unremarkable except as noted in HPI & below Physical Exam Physical Exam: Gen: WD/WN, NAD, A&O x1 self only, pleasant HEENT: Normocephalic, atraumatic, conjunctivae moist, sclerae anicteric, mucous membranes moist. Lung: Clear to Auscultation bilaterally, no wheezes/rales/rhonchi Heart: RRR, no murmurs, rubs, or gallops Abdomen: Soft, NT, ND +BS x 4 Extremities: No edema, LLE immobilizer in place Skin: Warm, no rash, negative turgor. Results & Data Results & Data Vital Signs (Past 12 Hours) Vital Signs Temp Pulse Resp BP Pulse Ox O2 Del Method 12/24/24 08:26 Room Air 12/24/24 07:51 36.8 C 91 H 18 123/69 95 Room Air Medications Administered Current Inpatient Medications Acetaminophen (Acetaminophen 325 Mg Tab) 650 mg PO Q4H PRN PRN Reason: Pain or Fever Stop: 01/18/25 21:31 Last Admin: 12/21/24 07:55 Dose: 650 mg Acetaminophen (Acetaminophen 500 Mg Tab) 1,000 mg PO BID [facility] Stop: 01/18/25 21:31 Last Admin: 12/24/24 08:50 Dose: 1,000 mg Amoxicillin/Clavulanate Potassium (Amoxicillin/Clavulanate 875 Mg Tab) [facility] [place] [place] Stop: 12/25/24 07:59 Last Admin: 12/24/24 08:51 Dose: 1 tab Atorvastatin Calcium (Atorvastatin 10 Mg Tab) 10 mg PO DAILY [facility] Stop: 01/19/25 08:59 Last Admin: 12/24/24 08:51 Dose: 10 mg Docusate Sodium (Docusate Sodium 100 Mg Cap) 100 mg PO BID [facility] Stop: 01/18/25 21:31 Last Admin: 12/24/24 08:50 Dose: 100 mg Escitalopram Oxalate (Escitalopram Oxalate 10 Mg Tab) 10 mg PO DAILY [facility] Stop: 01/19/25 08:59 Last Admin: 12/24/24 08:51 Dose: 10 mg Ferrous Sulfate (Ferrous Sulfate 325 Mg Tab) 325 mg PO BID [facility] Stop: 01/19/25 08:59 Last Admin: 12/24/24 08:50 Dose: 325 mg Heparin Sodium (Porcine) (Heparin Sod 5,000 Unit/0.5 Ml Vial) 5,000 units SQ Q12 BRETT Stop: 01/19/25 20:59 Last Admin: 12/24/24 08:50 Dose: 5,000 units Melatonin (Melatonin 3 Mg Tab) 6 mg PO HS BRETT Stop: 01/21/25 20:59 Last Admin: 12/23/24 20:10 Dose: 6 mg Pantoprazole Sodium (Pantoprazole 40 Mg Tab) 40 mg PO DAILY BRETT Stop: 01/19/25 08:59 Last Admin: 12/24/24 08:51 Dose: 40 mg (1) Fall Encounter type: initial encounter Qualified Code(s): W19.XXXA - Unspecified fall, initial encounter (2) Fracture of proximal end of left tibia Encounter type: initial encounter Fracture morphology: unspecified fracture morphology Fracture type: closed Qualified Code(s): S82.102A - Unspecified fracture of upper end of left tibia, initial encounter for closed fracture (4) Fracture of right tibial plateau Encounter type: subsequent encounter Fracture healing: with routine healing Fracture type: closed Qualified Code(s): S82.141D - Displaced bicondylar fracture of right tibia, subsequent encounter for closed fracture with routine healing (11) GERD (gastroesophageal reflux disease) Esophagitis presence: esophagitis presence not specified Qualified Code(s): K21.9 - Gastro-esophageal reflux disease without esophagitis
[2024-12-24 15:09] VITALS: TEMP 97.9
[2024-12-25 08:14] VITALS: BP 130/80; PULSE 107; RESP 18; O2SAT 98
--- NOTE | 2024-12-25 08:39 | Discharge Summary ---
Discharge Summary Date of Service December 25, 2024 Principal Dx & Hospital Course #1 = Principal Diagnosis (1) Fall: (2) Fracture of proximal end of left tibia: (3) Unable to care for self: (4) Fracture of right tibial plateau: (5) Diverticulitis: (6) PAF (paroxysmal atrial fibrillation): (7) Elevated creatine kinase level: (8) Heart valve disease: (9) Diastolic dysfunction: (10) Hypokalemia: (11) GERD (gastroesophageal reflux disease): Plan Patient is a 89y/o F with PMH significant for HTN, HLD, prediabetes, history of SVT, bradycardia, nonrheumatic aortic stenosis, nonrheumatic mitral valve regurgitation, GERD without esophagitis, large hiatal hernia, IPMN, angiomyolipoma of both kidneys, CKD stage IIIa, age-related osteoporosis, lumbar DDD, bilateral hearing loss and depression who presented to the ED via EMS on 12/19/24 after being found scooting around on the floor at home by her family as she was unable to get up on her own. 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 Additional imaging include head CT and CXR performed in the ED were unremarkable. Appreciate orthopedic surgery consult and PT/OT evaluations. Conservative management for now with bracing and NWB on LLE. PRN pain control. Orthotics placed brace on pt Appointment needed with Dr. Ramirez in about 2 weeks for repeat imaging; could potentially require operative management if the fracture were to become displaced. #Right tibial plateau fx Recent R tibial plateau fracture s/p ORIF on 10/03/[address] Sy at [facility]. Updated R knee XR with unchanged internal fixation of a fracture of the proximal R tibia and unchanged medial compartment osteoarthritis. Saw Tuan Andrade PA-C at [facility] on 11/19/24; discontinued the use of her knee immobilizer. Was also instructed at that visit to begin partial weight bearing at 30 to 40 pounds increasing 10 to 15 pounds a week. Has an appointment with Dr. Sy on 01/06/25. #Unable to care for self at home Needs placement #Underlying cognitive dysfunction, suspect dementia UA normal Discussed with pts daughter ohlly who states this is her normal and that she has been getting progressively more confused at home #Uncomplicated diverticulitis Complete course of Augmentin on 12/25, no acute complaints #PAF #Chronic HFpEF Evaluated by [facility] cardiology back in June 2023. 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 Beta-shea therapy not advised unless post pacemaker implantation. Risk of anticoagulation thought to outweigh the benefit given her frequent falls. Resting echocardiogram from October 2024 with LVEF = 60-65%, moderate concentric LVH, grade I DD, severely dilated LA, mild , mild MT, mild MR and mild TR. #Hypokalemia: resolved #Hypomagnesemia: resolved #DVT Prophylaxis: SQ Heparin Code Status: DNR/DNI PCP: Kendra Go MD Disposition: Discharging today to SNF ([place]) Patient seen in collaboration with Dr. Gómez. Notes For Next Care Provider Recurrent falls, found to have age related osteoporotic L tibial plateau fx nondisplaced this admission. Ortho rec conservative mgmt. Bracing and NWB LLE Follow up with ortho in 2 weeks for repeat XR NWB LLE Medication Changes From Visit N/a Admission HPI Per Admitting Provider 89-year-old female with PMH dyslipidemia, HTN, GERD, depression, history of right tibial plateau fracture s/p ORIF, and other problems listed below who presents to the ED for evaluation of generalized weakness. In September 2024, patient suffered a fall and a right tibial plateau fracture. Patient was treated at [facility] and underwent ORIF. Patient was discharged to [facility] however patient ultimately signed out AMA after a few days. Patient was admitted to [facility] 10/24 through 11/07 after office of aging found patient to be confused on a wellness check. Patient was discharged to [facility] in [place] and then discharged home on 11/27. Patient was seen by PCP on 12/01. She also has been set up with [facility] and office of aging. According to outpatient chart review, patient was seen in [place] ER on 12/17 due to increased confusion and a fall. Patient was discharged home. Today, patient was found on the floor by a home health nurse. Patient is somewhat of a poor historian. She reported to ED staff that she slid herself out of bed onto the floor however did not fall but was unable to get up. She is currently denying any pain to me but had reported back pain to the ED staff and states "my knees are giving me trouble". Patient denies chest pain, palpitation, shortness of breath. No lightheadedness, dizziness, diaphoresis, syncopal events. She denies abdominal pain, nausea, vomiting, diarrhea. No urinary symptoms. In the ED, patient is found to be in new onset rate controlled atrial fibrillation. She is hemodynamically stable. CT ABD/pelvis shows mild diverticulitis. Patient is afebrile and without leukocytosis. She was given IV Tylenol, lidocaine patch, IV Unasyn, IVF. Admission Exam Per Admitting Provider Constitutional: + ill appearing ( chronically); no acute distress and + not well groomed Eyes: PERRL, conjunctivae normal, anicteric sclerae ENMT: external ear and nose normal, oropharynx normal Respiratory: normal respiratory effort, lungs clear to auscultation Cardiovascular: Rate/Rhythm: regular rate and + irregularly irregular Vessels: normal peripheral pulses Extremities: no edema Gastrointestinal (Abdomen): normal bowel sounds, soft, nontender, no hepatosplenomegaly Musculoskeletal: bruising noted over left knee Skin: no rashes, warm and dry Neurologic: no focal motor deficits Psychiatric: Orientation: alert, oriented to person, oriented to place and cooperative; + not oriented to time Insight: + limited insight Discharge Exam Gen: WD/WN, NAD, sitting in bedside chair, A&Ox1 self only, pleasant HEENT: Normocephalic, atraumatic, conjunctivae moist, sclerae anicteric, mucous membranes moist Lung: Clear to Auscultation bilaterally, no wheezes/rales/rhonchi Heart: RRR Abdomen: Soft, NT, ND +BS x 4 Extremities: No edema, LLE immobilizer in place Skin: Warm, no rash Updated Medication List Medication Instructions Recorded Confirmed Type alendronate 70 mg tablet 70 mg PO Q7D #14 tabs 11/07/24 12/19/24 Rx atorvastatin 10 mg tablet 10 mg PO DAILY #30 tabs 11/07/24 12/19/24 Rx cholecalciferol (vitamin D3) 25 25 mcg PO DAILY #30 caps 11/07/24 12/19/24 Rx mcg (1,000 unit) capsule docusate sodium 100 mg capsule 100 mg PO BID #20 caps 11/07/24 12/19/24 Rx escitalopram oxalate 10 mg tablet 10 mg PO DAILY #30 tabs 11/07/24 12/19/24 Rx fluticasone propionate 50 1 spray intranasal BID #16 grams 11/07/24 12/19/24 Rx mcg/actuation nasal spray,suspension pantoprazole 40 mg tablet,delayed 40 mg PO DAILY #30 tabs 11/07/24 12/19/24 Rx release amlodipine 5 mg tablet (Norvasc) 5 mg PO DAILY 12/19/24 12/19/24 History ferrous sulfate 325 mg (65 mg 325 mg PO BID 12/19/24 12/19/24 History iron) tablet (FeroSul) Hospital Stay Data Consultations 12/19/24 17:54 ED Decision to Admit Stat 12/19/24 21:35 Consult Orthopedic Surgery Routine 12/23/24 09:55 Consult Behavioral Health Liaison Routine Diagnostic Imagining Performed 12/19/24 14:10 CT abd pelvis IV con only Stat 12/19/24 18:[address] [CT head/brain wo con] Urgent 12/20/24 07:21 CT knee LT wo con Stat Pending Results Patient Have Any Pending Studies at Discharge: No Discharge Instructions Given to Patient (Per Discharging Provider) MEDICATION CHANGES: None SUMMARY OF TEST RESULTS: You were admitted to hospital secondary to fall. Found to have a proximal L tibial fracture s/p fall in setting of age-related osteoporosis. Additional imaging include head CT and CXR performed in the ED were unremarkable. Orthopedic surgery recommending conservative management for now with bracing and non-weight bearing on LLE. PENDING TEST RESULTS: None RECOMMENDATIONS FOR FOLLOW-UP: Follow up with PCP as scheduled. Continue to wear brace on left lower extremity - non-weight bearing for now. Appointment needed with Dr. Ramirez in about 2 weeks for repeat imaging- could potentially require operative management if the fracture were to become displaced. For previous R tibial plateau fracture - partial weight bearing at 30-40 lbs increasing 10-15 lbs per week on RLE. Has an appointment with Dr. Sy on 01/06/25. OTHER INSTRUCTIONS: Seek medical attention if you have: * temperature above 101 * chest pain or trouble breathing * abdominal pain, nausea, vomiting * diarrhea, dark stools or bloody stools * any unanswered questions or concerns Call [phone] if symptoms are severe. Please take good care of yourself. Call if you have any questions or problems. You can reach a [facility] hospitalist on duty at [facility] 24 hours a day by calling [phone]. Total Time Total Time Spent Total Time Spent (In Minutes): 45 Supervising Physician Co-Signing Physician Notes I have seen and discussed the case with the collaborating advanced practitioner. I agree with the above progress note. I have reviewed and confirmed the patients medical history, the findings on physical examination, and the patients diagnosis and treatment plan with Martin HENDRIX and agree with the information documented. Ms. Bond is an 89 year old woman admitted for conservative management of left tibial plateau fracture. Patient with no acute events overnight. Patient evaluated in bedside chair and reports doing well overall. Denies uncontrolled pain or other concerns. PLan for NWB on LLE with hinged knee brace in place I spent a total of 15 minutes coordinating, documenting, and providing care for this patient excluding time spent in the performance of separately billed services. All of the aforementioned completed outside of collaborating with the assigned advanced practitioner for a full treatment plan. I have reviewed the advanced practitioner's documentation, and I agree with, and take responsibility for the plan of care
== END 2024-12-25 14:26 | DRG 543 ==
LOC: ED 12:49 → 2W 18:31 → SUATTDRO 18:31 → 2W 20:37 → 3N 12-22 00:59